=== PATIENT | female | born 1960 | race African-American/Black ===

== ENCOUNTER → 2016-09-28 | Outpatient (CLI) | payer OTHER ==
[~2016-09-28] MED LIST: ACET-1311 PO; ALBUAER2 INH; DPPI400 IM; GLC5 PO; METF-384 PO; TRAM-10 PO; VNTHFA/IN INH
[2016-09-28 09:35] LABS: BASO % 0.3 %; BASO ABS # 0.02 K/uL (0-0.2); COMPLETE YES; EOS % 2.7 %; HEMATOCRIT 37.3 % (37-47); IG% 0.3 %; LYMPH % 41.2 %; LYMPH ABS # 3.15 K/uL (1.2-3.4); MEAN CELL VOLUME 85.7 fL (80-100); MEAN CORPUSCULAR HEMOGLOBIN 28.5 pg (25-34); MEAN CORPUSCULAR HGB CONC 33.2 g/dl (32-36); MEAN PLATELET VOLUME 10.4 fL (7.4-10.4); MONO % 4.8 %; NEUT % 50.7 %; PLATELET COUNT 239 K/uL (130-400); RED BLOOD COUNT 4.35 M/uL (4.2-5.4); WHITE BLOOD COUNT 7.64 K/uL (4.8-10.8)
[2016-09-28 09:47] LABS: ALT/SGPT 17 U/L (12-78); BLOOD UREA NITROGEN 12 mg/dl (7-18); BUN/CREATININE RATIO 15.3 (10-20); CALCIUM 9.2 mg/dl (8.5-10.1); CARBON DIOXIDE 25 mmol/L (21-32); CHLORIDE 107 mmol/L (98-107); CHOLESTEROL 163 mg/dl (0-200); CREATININE 0.81 mg/dl (0.60-1.20); GLUCOSE 187 mg/dl (70-99); SODIUM 142 mmol/L (136-145); TRIGLYCERIDES 81 mg/dl (0-150); VERY LOW DENSITY LIPOPROT CALC 16 mg/dl
[2016-09-28 09:57] LABS: ALB/GLOB RATIO 0.8 (0.9-2); ALKALINE PHOSPHATASE 97 U/L (45-117); AST/SGOT 11 U/L (15-37); CHOLESTEROL/HDL RATIO 2.9; HDL CHOLESTEROL 57 mg/dl; LDL CHOLESTEROL CALCULATED 90 mg/dl
[2016-09-28 10:09] LABS: ESTIMATED AVERAGE GLUCOSE 203 mg/dl; HA1C FLAG Normal (Normal)
[2016-09-28 10:16] LABS: RATIO 40.8 mcg/mg (0-30.0)
== END | disposition home or self-care (01) ==
LOC: C.LAB 07:09
PROVIDERS: ATTEND Internal Medicine
DX: E11.49 Type 2 diabetes mellitus with other diabetic neurological complication (principal); Z86.79 Personal history of other diseases of the circulatory system

== ENCOUNTER → 2016-12-13 | Outpatient (CLI) | payer OTHER ==
[2016-12-13 10:11] LABS: RATIO 54.8 mcg/mg (0-30.0)
== END | disposition home or self-care (01) ==
LOC: C.LAB 07:25
PROVIDERS: ATTEND Nurse Practitioner Family
DX: E11.29 Type 2 diabetes mellitus with other diabetic kidney complication (principal)

== ENCOUNTER 2016-12-24 17:54 | Inpatient (IN) | payer OTHER ==
[~2016-12-24] VITALS: Ht 162.6 cm; Wt 75.0 kg
[~2016-12-24 17:54] MED LIST changes: -ACET-1311 PO; -METF-384 PO; -TRAM-10 PO; -VNTHFA/IN INH
[2016-12-24] MEDS ORDERED: SODIUM CHLORIDE 0.9% 1000ML 500 ML IV STA (18:54)
[2016-12-24] MEDS ORDERED: SODIUM CHLORIDE 0.9% 1000ML 1,000 ML IV STA (18:54)
[2016-12-24] MEDS ORDERED: KETOROLAC TROMETHAMINE 30 MG/ML VIAL IV STA (18:54)
[2016-12-24] MEDS ORDERED: PROMETHAZINE HCL INJ 25 MG/ML 1 ML VIAL IV STA (18:54)
[2016-12-24] MEDS ORDERED: PROMETHAZINE HCL INJ 12.5 MG in SODIUM CHLORIDE 0.9% 50ML 50 ML IV ONE (19:15)
[2016-12-24] MEDS ORDERED: VNTHFA/IN INH (19:19)
[2016-12-24] MEDS: FENTANYL CITRATE INJ 50 MCG/1 ML 2 ML VIAL IV PRN ×3 (19:20→21:24)
--- NOTE | 2016-12-24 19:20 | DIAGNOSTIC IMAGING REPORT ---
CHEST ONE VIEW PORTABLE CLINICAL HISTORY: Pain, radiating to the abdomen. COMPARISON STUDY: No previous studies for comparison. FINDINGS: The cardiac and mediastinal contours are normal. There is no evidence of focal pulmonary consolidation. There is no evidence of failure. No pleural effusions are visualized.[ There is no free intraperitoneal air. IMPRESSION: No active disease in the chest. Electronically signed by: Robert So M.D. 12/24/2016 7:19 PM Dictated Date/Time: 12/24/2016 7:19 PM
[2016-12-24 19:25] LABS: BASO % 0.1 %; BASO ABS # 0.01 K/uL (0-0.2); COMPLETE YES; EOS % 0.1 %; HEMATOCRIT 36.4 % (37-47); IG% 0.4 %; LYMPH % 5.2 %; LYMPH ABS # 0.86 K/uL (1.2-3.4); MEAN CELL VOLUME 82.7 fL (80-100); MEAN CORPUSCULAR HEMOGLOBIN 28.2 pg (25-34); MEAN CORPUSCULAR HGB CONC 34.1 g/dl (32-36); MEAN PLATELET VOLUME 10.3 fL (7.4-10.4); MONO % 3.2 %; PLATELET COUNT 192 K/uL (130-400); WHITE BLOOD COUNT 16.67 K/uL (4.8-10.8)
[2016-12-24] MEDS ORDERED: TRAM-10 PO (19:27)
--- NOTE | 2016-12-24 19:34 | EMERGENCY ROOM VISIT NOTE ---
History Report prepared by Yaneth: Melanie Meraz Under the Supervision of: Dr. Gulshan Melendez M.D. First contact with patient: 18:47 Chief Complaint: ABDOMINAL PAIN Stated Complaint: AB PAIN Nursing Triage Summary: Pt was brought in via ambulance BLS. Pts mother called 911 for severe abdominal pain. Pt has a history of colitis. Pt stated that at noon today she started to experience a lot of gas. Pt then stated that she started to have sharp, severe abdominal pain. Pt has nausea and has thrown up 3 times. Pt stated that nothing make the abdominal pain any better. Pt denies diarrhea or constipation History of Present Illness The patient is a 56 year old female who presents to the Emergency Room via EMS with complaints of worsening diffuse abdominal pain with onset several hours ago. She rates her pain as a 10/10. Today, the patient states that she started to have a great deal of gas after eating and that she then started to have sharp abdominal pain. The patient started to vomit this afternoon. Per patient, she has a history of colitis. Her last episode of abdominal pain due to colitis was in March 2016. She states that she has felt fine since then. For any colitis flare ups, the patient states that she takes Tramadol. The patient denies diarrhea, nausea, fever, coughing, a history of intestinal blockage. She has a history of cholecystomy. Source of History: patient Onset: several hours ago Position: abdomen Symptom Intensity: 10/10 Quality: other (abdominal pain) Timing: worsening Associated Symptoms: + vomiting, No cough, No diarrhea, No fevers, No nausea Review of Systems See HPI for pertinent positives & negatives. A total of 10 systems reviewed and were otherwise negative. Past Medical & Surgical Medical Problems: (1) abdominal pain, pancolitis (2) Asthma (3) Diabetes (4) Gallstones (5) Kidney stones Surgical Problems: (1) H/O tubal ligation (2) History of cholecystectomy Social History Problems: (1) Hepatitis C Family History Family History: diabetes Social History Smoking Status: Current Every Day Smoker Drug Use: none Marital Status: single Housing Status: lives with family Occupation Status: employed Current/Historical Medications Scheduled Glipizide (Glipizide), 5 MG PO BID Medroxyprogesterone Acetate (Depo-Provera), 1 DOSE IM Q 3 MONTHS Metformin Hcl (Glucophage), 1,000 MG PO BID Scheduled PRN Tramadol (Ultram), 50-100 MG PO Q8H PRN for Pain Allergies Coded Allergies: Ciprofloxacin (Verified Allergy, Mild, ITCHING, 04/30/16) Doxycycline (Verified Allergy, Unknown, ?, 04/30/16) Morphine (Verified Allergy, Unknown, HIVES, 04/30/16) Penicillins (Verified Allergy, Unknown, 04/30/16) Sulfa Antibiotics (Verified Allergy, Unknown, `, 04/30/16) Physical Exam Vital Signs Date Time Temp Pulse Resp B/P Pulse Ox O2 Delivery O2 Flow Rate FiO2 12/24/16 21:27 99 18 128/77 99 Room Air 12/24/16 20:32 99 Nasal Cannula 2.0 12/24/16 20:31 86 Room Air 12/24/16 20:30 98 18 172/107 92 Room Air 12/24/16 19:37 97 Nasal Cannula 2.0 12/24/16 19:36 80 Room Air 12/24/16 19:23 97 18 156/97 98 Room Air 12/24/16 18:05 36.8 94 20 182/79 97 Room Air Physical Exam GENERAL: Patient is in significant distress secondary to pain. HEENT: No acute trauma, normocephalic atraumatic, mucous membranes moist, no nasal congestion, no scleral icterus. NECK: No stridor, no adenopathy, no meningismus, trachea is midline. LUNGS: Clear to auscultation bilaterally, no wheeze, no rhonchi, breath sounds equal. HEART: Without murmurs gallops or rubs, regular rate and rhythm. ABDOMEN: Distended, tender on the right, no peritonitis, left abdomen is nontender, bowel sounds are positive, no obvious hernia. EXTREMITIES: No cyanosis or edema, full range of motion of all the joints without pain or difficulty, no signs for acute trauma. NEUROLOGIC: Oriented x 3, no acute motor or sensory deficits, no focal weakness. SKIN: No rash, no jaundice, no diaphoresis. Medical Decision & Procedures ER Provider Diagnostic Interpretation: X ray results and stated below per my interpretation and radiologist interpretation. Other radiology results and stated below per my review and radiologist interpretation: CHEST ONE VIEW PORTABLE CLINICAL HISTORY: Pain, radiating to the abdomen. COMPARISON STUDY: No previous studies for comparison. FINDINGS: The cardiac and mediastinal contours are normal. There is no evidence of focal pulmonary consolidation. There is no evidence of failure. No pleural effusions are visualized.[ There is no free intraperitoneal air. IMPRESSION: No active disease in the chest. Electronically signed by: Robert So M.D. 12/24/2016 7:19 PM Dictated Date/Time: 12/24/2016 7:[address] ABD/PELVIS IV CONTRAST ONLY CLINICAL HISTORY: Abdominal pain. Possible bowel obstruction. COMPARISON STUDY: 7916 TECHNIQUE: Following the IV administration of 115 mL of Optiray-320, CT scan of the abdomen and pelvis was performed from the lung bases to the proximal femurs. Images are reviewed in the axial, sagittal, and coronal planes. IV contrast was administered without complication. CT DOSE: 324.72 mGy.cm FINDINGS: Lower chest: There is mild bibasilar atelectatic change. There is a stable 6 mm perifissural left lower lobe pulmonary nodule. Liver: There is persistent intrahepatic biliary ductal dilatation. No space-occupying hepatic masses are visualized. Gallbladder: Surgically absent. Spleen: Normal in size and attenuation. Pancreas: Unremarkable. Adrenal glands: Unremarkable. Kidneys: There is symmetric renal cortical enhancement. The kidneys are normal in size without hydronephrosis. Bowel: There are no transition zones indicate bowel obstruction. There is no evidence of acute appendicitis. There is a stable calcified mesenteric nodule adjacent to the ileocecal valve measuring 13 mm. There is mild left colonic wall thickening versus nondistended colon Peritoneum: There is no intraperitoneal free air or abdominal ascites. There is a fat-containing periumbilical ventral hernia similar to the prior study. Vasculature: The abdominal aorta is normal in course and caliber. Adenopathy: None. Pelvic viscera: The bladder, and pelvic viscera are unremarkable. Skeletal structures: No destructive osseous lesions are seen. There is L5-S1 disc protrusion. IMPRESSION: 1. No evidence of bowel obstruction. No evidence of free air 2. Persistent intrahepatic biliary ductal dilatation. 3. Surgically absent gallbladder 4. Normal appendix 5. Stable nonspecific calcified mesenteric nodule near the level of the ileocecal valve 6. Mild colonic wall thickening versus nondistended colon Electronically signed by: Robert So M.D. 12/24/2016 8:36 PM Dictated Date/Time: 12/24/2016 8:28 PM Laboratory Results 12/24/16 19:10 Red Blood Count 4.40, Mean Corpuscular Volume 82.7, Mean Corpuscular Hemoglobin 28.2, Mean Corpuscular Hemoglobin Concent 34.1, Mean Platelet Volume 10.3, Neutrophils (%) (Auto) 91.0, Lymphocytes (%) (Auto) 5.2, Monocytes (%) (Auto) 3.2, Eosinophils (%) (Auto) 0.1, Basophils (%) (Auto) 0.1, Neutrophils # (Auto) 15.19, Lymphocytes # (Auto) 0.86, Monocytes # (Auto) 0.54, Eosinophils # (Auto) 0.01, Basophils # (Auto) 0.01 12/24/16 19:10 Test 12/24/16 19:10 12/24/16 20:33 White Blood Count 16.67 K/uL (4.8-10.8) Red Blood Count 4.40 M/uL (4.2-5.4) Hemoglobin 12.4 g/dL (12.0-16.0) Hematocrit 36.4 % (37-47) Mean Corpuscular Volume 82.7 fL (80-100) Mean Corpuscular Hemoglobin 28.2 pg (25-34) Mean Corpuscular Hemoglobin Concent 34.1 g/dl (32-36) Platelet Count 192 K/uL (130-400) Mean Platelet Volume 10.3 fL (7.4-10.4) Neutrophils (%) (Auto) 91.0 % Lymphocytes (%) (Auto) 5.2 % Monocytes (%) (Auto) 3.2 % Eosinophils (%) (Auto) 0.1 % Basophils (%) (Auto) 0.1 % Neutrophils # (Auto) 15.19 K/uL (1.4-6.5) Lymphocytes # (Auto) 0.86 K/uL (1.2-3.4) Monocytes # (Auto) 0.54 K/uL (0.11-0.59) Eosinophils # (Auto) 0.01 K/uL (0-0.5) Basophils # (Auto) 0.01 K/uL (0-0.2) RDW Standard Deviation 42.6 fL (36.4-46.3) RDW Coefficient of Variation 14.1 % (11.5-14.5) Immature Granulocyte % (Auto) 0.4 % Immature Granulocyte # (Auto) 0.06 K/uL (0.00-0.02) Anion Gap 9.0 mmol/L (3-11) Est Creatinine Clear Calc Drug Dose 64.3 ml/min Estimated GFR () 75.3 Estimated GFR (Non- 64.9 BUN/Creatinine Ratio 10.6 (10-20) Calcium Level 9.5 mg/dl (8.5-10.1) Total Bilirubin 2.3 mg/dl (0.2-1) Aspartate Amino Transf (AST/SGOT) 400 U/L (15-37) Alanine Aminotransferase (ALT/SGPT) 238 U/L (12-78) Alkaline Phosphatase 280 U/L (45-117) Total Protein 8.0 gm/dl (6.4-8.2) Albumin 3.6 gm/dl (3.4-5.0) Globulin 4.4 gm/dl (2.5-4.0) Albumin/Globulin Ratio 0.8 (0.9-2) Lipase 146 U/L (73-393) Chemistry Specimen Hemolysis Urine Color DK YELLOW Urine Appearance CLEAR (CLEAR) Urine pH 7.5 (4.5-7.5) Urine Specific [place] 1.015 (1.000-1.030) Urine Protein NEG (NEG) Urine Glucose (UA) 2+ (NEG) Urine Ketones 2+ (NEG) Urine Occult Blood NEG (NEG) Urine Nitrite NEG (NEG) Urine Bilirubin NEG (NEG) Urine Urobilinogen NEG (NEG) Urine Leukocyte Esterase NEG (NEG) Laboratory results reviewed by me. Medications Administered Medications (Trade) Dose Ordered Sig/Frank Route Start Time Stop Time Status Last Admin Dose Admin Sodium Chloride 500 ml @ 999 mls/hr Q31M STAT IV 12/24/16 18:54 12/24/16 19:24 DC 12/24/16 19:23 999 MLS/HR Sodium Chloride (Nss 1000ml) 1,000 ml @ 200 mls/hr Q5H STAT IV 12/24/16 18:54 12/24/16 23:53 DC 12/24/16 20:27 200 MLS/HR Ketorolac Tromethamine (Toradol Inj) 30 mg NOW STAT IV 12/24/16 18:54 12/24/16 18:58 DC 12/24/16 19:19 30 MG Fentanyl Citrate (Fentanyl Inj) 100 mcg Q15M PRN IV 12/24/16 19:00 12/25/16 00:42 DC 12/24/16 21:24 100 MCG ED Course 1849: The patient was evaluated in room C12. A complete history and physical exam was performed. 1853: Toradol 30 mg IV, Sodium Chloride 1000 ml @ 200 mls/hr IV, Sodium Chloride 500 ml @ 999 mls/hr IV 1899: Fentanyl Citrate 100 mcg IV 1914: Promethazine HCl 12.5 mg/ Sodium Chloride 50.5 ml @ 202 mls/ hr IV 2106: I reevaluated the patient; she is more comfortable. I discussed results and treatment plan with the patient. She verbalizes agreement and understanding. The patient will be evaluated for further management. 2114: I discussed the case with Dr. Kruger ([facility]) ; he will further evaluate the patient. Medical Decision The patient is a 56 year old female who presents to the ED with complaints of abdominal pain. Differential diagnoses considered include: bowel obstruction, bowel perforation, biliary colic, pancreatitis, diverticulitis, appendicitis, hernia, renal colic. There is a moderate leukocytosis which could be consistent with infection. No concerning anemia. No significant electrolyte abnormality or kidney failure. There was liver enzyme elevation consistent with a hepatitis. No pancreatitis. Urinalysis does not show infection. There was no hematuria. Chest x-ray showed no free air or pneumonia. Abdominal and pelvis CT did not show any bowel obstruction or acute surgical process. Biliary dilatation was noted. There was no free air. The patient received IV saline, IV Toradol, IV Phenergan and IV fentanyl. She does feel improved. The cause for her presentation is unclear, I am concerned about a biliary obstruction although given the liver enzyme findings and the leukocytosis. Her pain is in the right upper quadrant and the right side of the abdomen. The patient is in need of further care and workup, she is not stable for discharge home. I spoke with the patient and with case management. The on- call hospitalist was consulted. Consults Time Called: 2109 Consulting Physician: Dr. Kruger ([facility]) Returned Call: 2114 I discussed the case with Dr. Kruger ([facility]); he will further evaluate the patient. Impression Primary Impression: Right sided abdominal pain Additional Impressions: Vomiting Liver enzyme elevation Scribe Attestation The scribe's documentation has been prepared under my direction and personally reviewed by me in its entirety. I confirm that the note above accurately reflects all work, treatment, procedures, and medical decision making performed by me. Departure Information Dispostion Being Evaluated By Hospitalist Referrals Chon Paris M.D. (PCP) Patient Instructions [facility] Problem Qualifiers
[2016-12-24 19:51] LABS: ALB/GLOB RATIO 0.8 (0.9-2); BUN/CREATININE RATIO 10.6 (10-20); CALCIUM 9.5 mg/dl (8.5-10.1); CREATININE 0.98 mg/dl (0.60-1.20); POTASSIUM 3.6 mmol/L (3.5-5.1)
[2016-12-24] MEDS ORDERED: OPTIRAY 320 IV PRN (20:30)
--- NOTE | 2016-12-24 20:38 | DIAGNOSTIC IMAGING REPORT ---
CT ABD/PELVIS IV CONTRAST ONLY CLINICAL HISTORY: Abdominal pain. Possible bowel obstruction. COMPARISON STUDY: 7916 TECHNIQUE: Following the IV administration of 115 mL of Optiray-320, CT scan of the abdomen and pelvis was performed from the lung bases to the proximal femurs. Images are reviewed in the axial, sagittal, and coronal planes. IV contrast was administered without complication. CT DOSE: 324.72 mGy.cm FINDINGS: Lower chest: There is mild bibasilar atelectatic change. There is a stable 6 mm perifissural left lower lobe pulmonary nodule. Liver: There is persistent intrahepatic biliary ductal dilatation. No space-occupying hepatic masses are visualized. Gallbladder: Surgically absent. Spleen: Normal in size and attenuation. Pancreas: Unremarkable. Adrenal glands: Unremarkable. Kidneys: There is symmetric renal cortical enhancement. The kidneys are normal in size without hydronephrosis. Bowel: There are no transition zones indicate bowel obstruction. There is no evidence of acute appendicitis. There is a stable calcified mesenteric nodule adjacent to the ileocecal valve measuring 13 mm. There is mild left colonic wall thickening versus nondistended colon Peritoneum: There is no intraperitoneal free air or abdominal ascites. There is a fat-containing periumbilical ventral hernia similar to the prior study. Vasculature: The abdominal aorta is normal in course and caliber. Adenopathy: None. Pelvic viscera: The bladder, and pelvic viscera are unremarkable. Skeletal structures: No destructive osseous lesions are seen. There is L5-S1 disc protrusion. IMPRESSION: 1. No evidence of bowel obstruction. No evidence of free air 2. Persistent intrahepatic biliary ductal dilatation. 3. Surgically absent gallbladder 4. Normal appendix 5. Stable nonspecific calcified mesenteric nodule near the level of the ileocecal valve 6. Mild colonic wall thickening versus nondistended colon Electronically signed by: Robert So M.D. 12/24/2016 8:36 PM Dictated Date/Time: 12/24/2016 8:28 PM
[2016-12-24 21:00] LABS: URINE APPEARANCE CLEAR (CLEAR); URINE BILIRUBIN NEG (NEG); URINE COLOR DK YELLOW; URINE NITRITE NEG (NEG); URINE PH 7.5 (4.5-7.5); URINE SPECIFIC GRAVITY 1.015 (1.000-1.030); UROBILINOGEN NEG (NEG); ZZUR CULT IF INDIC CLEAN CATCH NO
[2016-12-24 21:15] LABS: MANUAL MICROSCOPIC REQUIRED? NO; REVIEW REQ? NO
[2016-12-24] MEDS ORDERED: HYDROmorphone INJ 0.5 MG/0.5 ML SYR IV PRN ×2 (21:45)
[2016-12-24] MEDS ORDERED: ONDANSETRON INJ 2 MG/ML 2 ML VIAL IV PRN (21:45)
[2016-12-24] MEDS ORDERED: GLUCOSE 40% GEL 15 GM TUBE PO PRN (21:45)
[2016-12-24] MEDS ORDERED: DEXTROSE 50% 50 ML SYR IV PRN (21:45)
[2016-12-24] MEDS ORDERED: DiphenhydrAMINE HCL 50 MG/ML VIAL IV PRN (21:45)
[2016-12-24] MEDS ORDERED: GLUCAGON FOR INJ 1 MG VIAL SQ PRN (21:45)
[2016-12-24] MEDS ORDERED: GLUCOSE 10 TABS/TUBE PO PRN (21:45)
[2016-12-24] MEDS ORDERED: KETOROLAC TROMETHAMINE 30 MG/ML VIAL IV PRN (21:45)
[2016-12-24 22:00] VITALS: BP 128/77; TEMP 36.8; O2SAT 99; Ht 162.6 cm; Wt 75.0 kg
[2016-12-24 22:23] LABS: BENZODIAZEPINE, URINE NEG (NEG); COCAINE,URINE NEG (NEG); PHENCYCLIDINE, URINE NEG (NEG)
[2016-12-24 22:54] VITALS: O2SAT 99
[2016-12-24] MEDS ORDERED: METF-384 PO (23:09)
--- NOTE | 2016-12-24 23:47 | History and Physical ---
History & Physical Date & Time of Service: Dec 24, 2016 at 23:47 Chief Complaint: Ab Pain Primary Care Physician: Chon Paris M.D. History of Present Illness Source: patient The patient is a 56-year-old female who presents to the emergency department via EMS with complaint of worsening generalized abdominal pain that began several hours prior to arrival. She reports that she developed a lot of gas after eating, then developed sharp abdominal pain, and then developed vomiting this afternoon. She does have a history of colitis with her last flare in March 2016. She's had no recent travel, no sick exposures. Past Medical/Surgical History Medical Problems: (1) Asthma Status: Chronic (2) Diabetes Status: Chronic (3) Gallstones Status: Chronic (4) Kidney stones Status: Chronic Surgical Problems: (1) H/O tubal ligation Status: Resolved (2) History of cholecystectomy Status: Resolved Social History Problems: (1) Hepatitis C Status: Chronic Family History Family History: diabetes Social History Smoking Status: Current Every Day Smoker Smokeless Tobacco Use: No Alcohol Use: none Drug Use: none Marital Status: single Housing status: lives with family Occupational Status: employed Immunizations History of Influenza Vaccine: No History of Tetanus Vaccine?: Yes History of Pneumococcal: No History of Hepatitis B Vaccine: Unknown Multi-Drug Resistant Organisms History of MDRO: No Allergies Coded Allergies: Ciprofloxacin (Verified Allergy, Mild, ITCHING, 04/30/16) Doxycycline (Verified Allergy, Unknown, ?, 04/30/16) Morphine (Verified Allergy, Unknown, HIVES, 04/30/16) Penicillins (Verified Allergy, Unknown, 04/30/16) Sulfa Antibiotics (Verified Allergy, Unknown, `, 04/30/16) Home Medications Scheduled Glipizide (Glipizide), 5 MG PO BID Medroxyprogesterone Acetate (Depo-Provera), 1 DOSE IM Q 3 MONTHS Metformin Hcl (Glucophage), 1,000 MG PO BID Scheduled PRN Tramadol (Ultram), 50-100 MG PO Q8H PRN for Pain Review of Systems The patient denies chest pain, palpitations, shortness of breath, cough, lower extremity swelling, vision change, hearing change, sore throat, fevers, chills, sweats, weight change, pelvic pain, blood in urine or stool, dysuria, urinary frequency or urgency, lightheadedness, dizziness, headache, memory loss, rash, abnormal bruising or bleeding, imbalance, focal or generalized weakness, numbness or tingling in arms or legs, arthralgias or myalgias, back or neck pain , night sweats, or allergy symptoms. The review of systems is otherwise negative other than for that already noted above, and at least 10 systems have been reviewed. Physical Exam Vital Signs Date Time Temp Pulse Resp B/P Pulse Ox O2 Delivery O2 Flow Rate FiO2 12/24/16 22:54 95 18 145/84 99 12/24/16 22:00 36.8 18 128/77 99 Room Air 12/24/16 21:27 99 18 128/77 99 Room Air 12/24/16 20:32 99 Nasal Cannula 2.0 12/24/16 20:31 86 Room Air 12/24/16 20:30 98 18 172/107 92 Room Air 12/24/16 19:37 97 Nasal Cannula 2.0 12/24/16 19:36 80 Room Air 12/24/16 19:23 97 18 156/97 98 Room Air 12/24/16 18:05 36.8 94 20 182/79 97 Room Air The patient is awake, well-developed and adequately nourished, alert and oriented 3, normocephalic and atraumatic, lying in bed and in no acute distress. HEENT--PERRL, EOMI, mucous membranes and oropharynx dry. Neck--supple, no JVD or bruits, thyroid normal, trachea midline, no adenopathy. Heart--normal S1 and S2, no extra beats, no murmurs, rubs or gallops. Lungs--clear bilaterally with good air movement, no respiratory distress, no accessory muscle use. Abdomen--normal bowel sounds and soft, vague generalized tenderness, nondistended, no hernias or masses, no organomegaly. Extremities--no cyanosis, clubbing or edema. There are good distal pulses b/l. Dermatologic--normal skin turgor, normal color, warm and dry, no abnormal lymph nodes, no rash. Neurologic--cranial nerves II through XII grossly intact, motor and sensory examination normal. Rheumatologic--normal range of motion, nontender, muscles and joints. Psychiatric--normal affect. Diagnostics Laboratory Results Results Past 24 Hours Test 12/24/16 19:10 12/24/16 20:33 12/24/16 21:40 12/24/16 22:32 Range/Units White Blood Count 16.67 4.8-10.8 K/uL Red Blood Count 4.40 4.2-5.4 M/uL Hemoglobin 12.4 12.0-16.0 g/dL Hematocrit 36.4 37-47 % Mean Corpuscular Volume 82.7 80-100 fL Mean Corpuscular Hemoglobin 28.2 25-34 pg Mean Corpuscular Hemoglobin Concent 34.1 32-36 g/dl Platelet Count 192 130-400 K/uL Mean Platelet Volume 10.3 7.4-10.4 fL Neutrophils (%) (Auto) 91.0 % Lymphocytes (%) (Auto) 5.2 % Monocytes (%) (Auto) 3.2 % Eosinophils (%) (Auto) 0.1 % Basophils (%) (Auto) 0.1 % Neutrophils # (Auto) 15.19 1.4-6.5 K/uL Lymphocytes # (Auto) 0.86 1.2-3.4 K/uL Monocytes # (Auto) 0.54 0.11-0.59 K/uL Eosinophils # (Auto) 0.01 0-0.5 K/uL Basophils # (Auto) 0.01 0-0.2 K/uL RDW Standard Deviation 42.6 36.4-46.3 fL RDW Coefficient of Variation 14.1 11.5-14.5 % Immature Granulocyte % (Auto) 0.4 % Immature Granulocyte # (Auto) 0.06 0.00-0.02 K/uL Sodium Level 140 136-145 mmol/L Potassium Level 3.6 3.5-5.1 mmol/L Chloride Level 104 98-107 mmol/L Carbon Dioxide Level 27 21-32 mmol/L Anion Gap 9.0 3-11 mmol/L Blood Urea Nitrogen 10 7-18 mg/dl Creatinine 0.98 0.60-1.20 mg/dl Est Creatinine Clear Calc Drug Dose 64.3 ml/min Estimated GFR () 75.3 Estimated GFR (Non- 64.9 BUN/Creatinine Ratio 10.6 10-20 Random Glucose 219 70-99 mg/dl Calcium Level 9.5 8.5-10.1 mg/dl Total Bilirubin 2.3 0.2-1 mg/dl Aspartate Amino Transf (AST/SGOT) 400 15-37 U/L Alanine Aminotransferase (ALT/SGPT) 238 12-78 U/L Alkaline Phosphatase 280 45-117 U/L Total Protein 8.0 6.4-8.2 gm/dl Albumin 3.6 3.4-5.0 gm/dl Globulin 4.4 2.5-4.0 gm/dl Albumin/Globulin Ratio 0.8 0.9-2 Lipase 146 73-393 U/L Chemistry Specimen Hemolysis Urine Color DK YELLOW Urine Appearance CLEAR CLEAR Urine pH 7.5 4.5-7.5 Urine Specific [place] 1.015 1.000-1.030 Urine Protein NEG NEG Urine Glucose (UA) 2+ NEG Urine Ketones 2+ NEG Urine Occult Blood NEG NEG Urine Nitrite NEG NEG Urine Bilirubin NEG NEG Urine Urobilinogen NEG NEG Urine Leukocyte Esterase NEG NEG Urine Opiates Screen NEG NEG Urine Methadone, Qualitative NEG NEG Urine Barbiturates NEG NEG Urine Phencyclidine (PCP) Level NEG NEG Ur Amphetamine/Methamphetamine NEG NEG MDMA (Ecstasy) Screen NEG NEG Urine Benzodiazepines Screen NEG NEG Urine Cocaine Metabolite NEG NEG Urine Marijuana (THC) NEG NEG Ethyl Alcohol mg/dL < 3.0 0-3 mg/dl Diagnostic Radiology Patient Name: SAVANNAH WRIGHT Unit Number: [id number] Dictated: 12/24/161918 Transcribed: 12/24/161918 ARG Printed Date/Time: [~ rep prt dt]/[~ rep prt tm] [~ rep ct labl] - [~ rep ct ivnm] [facility] Radiology Department [place] [id number] Dictated: 12/24/161918 Transcribed: 12/24/161918 ARG Printed Date/Time: [~ rep prt dt]/[~ rep prt tm] [~ rep ct labl] - [~ rep ct ivnm] CHEST ONE VIEW PORTABLE CLINICAL HISTORY: Pain, radiating to the abdomen. COMPARISON STUDY: No previous studies for comparison. FINDINGS: The cardiac and mediastinal contours are normal. There is no evidence of focal pulmonary consolidation. There is no evidence of failure. No pleural effusions are visualized.[ There is no free intraperitoneal air. IMPRESSION: No active disease in the chest. Electronically signed by: Robert So M.D. 12/24/2016 7:19 PM Dictated Date/Time: 12/24/2016 7:19 PM The status of this report is Signed. Draft = Not yet reviewed or approved by Radiologist. Signed = Reviewed and approved by Radiologist. <AttendingPhy></AttendingPhy> <FamilyPhy>Chon Paris M.D.</FamilyPhy> < PrimaryPhy>Chon Paris M.D.</PrimaryPhy> <UnitNumber>[id number]</UnitNumber > <VisitNumber>[id number]</VisitNumber> <PatientName>SAVANNAH WRIGHT</ PatientName> <DateOfBirth>1960</DateOfBirth> <Location>[facility]</Location> < ServiceDate>12/24/16</ServiceDate> <MNE>ESINDI</MNE> <OrderingPhy>Gulshan Melendez M.D.</OrderingPhy> <OrderingPhyMNE>f rep ord dr holland</OrderingPhyMNE> < DictatingPhyMNE>f rep dict dr holland</DictatingPhyMNE> <CCListMNE>f rep ct mne</ CCListMNE> <AdmittingPhyMNE>f pt admit dr holland</AdmittingPhyMNE> <AttendingPhyMNE >f pt attend dr holland</AttendingPhyMNE> <ConsultingPhyMNE>f pt consult dr holland</ConsultingPhyMNE> <FamilyPhyMNE>f pt fam dr holland</FamilyPhyMNE> <OtherPhyMNE>f pt other dr holland</OtherPhyMNE> < PrimaryPhyMNE>f pt prim care dr holland</PrimaryPhyMNE> <ReferringPhyMNE>f pt referring dr holland</ReferringPhyMNE> Patient Name: SAVANNAH WRIGHT Unit Number: [id number] Dictated: 12/24/162027 Transcribed: 12/24/162027 ARG Printed Date/Time: [~ rep prt dt]/[~ rep prt tm] [~ rep ct labl] - [~ rep ct ivnm] [facility] [place] [place] [address] Dictated: 12/24/162027 Transcribed: 12/24/162027 ARG Printed Date/Time: [~ rep prt dt]/[~ rep prt tm] [~ rep ct labl] - [~ rep ct ivnm] [~ rep ct add3]] CT ABD/PELVIS IV CONTRAST ONLY CLINICAL HISTORY: Abdominal pain. Possible bowel obstruction. COMPARISON STUDY: 7916 TECHNIQUE: Following the IV administration of 115 mL of Optiray-320, CT scan of the abdomen and pelvis was performed from the lung bases to the proximal femurs. Images are reviewed in the axial, sagittal, and coronal planes. IV contrast was administered without complication. CT DOSE: 324.72 mGy.cm FINDINGS: Lower chest: There is mild bibasilar atelectatic change. There is a stable 6 mm perifissural left lower lobe pulmonary nodule. Liver: There is persistent intrahepatic biliary ductal dilatation. No space-occupying hepatic masses are visualized. Gallbladder: Surgically absent. Spleen: Normal in size and attenuation. Pancreas: Unremarkable. Adrenal glands: Unremarkable. Kidneys: There is symmetric renal cortical enhancement. The kidneys are normal in size without hydronephrosis. Bowel: There are no transition zones indicate bowel obstruction. There is no evidence of acute appendicitis. There is a stable calcified mesenteric nodule adjacent to the ileocecal valve measuring 13 mm. There is mild left colonic wall thickening versus nondistended colon Peritoneum: There is no intraperitoneal free air or abdominal ascites. There is a fat-containing periumbilical ventral hernia similar to the prior study. Vasculature: The abdominal aorta is normal in course and caliber. Adenopathy: None. Pelvic viscera: The bladder, and pelvic viscera are unremarkable. Skeletal structures: No destructive osseous lesions are seen. There is L5-S1 disc protrusion. IMPRESSION: 1. No evidence of bowel obstruction. No evidence of free air 2. Persistent intrahepatic biliary ductal dilatation. 3. Surgically absent gallbladder 4. Normal appendix 5. Stable nonspecific calcified mesenteric nodule near the level of the ileocecal valve 6. Mild colonic wall thickening versus nondistended colon Electronically signed by: Robert So M.D. 12/24/2016 8:36 PM Dictated Date/Time: 12/24/2016 8:28 PM The status of this report is Signed. Draft = Not yet reviewed or approved by Radiologist. Signed = Reviewed and approved by Radiologist. <AttendingPhy></AttendingPhy> <FamilyPhy>Chon Paris M.D.</FamilyPhy> < PrimaryPhy>Chon Paris M.D.</PrimaryPhy> <UnitNumber>[id number]</UnitNumber > <VisitNumber>[id number]</VisitNumber> <PatientName>SAVANNAH WRIGHT</ PatientName> <DateOfBirth>1960</DateOfBirth> <Location>[facility]</Location> < ServiceDate>12/24/16</ServiceDate> <MNE>ESINDI</MNE> <OrderingPhy>Gulshan Melendez M.D.</OrderingPhy> <OrderingPhyMNE>f rep ord dr holland</OrderingPhyMNE> < DictatingPhyMNE>f rep dict dr holland</DictatingPhyMNE> <CCListMNE>f rep ct am[place]</ CCListMNE> <AdmittingPhyMNE>f pt admit dr holland</AdmittingPhyMNE> <AttendingPhyMNE >f pt attend dr holland</AttendingPhyMNE> <ConsultingPhyMNE>f pt consult dr hollnad</ConsultingPhyMNE> <FamilyPhyMNE>f pt fam dr holland</FamilyPhyMNE> <OtherPhyMNE>f pt other dr holland</OtherPhyMNE> < PrimaryPhyMNE>f pt prim care dr holland</PrimaryPhyMNE> <ReferringPhyMNE>f pt referring dr holland</ReferringPhyMNE> Impression Assessment and Plan Abnormal liver function tests/history of cholecystectomy/dilated common bowel duct--the patient will be admitted to medical floor and kept nothing by mouth. I went to order an MRCP however, she says she is too claustrophobic. We'll therefore consult gastroenterology see if they feel any ERCP. Placed on normal saline with potassium chloride 20 mEq at 100 ML's per hour. She is allergic to morphine, Cipro, penicillins and sulfas. She will be placed on Dilaudid 0.25- 0.5 mg IV every 2 hours when necessary, Zofran 4 mg IV every 6 hours when necessary, and tonics 40 mg IV daily, and ceftriaxone 1 g IV daily. Of note, the patient received 300 g of fentanyl IV while in the emergency department. Diabetes mellitus--hold glipizide 5 mg by mouth twice a day and metformin 1000 mg by mouth twice a day. Place on Accu-Cheks before meals and at bedtime with NovoLog coverage. Medroxyprogesterone acetate--cc IM dosing every 3 months. Level of Care Med/Surg Advanced Directives Existing Advance Directive: No Existing Living Will: No Existing Power of Insurance Office Manager: No Resuscitation Status FULL RESUSCITATION VTE Prophylaxis VTE Risk Assessment Done? Y/N: Yes Risk Level: Moderate Given or contraindicated: SCD's
[2016-12-25] VITALS: BP 137/82; PULSE 94; TEMP 37.3; O2SAT 98
[2016-12-25] MEDS ORDERED: NSS + 20MEQ KCL 1000ML 1,000 ML IV SCH (01:00)
[2016-12-25] MEDS ORDERED: NURSING VERBAL MED ORDER ONE (04:45)
[2016-12-25] MEDS ORDERED: INSULIN ASPART 100 UNITS/ML 3 ML PEN SC SCH ×2 (06:00→06:30)
[2016-12-25 07:33] LABS: BASO % 0.1 %; BASO ABS # 0.01 K/uL (0-0.2); COMPLETE YES; EOS % 0.1 %; HEMATOCRIT 30.7 % (37-47); IG% 0.2 %; LYMPH % 9.3 %; LYMPH ABS # 1.52 K/uL (1.2-3.4); MEAN CORPUSCULAR HGB CONC 34.5 g/dl (32-36); MEAN PLATELET VOLUME 8.8 fL (7.4-10.4); MONO % 3.8 %; NEUT % 86.5 %; PLATELET COUNT 158 K/uL (130-400); RED BLOOD COUNT 3.79 M/uL (4.2-5.4); WHITE BLOOD COUNT 16.41 K/uL (4.8-10.8)
[2016-12-25 07:43] LABS: INR 1.1 (0.9-1.1); PARTIAL THROMBOPLASTIN RATIO 0.9; PROTHROMBIN TIME (PATIENT) 11.7 SECONDS (9.0-12.0)
[2016-12-25 08:01] LABS: BUN/CREATININE RATIO 14.4 (10-20); CALCIUM 8.3 mg/dl (8.5-10.1); CREATININE 0.89 mg/dl (0.60-1.20); MAGNESIUM 1.9 mg/dl (1.8-2.4); POTASSIUM 3.8 mmol/L (3.5-5.1)
[2016-12-25] MEDS ORDERED: IMIPENEM/CILASTATIN IV 500 MG in DEXTROSE 5% 100ML 100 ML IV SCH (08:30)
[2016-12-25] MEDS ORDERED: IMIPENEM/CILASTATIN IV 400 MG in DEXTROSE 5% 100ML 100 ML IV SCH (09:00)
--- NOTE | 2016-12-25 09:39 | Hospitalist Progress Note ---
Hospitalist Progress Note Date of Service Dec 25, 2016. Subjective Pt evaluation today including: conversation w/ patient, physical exam, chart review Voiding: no voiding problems Respiratory: No cough, No dyspnea at rest, No dyspnea on exertion, No hemoptysis, No problem reported, No see HPI, No shortness of breath, No sputum, No wheezing Cardiovascular: No PND, No chest pain, No claudication, No edema, No orthopnea, No palpitations, No problem reported, No see HPI Abdomen: + pain (improved abd pain) Medications Medications (Trade) Dose Ordered Sig/Frank Route Start Time Stop Time Status Last Admin Dose Admin Sodium Chloride 500 ml @ 999 mls/hr Q31M STAT IV 12/24/16 18:54 12/24/16 19:24 DC 12/24/16 19:23 999 MLS/HR Sodium Chloride (Nss 1000ml) 1,000 ml @ 200 mls/hr Q5H STAT IV 12/24/16 18:54 12/24/16 23:53 DC 12/24/16 20:27 200 MLS/HR Ketorolac Tromethamine (Toradol Inj) 30 mg NOW STAT IV 12/24/16 18:54 12/24/16 18:58 DC 12/24/16 19:19 30 MG Fentanyl Citrate 100 mcg 100 mcg Q15M PRN IV 12/24/16 19:00 12/25/16 00:42 DC 12/24/16 21:24 100 MCG Potassium Chloride/Sodium Chloride (Nss + 20meq KCl 1000ml) 1,000 ml @ 100 mls/hr Q10H IV 12/25/16 01:00 01/24/17 00:59 12/25/16 01:28 100 MLS/HR Insulin Aspart (novoLOG ASPART) SLIDING SCALE If C... Q6 SC 12/25/16 06:00 01/24/17 05:59 12/25/16 05:51 4 UNITS Objective Vital Signs Date Time Temp Pulse Resp B/P Pulse Ox O2 Delivery O2 Flow Rate FiO2 12/25/16 08:33 Room Air 12/25/16 00:00 37.3 94 16 137/82 98 Room Air 12/25/16 00:00 Room Air 12/24/16 22:54 95 18 145/84 99 12/24/16 22:00 36.8 18 128/77 99 Room Air 12/24/16 21:27 99 18 128/77 99 Room Air 12/24/16 20:32 99 Nasal Cannula 2.0 12/24/16 20:31 86 Room Air 12/24/16 20:30 98 18 172/107 92 Room Air 12/24/16 19:37 97 Nasal Cannula 2.0 12/24/16 19:36 80 Room Air 12/24/16 19:23 97 18 156/97 98 Room Air 12/24/16 18:05 36.8 94 20 182/79 97 Room Air Physical Exam General Appearance: WD/WN, no apparent distress Eyes: normal inspection, PERRL, EOMI ENT: normal ENT inspection, hearing grossly normal, TMs normal Neck: supple, no adenopathy, thyroid normal, no JVD Respiratory/Chest: chest non-tender, lungs clear, normal breath sounds Cardiovascular: regular rate, rhythm, no edema, no gallop, no JVD Abdomen: normal bowel sounds, non tender, soft Extremities: normal range of motion Neurologic/Psychiatric: piano professor II-XII nml as tested, oriented x 3 Skin: normal color Lymphatic: no adenopathy Laboratory Results Last 24 Hours Test 12/24/16 19:10 12/24/16 20:33 12/24/16 21:40 12/24/16 22:32 White Blood Count 16.67 K/uL Red Blood Count 4.40 M/uL Hemoglobin 12.4 g/dL Hematocrit 36.4 % Mean Corpuscular Volume 82.7 fL Mean Corpuscular Hemoglobin 28.2 pg Mean Corpuscular Hemoglobin Concent 34.1 g/dl Platelet Count 192 K/uL Mean Platelet Volume 10.3 fL Neutrophils (%) (Auto) 91.0 % Lymphocytes (%) (Auto) 5.2 % Monocytes (%) (Auto) 3.2 % Eosinophils (%) (Auto) 0.1 % Basophils (%) (Auto) 0.1 % Neutrophils # (Auto) 15.19 K/uL Lymphocytes # (Auto) 0.86 K/uL Monocytes # (Auto) 0.54 K/uL Eosinophils # (Auto) 0.01 K/uL Basophils # (Auto) 0.01 K/uL RDW Standard Deviation 42.6 fL RDW Coefficient of Variation 14.1 % Immature Granulocyte % (Auto) 0.4 % Immature Granulocyte # (Auto) 0.06 K/uL Sodium Level 140 mmol/L Potassium Level 3.6 mmol/L Chloride Level 104 mmol/L Carbon Dioxide Level 27 mmol/L Anion Gap 9.0 mmol/L Blood Urea Nitrogen 10 mg/dl Creatinine 0.98 mg/dl Est Creatinine Clear Calc Drug Dose 64.3 ml/min Estimated GFR () 75.3 Estimated GFR (Non- 64.9 BUN/Creatinine Ratio 10.6 Random Glucose 219 mg/dl Calcium Level 9.5 mg/dl Total Bilirubin 2.3 mg/dl Aspartate Amino Transf (AST/SGOT) 400 U/L Alanine Aminotransferase (ALT/SGPT) 238 U/L Alkaline Phosphatase 280 U/L Total Protein 8.0 gm/dl Albumin 3.6 gm/dl Globulin 4.4 gm/dl Albumin/Globulin Ratio 0.8 Lipase 146 U/L Chemistry Specimen Hemolysis Urine Color DK YELLOW Urine Appearance CLEAR Urine pH 7.5 Urine Specific [place] 1.015 Urine Protein NEG Urine Glucose (UA) 2+ Urine Ketones 2+ Urine Occult Blood NEG Urine Nitrite NEG Urine Bilirubin NEG Urine Urobilinogen NEG Urine Leukocyte Esterase NEG Urine Opiates Screen NEG Urine Methadone, Qualitative NEG Urine Barbiturates NEG Urine Phencyclidine (PCP) Level NEG Ur Amphetamine/Methamphetamine NEG MDMA (Ecstasy) Screen NEG Urine Benzodiazepines Screen NEG Urine Cocaine Metabolite NEG Urine Marijuana (THC) NEG Ethyl Alcohol mg/dL < 3.0 mg/dl Test 12/25/16 05:47 12/25/16 07:25 Bedside Glucose 245 mg/dl White Blood Count 16.41 K/uL Red Blood Count 3.79 M/uL Hemoglobin 10.6 g/dL Hematocrit 30.7 % Mean Corpuscular Volume 81.0 fL Mean Corpuscular Hemoglobin 28.0 pg Mean Corpuscular Hemoglobin Concent 34.5 g/dl Platelet Count 158 K/uL Mean Platelet Volume 8.8 fL Neutrophils (%) (Auto) 86.5 % Lymphocytes (%) (Auto) 9.3 % Monocytes (%) (Auto) 3.8 % Eosinophils (%) (Auto) 0.1 % Basophils (%) (Auto) 0.1 % Neutrophils # (Auto) 14.22 K/uL Lymphocytes # (Auto) 1.52 K/uL Monocytes # (Auto) 0.62 K/uL Eosinophils # (Auto) 0.01 K/uL Basophils # (Auto) 0.01 K/uL RDW Standard Deviation 41.8 fL RDW Coefficient of Variation 14.0 % Immature Granulocyte % (Auto) 0.2 % Immature Granulocyte # (Auto) 0.03 K/uL Prothrombin Time 11.7 SECONDS Prothromb Time International Ratio 1.1 Activated Partial Thromboplast Time 24.3 SECONDS Partial Thromboplastin Ratio 0.9 Sodium Level 142 mmol/L Potassium Level 3.8 mmol/L Chloride Level 108 mmol/L Carbon Dioxide Level 26 mmol/L Anion Gap 8.0 mmol/L Blood Urea Nitrogen 13 mg/dl Creatinine 0.89 mg/dl Est Creatinine Clear Calc Drug Dose 70.9 ml/min Estimated GFR () 84.6 Estimated GFR (Non- 73.0 BUN/Creatinine Ratio 14.4 Random Glucose 141 mg/dl Calcium Level 8.3 mg/dl Magnesium Level 1.9 mg/dl Total Bilirubin 2.5 mg/dl Direct Bilirubin 1.8 mg/dl Aspartate Amino Transf (AST/SGOT) 230 U/L Alanine Aminotransferase (ALT/SGPT) 228 U/L Alkaline Phosphatase 249 U/L Total Protein 6.8 gm/dl Albumin 2.9 gm/dl Diagnostic Results [~ rep ct add3]] CT ABD/PELVIS IV CONTRAST ONLY CLINICAL HISTORY: Abdominal pain. Possible bowel obstruction. COMPARISON STUDY: 7916 TECHNIQUE: Following the IV administration of 115 mL of Optiray-320, CT scan of the abdomen and pelvis was performed from the lung bases to the proximal femurs. Images are reviewed in the axial, sagittal, and coronal planes. IV contrast was administered without complication. CT DOSE: 324.72 mGy.cm FINDINGS: Lower chest: There is mild bibasilar atelectatic change. There is a stable 6 mm perifissural left lower lobe pulmonary nodule. Liver: There is persistent intrahepatic biliary ductal dilatation. No space-occupying hepatic masses are visualized. Gallbladder: Surgically absent. Spleen: Normal in size and attenuation. Pancreas: Unremarkable. Adrenal glands: Unremarkable. Kidneys: There is symmetric renal cortical enhancement. The kidneys are normal in size without hydronephrosis. Bowel: There are no transition zones indicate bowel obstruction. There is no evidence of acute appendicitis. There is a stable calcified mesenteric nodule adjacent to the ileocecal valve measuring 13 mm. There is mild left colonic wall thickening versus nondistended colon Peritoneum: There is no intraperitoneal free air or abdominal ascites. There is a fat-containing periumbilical ventral hernia similar to the prior study. Vasculature: The abdominal aorta is normal in course and caliber. Adenopathy: None. Pelvic viscera: The bladder, and pelvic viscera are unremarkable. Skeletal structures: No destructive osseous lesions are seen. There is L5-S1 disc protrusion. IMPRESSION: 1. No evidence of bowel obstruction. No evidence of free air 2. Persistent intrahepatic biliary ductal dilatation. 3. Surgically absent gallbladder 4. Normal appendix 5. Stable nonspecific calcified mesenteric nodule near the level of the ileocecal valve 6. Mild colonic wall thickening versus nondistended colon Electronically signed by: Robert So M.D. 12/24/2016 8:36 PM Dictated Date/Time: 12/24/2016 8:28 PM Assessment and Plan Abnormal liver function tests/history of cholecystectomy/dilated common bowel duct--the patient will be admitted to medical floor and kept nothing by mouth. ERCP by GI Continue IV fluids, IV analgesics, On IV Ceftriaxone,. Diabetes mellitus--hold glipizide 5 mg by mouth twice a day and metformin 1000 mg by mouth twice a day. Place on Accu-Cheks before meals and at bedtime with NovoLog coverage. Medroxyprogesterone acetate--cc IM dosing every 3 months.
[2016-12-25] MEDS ORDERED: PANTOprazole INJ 40 MG in SYRINGE 0 ML IV SCH (11:00)
[2016-12-25] MEDS ORDERED: IMIPENEM/CILASTATIN CONSULT ACTIVE PRN (12:45)
--- NOTE | 2016-12-25 12:51 | GASTROINTESTINAL CONSULTATION ---
DATE OF CONSULTATION: 12/25/2016 DATE OF CONSULTATION: 12/25/2016. CHIEF COMPLAINT: Abdominal discomfort. HISTORY OF PRESENT ILLNESS: The patient is a 56-year-old -[place] female who presented to the Emergency Room yesterday evening for evaluation of right-sided abdominal discomfort. The patient began several hours after a meal. She notes having a lot of gas and bloating. She denies having fevers but notes having chills at home. She has had several episodes of this in the past and underwent an ERCP for similar symptoms in 2006. The patient has a history of cholecystectomy which was done she thinks 15-20 years ago. The patient denies having difficulty swallowing, pain with swallowing, nausea or vomiting presently. She does have a history of nonspecific colitis and is followed by Dr. Troy Mirza as an outpatient. PAST MEDICAL HISTORY: 1. Asthma. 2. Diabetes. 3. Kidney stones. PAST SURGICAL HISTORY: 1. Tubal ligation. 2. Cholecystectomy. FAMILY HISTORY: Diabetes. SOCIAL HISTORY: The patient is a smoker, one-half pack to 1 pack per day, alcohol nondrinker, lives with family, employed. ALLERGIES: CIPRO, DOXYCYCLINE, MORPHINE, PENICILLIN, SULFA. HOME MEDICATIONS: Glipizide, Depo-Provera, metformin 1000 twice daily and p.r.n. medication Ultram. REVIEW OF SYSTEMS: GENERAL: No fevers, no chills. CARDIAC: No chest pain, no palpitations. PULMONARY: Clear, no cough, no shortness of breath. ENDOCRINE: No polyuria, no polydipsia. DERMATOLOGY: No itching, no rashes. PSYCHIATRIC: No depression. No suicidal ideation. NEUROLOGIC: No rash, no headache. No double vision noted. MUSCULOSKELETAL: No new joint pains, no new muscle pains. PHYSICAL EXAMINATION: GENERAL: No obvious distress. VITAL SIGNS: Temperature 37.3, pulse 94, respiratory rate 16, blood pressure 137/82, oxygenation is 98%. EYES: Sclera mild icterus noted. HEAD, EYES, EARS, NOSE, AND THROAT: No JVD noted. LUNGS: Clear to auscultation. CARDIAC: Regular rate and rhythm. ABDOMEN: Right upper quadrant tender to palpation. EXTREMITIES: No edema noted. LABORATORY DATA: White blood cell count 16.7, hematocrit 36.4, platelet count 192. Chemistry -- sodium 142, potassium is 3.8, chloride is 108, BUN 13, creatinine 0.89, calcium is 8.3, total bilirubin 2.5, AST 230, ALT 228, alkaline phosphatase 249, albumin is 2.9. PT 11.7, INR 1.1. IMAGING STUDIES: CT dated 12/24/2016 dilated intrahepatic ducts noted by radiology, unable to determine if CBD was dilated or stones seen. IMPRESSION: A 56-year-old female with a past history of choledocholithiasis, presenting with abdominal pain and new elevation of her liver associated enzymes. The patient apparently has a history of hepatitis C, but I would wonder about underlying gallstones and perhaps cholangitis. This was discussed at great length with the patient today. She would prefer to undergo noninvasive evaluation at this time and does not want to undergo an MRI presently. We will plan to do a right upper quadrant ultrasound today with plan to proceed with ERCP if found to have new gallstones in the common bile duct. The patient should have blood cultures done today and be started empirically on antibiotics. RECOMMENDATIONS: 1. NPO. 2. Right upper quadrant ultrasound. 3. Begin empiric antibiotic coverage. 4. Please call with any questions or concerns. Thank you for this consultation. SIMRAN
--- NOTE | 2016-12-30 15:19 | Discharge Summary ---
Discharge Summary Date of Service Dec 30, 2016. Discharge Summary Admission Date: Dec 24, 2016 at 21:39 Discharge Date: Dec 25, 2016 Discharge Disposition: Home Principal Diagnosis: Abnormal LFTS Immunizations: Have You Had Influenza Vaccine: No History of Tetanus Vaccine?: Yes History of Pneumococcal: No History of Hepatitis B Vaccine: Unknown Procedures: CT ABD/PELVIS IV CONTRAST ONLY CLINICAL HISTORY: Abdominal pain. Possible bowel obstruction. COMPARISON STUDY: 7916 TECHNIQUE: Following the IV administration of 115 mL of Optiray-320, CT scan of the abdomen and pelvis was performed from the lung bases to the proximal femurs. Images are reviewed in the axial, sagittal, and coronal planes. IV contrast was administered without complication. CT DOSE: 324.72 mGy.cm FINDINGS: Lower chest: There is mild bibasilar atelectatic change. There is a stable 6 mm perifissural left lower lobe pulmonary nodule. Liver: There is persistent intrahepatic biliary ductal dilatation. No space-occupying hepatic masses are visualized. Gallbladder: Surgically absent. Spleen: Normal in size and attenuation. Pancreas: Unremarkable. Adrenal glands: Unremarkable. Kidneys: There is symmetric renal cortical enhancement. The kidneys are normal in size without hydronephrosis. Bowel: There are no transition zones indicate bowel obstruction. There is no evidence of acute appendicitis. There is a stable calcified mesenteric nodule adjacent to the ileocecal valve measuring 13 mm. There is mild left colonic wall thickening versus nondistended colon Peritoneum: There is no intraperitoneal free air or abdominal ascites. There is a fat-containing periumbilical ventral hernia similar to the prior study. Vasculature: The abdominal aorta is normal in course and caliber. Adenopathy: None. Pelvic viscera: The bladder, and pelvic viscera are unremarkable. Skeletal structures: No destructive osseous lesions are seen. There is L5-S1 disc protrusion. IMPRESSION: 1. No evidence of bowel obstruction. No evidence of free air 2. Persistent intrahepatic biliary ductal dilatation. 3. Surgically absent gallbladder 4. Normal appendix 5. Stable nonspecific calcified mesenteric nodule near the level of the ileocecal valve 6. Mild colonic wall thickening versus nondistended colon Electronically signed by: Robert So M.D. Consultations: GI Hospital Course (1) Ascending cholangitis (2) Hepatitis (3) Left against medical advice (4) Diabetes (5) Gallstones The patient is a 56-year-old female who presents to the emergency department via EMS with complaint of worsening generalized abdominal pain that began several hours prior to arrival. She reports that she developed a lot of gas after eating, then developed sharp abdominal pain, and then developed vomiting this afternoon. She does have a history of colitis with her last flare in March 2016. She's had no recent travel, no sick exposures. A/P: Abnormal liver function tests/history of cholecystectomy/dilated common bowel duct--the patient will be admitted to medical floor and kept nothing by mouth. I went to order an MRCP however, she says she is too claustrophobic. We'll therefore consult gastroenterology see if they feel any ERCP. Placed on normal saline with potassium chloride 20 mEq at 100 ML's per hour. She is allergic to morphine, Cipro, penicillins and sulfas. She will be placed on Dilaudid 0.25- 0.5 mg IV every 2 hours when necessary, Zofran 4 mg IV every 6 hours when necessary, and tonics 40 mg IV daily, and ceftriaxone 1 g IV daily. Of note, the patient received 300 g of fentanyl IV while in the emergency department. Pt was seen by GI and recommended US RUQ and ERCP. Pt left AMA. Diabetes mellitus--hold glipizide 5 mg by mouth twice a day and metformin 1000 mg by mouth twice a day. Place on Accu-Cheks before meals and at bedtime with NovoLog coverage. Medroxyprogesterone acetate--cc IM dosing every 3 months. Abnormal liver function tests/history of cholecystectomy/dilated common bowel duct--the patient will be admitted to medical floor and kept nothing by mouth. ERCP by GI Continue IV fluids, IV analgesics, On IV Ceftriaxone,. Diabetes mellitus--hold glipizide 5 mg by mouth twice a day and metformin 1000 mg by mouth twice a day. Place on Accu-Cheks before meals and at bedtime with NovoLog coverage. Medroxyprogesterone acetate--cc IM dosing every 3 months. Total Time Spent: Less than 30 minutes This includes examination of the patient, discharge planning, medication reconciliation, and communication with other providers. Discharge Instructions Please refer to the electronic Patient Visit Report (Discharge Instructions) for additional information.
--- NOTE | 2017-01-06 07:47 | EDITING REQUIRED CODING QUERY ---
CODING QUERY Dr. Sun, To promote full compliance with coding requirements relating to patient care, provider participation is requested in all cases of test fixture assembler uncertainty. Please assist us with the question(s) below: Coding Question(s): Progress note states Dilated Common Bowel Duct. CT scan states Persistent Intrahepatic Biliary Ductal Dilatation. Please clarify below: Physician's Response(s): Dilated intrahepatic ducts Thank you Juma Payton Principal Diagnosis: "_that condition established after study, to be chiefly responsible for occasioning the admission of the patient to the hospital for care." Co-Existing Principal Diagnosis: "_when two or more diagnoses equally meet the criteria for principal diagnosis as determined by the circumstances of admission, diagnostic work up, and/or therapy provided, and the Alphabetic Index, Tabular List, or another coding guideline does not provide sequencing direction, any one of the diagnoses may be sequenced first." "When the physician has documented what appears to be a current diagnosis in the body of the record, but has not included the diagnosis in the final diagnostic statement, the physician should be asked whether the diagnosis should be added." (Source [facility]oding [facility] 2 QTR90. p3-4)
[2017-03-03] MEDS ORDERED: ACET-1311 PO (12:34)
== END 2016-12-25 12:40 | disposition left against medical advice (07) | DRG 446 ==
LOC: ENRESERVDT → ENRESERVTM → EDBD 17:54 → C.EDC 17:55 → C.MS2W 21:39
PROVIDERS: ADMIT Hospitalist; ATTEND Hospitalist
DX: K83.8 Other specified diseases of biliary tract (principal); J45.909 Unspecified asthma, uncomplicated; R74.8 Abnormal levels of other serum enzymes; E11.9 Type 2 diabetes mellitus without complications; K52.9 Noninfective gastroenteritis and colitis, unspecified; B19.20 Unspecified viral hepatitis C without hepatic coma; F17.210 Nicotine dependence, cigarettes, uncomplicated; Z87.442 Personal history of urinary calculi; Z87.19 Personal history of other diseases of the digestive system; Z98.51 Tubal ligation status; Z90.49 Acquired absence of other specified parts of digestive tract; Z98.890 Other specified postprocedural states; Z83.3 Family history of diabetes mellitus; Z88.0 Allergy status to penicillin; Z88.2 Allergy status to sulfonamides; Z88.1 Allergy status to other antibiotic agents; Z88.6 Allergy status to analgesic agent; Z79.84 Long term (current) use of oral hypoglycemic drugs

== ENCOUNTER → 2017-01-08 | Outpatient (CLI) | payer OTHER ==
[~2017-01-08] MED LIST changes: +ACET-1311 PO; -ALBUAER2 INH; +METF-384 PO; +TRAM-10 PO
[2017-01-08 13:13] LABS: BLOOD UREA NITROGEN 15 mg/dl (7-18); BUN/CREATININE RATIO 14.7 (10-20); CARBON DIOXIDE 29 mmol/L (21-32); CHLORIDE 106 mmol/L (98-107); GLUCOSE 272 mg/dl (70-99); POTASSIUM 4.6 mmol/L (3.5-5.1); SODIUM 140 mmol/L (136-145)
[2017-01-08 13:27] LABS: ESTIMATED AVERAGE GLUCOSE 226 mg/dl; HA1C FLAG Normal (Normal)
== END ==
LOC: C.LABBC 10:24
PROVIDERS: ATTEND Internal Medicine
DX: R94.5 Abnormal results of liver function studies (principal)

== ENCOUNTER → 2017-01-19 | Outpatient (CLI) | payer OTHER ==
--- NOTE | 2017-01-19 07:53 | DIAGNOSTIC IMAGING REPORT ---
MRCP CLINICAL HISTORY: Dilated bile duct. Elevated LFTs. COMPARISON STUDY: CT scan dated 12/24/2016 FINDINGS: The gallbladder surgically absent. There is intrahepatic biliary ductal dilatation. The common bile duct is dilated measuring 9 mm. There is an abrupt transition in the caliber of the common bile duct. There is no pancreatic ductal dilatation. No filling defects are visualized. The findings suggest a distal common bile duct stricture of uncertain etiology. A conventional ERCP is recommended in follow-up. IMPRESSION: 1. Intra and extrahepatic biliary ductal dilatation. Abrupt transition in the caliber of the distal common bile duct. The findings suggest a distal common bile duct stricture of uncertain etiology. A conventional ERCP is recommended in follow-up Electronically signed by: Robert So M.D. 01/19/2017 7:51 AM Dictated Date/Time: 01/19/2017 7:47 AM
== END | disposition home or self-care (01) ==
LOC: C.MRI 06:27
PROVIDERS: ATTEND Internal Medicine
DX: K83.8 Other specified diseases of biliary tract (principal); R94.5 Abnormal results of liver function studies

== ENCOUNTER → 2017-03-14 | Outpatient (CLI) | payer OTHER | END | disposition home or self-care (01) | LOC: C.PAPS 13:29 | PROVIDERS: ATTEND Obstetrics & Gynecology | DX: D25.9 Leiomyoma of uterus, unspecified (principal) ==

== ENCOUNTER → 2017-03-14 | Outpatient (CLI) | payer OTHER ==
[~2017-03-14] MED LIST changes: +HydrALAZINE HCL 20 MG/ML VIAL ONE
[2017-03-14 14:19] LABS: BLOOD UREA NITROGEN 13 mg/dl (7-18); BUN/CREATININE RATIO 16.3 (10-20); CALCIUM 8.7 mg/dl (8.5-10.1); CARBON DIOXIDE 25 mmol/L (21-32); CHLORIDE 106 mmol/L (98-107); CREATININE 0.82 mg/dl (0.60-1.20); GLUCOSE 243 mg/dl (70-99); SODIUM 139 mmol/L (136-145)
== END ==
LOC: C.CPL 12:02
PROVIDERS: ATTEND Internal Medicine Gastroenterology
DX: Z01.818 Encounter for other preprocedural examination (principal)

== ENCOUNTER 2017-03-25 06:38 | Observation (INO) | payer OTHER ==
[2017-03-03 12:35] VITALS: BMI 25.0
[2017-03-03 12:50] VITALS: BMI 25.0
[~2017-03-25] VITALS: Ht 162.6 cm; Wt 68.8 kg
[2017-03-25] VITALS (8 sets, daily range): BP systolic 122–193; BP diastolic 59–96; PULSE 93–105; TEMP 36.4–37.3; O2SAT 95–100; Ht 162.6 cm; Wt 68.8 kg
[~2017-03-25 06:38] MED LIST changes: -HydrALAZINE HCL 20 MG/ML VIAL ONE
[2017-03-25] MEDS ORDERED: MIDAZOLAM HCL 1 MG/ML 2ML VIAL ONE (06:40)
[2017-03-25] MEDS ORDERED: SUCCINYLCHOLINE CHLORIDE 20 MG/ML 10 ML VIAL IV ONE (06:40)
[2017-03-25] MEDS ORDERED: DEXAMETHASONE SOD INJ 4 MG/ML VIAL ONE ×2 (06:40→06:45)
[2017-03-25] MEDS ORDERED: EpHEDrine SULFATE INJ 50 MG/ML AMP ONE (06:40)
[2017-03-25] MEDS ORDERED: PROPOFOL IV EMULSION 10 MG/ML 20 ML VIAL IV ONE (06:40)
[2017-03-25] MEDS ORDERED: PHENYLEPHRINE HCL INJ 10 MG/ML VIAL ONE (06:40)
[2017-03-25] MEDS ORDERED: ONDANSETRON INJ 2 MG/ML 2 ML VIAL ONE ×2 (06:40→10:14)
[2017-03-25] MEDS ORDERED: LIDOCAINE HCL 2% 2 ML VIAL (20MG/ML) ONE (06:40)
[2017-03-25] MEDS ORDERED: FENTANYL CITRATE INJ 50 MCG/1 ML 2 ML VIAL ONE ×2 (06:40→09:21)
[2017-03-25] MEDS ORDERED: GLYCOPYRROLATE INJ 0.2 MG/ML VIAL ONE (06:40)
[2017-03-25] MEDS ORDERED: ROCURONIUM BROMIDE 10 MG/ML 5 ML VIAL ONE (06:45)
[2017-03-25] MEDS: LACTATED RINGER'S 1000ML 1,000 ML IV SCH ×4 (07:00→19:52)
--- NOTE | 2017-03-25 08:10 | Endo History and Physical ---
History & Physical Date of Service: Mar 25, 2017. Chief Complaint: Abnormal MRCP, cholangitis Referring Physician: Dr. Paris History of Present Illness 56 yo female s/p cholecystectomy evaluated with ERCP in 2006 for dilated ducts without specific abnormality discovered. Hospitalized in 12/2016 with RUQ pain and elevated LFT's that resolved with treatment. Subsequent MRCP demonstrated dilated intra and extrahepatic ducts with abrupt cutoff. She is scheduled for ERCP Past Medical History Diabetes, Asthma Past Surgical History Hx Cardiac Surgery: No Hx Internal Defibrillator: No Hx Pacemaker: No Hx Abdominal Surgery: Yes (, D&C'S X 2, LAP CHOLECYSTECTOMY) Hx Post-Op Nausea and Vomiting: No Hx Cancer Surgery: No Hx Thoracic Surgery: No Hx Orthopedic: No Hx Urinary Tract Surgery: No Social History Smoking Status: Heavy Tobacco Smoker Hx Substance Use: No Hx Alcohol Use: No Allergies Coded Allergies: Sulfa Antibiotics (Verified Allergy, Severe, ITCHY, 03/25/17) Ciprofloxacin (Verified Allergy, Mild, ITCHING, 03/25/17) Doxycycline (Verified Allergy, Unknown, ?, 03/25/17) Morphine (Verified Allergy, Unknown, HIVES, 03/25/17) Penicillins (Verified Allergy, Unknown, ?, 03/25/17) Current Medications Reported Home Medications Medications Dose Route/Sig Max Daily Dose Days Date Category Tylenol (Acetaminophen) 325 Mg Tab 650 Mg PO DAILY PRN 03/03/17 Reported Ultram (Tramadol HCl) 50 Mg Tab 50-100 Mg PO Q8H PRN 12/24/16 Reported Glipizide 5 Mg Tab 5 Mg PO BID 04/03/16 Reported Glucophage (Metformin Hcl) 1,000 Mg Tab 1,000 Mg PO BID 09/18/14 Reported Depo-Provera (Medroxyprogesterone Acetate) 400 Mg/Ml Inj 1 Dose IM Q 3 MONTHS 01/23/14 Reported Vital Signs Weight (Kilograms): 68.18 Height (Feet): 5 Height (Inches): 4 Physical Exam General Appearance: WD/WN, no apparent distress Respiratory/Chest: Auscultation: breath sounds normal, no wheezing, no rales/crackles Cardiovascular: Heart Auscultation: RRR, no murmurs, no rubs, no gallops Abdomen: Inspection & Palpation: soft, non-distended, no tenderness, guarding & rebound Liver: no hepatomegaly Assessment and Plan ERCP today.
[2017-03-25] MEDS ORDERED: ATROPINE SULFATE 0.1 MG/ML 5ML SYR IV PRN (08:15)
[2017-03-25] MEDS ORDERED: EpHEDrine SULFATE INJ 50 MG/ML AMP IV PRN (08:15)
[2017-03-25] MEDS ORDERED: INDOMETHACIN 50 MG SUPP PR SCH (08:30)
[2017-03-25] MEDS ORDERED: ESMOLOL HCL 10 MG/ML 10 ML VIAL ONE (09:16)
--- NOTE | 2017-03-25 10:09 | DIAGNOSTIC IMAGING REPORT ---
ERCP BILIARY DUCTAL CLINICAL HISTORY: EXPLORE DUCTS IN OR COMPARISON STUDY: MRCP 01/19/2017. FLUOROSCOPY TIME: 3 minutes and 3 seconds. FINDINGS: 7 fluoroscopic spot images. The endoscope is seen at the second portion of the duodenum. The ampulla is cannulated. Contrast was injected into the common bile duct. There is intra and extra hepatic bile duct dilatation. A balloon sweep was performed. There appears to be a tight stenosis at the distal common bile duct. IMPRESSION: Fluoroscopy provided for ERCP. Confirmation of the distal common bile duct stenosis with intra and extrahepatic bile duct dilatation. Electronically signed by: Joey Betancourt M.D. 03/25/2017 10:07 AM Dictated Date/Time: 03/25/2017 10:06 AM
--- NOTE | 2017-03-25 10:20 | GI REPORT ---
Procedure Date: 03/25/2017 8:38 AM Procedure: ERCP Indications: Abnormal MRCP, Abnormal liver function test, Postop exam: Endoscopic sphincterotomy Medicines: General Anesthesia, Indomethicin 100 mg rectal Complications: No immediate complications. Estimated blood loss: None Estimated Blood Loss: Estimated blood loss: none. Procedure: Pre-Anesthesia Assessment: - Prior to the procedure, a History and Physical was performed, and patient medications, allergies and sensitivities were reviewed. The patient's tolerance of previous anesthesia was reviewed. - ASA Grade Assessment: III - A patient with severe systemic disease. After obtaining informed consent, the scope was passed under direct vision. Throughout the procedure, the patient's blood pressure, pulse, and oxygen saturations were monitored continuously. The scope was introduced through the mouth, and advanced to the duodenum and used for direct visualization of the bile duct and ventral pancreatic duct. The ERCP was accomplished without difficulty. The patient tolerated the procedure well. Findings: The esophagus was successfully intubated under direct vision without detailed examination of the pharynx, larynx, and associated structures, and upper GI tract. The upper GI tract was grossly normal. A biliary sphincterotomy had been performed. The sphincterotomy was difficult to locate and appeared stenosed or narrowed. The ventral pancreatic duct was deeply cannulated with the short-nosed traction sphincterotome. A small amount of contrast was injected. The entire opacified area was normal. A [employer] 0.035 inch guidewire was passed into the biliary tree through a [employer] Omni FS 35 sphincterotome. The sphincterotome was then passed over the guidewire and the bile duct was then deeply cannulated. Contrast was injected. The entire biliary tree was diffusely dilated proximal to the biliary pancreatic junction. No clear stricture was identified. The largest diameter was 11mm. A 6 mm biliary sphincterotomy was made with a monofilament traction (standard) sphincterotome using ERBE electrocautery. There was no post-sphincterotomy bleeding. Dilation of the sphinterotomy and distal common bile duct with an 8 mm balloon dilator was performed. The balloon was inflated for five minutes. Cells for cytology were obtained by brushing. To discover objects, the biliary tree was swept with an 11.5 mm balloon starting at the bifurcation. Nothing was found. The total fluoroscopy exposure time was 3 minutes. Impression: - Prior biliary endoscopic sphincterotomy appeared stenosed or narrowed. - The entire biliary tree was dilated, acquired. - A sphincterotomy was performed. - The sphincterotomy and distal common bile duct was successfully dilated to 8 mm. - The biliary tree was swept and nothing was found. - The ventral pancreatic duct appeared normal. Recommendation: - Observe patient in same day observation unit for observation. Chon Souza M.D. Chon Souza MD 03/25/2017 10:19:39 AM This report has been signed electronically. Note Initiated On: 03/25/2017 8:38 AM I attest to the content of the Intraoperative Record and orders documented therein, exceptions below
[2017-03-25] MEDS ORDERED: NURSING VERBAL MED ORDER ONE ×2 (10:45→11:15)
--- NOTE | 2017-03-25 11:03 | Anesthesiology Progress Note ---
Anesthesia Post Op Note Date & Time Mar 25, 2017 at 11:02 Vital Signs Pain Intensity: 0 Vital Signs Past 12 Hours Date Time Temp Pulse Resp B/P (MAP) Pulse Ox O2 Delivery O2 Flow Rate FiO2 03/25/17 10:45 36.4 97 18 168/95 100 Oxymask 3 03/25/17 10:35 93 18 170/96 100 Oxymask 5 03/25/17 10:25 93 18 166/97 100 Oxymask 10 03/25/17 10:15 95 16 162/97 100 Oxymask 10 03/25/17 10:07 36.3 100 12 140/97 100 Oxymask 10 Notes Mental Status: alert / awake / arousable, participated in evaluation Pt Amnestic to Procedure: Yes Nausea / Vomiting: adequately controlled Pain: adequately controlled Airway Patency, RR, SpO2: stable & adequate BP & HR: stable & adequate Hydration State: stable & adequate Anesthetic Complications: no major complications apparent
[2017-03-25] MEDS ORDERED: PROMETHAZINE HCL INJ 12.5 MG in SODIUM CHLORIDE 0.9% 50ML 50 ML IV ONE (11:30)
[2017-03-25] MEDS ORDERED: ACETAMINOPHEN 325 MG TAB PO PRN (11:45)
[2017-03-25] MEDS ORDERED: ONDANSETRON INJ 2 MG/ML 2 ML VIAL IV PRN ×2 (11:45→17:45)
[2017-03-25] MEDS ORDERED: PROCHLORPERAZINE MALEATE 5 MG TAB PO PRN ×2 (11:45→19:45)
[2017-03-25] MEDS ORDERED: PROMETHAZINE HCL INJ 25 MG in SODIUM CHLORIDE 0.9% 50ML 50 ML IV PRN ×2 (11:45→15:00)
[2017-03-25] MEDS ORDERED: TRAMADOL HCL 50 MG TAB PO PRN (11:45)
--- NOTE | 2017-03-25 11:52 | History and Physical ---
History & Physical Date & Time of Service: Mar 25, 2017 at 11:49 Chief Complaint: Hx Of Cholangitis, Abn Liver Enzymes, Abn Mri Of L Primary Care Physician: Chon Paris M.D. History of Present Illness Source: patient This is a 56 yo F with PMHx of diabetes mellitus type 2, chronic smoking abuse 1ppd, history of ascending cholangitis, hepatitis, gallstones, who underwent an elective ERCP with Dr. Malloy on 03/25/17 found to have stenosed CBD which was dilated. During the procedure IV contrast may have tracked up the pancreatic duct, therefore was asked for admission to monitor for post-ERCP pancreatitis. The patient was seen and examined in postop surgical unit, she seems to be slightly somnolent/sleepy from anesthesia. The patient just was administered an IV dose of Phenergan before I walked in. She notes that she is slightly nauseous and having some mild mid-abdominal pain and feels a little bloated. She is requesting to get up and urinate. Past Medical/Surgical History Medical Problems: (1) Asthma Status: Chronic (2) Diabetes Status: Chronic (3) Gallstones Status: Chronic (4) Kidney stones Status: Chronic Surgical Problems: (1) H/O tubal ligation Status: Resolved (2) History of cholecystectomy Status: Resolved Social History Problems: (1) Hepatitis C Status: Chronic Family History Family History: diabetes Social History Smoking Status: Current Every Day Smoker Smokeless Tobacco Use: No Drug Use: none Marital Status: single Housing status: lives with family Occupational Status: employed Immunizations History of Influenza Vaccine: No History of Tetanus Vaccine?: Yes History of Pneumococcal: No History of Hepatitis B Vaccine: Unknown Multi-Drug Resistant Organisms History of MDRO: No Allergies Coded Allergies: Sulfa Antibiotics (Verified Allergy, Severe, ITCHY, 03/25/17) Ciprofloxacin (Verified Allergy, Mild, ITCHING, 03/25/17) Doxycycline (Verified Allergy, Unknown, ?, 03/25/17) Morphine (Verified Allergy, Unknown, HIVES, 03/25/17) Penicillins (Verified Allergy, Unknown, ?, 03/25/17) Home Medications Scheduled Glipizide (Glipizide), 5 MG PO BID Medroxyprogesterone Acetate (Depo-Provera), 1 DOSE IM Q 3 MONTHS Metformin Hcl (Glucophage), 1,000 MG PO BID Scheduled PRN Acetaminophen (Tylenol), 650 MG PO DAILY PRN for Pain Tramadol (Ultram), 50-100 MG PO Q8H PRN for Pain Review of Systems Constitutional: No fever, sweats or chills Eyes: No diplopia, no worsening or blurred vision ENT: normal hearing, no trouble swallowing Respiratory: No cough, sputum, dyspnea at rest or on exertion Cardiovascular: No chest pain, tightness or palpitations Abdomen: + Mid abdominal pain, + nausea, no vomiting, diarrhea or constipation Musculoskeletal: No joint pain, calf pain, swelling Neurologic: No weakness, numbness/tingling, or balance problems Psychiatric: No anxiety or depression Skin: No rash or itch Physical Exam Vital Signs Date Time Temp Pulse Resp B/P (MAP) Pulse Ox O2 Delivery O2 Flow Rate FiO2 03/25/17 10:50 36.4 18 168/95 100 3 03/25/17 10:45 36.4 97 18 168/95 100 Oxymask 3 03/25/17 10:35 93 18 170/96 100 Oxymask 5 03/25/17 10:25 93 18 166/97 100 Oxymask 10 03/25/17 10:15 95 16 162/97 100 Oxymask 10 03/25/17 10:07 36.3 100 12 140/97 100 Oxymask 10 General: Difficult to awaken, somnolent, no apparent distress, -Swiss female Head: Normocephalic, atraumatic ENT: PERRL, EOMI, no pharyngeal exudate, mucous membranes moist Chest: Clear to auscultation, on room air, no adventitious breath sounds Cardiac: + Tachycardic, no murmur, no JVD, normal peripheral pulses, good capillary refill Abdominal: Hypoactive bowel sounds,+ distention, soft, tender to palpation in the epigastric region, no rebound, guarding or tenderness Extremities: Normal inspection, no peripheral edema or erythema, calfs nontender to palpation Psych: Normal mood and affect Neuro: oriented to self and place, appears somnolent, speech is slow but clear, no peripheral sensory deficits Diagnostics Laboratory Results Results Past 24 Hours Test 03/25/17 06:57 03/25/17 10:20 Range/Units Bedside Glucose 223 252 70-90 mg/dl Diagnostic Radiology ERCP 03/25/17 Impression: - Prior biliary endoscopic sphincterotomy appeared stenosed or narrowed. - The entire biliary tree was dilated, acquired. - A sphincterotomy was performed. - The sphincterotomy and distal common bile duct was successfully dilated to 8 mm. - The biliary tree was swept and nothing was found. - The ventral pancreatic duct appeared normal. Impression Assessment and Plan This is a 56 yo F with PMHx of diabetes mellitus type 2, chronic smoking abuse 1ppd, history of ascending cholangitis, hepatitis, gallstones, who underwent an elective ERCP with Dr. Malloy on 03/25/17 found to have stenosed CBD which was dilated. During the procedure IV contrast may have tracked up the pancreatic duct, therefore was asked for admission to monitor for post-ERCP pancreatitis. S/p ERCP with concern for post- ERCP pancreatitis - Admit the patient to [facility] for observation - Pain control with Phenergan 25 mg IV q4H prn, Tylenol 650 mg Q6H prnl, tramadol 50 mg Q4H prn, as the patient is allergic to morphine products. - Continue antiemetics with Zofran, Phenergan and Compazine prn - Trend lipase as well as LFTs with am labs DM type II - Hold glipizide 5 mg daily, and metformin 1000 mg BID - Insulin sliding scale with Accu-Cheks ACHS - Diabetic diet as she tolerates, would need to make her nothing by mouth if indeed she does develop pancreatitis Chronic tobacco use - Smokes 1 pack per day, will order a nicotine patch 21 g - Cessation will need to be provided by the team when the patient is more awake and oriented DVT prophylaxis: Teds, SCDs, ambulatory CODE STATUS: Full code Disposition: Patient from home, likely can discharge within 24 hours. PA Physician Supervision Note: I interviewed and examined the patient. Discussed with Jodi Nayak PAC and agree with findings and plan as documented in the note. Any exceptions or clarifications are listed here: None This patient is observed after endoscopy with sphincter dilatation by . The patient has significant nausea and abdominal pain post procedure, concern for contrast material into her pancreatic duct leading to pancreatitis is the reason for observation Patient has some hypertension post procedure improve the pain control Patient's markedly uncomfortable and requested a do not perform a physical exam upon her she just wants to rest Assessments 56-year-old female observed after procedure to follow for pancreatitis and provide symptom control of abdominal pain nausea. Duration Documented By: Agustin Laird Level of Care Med/Surg Resuscitation Status FULL RESUSCITATION VTE Prophylaxis VTE Risk Assessment Done? Y/N: Yes Risk Level: Very Low Given or contraindicated: T.E.D. Stockings, SCD's
[2017-03-25] MEDS ORDERED: IV FLUIDS COMPLETED PRN (12:15)
[2017-03-25] MEDS ORDERED: HydrALAZINE HCL 20 MG/ML VIAL IV. PRN (12:15)
[2017-03-25] MEDS ORDERED: GLUCOSE 40% GEL 15 GM TUBE PO PRN (12:15)
[2017-03-25] MEDS ORDERED: GLUCOSE 10 TABS/TUBE PO PRN (12:15)
[2017-03-25] MEDS ORDERED: METOPROLOL TARTRATE 1 MG/ML VIAL IV PRN (12:15)
[2017-03-25] MEDS ORDERED: DEXTROSE 50% 50 ML SYR IV PRN (12:15)
[2017-03-25] MEDS ORDERED: GLUCAGON FOR INJ 1 MG VIAL SQ PRN (12:15)
[2017-03-25] MEDS ORDERED: METOPROLOL TARTRATE 1 MG/ML VIAL IV SCH (13:00)
[2017-03-25] MEDS ORDERED: KETOROLAC TROMETHAMINE 30 MG/ML VIAL ONE (13:45)
[2017-03-25] MEDS ORDERED: KETOROLAC TROMETHAMINE 30 MG/ML VIAL IV PRN (13:45)
[2017-03-25] MEDS ORDERED: ONDANSETRON INJ 8 MG in DEXTROSE 5% 50ML 50 ML IV PRN (15:00)
--- NOTE | 2017-03-25 15:09 | Progress Note ---
Progress Note Date of Service Mar 25, 2017. Progress Note Admitted following ERCP w/ Dr. Souza for observation of abdominal pain - clinical concern for post-procedural pancreatitis. Lipase LR 200ml/hr Antiemetics PRN Analgesia PRN No NSAIDs Please call with any questions or concerns.
[2017-03-25] MEDS: NICOTINE 21 MG/24 HR TDSY TD SCH (15:31)
[2017-03-25] MEDS: HYDROmorphone INJ 0.5 MG/0.5 ML SYR IV PRN ×2 (15:32→18:49)
--- NOTE | 2017-03-25 15:38 | [facility] Operative Report ---
Operative Report Operative Date Mar 25, 2017. Pre-Operative Diagnosis Biliary obstruction Post-Operative Diagnosis Same as preoperative diagnosis Procedure(s) Performed Endoscopic retrograde cholangiopancreatogram with extension of papillotomy and dilation Surgeon [facility] Liaison Surgeon(s) None Estimated Blood Loss 0 Findings Stenotic prior sphincterotomy. This was extended and dilated to 8 mm. Bile duct was swept and no stones or sludge found. Fluids (cc crystalloids) See anesthesia note Specimens None Drains None Anesthesia General endotracheal Disposition Recovery Room / PACU Implants None Indications Transient RUQ pain and elevation of LFT (including bilirubin), MRCP with dilated ducts and abrupt cut off. Description of Procedure See Provation note I attest to the content of the Intraoperative Record and any orders documented therein. Any exceptions are noted below.
[2017-03-25] MEDS: INSULIN ASPART 100 UNITS/ML 3 ML PEN SC SCH ×2 (17:15→20:39)
[2017-03-25] MEDS ORDERED: MEPERIDINE HCL 50 MG/ML CARP IM PRN (22:00)
[2017-03-26] MEDS: LACTATED RINGER'S 1000ML 1,000 ML IV SCH ×3 (00:59→11:45)
[2017-03-26 04:26] VITALS: BP 128/70; PULSE 92; TEMP 37.7; O2SAT 98
[2017-03-26 05:46] LABS: BASO % 0.1 %; BASO ABS # 0.01 K/uL (0-0.2); COMPLETE YES; EOS % 0.2 %; HEMATOCRIT 29.6 % (37-47); IG% 0.2 %; LYMPH % 23.3 %; MEAN CELL VOLUME 82.2 fL (80-100); MEAN CORPUSCULAR HEMOGLOBIN 27.8 pg (25-34); MEAN CORPUSCULAR HGB CONC 33.8 g/dl (32-36); MEAN PLATELET VOLUME 9.7 fL (7.4-10.4); MONO % 6.7 %; NEUT % 69.5 %; PLATELET COUNT 196 K/uL (130-400); WHITE BLOOD COUNT 12.03 K/uL (4.8-10.8)
[2017-03-26 06:12] LABS: BUN/CREATININE RATIO 21.2 (10-20); CREATININE 0.71 mg/dl (0.60-1.20); POTASSIUM 3.4 mmol/L (3.5-5.1)
[2017-03-26 06:16] LABS: CALCIUM 8.7 mg/dl (8.5-10.1)
[2017-03-26 07:15] VITALS: BP 152/76; PULSE 100; TEMP 37.4; O2SAT 94
[2017-03-26] MEDS: INSULIN ASPART 100 UNITS/ML 3 ML PEN SC SCH ×2 (08:12→11:45)
[2017-03-26] MEDS: NICOTINE 21 MG/24 HR TDSY TD SCH (08:13)
[2017-03-26 11:29] VITALS: BP 123/68; PULSE 75; TEMP 37.4; O2SAT 100
[2017-03-26 13:13] LABS: ALKALINE PHOSPHATASE 84 U/L (45-117); ALT/SGPT 21 U/L (12-78); AST/SGOT 14 U/L (15-37)
--- NOTE | 2017-03-26 13:30 | Discharge Instructions ---
Discharge Instructions Date of Service Mar 26, 2017. Admission Reason for Admission: Hx Of Cholangitis, Abn Liver Enzymes, Abn Mri Of L Discharge Discharge Diagnosis / Problem: Abnormal LFT Discharge Goals Goal(s): Improve disease control Activity Recommendations Activity Limitations: resume your previous activity . Instructions / Follow-Up Instructions / Follow-Up With family physician in one week Current Hospital Diet Patient's current hospital diet: Diabetes Type 2 Diet Discharge Diet Recommended Diet: Regular Diet Procedures Procedures Performed: Endoscopic retrograde cholangiopancreatogram with extension of papillotomy and dilation Pending Studies Studies pending at discharge: no Laboratory Results Hemoglobin A1c Test 01/08/17 10:33 Range/Units Estimated Average Glucose 226 mg/dl Hemoglobin A1c 9.5 H 4.5-5.6 % Medical Emergencies . Who to Call and When: Medical Emergencies: If at any time you feel your situation is an emergency, please call 911 immediately. . Non-Emergent Contact Non-Emergency issues call your: Primary Care Provider . . "Provider Documentation" section prepared by Aimee Juarez. . VTE Core Measure Inpt VTE Proph given/why not?: Marisabel Esposito, SCD's
[2017-03-26 13:31] VITALS: BP 123/68; PULSE 75; TEMP 37.4; O2SAT 100
--- NOTE | 2017-03-26 13:45 | Discharge Summary ---
Discharge Summary Date of Service Mar 26, 2017. Discharge Summary Admission Date: Mar 25, 2017 at 12:20 Discharge Date: Mar 26, 2017 Discharge Disposition: Home Principal Diagnosis: Abnormal LFT, Hx of Cholangitis Immunizations: Have You Had Influenza Vaccine: No History of Tetanus Vaccine?: Yes History of Pneumococcal: No History of Hepatitis B Vaccine: Unknown Procedures: ERCP - Dr. Souza Medication Reconciliation Continued Medications: Acetaminophen (Tylenol) 325 Mg Tab 650 MG PO DAILY PRN for Pain, TAB Glipizide (Glipizide) 5 Mg Tab 5 MG PO BID, #60 Medroxyprogesterone Acetate (Depo-Provera) 400 Mg/Ml Inj 1 DOSE IM Q 3 MONTHS Metformin Hcl (Glucophage) 1,000 Mg Tab 1000 MG PO BID, TAB Tramadol (Ultram) 50 Mg Tab 50-100 MG PO Q8H PRN for Pain, TAB Discharge Exam no further abdominal pain Review of Systems: Constitutional: No fever Respiratory: No shortness of breath Cardiovascular: No chest pain Abdomen: No pain, No nausea, No vomiting Physical Exam: General Appearance: no apparent distress Respiratory/Chest: lungs clear, no respiratory distress Cardiovascular: regular rate, rhythm Abdomen / GI: normal bowel sounds, non tender, soft Neurologic/Psychiatric: alert, oriented x 3 Hospital Course 56 yo F with PMHx of diabetes mellitus type 2, chronic smoking abuse 1ppd, history of ascending cholangitis, hepatitis, gallstones, who underwent an elective ERCP with Dr. Malloy on 03/25/17 found to have stenosed CBD which was dilated. During the procedure IV contrast may have tracked up the pancreatic duct, therefore was asked for admission to monitor for post-ERCP pancreatitis. S/p ERCP with concern for post- ERCP pancreatitis - kept overnight. Lipase level came back normal x 2. - No abdominal pain. - Discharged home on home medication. Total Time Spent: Greater than 30 minutes (30) This includes examination of the patient, discharge planning, medication reconciliation, and communication with other providers. Discharge Instructions Please refer to the electronic Patient Visit Report (Discharge Instructions) for additional information. Additional Copies To Chon Paris M.D.
== END 2017-03-26 13:42 | disposition home or self-care (01) ==
LOC: C.ACU 06:38 → CANRESERV 12:19 → ENRESERV 12:19 → C.2T 12:20 → EDBEDREQTM 12:22 → EDBEDREQSVC 12:22 → ENRESERV 12:28
PROVIDERS: ADMIT Internal Medicine; ATTEND Internal Medicine Gastroenterology
DX: K83.1 Obstruction of bile duct (principal); E11.9 Type 2 diabetes mellitus without complications; B18.2 Chronic viral hepatitis C; J45.909 Unspecified asthma, uncomplicated; F17.210 Nicotine dependence, cigarettes, uncomplicated; Z79.84 Long term (current) use of oral hypoglycemic drugs; Z79.899 Other long term (current) drug therapy

== ENCOUNTER → 2017-07-09 | Outpatient (CLI) | payer OTHER ==
[2017-07-09 09:11] LABS: HEMATOCRIT 36.6 % (37-47); MEAN CORPUSCULAR HEMOGLOBIN 27.4 pg (25-34); MEAN CORPUSCULAR HGB CONC 33.1 g/dl (32-36); MEAN PLATELET VOLUME 9.3 fL (7.4-10.4); PLATELET COUNT 208 K/uL (130-400); RED BLOOD COUNT 4.41 M/uL (4.2-5.4); WHITE BLOOD COUNT 9.12 K/uL (4.8-10.8)
[2017-07-09 09:18] LABS: ESTIMATED AVERAGE GLUCOSE 280 mg/dl; HA1C FLAG Normal (Normal)
[2017-07-09 09:40] LABS: ALT/SGPT 13 U/L (12-78); BLOOD UREA NITROGEN 10 mg/dl (7-18); BUN/CREATININE RATIO 13.4 (10-20); CARBON DIOXIDE 27 mmol/L (21-32); CHLORIDE 106 mmol/L (98-107); CHOLESTEROL 149 mg/dl (0-200); CREATININE 0.77 mg/dl (0.60-1.20); GLUCOSE 316 mg/dl (70-99); POTASSIUM 4.1 mmol/L (3.5-5.1); SODIUM 138 mmol/L (136-145); TRIGLYCERIDES 66 mg/dl (0-150); VERY LOW DENSITY LIPOPROT CALC 13 mg/dl
[2017-07-09 09:43] LABS: ALB/GLOB RATIO 0.8 (0.9-2); AST/SGOT 8 U/L (15-37)
[2017-07-09 09:50] LABS: ALKALINE PHOSPHATASE 94 U/L (45-117); BETA-HYDROXYBUTYRATE 2.78 mg/dL (0.2-2.81); CHOLESTEROL/HDL RATIO 2.6; HDL CHOLESTEROL 57 mg/dl; LDL CHOLESTEROL CALCULATED 79 mg/dl
== END | disposition home or self-care (01) ==
LOC: C.LAB 08:22
PROVIDERS: ATTEND Internal Medicine
DX: E11.29 Type 2 diabetes mellitus with other diabetic kidney complication (principal); E11.65 Type 2 diabetes mellitus with hyperglycemia; R94.5 Abnormal results of liver function studies; K21.9 Gastro-esophageal reflux disease without esophagitis

== ENCOUNTER → 2017-11-28 | Outpatient (CLI) | payer OTHER ==
[2017-11-28 09:51] LABS: BLOOD UREA NITROGEN 13 mg/dl (7-18); CALCIUM 9.2 mg/dl (8.5-10.1); CARBON DIOXIDE 27 mmol/L (21-32); CREATININE 0.91 mg/dl (0.60-1.20); GLUCOSE 221 mg/dl (70-99); POTASSIUM 4.3 mmol/L (3.5-5.1); SODIUM 138 mmol/L (136-145)
[2017-11-28 09:54] LABS: HEMOGLOBIN A1C 10.1 % (4.5-5.6)
== END | disposition home or self-care (01) ==
LOC: C.LAB 07:37
PROVIDERS: ATTEND Nurse Practitioner Family
DX: E11.65 Type 2 diabetes mellitus with hyperglycemia (principal)

== ENCOUNTER 2019-11-26 08:20 | Inpatient (IN) ==
[2019-11-19 09:56] LABS: Albumin Level 3.5 gm/dl (3.4-5.0); BUN Creatinine Ratio 20.9 (10-20); Blood Urea Nitrogen 18 mg/dl (7-18); Calcium 9.6 mg/dl (8.5-10.1); Carbon Dioxide 30 mmol/L (21-32); Chloride 107 mmol/L (98-107); Est GFR (African American) 88.8; Est GFR (Non-African American) 76.6; Estimated Average Glucose 157 mg/dl; Glucose 160 mg/dl (70-99); Hemoglobin A1C 7.1 % (4.5-5.6); Potassium 4.1 mmol/L (3.5-5.1); Sodium 140 mmol/L (136-145)
[2019-11-19 09:59] LABS: Alanine Aminotransferase 15 U/L (12-78); Albumin Globulin Ratio 0.9 (0.9-2); Alkaline Phosphatase 66 U/L (45-117); Aspartate Aminotransferase 11 U/L (15-37); Bilirubin,Total 0.6 mg/dl (0.2-1); Globulin 3.7 gm/dl (2.5-4.0); Total Protein 7.2 gm/dl (6.4-8.2)
[2019-11-21 10:56] LABS: Basophils # (auto) 0.01 K/uL (0-0.2); Basophils % (auto) 0.1 %; Eosinophils # (auto) 0.27 K/uL (0-0.5); Hematocrit (blood only) 32.8 % (37-47); Hemoglobin 10.5 g/dL (12.0-16.0); Immature Granulocytes # (auto) 0.02 K/uL (0.00-0.02); Immature Granulocytes % (auto) 0.3 %; Lymphocytes # (auto) 1.61 K/uL (1.2-3.4); Lymphocytes % (auto) 23.7 %; Mean Corpuscular Hemoglobin 28.4 pg (25-34); Mean Corpuscular Volume 88.6 fL (80-100); Mean Platelet Volume 9.8 fL (7.4-10.4); Monocytes # (auto) 0.45 K/uL (0.11-0.59); Monocytes % (auto) 6.6 %; Neutrophils # (auto) 4.42 K/uL (1.4-6.5); Neutrophils % (auto) 65.3 %; Platelet Count 233 K/uL (130-400); RDW Coefficient of Variation 16.6 % (11.5-14.5); RDW Standard Deviation 54.2 fL (36.4-46.3); White Blood Count 6.78 K/uL (4.8-10.8)
--- NOTE | 2019-11-21 11:07 | Anesthesiology Consultation ---
Date of Service November 21, 2019 Assessment & Plan (1) Encounter for pre-operative examination: Chart Review Chart Review: Acceptable Risk for Surgery and Patient NOT seen in Pre Admission Testing Seen by heme/onc 10/12/19= seen for routine follow-up and continuation of chemo. Did have delays in chemo secondary to peripheral neuropathyno improvement with Neurontin. Genetic testing was pending to decide if bilateral mastectomy was needed. Currently surgical plan is for left mastectomy with SLNB of the left breast and possible axillary dissection. She will follow-up with radiology oncology for possible XRT postoperatively. It was decided to discontinue chemotherapy at heme/onc appt secondary to severity of peripheral neuropathy. Will follow-up again in November. History Surgery Operation Date: 11/26/19 10:10 Proposed Procedures p Left Breast Mastectomy with Left [place] Lumph Node Biopsy with Left Axillary Lymph Node Needle Localization, possible Left Axillary Dissection - Pritesh Culeln MD, FACS Height/Weight Height: 5 ft 4 in Weight: 63.503 kg Allergies Allergy/AdvReac Type Severity Reaction Status Date / Time Cipro Allergy Mild ITCHING Verified 03/25/17 06:51 ciprofloxacin Allergy Unknown ITCHING Verified 11/21/19 09:47 doxycycline Allergy Unknown Rash Verified 11/21/19 09:47 morphine Allergy Unknown PT NOT SURE Verified 11/21/19 09:47 Penicillins Allergy Unknown rash/itchin Verified 11/21/19 09:47 g Sulfa (Sulfonamide Allergy Unknown ITCHY Verified 11/21/19 09:47 Antibiotics) Medications Home Medications Medication Instructions Recorded Confirmed Last Taken acetaminophen [Tylenol] 500 - 650 mg PO UD PRN 07/11/18 11/21/19 Unknown metformin 1,000 mg PO BID 07/11/18 11/21/19 06/10/19 11:30 glipizide 5 mg tablet 5 mg PO BID 90 Days #180 tab 05/08/19 11/21/19 06/10/19 21:30 blood sugar diagnostic #10 ea 06/02/19 10/30/19 Unknown lancets 25 gauge #100 ea 06/02/19 10/30/19 Unknown ibuprofen 800 mg PO UD PRN 11/21/19 11/21/19 Unknown multivitamin 1 cap PO DAILY 11/21/19 11/21/19 Unknown Past Medical History Medical History (Updated 11/21/19 @ 11:35 by Keli Barksdale PA-C) Anemia HX OF Anxiety and depression Asthma Breast cancer LEFT (PLAN FOR CHEMO FIRST THEN SURGERY- DID HAVE FOUR WEEKS OF CHEMO- STOPPED EARLY DUE TO NEUROPATHY) Colitis Diabetes mellitus, type 2 Hepatitis C (Chronic) "IN REMISSION" TREATED MANY YEARS AGO High cholesterol HX OF Hypertension Port-A-Cath in place (06/11/19) RIGHT CHEST / Fluoroscopy during port placement. Dr. Cullen 06-11-19 Past Family History Family History Father Alcohol abuse Mother Arthritis Family/Other Diabetes Arthritis Pure hypercholesterolemia Rheumatic fever Syphilis Migraine aura, persistent Hypertension Thyroid disorder Daughter Migraine aura, persistent Hypertension Diabetes Son Hypertension Brother Epilepsy Denies family history of Ovarian cancer Prostate cancer Myocardial infarction Breast cancer Bleeding disorder Colorectal cancer Stroke Past Surgical History Surgical History (Updated 11/21/19 @ 11:36 by Keli Barksdale PA-C) H/O dilation and curettage H/O oral surgery H/O tubal ligation History of breast biopsy History of cholecystectomy History of colonoscopy History of ERCP History of esophagogastroduodenoscopy (EGD) History of gynecologic surgery surgical treatment for History of tonsillectomy and adenoidectomy Social History Smoking Status: Current every day smoker tobacco type: cigarettes Smoking cigarettes per day: .5PPD/ADVISED NPO BY NURSING Do You Dip or Chew Tobacco: No Hx Alcohol Use: No Hx Substance Use: Yes (30 YRS AGO, NONE CURRENT) substance use type: does not use Testing Laboratory Results 11/26/19 10:10 11/26/19 10:10 Hemoglobin A1c 7.1 % (4.5-5.6) H 11/19/19 10:10 11/19/19= WBC: 6.78 H/H: 10.5/32.8 (anemia chronic and stable) PLATELETS: 233 SODIUM: 140 POTASSIUM: 4.1 CHLORIDE: 107 CO2: 30 BUN: 18 CREATININE: 0.84 GLUCOSE: 160 AST= 11 ALT= 15 Alk Phos= 66 Electrocardiogram Date: 11/19/19 Findings: + NSR @ (96) and + no change from (July 11, 2018) Chest X-Ray Date: 06/11/19 1 view chest x-ray = appropriately positioned right subclavian Mediport. No pneumothorax. No focal opacity. No large effusion or pneumothorax. Atherosclerosis of the aortic arch.
[~2019-11-26 08:20] MED LIST changes: -ACET-1311 PO; +CLINDAMYCIN 900 MG / 50ML D5W IV SCH; -DPPI400 IM; -GLC5 PO; +LR 15ML/HR IV SCH; -METF-384 PO; -TRAM-10 PO
--- NOTE | 2019-11-26 10:16 | Nuclear Medicine Report ---
NM sentinel node inject only CLINICAL HISTORY: 59 years-old Female presenting with breast cancer, left breast. COMPARISON: None. PROCEDURE: Using standard aseptic technique, 5 intradermal injections of 0.498 mCi of Lymphoseek were administer ed in the left breast in the periareolar region. The patient tolerated the procedure well. There were no immediate complications. The patient was subsequently transported to the surgical suite. No imaging was obtained at the referr ing physician's request. IMPRESSION: Injection of 0.498 mCi of Lymphoseek in the left breast. ACT 112: Negative or not required by law. Electronically signed by: Shaun Bui M.D. 11/26/2019 10:14 AM
[2019-11-26] MEDS ORDERED: fentaNYL citrate 100 MCG/2 ML VIAL ONE ×2 (10:32)
[2019-11-26] MEDS ORDERED: MIDAZOLAM HCL 1 MG/ML 2ML VIAL ONE (10:32)
[2019-11-26] MEDS ORDERED: ePHEDrine sulfate 50 MG/ML AMP IV PRN (11:10)
[2019-11-26] MEDS ORDERED: ATROPINE SULFATE 0.1 MG/ML 10ML SYR IV PRN (11:10)
[2019-11-26] MEDS ORDERED: ONDANSETRON INJ 2 MG/ML 2 ML VIAL IV PRN ×2 (11:10→14:25)
--- NOTE | 2019-11-26 11:18 | History & Physical Report ---
Date of Service November 26, 2019 Assessment & Plan (1) Breast cancer: Patient is for needle localization left mastectomy and left sentinel lymph node biopsy with axillary dissection [facility] Observation History of Present Illness Primary Care Provider: Chon Paris MD Patient with left breast cancer and metastatic disease to the left axilla She is status post neoadjuvant chemotherapy She is now for left mastectomy with left axillary dissection Allergies Allergy/AdvReac Type Severity Reaction Status Date / Time Cipro Allergy Mild ITCHING Verified 03/25/17 06:51 ciprofloxacin Allergy Unknown ITCHING Verified 11/26/19 10:16 doxycycline Allergy Unknown Rash Verified 11/26/19 10:16 morphine Allergy Unknown PT NOT SURE Verified 11/26/19 10:16 Penicillins Allergy Unknown rash/itchin Verified 11/26/19 10:16 g Sulfa (Sulfonamide Allergy Unknown ITCHY Verified 11/26/19 10:16 Antibiotics) Home Medications Home Medications Medication Instructions Recorded Confirmed Type acetaminophen [Tylenol] 500 - 650 mg PO UD PRN 07/11/18 11/21/19 History metformin 1,000 mg PO BID 07/11/18 11/21/19 History glipizide 5 mg tablet 5 mg PO BID 90 Days #180 tab 05/08/19 11/21/19 Rx blood sugar diagnostic #10 ea 06/02/19 10/30/19 History lancets 25 gauge #100 ea 06/02/19 10/30/19 History ibuprofen 800 mg PO UD PRN 11/21/19 11/21/19 History multivitamin 1 cap PO DAILY 11/21/19 11/21/19 History Past Med/Surg History Family History Father Alcohol abuse Mother Arthritis Family/Other Diabetes Arthritis Pure hypercholesterolemia Rheumatic fever Syphilis Migraine aura, persistent Hypertension Thyroid disorder Daughter Migraine aura, persistent Hypertension Diabetes Son Hypertension Brother Epilepsy Denies family history of Ovarian cancer Prostate cancer Myocardial infarction Breast cancer Bleeding disorder Colorectal cancer Stroke Social History Preferred Language: [place]an Communication Ability: Effective Visual Impairment: No Limitations Hearing Ability: Normal 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 Beliefs That Will Affect Care: None marital status: Single Current Living Situation: Alone current occupational status: employed Other Information That Helps Us Care for You: No Feels Safe at Home: Yes Smoking Status: Current every day smoker Tobacco Type: cigarettes ; packs per day: 1 ; Cigarettes Per Day: .5PPD/ADVISED NPO BY NURSING ; Do You Dip or Chew Tobacco: No ; Second Hand Exposure: Yes ; Hx Alcohol Use: No Hx Substance Use: Yes (30 YRS AGO, NONE CURRENT) substance use type: does not use Childhood Exposure to Second-Hand Smoke: Yes Dental Care, Regularly: Yes Physical Activity Frequency: Does not Exercise Seatbelt Use: always Sunscreen Use: No Review of Systems All systems reviewed & are unremarkable except as noted in HPI & below Physical Exam Constitutional: well developed and well nourished; no acute distress Eyes: + anicteric sclerae Respiratory: normal respiratory effort; no respiratory distress Cardiovascular: Rate/Rhythm: regular rate Gastrointestinal (Abdomen): Percussion/Palpation: abdomen soft Musculoskeletal: Gait: normal gait Skin: no rashes, warm and dry Neurologic: awake Psychiatric: Orientation: alert Results & Data Vital Signs (Past 12 Hours) Vital Signs Temp Pulse Resp BP Pulse Ox 11/26/19 10:09 37.1 C 84 20 161/71 H 95
[2019-11-26] MEDS ORDERED: METHYLENE BLUE 0.5% 10 ML VIAL ONE (11:26)
[2019-11-26] MEDS ORDERED: BUPIVACAINE 0.5 % 5 MG/1 ML MPF 30ML VIAL ONE (11:26)
[2019-11-26] MEDS ORDERED: ACETAMINOPHEN 1000 MG/100 ML IV IV ONE (11:43)
[2019-11-26] MEDS ORDERED: HYDROmorphone INJ 2 MG/ML SYR/VIAL ONE (11:54)
[2019-11-26] MEDS ORDERED: DEXAMETHASONE SOD INJ 4 MG/ML VIAL ONE (12:19)
[2019-11-26] MEDS ORDERED: ONDANSETRON INJ 2 MG/ML 2 ML VIAL ONE (12:19)
[2019-11-26] MEDS ORDERED: PROPOFOL IV EMULSION 10 MG/ML 20 ML VIAL IV ONE (12:19)
[2019-11-26] MEDS ORDERED: LIDOCAINE HCL 2% 2 ML VIAL/AMP(20MG/ML) INFIL ONE (12:19)
[2019-11-26] MEDS ORDERED: ACETAMINOPHEN 1,000 MG/100 ML VIAL IV STA (13:24)
--- NOTE | 2019-11-26 13:24 | Post Operative Brief Note ---
PG Immediate Post Op with CF Date of Surgery November 26, 2019 Pre & Post Diagnosis Operation Date: 11/26/19 12:20 Pre-Op Diagnosis: left breast cancer Post-Op Diagnosis: left breast cancer I identified the patient and participated in the time-out.: Yes Procedure Operation Date: 11/26/19 12:20 Actual Procedures p Left Breast Mastectomy with Left Axillary Dissection - Pritesh Cullen MD, FACS Surgeon Pritesh Cullen MD, FACS Sample Sewer Ke Mcwilliams Estimated Blood Loss 20 Findings Consistent with Post-Op Diagnosis Specimens Specimen Description: Fresh: A. left axilliary lymph node B. left breast tissue, silk lateral/axillia Drains Otto-Crespo Drain (15F round x 2 left chest)
[2019-11-26] MEDS ORDERED: HYDROmorphone INJ 1 MG/ML SYRINGE IV PRN (13:33)
[2019-11-26] MEDS ORDERED: HYDROmorphone INJ 0.5 MG/0.5 ML SYR IV PRN (13:33)
[2019-11-26] MEDS: fentaNYL citrate 100 MCG/2 ML VIAL IV PRN ×2 (13:53→13:58)
--- NOTE | 2019-11-26 13:56 | Operative Report ---
DATE OF OPERATION: 11/26/2019 NAME OF OPERATION: Left mastectomy with left axillary dissection. PREOPERATIVE DIAGNOSIS: Left breast cancer with lymph node metastasis. STAFF SURGEON: Pritesh Cullen MD RHINOLOGIST: Juma Mcwilliams PA-C. ANESTHESIA: General. DESCRIPTION OF PROCEDURE: The patient was brought in the operating room and placed on the operating table in supine position. Her left chest and axilla were prepped and draped in usual fashion. She had 2 needles placed laterally in the left breast and axilla. Elliptical incision was made from the sternum to the axilla incorporating the needles incorporating also the nipple areolar complex. A superior and inferior chest wall flaps were constructed by dissecting the subcutaneous tissue away from the breast tissue down to the pectoralis major muscle and then dissecting the fascia away from the muscle with the breast. The axilla was also taken at the same time by performing left axillary dissection with lymphadenopathy, known from prior biopsy. We were able to identify the thoracodorsal complex as well as the left axillary vein and long thoracic nerve. Tissue was marked with a silk suture lateral/axilla and I also called the pathology lab to tell them that the axilla was with the breast tissue. At this point 2 drains were placed; #15 round CLAYTON secured using 3-0 nylon suture, 1 into the axilla, 1 into the chest wall wound. Site was irrigated. Subcutaneous tissue was reapproximated using 3-0 Vicryl suture, then the skin reapproximated using subcuticular 4-0 Monocryl with Steri-Strips. Dressing applied and patient transferred to recovery room in stable condition. My speech language pathologist assistant Jerome Mcwilliams helped with prepping, draping, excision of the breast tissue, excision of axillary tissue and closure of the wound. I attest to the content of the Intraoperative Record and any orders documented therein. Any exception s are noted below.
--- NOTE | 2019-11-26 14:05 | Anesthesiology Progress Note ---
Date of Service November 26, 2019 Anesthesia Post Procedure Vital Signs Vital Signs: Temp Pulse Pulse Resp BP Pulse Ox 11/26/19 13:55 96 H 14 152/80 H 100 11/26/19 13:45 98 H 14 147/78 H 100 11/26/19 13:37 97.7 F 100 H 12 140/81 100 11/26/19 10:09 98.8 F 84 20 161/71 H 95 Pain Intensity Chest: Pain Intensity: 5 Transfer of Care Handoff Completed per policy Notes Mental Status: alert / awake / arousable and participated in evaluation Patient Amnestic to Procedure: Yes Nausea / Vomiting: adequately controlled Pain: adequately controlled Airway Patency, RR, SpO2: stable & adequate BP & HR: stable & adequate Hydration State: stable & adequate Anesthetic Complications: no major complications apparent and Pt Satisfied with anesthetic care
[2019-11-26] MEDS ORDERED: HYDROCODONE/ACETAMOPHEN 5/325MG TAB PO PRN (14:25)
[2019-11-26] MEDS ORDERED: ACETAMINOPHEN 325 MG TAB PO PRN (14:25)
[2019-11-26] MEDS ORDERED: IBUPROFEN 600 MG TAB PO PRN (14:25)
[2019-11-26] MEDS ORDERED: SODIUM CHLORIDE 0.9% 1000ML 1,000 ML IV SCH (14:25)
[2019-11-26] MEDS ORDERED: PROMETHAZINE HCL 25 MG in SODIUM CHLORIDE 0.9% 50 ML IV PRN (14:25)
[2019-11-26] MEDS ORDERED: PROMETHAZINE HCL 12.5 MG in SODIUM CHLORIDE 0.9% 50 ML IV PRN (14:25)
[2019-11-26] MEDS ORDERED: GLUCOSE 10 TABS/TUBE PO PRN (16:13)
[2019-11-26] MEDS ORDERED: GLUCOSE 40% GEL 15 GM TUBE PO PRN (16:13)
[2019-11-26] MEDS ORDERED: CARBOHYDRATES FOR HYPOGLYCEMIA PO PRN (16:13)
[2019-11-26] MEDS ORDERED: ALBUT/IPRATROP 3MG/0.5MG NEB 3 ML VIAL NEB PRN (16:13)
[2019-11-26] MEDS ORDERED: DEXTROSE 50% 50 ML SYRINGE IV PRN (16:13)
[2019-11-26] MEDS ORDERED: GLUCAGON FOR INJ 1 MG VIAL SQ PRN (16:13)
--- NOTE | 2019-11-26 16:13 | Hospitalist Consultation ---
Date of Consultation November 26, 2019 Assessment & Plan (1) Breast cancer: S/p left mastectomy and sentinel node biopsy with Dr. Cullen on 11/25. Patient reports some mild surgical site pain. - Post-operative care per Dr. Cullen - Await pathology (2) Diabetes: A1c was 7.1% this month. - Hold oral meds in the setting of possibly low PO intake after surgery - Sliding scale insulin (3) Hypertension: Denies hx of such. BP is presently 140/80 after surgery. - Monitor BP (4) Asthma: Denies shortness of breath at this time. No wheezing on exam. - DuoNebs PRN (5) DVT prophylaxis: SCDs - Heparin per primary team given her post-op status History of Present Illness Attending Physician: Pritesh Cullen MD, [facility] History of Present Illness 59yo F w/ hx of DM who presents after left-sided mastectomy with Dr. Cullen on 11/25. Patient reports some left chest pain at the surgical site. Otherwise reports no fevers/chills, shortness of breath, abdominal pain, nausea, or vomiting. She reports that her blood sugars are usually 100-200 at home. They are in the lower range if she does not drink sodas, and they hit 200s if she does. Denies other health concerns. Allergies Allergy/AdvReac Type Severity Reaction Status Date / Time Cipro Allergy Mild ITCHING Verified 03/25/17 06:51 ciprofloxacin Allergy Unknown ITCHING Verified 11/26/19 10:16 doxycycline Allergy Unknown Rash Verified 11/26/19 10:16 morphine Allergy Unknown PT NOT SURE Verified 11/26/19 10:16 Penicillins Allergy Unknown rash/itchin Verified 11/26/19 10:16 g Sulfa (Sulfonamide Allergy Unknown ITCHY Verified 11/26/19 10:16 Antibiotics) Home Medications Home Medications Medication Instructions Recorded Confirmed Type acetaminophen [Tylenol] 500 - 650 mg PO UD PRN 07/11/18 11/21/19 History metformin 1,000 mg PO BID 07/11/18 11/21/19 History glipizide 5 mg tablet 5 mg PO BID 90 Days #180 tab 05/08/19 11/21/19 Rx blood sugar diagnostic #10 ea 06/02/19 10/30/19 History lancets 25 gauge #100 ea 06/02/19 10/30/19 History ibuprofen 800 mg PO UD PRN 11/21/19 11/21/19 History multivitamin 1 cap PO DAILY 11/21/19 11/21/19 History Patient History Medical History Anemia HX OF Anxiety and depression Asthma Breast cancer LEFT (PLAN FOR CHEMO FIRST THEN SURGERY- DID HAVE FOUR WEEKS OF CHEMO- STOPPED EARLY DUE TO NEUROPATHY) Colitis Diabetes mellitus, type 2 Hepatitis C (Chronic) "IN REMISSION" TREATED MANY YEARS AGO High cholesterol HX OF Hypertension Port-A-Cath in place (06/11/19) RIGHT CHEST / Fluoroscopy during port placement. Dr. Cullen 06-11-19 Surgical History H/O dilation and curettage H/O oral surgery H/O tubal ligation History of breast biopsy History of cholecystectomy History of colonoscopy History of ERCP History of esophagogastroduodenoscopy (EGD) History of gynecologic surgery surgical treatment for History of tonsillectomy and adenoidectomy Family History Father Alcohol abuse Mother Arthritis Family/Other Diabetes Arthritis Pure hypercholesterolemia Rheumatic fever Syphilis Migraine aura, persistent Hypertension Thyroid disorder Daughter Migraine aura, persistent Hypertension Diabetes Son Hypertension Brother Epilepsy Denies family history of Ovarian cancer Prostate cancer Myocardial infarction Breast cancer Bleeding disorder Colorectal cancer Stroke Social History Preferred Language: Mauritian Communication Ability: Effective Visual Impairment: No Limitations Hearing Ability: Normal Framing Consultant Required: No Beliefs That Will Affect Care: None marital status: Single Current Living Situation: Alone current occupational status: employed Other Information That Helps Us Care for You: No Feels Safe at Home: Yes Smoking Status: Current every day smoker Tobacco Type: cigarettes ; packs per day: 1 ; Cigarettes Per Day: .5PPD/ADVISED NPO BY NURSING ; Do You Dip or Chew Tobacco: No ; Second Hand Exposure: Yes ; Hx Alcohol Use: No Hx Substance Use: Yes (30 YRS AGO, NONE CURRENT) substance use type: does not use Childhood Exposure to Second-Hand Smoke: Yes Dental Care, Regularly: Yes Physical Activity Frequency: Does not Exercise Seatbelt Use: always Sunscreen Use: No Review of Systems Review of Systems: All systems reviewed & are unremarkable except as noted in HPI & below Physical Exam Constitutional: WD/WN, vitals as above + lethargic; no acute distress Eyes: EOM intact bilaterally; no conjunctival abnormality ENMT: external ear and nose normal, oropharynx normal Neck: trachea midline, no thyromegaly normal visual inspection Respiratory: normal respiratory effort, lungs clear to auscultation no respiratory distress Cardiovascular: RRR, no murmur, no edema Gastrointestinal (Abdomen): Inspection/Auscultation: abdomen normal to inspection; abdomen not distended Musculoskeletal: no cyanosis or clubbing, extremities motor strength 5/5 Skin: no rashes, warm and dry Neurologic: moves all extremities and awake Psychiatric: Orientation: alert, oriented to person and cooperative Results & Data ([facility]) Vital Signs (Past 12 Hours) Vital Signs Temp Pulse Pulse Pulse Resp BP Pulse Ox 11/26/19 15:37 36.4 C L 92 H 16 139/82 96 11/26/19 14:47 91 H 17 139/81 100 11/26/19 14:20 36.7 C 96 H 16 147/83 H 100 11/26/19 14:05 36.6 C 93 H 14 142/77 H 100 11/26/19 13:55 96 H 14 152/80 H 100 11/26/19 13:45 98 H 14 147/78 H 100 11/26/19 13:37 36.5 C 100 H 12 140/81 100 11/26/19 10:09 37.1 C 84 20 161/71 H 95 PG Care Time/CCT Total # of Minutes Spent Total Time Spent with Patient: Total time spent is greater than 50% in coordination of care (as documented) at patient's floor/unit and/or counseling patient: Coding Level of Care Code 47628 Inpt Consult Level 4 Diagnoses Breast cancer C50.919 Diabetes E11.9 Hypertension I10 Asthma J45.909 DVT prophylaxis Z29.9
[2019-11-26] MEDS: HYDROCODONE/ACETAMOPHEN 5/325MG TAB PO PRN ×2 (16:28→22:04)
[2019-11-26] MEDS: CEFAZOLIN 1000MG 1,000 MG/7.5 ML SYR IV SCH (16:29)
[2019-11-26] MEDS: INSULIN ASPART 100 UNITS/ML 3 ML PEN SC SCH ×2 (17:59→20:36)
[2019-11-27] MEDS: CEFAZOLIN 1000MG 1,000 MG/7.5 ML SYR IV SCH ×2 (00:24→07:56)
[2019-11-27] MEDS: HYDROCODONE/ACETAMOPHEN 5/325MG TAB PO PRN ×3 (01:43→20:22)
--- NOTE | 2019-11-27 06:32 | Surgery Progress Note ---
Date of Service November 27, 2019 Assessment & Plan (1) H/O mastectomy: awake, alert drains- serosang, expected no evidence of hematoma cont IV atbx, wound care probable d/c tomorrow 11/27 Results & Data Vital Signs (Past 12 Hours) Vital Signs Temp Pulse Pulse Resp BP Pulse Ox 11/27/19 03:59 36.9 C 75 16 125/73 98 11/26/19 23:05 36.6 C 77 16 150/72 H 98 11/26/19 20:41 89 163/77 H 97 11/26/19 19:21 80 171/85 H 100 11/26/19 18:55 36.3 C L 68 16 187/82 H 94 PG Care Time/CCT Total # of Minutes Spent Total Time Spent with Patient: Total time spent is greater than 50% in coordination of care (as documented) at patient's floor/unit and/or counseling patient: Coding Level of Care Code None Diagnoses H/O mastectomy Z90.10
[2019-11-27] MEDS: PATIENT'S HEIGHT AND/OR WEIGHT NEEDED SCH ×3 (06:52→08:52)
[2019-11-27] MEDS: HEPARIN 100 UNIT/ML 5ML FLUSH FLUSH PRN (07:57)
--- NOTE | 2019-11-27 08:01 | Anesthesiology Progress Note ---
Date of Service November 27, 2019 Anesthesia Post Procedure Vital Signs Vital Signs: Temp Pulse Pulse Pulse Resp BP Pulse Ox 11/27/19 07:25 36.8 C 78 16 127/69 96 11/27/19 03:59 36.9 C 75 16 125/73 98 11/26/19 23:05 36.6 C 77 16 150/72 H 98 11/26/19 20:41 89 163/77 H 97 11/26/19 19:21 80 171/85 H 100 11/26/19 18:55 36.3 C L 68 16 187/82 H 94 11/26/19 17:35 36.4 C L 77 16 169/82 H 97 11/26/19 16:35 36.3 C L 90 16 152/86 H 94 11/26/19 15:37 36.4 C L 92 H 16 139/82 96 11/26/19 14:47 91 H 17 139/81 100 11/26/19 14:20 36.7 C 96 H 16 147/83 H 100 11/26/19 14:05 36.6 C 93 H 14 142/77 H 100 11/26/19 13:55 96 H 14 152/80 H 100 11/26/19 13:45 98 H 14 147/78 H 100 11/26/19 13:37 36.5 C 100 H 12 140/81 100 11/26/19 10:09 37.1 C 84 20 161/71 H 95 Pain Intensity Chest: Pain Intensity: 7 Notes Mental Status: alert / awake / arousable and participated in evaluation Patient Amnestic to Procedure: Yes Nausea / Vomiting: adequately controlled Pain: adequately controlled Airway Patency, RR, SpO2: stable & adequate BP & HR: stable & adequate Hydration State: stable & adequate Anesthetic Complications: no major complications apparent and Pt Satisfied with anesthetic care
[2019-11-27] MEDS: INSULIN ASPART 100 UNITS/ML 3 ML PEN SC SCH ×4 (08:51→20:55)
[2019-11-27] MEDS: HEPARIN SOD 5,000 UNIT/0.5 ML VIAL SQ SCH ×2 (08:51→20:55)
--- NOTE | 2019-11-27 15:08 | Mammography Report ---
MULTIPLE NEEDLE LOCALIZATION LEFT BREAST: 11/26/2019 CLINICAL HISTORY: Biopsy-proven invasive ductal carcinoma in the 1:00 posterior left breast and metas tatic adenocarcinoma within a left axillary lymph node. Status post neoadjuvant chemotherapy. Patient presents for preoperative needle and wire localization x2. COMPARISON: Comparison is made to exams dated: 10/17/2019 ultrasound, 05/01/2019 breast MRI, 04/02/2019 u ltrasound biopsy, 04/02/2019 ultrasound biopsy, 04/02/2019 mammogram, and 01/14/2011 mammogram - [facility]. PATIENT CONSENT: The risks of the procedure were explained to the patient and informed consent was ob tained both verbally and in writing. Specific risks include: Bleeding, infection, puncture of adjace nt structure, nontarget localization, dizziness/lightheadedness, medication reaction. A timeout was performed and the left breast and axilla were agreed as the site for preoperative localization. PROCEDURE DESCRIPTION: The patient was placed in the right lateral decubitus position and left arm ex tended above her head. Targeted ultrasound was performed in the 1:00 left breast, 10 cm from the nip ple in the area of biopsy-proven carcinoma and also in the left axilla in the area of biopsy-proven l ymph node with metastatic adenocarcinoma. The biopsied mass with internal ribbon-shaped biopsy marke r is noted as is the abnormal lymph node. Both are the intended targets for preoperative localizatio n. The skin of the left upper outer quadrant and left axilla were cleansed with Betadine and sterile drapes were placed. First, localization was performed of the biopsy-proven carcinoma in the 1:00 axis, 10 cm from the nip ple. 1% buffered Lidocaine without epinephrine was administered as local anesthesia. A 5cm Mata I I needle and wire combination was inserted into the breast. Optimal positioning was confirmed and the wire was locked in place, leaving both the needle and wire within the breast, as per surgeon's prefe rence. Second, localization was performed of the biopsy-proven left axillary lymph node with metasta tic disease. Additional 1% buffered lidocaine without epinephrine was administered as local anesthes ia. A 5cm Mata II needle and wire combination was inserted into the breast. Optimal positioning wa s confirmed and the wire was locked in place, leaving both the needle and wire within the breast. Both procedures including approach and needle lengths were discussed with the operating surgeon prior to surgery. The patient tolerated the procedure well and there was no immediate complication. She was sent to the operating room in satisfactory condition. Specimen radiography was not performed given that the mastectomy and left axillary lymph node dissect ion were performed en mass. IMPRESSION: NEEDLE LOCALIZATION Status post preoperative needle and wire localization of biopsy-proven carcinoma in the 1:00 left eliezer ast and a left axillary lymph node, as above. Final surgical pathology is pending. Sera Whitfield M.D. ay/:11/26/2019 14:46:40 Manufacturing Engineer [employer]: RT Trinh(R)(M), [facility]
--- NOTE | 2019-11-27 16:08 | Hospitalist Progress Note ---
Date of Service November 27, 2019 Assessment & Plan (1) Breast cancer: S/p left mastectomy and sentinel node biopsy with Dr. Cullen on 11/25. Patient reports some mild surgical site pain. - Post-operative care per Dr. Cullen - Await pathology - Doing well today. Minimal pain. (2) Diabetes: A1c was 7.1% this month. - Hold oral meds in the setting of possibly low PO intake after surgery - Sliding scale insulin -> Sugars under control. We discussed lifestyle alterations to improve her blood sugars. (3) Hypertension: Denies hx of such. BP is presently 150/75. - Monitor BP (4) Asthma: Denies shortness of breath at this time. No wheezing on exam. - DuoNebs PRN (5) DVT prophylaxis: SCDs - Heparin per primary team given her post-op status Given medical stability, Hospital Medicine team will sign off. Please re-consult with any questions or concerns. Thank you for letting us assist in the care of this patient! Admission and Anticipated Discharge Date Admission Date: November 26, 2019 Subjective Doing much better today. Much improved pain today. Sugars are in good range. Reports no fevers/chills, chest pain, shortness of breath, abdominal pain, nausea, or vomiting. Physical Exam Constitutional: WD/WN, vitals as above no acute distress and not lethargic Eyes: EOM intact bilaterally; no conjunctival abnormality ENMT: external ear and nose normal, oropharynx normal Neck: trachea midline, no thyromegaly normal visual inspection Respiratory: normal respiratory effort, lungs clear to auscultation no respiratory distress Cardiovascular: RRR, no murmur, no edema Gastrointestinal (Abdomen): Inspection/Auscultation: abdomen normal to inspection; abdomen not distended Musculoskeletal: no cyanosis or clubbing, extremities motor strength 5/5 Skin: no rashes, warm and dry Neurologic: moves all extremities and awake Psychiatric: Orientation: alert, oriented to person and cooperative Results & Data ([facility]) Vital Signs (Past 12 Hours) Vital Signs Temp Pulse Pulse Resp BP Pulse Ox 11/27/19 15:07 36.8 C 84 16 148/74 H 99 11/27/19 11:01 37.1 C 82 16 132/79 99 11/27/19 07:25 36.8 C 78 16 127/69 96 PG Care Time/CCT Total # of Minutes Spent Total Time Spent with Patient: Total time spent is greater than 50% in coordination of care (as documented) at patient's floor/unit and/or counseling patient: Coding Level of Care Code 84745 Subseq Hosp Care Lvl 2 Diagnoses Breast cancer C50.919 Diabetes E11.9 Hypertension I10 Asthma J45.909 DVT prophylaxis Z29.9
[2019-11-27] MEDS: cephALEXin 500 MG CAP PO SCH ×2 (16:18→20:23)
[2019-11-28] MEDS: HEPARIN 100 UNIT/ML 5ML FLUSH FLUSH PRN (05:32)
[2019-11-28 06:16] LABS: Hemoglobin 9.1 g/dL (12.0-16.0); Mean Corpuscular Hemoglobin 28.3 pg (25-34); Mean Corpuscular Hgb Conc 32.5 g/dL (32-36); Mean Platelet Volume 9.7 fL (7.4-10.4); Platelet Count 203 K/uL (130-400); RDW Coefficient of Variation 16.1 % (11.5-14.5); RDW Standard Deviation 51.7 fL (36.4-46.3); Red Blood Count 3.22 M/uL (4.2-5.4); White Blood Count 6.17 K/uL (4.8-10.8)
[2019-11-28] MEDS: HEPARIN SOD 5,000 UNIT/0.5 ML VIAL SQ SCH (08:36)
[2019-11-28] MEDS: cephALEXin 500 MG CAP PO SCH (08:37)
[2019-11-28] MEDS: INSULIN ASPART 100 UNITS/ML 3 ML PEN SC SCH (08:37)
--- NOTE | 2019-11-28 10:05 | Discharge Summary ---
PRINCIPAL DIAGNOSIS: Left breast cancer. PROCEDURES: The patient underwent left breast mastectomy with left axillary dissection. HISTORY OF PRESENT ILLNESS: The patient is a 59-year-old female who underwent neoadjuvant chemotherapy for advanced left breast cancer. HOSPITAL COURSE: She was brought into the hospital on 11/26/2019 where she underwent left mastectomy with left axillary dissection. She had drains placed. She has done quite well over the past 2 nights and is felt stable for discharge home today to be followed in the surgical clinic within 1 week and she is to have a visiting nurse at home.
== END 2019-11-28 09:02 | disposition home health service (06) | DRG 582 ==
LOC: ASU 08:20 → 3W 13:24

== ENCOUNTER 2020-02-13 10:48 | Inpatient (IN) ==
[2020-02-13] MEDS ORDERED: SODIUM CHLORIDE 0.9% 1000ML 1,000 ML IV ONE (11:47)
[2020-02-13] MEDS ORDERED: ONDANSETRON INJ 2 MG/ML 2 ML VIAL IV STA (11:47)
--- NOTE | 2020-02-13 12:30 | Emergency Department Note ---
Impression & Plan Portal vein thrombosis, Abdominal pain, Liver mass ED Provider Note NAME: SAVANNAH WRIGHT AGE: 59 SEX: F : 1960 ARRIVES VIA: Walk-In INFORMANT: Patient, ED PROVIDER(S): Chon Vazquez DO CHIEF COMPLAINT: Abdominal pain HPI: The patient is a 59-year-old female who has a history of hepatitis as well as breast cancer who presented to the emergency department for an evaluation of abdominal pain. The patient has had ongoing abdominal pain for the last few weeks. She was seen by her primary care physician and had radiographic studies obtained. She had an ultrasound of the abdomen 1 week ago which did reveal a possible hepatic mass. A CT of the scan was recommended but she did not have this test ordered at this time. Patient called her primary care physician to schedule a follow-up appointment and to be seen. She also wanted to know the results of her radiographic studies. She was instead instructed to go to the emergency department. The patient states the pain waxes and wanes but is constant. She states the pain is moderate to severe and worsened with any ambulation or palpation over the abdomen. She denies having any diarrhea. She has had nausea and vomiting. She denies having any fevers or chills. She complains of weight loss. The patient denies any coughing or fever. She is had no recent traveling or exposure to COVID-19. ROS: See above HPI for pertinent positives & negatives. A total of 10 systems reviewed and were otherwise negative. PAST MEDICAL HISTORY: See Below PAST SURGICAL HISTORY: See Below FAMILY HISTORY: See Below SOCIAL HISTORY: See Below HOME MEDICATIONS: See Below ALLERGIES: See Below VITALS: See Below PHYSICAL EXAMINATION: GENERAL: Patient is awake alert in no acute distress patient is resting comfortably and showing no signs of anxiety EYES: The conjunctivae are clear. The pupils are round and reactive. EARS, NOSE, MOUTH AND THROAT: The nose is without any evidence of any deformity. Mucous membranes are moist. Tongue is midline. NECK: The neck is nontender and supple. RESPIRATORY: Normal respiratory effort is noted there is no evidence of wheezing rhonchi or rales CARDIOVASCULAR: Regular rate and rhythm noted there no murmurs rubs or gallops normal S1 normal S2. GASTROINTESTINAL: The abdomen is moderately distended and diffusely tender. There is right upper quadrant tenderness some guarding to palpation. MUSCULOSKELETAL/EXTREMITIES: There is no evidence of gross deformity full range of motion is noted in the hips and shoulders. SKIN: There is no obvious evidence of any rash. There are no petechiae, pallor or cyanosis noted. NEUROLOGIC: Patient is awake alert and oriented x3 strength is symmetric patellar reflexes are 2+ bilaterally MEDICAL DECISION MAKING: The patient is a 59-year-old female who presented to the emergency department for ongoing abdominal pain. The patient started having abdominal pain approximately 2 to 3 weeks ago. She was seen by her primary care physician and had an ultrasound which revealed a possible liver mass. The patient did not h ave a follow-up appointment or follow-up imaging after this ultrasound. She presents today with worsening pain. The patient does have a history of breast cancer but as far she knows she is not had any metastasis of this disease. The patient's laboratory and radiographic studies were discussed with her. She was found to have an elevated liver function studies as well as a portal vein thrombosis associated with the liver mass. The patient was treated with IV fluids and IV pain medication. She was also started on IV heparin. She was reevaluated multiple times. I discussed her case with the on-call [facility] hospitalist. They have agreed to evaluate the patient in the emergency depa rtment for further management disposition. Triage Nursing notes reviewed. Prior medical records reviewed Vital Signs: reviewed and remarkable for elevated blood pressure Differential diagnosis: Etiologies such as appendicitis, diverticulitis, obstruction, inflammatory bowel disease, renal colic, PUD, biliary pathology, pancreatitis, mesenteric ischemia, aortic pathology, infections, genitourinary, UTI, perforated viscus, as well as others were entertained. ER treatment provided: See below Diagnostics interpreted by me: ECG: none Cardiac Monitoring: An order was placed for continuous cardiac monitoring. The monitor shows a rate of 85 with sinus rhythm. Laboratory studies: As stated above and show below. Imaging studies: See below Consultation(s): [facility] management 1515: I discussed this case with Dr. Alex ED COURSE: Procedures: none PDMP:reviewed and no issues Critical Care: I have personally spent greater than 50 minutes of critical care time in the direct management of this patient. This includes bedside care, interpretation of diagnostic studies, and testing, discussion with consultants, patient, and family members, and other required patient management activities. This 50 minutes is in excess of all separately billable procedures. Past Med/Surg History Medical History Acute hepatitis Hepatitis C - In remission Anemia HX OF Anxiety and depression Ascending cholangitis Asthma Bacteremia Breast cancer LEFT (PLAN FOR CHEMO FIRST THEN SURGERY- DID HAVE FOUR WEEKS OF CHEMO- STOPPED EARLY DUE TO NEUROPATHY) Colitis Cystitis Dehydration Depression with anxiety Diabetes mellitus, type 2 Enteritis Gallstones Hepatitis C (Chronic) "IN REMISSION" TREATED MANY YEARS AGO High cholesterol HX OF History of chicken pox Hypertension Kidney stones Malignant neoplasm of upper-outer quadrant of left breast in female, 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 Dr. Cullen 06-11-19 Tubular adenoma Surgical History H/O dilation and curettage H/O oral surgery H/O tubal ligation History of breast biopsy History of cholecystectomy History of colonoscopy History of ERCP History of esophagogastroduodenoscopy (EGD) History of gynecologic surgery surgical treatment for History of tonsillectomy and adenoidectomy S/P ERCP Family History Father , does not know HX Alcohol abuse Mother Arthritis Family/Other Diabetes Arthritis Pure hypercholesterolemia Rheumatic fever Syphilis Migraine aura, persistent Hypertension Thyroid disorder Daughter Migraine aura, persistent Hypertension Diabetes Son Infected tooth Brother Epilepsy Denies family history of Ovarian cancer Prostate cancer Myocardial infarction Breast cancer Bleeding disorder Colorectal cancer Stroke Social History Preferred Language: Greek Communication Ability: Effective Visual Impairment: No Limitations Hearing Ability: Normal Play Therapist Required: No Beliefs That Will Affect Care: None marital status: Single Current Living Situation: Alone Current Living Situation Comment: lives with son now current occupational status: employed 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 Feels Safe at Home: Yes Smoking Status: Current every day smoker Tobacco Type: cigarettes ; Age Started Using Tobacco: 8 ; packs per day: 1 ; Cigarettes Per Day: .5PPD/ADVISED NPO BY NURSING ; Second Hand Exposure: Yes ; Hx Alcohol Use: No Hx Substance Use: Yes (30 YRS AGO, NONE CURRENT) substance use type: does not use Childhood Exposure to Second-Hand Smoke: Yes Dental Care, Regularly: Yes Physical Activity Frequency: Does not Exercise Seatbelt Use: always Sunscreen Use: No Allergies Allergies Allergy/AdvReac Type Severity Reaction Status Date / Time Cipro Allergy Mild ITCHING Verified 03/25/17 06:51 ciprofloxacin Allergy Unknown ITCHING Verified 02/13/20 11:43 doxycycline Allergy Unknown Rash Verified 02/13/20 11:43 morphine Allergy Unknown PT NOT SURE Verified 02/13/20 11:43 Penicillins Allergy Unknown rash/itchin Verified 02/13/20 11:43 g Sulfa (Sulfonamide Allergy Unknown ITCHY Verified 02/13/20 11:43 Antibiotics) Home Meds Home Medications Medication Instructions Recorded Confirmed metformin 1,000 mg PO BID 07/11/18 02/13/20 blood sugar diagnostic #10 ea 06/02/19 02/06/20 lancets 25 gauge #100 ea 06/02/19 02/06/20 multivitamin 1 cap PO DAILY 11/21/19 02/13/20 Previous Rx's Medication Instructions Recorded glipizide 5 mg tablet 5 mg PO BID 90 Days #180 tab 05/08/19 Results & Data (ED) Vital Signs Vital Signs - 24 hr 02/13/20 11:07 02/13/20 12:38 02/13/20 13:00 Temperature 36.6 C Temperature Source Oral Pulse Rate 112 H 86 84 Pulse Rate from SpO2 Sensor 87 85 Respiratory Rate 22 23 24 Respiratory Effort / Characteristics Non-Labored Spontaneous Respiratory Depth Normal Blood Pressure 111/73 127/66 144/73 H Blood Pressure Mean 85 92 93 Blood Pressure Position Sitting Pulse Oximetry 99 99 100 Oxygen Delivery Method Room Air Room Air Room Air Sepsis Recent Fever Within 48 Hours No Sepsis Action Taken by Nursing No Action Required 02/13/20 14:05 02/13/20 14:30 Temperature Temperature Source Pulse Rate 96 H 86 Pulse Rate from SpO2 Sensor 95 H 88 Respiratory Rate 23 25 H Respiratory Effort / Characteristics Respiratory Depth Blood Pressure 171/103 H 161/67 H Blood Pressure Mean 120 102 Blood Pressure Position Pulse Oximetry 98 98 Oxygen Delivery Method Room Air Room Air Sepsis Recent Fever Within 48 Hours Sepsis Action Taken by [facility] Medications Current Medication List: was personally reviewed by me Laboratory Data Attestation: I reviewed the patient's lab results. Result diagrams: 02/13/20 12:30 02/13/20 12:30 Lab Results 02/13/20 02/13/20 02/13/20 Range/Units 12:30 12:30 12:30 WBC 5.08 (4.8-10.8) K/uL RBC 4.12 L (4.2-5.4) M/uL Hgb 11.4 L (12.0-16.0) g/dL POC Hgb (12.0-16.0) g/dl Hct 33.7 L (37-47) % POC Hct (37-47) % MCV 81.8 (80-100) fL MCH 27.7 (25-34) pg MCHC 33.8 (32-36) g/dL RDW Std Deviation 43.5 (36.4-46.3) fL RDW Coeff of Noah 14.6 H (11.5-14.5) % Plt Count 121 L (130-400) K/uL MPV 10.4 (7.4-10.4) fL Immature Gran % (Auto) 0.2 % Neut % (Auto) 61.4 % Lymph % (Auto) 28.3 % Chilton % (Auto) 8.7 % Eos % (Auto) 1.0 % Baso % (Auto) 0.4 % Immature Gran # (Auto) 0.01 (0.00-0.02) K/uL Neut # (Auto) 3.12 (1.4-6.5) K/uL Lymph # (Auto) 1.44 (1.2-3.4) K/uL Chilton # (Auto) 0.44 (0.11-0.59) K/uL Eos # (Auto) 0.05 (0-0.5) K/uL Baso # (Auto) 0.02 (0-0.2) K/uL ESR 62 H (0-21) mm/hr POC Sodium (135-144) mmol/L Sodium 131 L (136-145) mmol/L POC Potassium (3.3-5.0) mmol/L Potassium 3.9 (3.5-5.1) mmol/L POC Chloride (101-112) mmol/L Chloride 96 L (98-107) mmol/L Carbon Dioxide 23 (21-32) mmol/L POC Total CO2 (24-31) mmol/L Anion Gap 12.0 H (3-11) POC Anion Gap (16-25) mmol/L POC BUN (7-18) mg/dl BUN 17 (7-18) mg/dl Creatinine 0.89 (0.6-1.2) mg/dl POC Creatinine (0.6-1.3) mg/dl Est Cr Clr Drug Dosing 52.0 ml/min Est GFR ( Amer) 82.8 Est GFR (Non-Af Amer) 71.4 BUN/Creatinine Ratio 18.5 (10-20) Glucose 142 H (70-99) mg/dl POC Glucose (other) (70-99) mg/dl Calcium 9.1 (8.5-10.1) mg/dl POC Ioniz Calcium Ju (1.12-1.32) mmol/l Total Bilirubin 0.6 (0.2-1) mg/dl AST 151 H (15-37) U/L ALT 99 H (12-78) U/L Alkaline Phosphatase 187 H (45-117) U/L C-Reactive Protein 5.84 H (0-0.29) mg/dl Total Protein 7.5 (6.4-8.2) gm/dl Albumin 3.2 L (3.4-5.0) gm/dl Globulin 4.3 H (2.5-4.0) gm/dl Albumin/Globulin Ratio 0.7 L (0.9-2) Lipase 130 (73-393) U/L Urine Color Urine Appearance (Clear) Urine pH (4.5-7.5) Ur Specific Napoleon (1.000-1.030) Urine Protein (Negative) Urine Glucose (UA) (Negative) Urine Ketones (Negative) Urine Blood (Negative) Urine Nitrite (Negative) Urine Bilirubin (Negative) Urine Urobilinogen (Negative) Ur Leukocyte Esterase (Negative) 02/13/20 02/13/20 Range/Units 12:46 14:00 WBC (4.8-10.8) K/uL RBC (4.2-5.4) M/uL Hgb (12.0-16.0) g/dL POC Hgb 12.6 (12.0-16.0) g/dl Hct (37-47) % POC Hct 37 (37-47) % MCV (80-100) fL MCH (25-34) pg MCHC (32-36) g/dL RDW Std Deviation (36.4-46.3) fL RDW Coeff of Noah (11.5-14.5) % Plt Count (130-400) K/uL MPV (7.4-10.4) fL Immature Gran % (Auto) % Neut % (Auto) % Lymph % (Auto) % Chilton % (Auto) % Eos % (Auto) % Baso % (Auto) % Immature Gran # (Auto) (0.00-0.02) K/uL Neut # (Auto) (1.4-6.5) K/uL Lymph # (Auto) (1.2-3.4) K/uL Chilton # (Auto) (0.11-0.59) K/uL Eos # (Auto) (0-0.5) K/uL Baso # (Auto) (0-0.2) K/uL ESR (0-21) mm/hr POC Sodium 130 L (135-144) mmol/L Sodium (136-145) mmol/L POC Potassium 4.0 (3.3-5.0) mmol/L Potassium (3.5-5.1) mmol/L POC Chloride 95 L (101-112) mmol/L Chloride (98-107) mmol/L Carbon Dioxide (21-32) mmol/L POC Total CO2 23 L (24-31) mmol/L Anion Gap (3-11) POC Anion Gap 18.0 (16-25) mmol/L POC BUN 16 (7-18) mg/dl BUN (7-18) mg/dl Creatinine (0.6-1.2) mg/dl POC Creatinine 0.9 (0.6-1.3) mg/dl Est Cr Clr Drug Dosing ml/min Est GFR ( Amer) Est GFR (Non-Af Amer) BUN/Creatinine Ratio (10-20) Glucose (70-99) mg/dl POC Glucose (other) 138 H (70-99) mg/dl Calcium (8.5-10.1) mg/dl POC Ioniz Calcium Ju 1.07 L (1.12-1.32) mmol/l Total Bilirubin (0.2-1) mg/dl AST (15-37) U/L ALT (12-78) U/L Alkaline Phosphatase (45-117) U/L C-Reactive Protein (0-0.29) mg/dl Total Protein (6.4-8.2) gm/dl Albumin (3.4-5.0) gm/dl Globulin (2.5-4.0) gm/dl Albumin/Globulin Ratio (0.9-2) Lipase (73-393) U/L Urine Color Yellow Urine Appearance Clear (Clear) Urine pH 5.5 (4.5-7.5) Ur Specific Napoleon 1.013 (1.000-1.030) Urine Protein Negative (Negative) Urine Glucose (UA) Negative (Negative) Urine Ketones Trace H (Negative) Urine Blood Negative (Negative) Urine Nitrite Negative (Negative) Urine Bilirubin Negative (Negative) Urine Urobilinogen Negative (Negative) Ur Leukocyte Esterase Negative (Negative) Administered Medications Fentanyl Citrate (Fentanyl Citrate) 50 mcg IV Q15M PRN PRN Reason: Pain Stop: 02/27/20 11:46 Last Admin: 02/13/20 14:15 Dose: 50 mcg Documented by: [id number] Admin: 02/13/20 12:35 Dose: 50 mcg Documented by: [id number] Ioversol (Optiray 320 100ml) 94 ml IV ONCE PRN PRN Reason: Interaction Checking Stop: 02/17/20 13:28 Last Admin: 02/13/20 13:30 Dose: 94 ml Documented by: [id number] Discontinued Medications Sodium Chloride (Nss 1000ml) 1,000 mls @ 999 mls/hr IV .Q1H1M ONE Stop: 02/13/20 12:47 Last Infusion: 02/13/20 14:30 Dose: 0 mls/hr Documented by: [id number] Admin: 02/13/20 12:34 Dose: 999 mls/hr Documented by: [id number] Ondansetron HCl (Zofran) 4 mg IV NOW STA Stop: 02/13/20 11:48 Last Admin: 02/13/20 12:35 Dose: Not Given Documented by: [id number] Imaging Data Radiologist's Impression: CT OF THE ABDOMEN AND PELVIS WITH CONTRAST CLINICAL HISTORY: Right upper quadrant abdominal pain. COMPARISON STUDY: PET/CT June 14, 2019. Abdominal ultrasound February 06, 2020. TECHNIQUE: Following IV administration of 94 mL of Optiray-320, axial images of the abdomen and pelvis were obtained from the lung bases to the proximal femurs. Images were reviewed in the axial, sagittal, and coronal planes. IV contrast was administered without complication. Automated exposure control was utilized for the study. A dose lowering technique was utilized adhering to the principles of ALARA. CT DOSE: 378.38 mGycm FINDINGS: Lung bases are unremarkable. No pneumatosis, free air or portal venous gas is present. Trace perihepatic ascites is noted. A small amount of ascites within the pelvis is also noted. Note is made of nearly occlusive thrombus within the left portal vein. There is extensive hypodensity within the lateral segment of the liver as well as portions of the medial segment of the right hepatic lobe. Note is made of a 2.1 cm hypodense mass within the medial segment of the liver on image 144 of 436. This likely corresponds to one of the masses shown on ultrasound February 06, 2020. The liver is cirrhotic appearing. The spleen, adrenal glands and kidneys are unremarkable. Pneumobilia is again noted. Mild biliary ductal dilatation is unchanged status post cholecystectomy. There is no hydronephrosis. Several mildly enlarged casi hepatis lymph nodes have increased in size, measuring up to 1.3 cm short axis diameter. There is no evidence for a bowel obstruction. A mildly enlarged aortocaval lymph node image 220 of 436 is noted. This measures 1.1 cm. Note is again made of a partially calcified mass ileocolic mass that measures 1.9 cm. There is prominent enhancement of an a djacent ileal loop. No suspicious osseous lesions are noted. IMPRESSION: 1. 2.1 cm medial segment hepatic mass suggestive of metastatic disease and metastatic breast cancer is favored. Although less likely, metastatic carcinoid is also within the differential given the partially calcified ileocolic mass. Primary liver malignancy such as hepatocellular carcinoma is also within the differential. An MRI of the liver may be of benefit in further evaluation. 2. Nearly occlusive thrombus within the left portal vein that could reflect bland thrombus or tumor thrombus and may account for extensive hypodensity within the left hepatic lobe and portions of the right hepatic lobe. This hypodensity is nonspecific and may reflect geographic fat, perfusion anomaly or less likely hepatic infarct. This likely obscures smaller hepatic metastases. Cirrhotic appearing liver. Trace ascites. 3. Multiple mildly enlarged upper abdominal lymph nodes. ACT 112: Negative or not required by law. Electronically signed by: Tomás Ruiz M.D. 02/13/2020 2:16 PM Dictated: 02/13/20 1341 Transcribed: 02/13/20 1341 Blood Pressure Blood Pressure Findings: Elevated blood pressure Blood Pressure Disposition: further management by hospitalist Discharge Plan Visit Data Chief Complaint: Abdominal Pain Stated Complaint: ABDOMINAL PAIN ED Provider: Chon Vazquez Discharge Problem: Portal vein thrombosis, Abdominal pain, Liver mass Patient Disposition: Being Evaluated by Hospitalist Condition: Good Forms Stand Alone Forms: My Gust Prescriptions Prescriptions: No Action glipizide 5 mg tablet 5 mg PO BID 90 Days Qty: 180 RF: 3 (DME) lancets 25 gauge misc See Dose Instructions .ROUTE .MEDSUPPLY Qty: 100 RF: 0 (DME) OneTouch Ultra Blue Test Strip strip See Dose Instructions .ROUTE .MEDSUPPLY Qty: 10 RF: 0 metformin 1,000 mg Tablet 1,000 mg PO BID RF: 0 multivitamin Capsule 1 cap PO DAILY RF: 0 Referrals Referrals: Chon Paris MD [Primary Care Provider] - Discharge Problem: Abdominal pain Qualifiers: Abdominal location: right upper quadrant Qualified Code(s): R10.11 - Right upper quadrant pain
[2020-02-13] MEDS: fentaNYL citrate 100 MCG/2 ML VIAL IV PRN ×2 (12:35→14:15)
[2020-02-13 12:54] LABS: Basophils # (auto) 0.02 K/uL (0-0.2); Basophils % (auto) 0.4 %; Eosinophils # (auto) 0.05 K/uL (0-0.5); Hematocrit (blood only) 33.7 % (37-47); Hemoglobin 11.4 g/dL (12.0-16.0); Immature Granulocytes # (auto) 0.01 K/uL (0.00-0.02); Immature Granulocytes % (auto) 0.2 %; Lymphocytes # (auto) 1.44 K/uL (1.2-3.4); Lymphocytes % (auto) 28.3 %; Mean Corpuscular Hemoglobin 27.7 pg (25-34); Mean Corpuscular Hgb Conc 33.8 g/dL (32-36); Mean Corpuscular Volume 81.8 fL (80-100); Mean Platelet Volume 10.4 fL (7.4-10.4); Monocytes # (auto) 0.44 K/uL (0.11-0.59); Monocytes % (auto) 8.7 %; Neutrophils # (auto) 3.12 K/uL (1.4-6.5); Neutrophils % (auto) 61.4 %; Platelet Count 121 K/uL (130-400); RDW Coefficient of Variation 14.6 % (11.5-14.5); RDW Standard Deviation 43.5 fL (36.4-46.3); Red Blood Count 4.12 M/uL (4.2-5.4); White Blood Count 5.08 K/uL (4.8-10.8)
[2020-02-13 13:02] LABS: iSTAT Creatinine 0.9 mg/dl (0.6-1.3); iSTAT Hemoglobin 12.6 g/dl (12.0-16.0); iSTAT Ionized Calcium 1.07 mmol/l (1.12-1.32)
[2020-02-13 13:19] LABS: Albumin Level 3.2 gm/dl (3.4-5.0); BUN Creatinine Ratio 18.5 (10-20); C Reactive Protein 5.84 mg/dl (0-0.29); Calcium 9.1 mg/dl (8.5-10.1); Est GFR (African American) 82.8; Est GFR (Non-African American) 71.4; Potassium 3.9 mmol/L (3.5-5.1)
[2020-02-13 13:22] LABS: Albumin Globulin Ratio 0.7 (0.9-2); Bilirubin,Total 0.6 mg/dl (0.2-1); Globulin 4.3 gm/dl (2.5-4.0); Total Protein 7.5 gm/dl (6.4-8.2)
[2020-02-13] MEDS ORDERED: OPTIRAY 320 100ml IV PRN (13:29)
--- NOTE | 2020-02-13 14:17 | CT Scan Report ---
CT OF THE ABDOMEN AND PELVIS WITH CONTRAST CLINICAL HISTORY: Right upper quadrant abdominal pain. COMPARISON STUDY: PET/CT June 14, 2019. Abdominal ultrasound February 06, 2020. TECHNIQUE: Following IV administration of 94 mL of Optiray-320, axial images of the abdomen and pelvi s were obtained from the lung bases to the proximal femurs. Images were reviewed in the axial, sagitt al, and coronal planes. IV contrast was administered without complication. Automated exposure contro l was utilized for the study. A dose lowering technique was utilized adhering to the principles of A SHANTELL. CT DOSE: 378.38 mGycm FINDINGS: Lung bases are unremarkable. No pneumatosis, free air or portal venous gas is present. Trac e perihepatic ascites is noted. A small amount of ascites within the pelvis is also noted. Note is ma de of nearly occlusive thrombus within the left portal vein. There is extensive hypodensity within th e lateral segment of the liver as well as portions of the medial segment of the right hepatic lobe. N ote is made of a 2.1 cm hypodense mass within the medial segment of the liver on image 144 of 436. Th is likely corresponds to one of the masses shown on ultrasound February 06, 2020. The liver is cirrhotic a ppearing. The spleen, adrenal glands and kidneys are unremarkable. Pneumobilia is again noted. Mild b iliary ductal dilatation is unchanged status post cholecystectomy. There is no hydronephrosis. Severa l mildly enlarged casi hepatis lymph nodes have increased in size, measuring up to 1.3 cm short axis diameter. There is no evidence for a bowel obstruction. A mildly enlarged aortocaval lymph node imag e 220 of 436 is noted. This measures 1.1 cm. Note is again made of a partially calcified mass ileocol ic mass that measures 1.9 cm. There is prominent enhancement of an adjacent ileal loop. No suspicious osseous lesions are noted. IMPRESSION: 1. 2.1 cm medial segment hepatic mass suggestive of metastatic disease and metastatic breast cancer i s favored. Although less likely, metastatic carcinoid is also within the differential given the parti ally calcified ileocolic mass. Primary liver malignancy such as hepatocellular carcinoma is also with in the differential. An MRI of the liver may be of benefit in further evaluation. 2. Nearly occlusive thrombus within the left portal vein that could reflect bland thrombus or tumor t hrombus and may account for extensive hypodensity within the left hepatic lobe and portions of the ri ght hepatic lobe. This hypodensity is nonspecific and may reflect geographic fat, perfusion anomaly o r less likely hepatic infarct. This likely obscures smaller hepatic metastases. Cirrhotic appearing l iver. Trace ascites. 3. Multiple mildly enlarged upper abdominal lymph nodes. ACT 112: Negative or not required by law. Electronically signed by: Tomás Ruiz M.D. 02/13/2020 2:16 PM
[2020-02-13 14:24] LABS: Appearance Urine Clear (Clear); Bilirubin Urine Negative (Negative); Blood Urine Negative (Negative); Color Urine Yellow; Glucose Urine UA Negative (Negative); Ketones Urine Trace (Negative); Leukocyte Esterase Urine Negative (Negative); Nitrite Urine Negative (Negative); Protein Urine Negative (Negative); Specific Gravity Urine 1.013 (1.000-1.030); Urobilinogen Urine Negative (Negative); pH Urine 5.5 (4.5-7.5)
[2020-02-13] MEDS ORDERED: Heparin IV Adult Wt-Based Standard WITH Bolus Protocol IV STA (14:37)
[2020-02-13] MEDS ORDERED: HEPARIN SODIUM/DEXTROSE 25,000 UNITS/500 ML BAG IV SCH (14:45)
[2020-02-13] MEDS ORDERED: HEPARIN SOD (PORCINE) 1000 UNIT/ML ONE (15:18)
[2020-02-13] MEDS: HYDROmorphone INJ 0.5 MG/0.5 ML SYR IV PRN ×2 (15:21→16:18)
[2020-02-13 15:47] LABS: INR 1.2 (0.9-1.1); Prothrombin Time 12.4 Seconds (9.0-12.0)
--- NOTE | 2020-02-13 16:54 | History & Physical Report ---
Date of Service February 13, 2020 Assessment & Plan (1) Abdominal pain: 59-year-old female was admitted on 13 Feb 2020 for abdominal pain over the past couple weeks. Abdominal pain, transaminitis, hepatic masses, portal vein thrombosis: Upper abdominal pain for two weeks now. Has notable history of left breast IDC (diagnosis March 2019) s/p neoadjuvant chemo (via Dr. Rdz), mastectomy (November 2019), and planned radiation therapy. - In ED, afebrile, mostly not tachycardic, is tachypneic, with normal room SpO2. WBC 5, ESR 62. Mildly elevated AST, ALT, and alk phos. Lipase normal. CT a/p suggestive of metastatic hepatic disease, nearly occlusive left portal vein thrombosis, and multiple enlarged lymph nodes (see full report). [A CXR back on was non-acute as well.] - In ED, was started on heparin. Given Dilaudid for pain control. - Will keep patient on heparin. Per Dr. Kessler's conversation with Dr. Rdz, will also start Coumadin. Formal oncology consult as well. Hyponatremia: Admit sodium 131. UA with trace ketones. Suspect mild hypovolemia due to decreased p.o. intake over past couple weeks. - Given 1 L normal saline bolus in ED. Keep on LR at 50 mL an hour for now. Will recheck in a.m. Hypertension: PMH same. On admit, as high as 180/103. Pain likely contributing. For now, control pain and monitor. Thrombocytopenia: Admit platelets 121. No overt evidence of acute bleeding. Recheck in a.m. Ongoing medical issues: - Hyperlipidemia: Patient is not on any medication for this. - Diabetes type 2: Previously poorly controlled. January 2020 HbA1c 7.8. --- Will hold home metformin and glipizide. Start on insulin sliding scale. - Anemia: Admit hemoglobin 11.4, around her baseline. - Asthma: Patient says last need for any inhalers was years ago. - Depression, anxiety: Patient says last related medications were years ago. Denies current concerns. Code status: Full code, though will discuss with her further later. Diet: DM2. DVT prophy: Heparin and Coumadin as above. PT/OT: Deferred. Disbo: Admit to med surg. Patient lives at home with 32 yo son. (2) Transaminitis: (3) Liver mass: (4) Portal vein thrombosis: (5) Breast cancer: (6) Hyponatremia: (7) Hypertension: (8) Thrombocytopenia: (9) Diabetes mellitus, type 2: (10) Anemia: History of Present Illness Primary Care Provider: Chon Paris MD 59-year-old female states that she has had upper abdominal pain for about two weeks now, worse with any palpation or movement, a little improved staying still. Notes that she was nauseous and had a single episode of emesis on the day her symptoms began. No emesis since. Says she is still hungry but really has not had the energy to make herself much food. Denies any diarrhea. Says has regular bowel movements. Says this pain feels different than when she had previous gallbladder issues years ago. She denies any other symptoms, though on review of systems she says she has occasional cough productive of mucus (no blood) that is different than her routine smoker's cough. Says rarely she feels short of breath during this 2 weeks. Denies any chest pain. - As background, patient was diagnosed with left breast invasive ductal carcinoma back in March 2019. She underwent neoadjuvant chemotherapy via Dr. Rdz of oncology. Underwent a mastectomy in November 2019. She says she was on track to begin radiation therapy but there have been some scheduling issues / reluctancy during the COVID pandemic. By her recollection, her last set of surveillance scans did not show any metastasis. - Past medical history includes breast cancer, hepatitis C in remission, anemia, anxiety depression, ascending cholangitis, asthma, colitis, cystitis, depression, anxiety, diabetes type 2, hyperlipidemia, hypertension, nephr olithiasis, tubular adenoma. - Surgical history includes D&C, tubal ligation, cholecystectomy, EGD and colonoscopy, ERCP, tonsillectomy and adenoidectomy, left mastectomy, shoulder surgery. - Social history includes current smoker since age 8. Denies alcohol use. Illicit drug use 30+ years ago. Lives at home with son. Allergies Allergy/AdvReac Type Severity Reaction Status Date / Time Cipro Allergy Mild ITCHING Verified 03/25/17 06:51 ciprofloxacin Allergy Unknown ITCHING Verified 02/13/20 11:43 doxycycline Allergy Unknown Rash Verified 02/13/20 11:43 morphine Allergy Unknown PT NOT SURE Verified 02/13/20 11:43 Penicillins Allergy Unknown rash/itchin Verified 02/13/20 11:43 g Sulfa (Sulfonamide Allergy Unknown ITCHY Verified 02/13/20 11:43 Antibiotics) Home Medications Home Medications Medication Instructions Recorded Confirmed Type metformin 1,000 mg PO BID 07/11/18 02/13/20 History glipizide 5 mg tablet 5 mg PO BID 90 Days #180 tab 05/08/19 02/13/20 Rx blood sugar diagnostic #10 ea 06/02/19 02/06/20 History lancets 25 gauge #100 ea 06/02/19 02/06/20 History multivitamin 1 cap PO DAILY 11/21/19 02/13/20 History Past Med/Surg History Medical History (Updated 02/13/20 @ 16:50 by Naresh Siddiqi MD) Acute hepatitis Hepatitis C - In remission Anemia HX OF Anxiety and depression Ascending cholangitis Asthma Bacteremia Breast cancer LEFT (PLAN FOR CHEMO FIRST THEN SURGERY- DID HAVE FOUR WEEKS OF CHEMO- STOPPED EARLY DUE TO NEUROPATHY) Colitis Cystitis Dehydration Depression with anxiety Diabetes Diabetes mellitus, type 2 Enteritis Gallstones Hepatitis C (Chronic) "IN REMISSION" TREATED MANY YEARS AGO High cholesterol HX OF History of chicken pox Hyperglycemia Hypertension Kidney stones Malignant neoplasm of upper-outer quadrant of left breast in female, 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 Dr. Cullen 06-11-19 Tubular adenoma Surgical History H/O dilation and curettage H/O oral surgery H/O tubal ligation History of breast biopsy History of cholecystectomy History of colonoscopy History of ERCP History of esophagogastroduodenoscopy (EGD) History of gynecologic surgery surgical treatment for History of tonsillectomy and adenoidectomy S/P ERCP Family History Father , does not know HX Alcohol abuse Mother Arthritis Family/Other Diabetes Arthritis Pure hypercholesterolemia Rheumatic fever Syphilis Migraine aura, persistent Hypertension Thyroid disorder Daughter Migraine aura, persistent Hypertension Diabetes Son Infected tooth Brother Epilepsy Denies family history of Ovarian cancer Prostate cancer Myocardial infarction Breast cancer Bleeding disorder Colorectal cancer Stroke Social History Preferred Language: Sami Communication Ability: Effective Visual Impairment: No Limitations Hearing Ability: Normal 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: 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 Beliefs That Will Affect Care: None marital status: Single Current Living Situation: Alone Current Living Situation Comment: lives with son now current occupational status: employed 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 Other Information That Helps Us Care for You: No Feels Safe at Home: Yes Safety Concerns: Feels Safe At This Time Smoking Status: Current every day smoker Tobacco Type: cigarettes ; Age Started Using Tobacco: 8 ; packs per day: 1 ; Cigarettes Per Day: 1 PPD ; Do You Dip or Chew Tobacco: No ; Second Hand Exposure: Yes ; Tobacco Cessation Education Requested by Patient: No Hx Alcohol Use: No Hx Substance Use: Yes (30yr ago) substance use type: does not use Childhood Exposure to Second-Hand Smoke: Yes Dental Care, Regularly: Yes Physical Activity Frequency: Does not Exercise Seatbelt Use: always Sunscreen Use: No Review of Systems Review of Systems: Constitutional: Denies fevers, chills. Positive generalized fatigue. Eyes: Denies any visual loss or diplopia ENT: Denies any ear/nose/throat pain or difficulty speaking or swallowing Respiratory: Positive new productive cough. Denies any dyspnea, hemoptysis Cardiovascular: Denies any chest pain or feeling of edema Gastrointestinal: Positive abdominal pain. Resolved emesis. No diarrhea. Musculoskeletal: Denies any acute extremity pains, myalgias, or focal weakness Skin: Denies any known acute rashes or lesions Neuro: Denies any headache, acute focal weakness or numbness, or difficulties with speech or swallow. Psych: Denies any recent depression or anxiety Physical Exam Physical Exam: GENERAL: Awake, alert, appears overall well but is in immediate pain with any movement, is appropriately tearful when discussing her current imaging, but is not in immediate distress. HENT: Normocephalic, atraumatic. EYES: Normal conjunctiva. Sclera non-icteric. NECK: Inspection normal. Supple and full ROM. No nuchal rigidity. CARDIAC: +S1S2 RRR, no murmurs. Right chest Port-A-Cath in place. RESPIRATORY: Clear to auscultation. No wheezes or rales. Normal respiratory effort. GI: +BS, soft, non-distended. Quite tender to palpation in the upper abdomen, most notably in the epigastric region. Minimally ttp in the lower quadrants. EXTREMITIES: No pedal edema or calf tenderness. Moving all extremities naturally and easily. NEURO: No gross neuro deficits. Results & Data Results & Data ([facility]) Vital Signs (Past 12 Hours) Vital Signs Temp Pulse Resp BP Pulse Ox 02/13/20 16:30 94 H 31 H 140/75 98 02/13/20 16:00 93 H 34 H 155/88 H 97 02/13/20 15:30 87 29 H 140/80 99 02/13/20 15:00 87 27 H 180/76 H 99 02/13/20 14:30 86 25 H 161/67 H 98 02/13/20 14:05 96 H 23 171/103 H 98 02/13/20 13:00 84 24 144/73 H 100 02/13/20 12:38 86 23 127/66 99 02/13/20 11:07 36.6 C 112 H 22 111/73 99 Laboratory Results 02/13/20 02/13/20 02/13/20 Range/Units 14:00 12:46 12:30 WBC (4.8-10.8) K/uL RBC (4.2-5.4) M/uL Hgb (12.0-16.0) g/dL POC Hgb 12.6 (12.0-16.0) g/dl Hct (37-47) % POC Hct 37 (37-47) % MCV (80-100) fL MCH (25-34) pg MCHC (32-36) g/dL RDW Std Deviation (36.4-46.3) fL RDW Coeff of Noah (11.5-14.5) % Plt Count (130-400) K/uL MPV (7.4-10.4) fL Immature Gran % (Auto) % Neut % (Auto) % Lymph % (Auto) % Caswell % (Auto) % Eos % (Auto) % Baso % (Auto) % Immature Gran # (Auto) (0.00-0.02) K/uL Neut # (Auto) (1.4-6.5) K/uL Lymph # (Auto) (1.2-3.4) K/uL Caswell # (Auto) (0.11-0.59) K/uL Eos # (Auto) (0-0.5) K/uL Baso # (Auto) (0-0.2) K/uL ESR (0-21) mm/hr PT 12.4 H (9.0-12.0) Seconds INR 1.2 H (0.9-1.1) POC Sodium 130 L (135-144) mmol/L Sodium (136-145) mmol/L POC Potassium 4.0 (3.3-5.0) mmol/L Potassium (3.5-5.1) mmol/L POC Chloride 95 L (101-112) mmol/L Chloride (98-107) mmol/L Carbon Dioxide (21-32) mmol/L POC Total CO2 23 L (24-31) mmol/L Anion Gap (3-11) POC Anion Gap 18.0 (16-25) mmol/L POC BUN 16 (7-18) mg/dl BUN (7-18) mg/dl Creatinine (0.6-1.2) mg/dl POC Creatinine 0.9 (0.6-1.3) mg/dl Est Cr Clr Drug Dosing ml/min Est GFR ( Amer) Est GFR (Non-Af Amer) BUN/Creatinine Ratio (10-20) Glucose (70-99) mg/dl POC Glucose (other) 138 H (70-99) mg/dl Calcium (8.5-10.1) mg/dl POC Ioniz Calcium Ju 1.07 L (1.12-1.32) mmol/l Total Bilirubin (0.2-1) mg/dl AST (15-37) U/L ALT (12-78) U/L Alkaline Phosphatase (45-117) U/L C-Reactive Protein (0-0.29) mg/dl Total Protein (6.4-8.2) gm/dl Albumin (3.4-5.0) gm/dl Globulin (2.5-4.0) gm/dl Albumin/Globulin Ratio (0.9-2) Lipase (73-393) U/L Urine Color Yellow Urine Appearance Clear (Clear) Urine pH 5.5 (4.5-7.5) Ur Specific Esmond 1.013 (1.000-1.030) Urine Protein Negative (Negative) Urine Glucose (UA) Negative (Negative) Urine Ketones Trace H (Negative) Urine Blood Negative (Negative) Urine Nitrite Negative (Negative) Urine Bilirubin Negative (Negative) Urine Urobilinogen Negative (Negative) Ur Leukocyte Esterase Negative (Negative) 02/13/20 02/13/20 02/13/20 Range/Units 12:30 12:30 12:30 WBC 5.08 (4.8-10.8) K/uL RBC 4.12 L (4.2-5.4) M/uL Hgb 11.4 L (12.0-16.0) g/dL POC Hgb (12.0-16.0) g/dl Hct 33.7 L (37-47) % POC Hct (37-47) % MCV 81.8 (80-100) fL MCH 27.7 (25-34) pg MCHC 33.8 (32-36) g/dL RDW Std Deviation 43.5 (36.4-46.3) fL RDW Coeff of Noah 14.6 H (11.5-14.5) % Plt Count 121 L (130-400) K/uL MPV 10.4 (7.4-10.4) fL Immature Gran % (Auto) 0.2 % Neut % (Auto) 61.4 % Lymph % (Auto) 28.3 % Caswell % (Auto) 8.7 % Eos % (Auto) 1.0 % Baso % (Auto) 0.4 % Immature Gran # (Auto) 0.01 (0.00-0.02) K/uL Neut # (Auto) 3.12 (1.4-6.5) K/uL Lymph # (Auto) 1.44 (1.2-3.4) K/uL Caswell # (Auto) 0.44 (0.11-0.59) K/uL Eos # (Auto) 0.05 (0-0.5) K/uL Baso # (Auto) 0.02 (0-0.2) K/uL ESR 62 H (0-21) mm/hr PT (9.0-12.0) Seconds INR (0.9-1.1) POC Sodium (135-144) mmol/L Sodium 131 L (136-145) mmol/L POC Potassium (3.3-5.0) mmol/L Potassium 3.9 (3.5-5.1) mmol/L POC Chloride (101-112) mmol/L Chloride 96 L (98-107) mmol/L Carbon Dioxide 23 (21-32) mmol/L POC Total CO2 (24-31) mmol/L Anion Gap 12.0 H (3-11) POC Anion Gap (16-25) mmol/L POC BUN (7-18) mg/dl BUN 17 (7-18) mg/dl Creatinine 0.89 (0.6-1.2) mg/dl POC Creatinine (0.6-1.3) mg/dl Est Cr Clr Drug Dosing 52.0 ml/min Est GFR ( Amer) 82.8 Est GFR (Non-Af Amer) 71.4 BUN/Creatinine Ratio 18.5 (10-20) Glucose 142 H (70-99) mg/dl POC Glucose (other) (70-99) mg/dl Calcium 9.1 (8.5-10.1) mg/dl POC Ioniz Calcium Ju (1.12-1.32) mmol/l Total Bilirubin 0.6 (0.2-1) mg/dl AST 151 H (15-37) U/L ALT 99 H (12-78) U/L Alkaline Phosphatase 187 H (45-117) U/L C-Reactive Protein 5.84 H (0-0.29) mg/dl Total Protein 7.5 (6.4-8.2) gm/dl Albumin 3.2 L (3.4-5.0) gm/dl Globulin 4.3 H (2.5-4.0) gm/dl Albumin/Globulin Ratio 0.7 L (0.9-2) Lipase 130 (73-393) U/L Urine Color Urine Appearance (Clear) Urine pH (4.5-7.5) Ur Specific Esmond (1.000-1.030) Urine Protein (Negative) Urine Glucose (UA) (Negative) Urine Ketones (Negative) Urine Blood (Negative) Urine Nitrite (Negative) Urine Bilirubin (Negative) Urine Urobilinogen (Negative) Ur Leukocyte Esterase (Negative) Medications Administered Fentanyl Citrate (Fentanyl Citrate) 50 mcg IV Q15M PRN PRN Reason: Pain Stop: 02/27/20 11:46 Last Admin: 02/13/20 14:15 Dose: 50 mcg Documented by: [id number] Admin: 02/13/20 12:35 Dose: 50 mcg Documented by: [id number] Hydromorphone HCl (Dilaudid) 0.5 mg IV Q15M PRN PRN Reason: Pain Stop: 02/27/20 15:11 Last Admin: 02/13/20 16:18 Dose: 0.5 mg Documented by: [id number] Admin: 02/13/20 15:21 Dose: 0.5 mg Documented by: [id number] Heparin Sodium/Dextrose (Heparin Sodium/Dextrose) 25,000 units in 500 mls @ 18 mls/hr IV .Q24H ARIELA; Protocol Stop: 03/14/20 14:44 Last Admin: 02/13/20 16:20 Dose: 900 units/hr, 18 mls/hr Documented by: [id number] Cosigned by: [id number] Ioversol (Optiray 320 100ml) 94 ml IV ONCE PRN PRN Reason: Interaction Checking Stop: 02/17/20 13:28 Last Admin: 02/13/20 13:30 Dose: 94 ml Documented by: [id number] Discontinued Medications Heparin Sodium (Porcine) (Heparin Iv Bolus) Confirm Administered Dose 10,000 units .ROUTE .STK-MED ONE Stop: 02/13/20 15:19 Last Admin: 02/13/20 16:20 Dose: 4,000 units Documented by: [id number] Cosigned by: [id number] Heparin Sodium/Dextrose () 1 ea IV NOW STA; Protocol Stop: 02/13/20 14:38 Last Admin: 02/13/20 16:21 Dose: Not Given Documented by: [id number] Sodium Chloride (Nss 1000ml) 1,000 mls @ 999 mls/hr IV .Q1H1M ONE Stop: 02/13/20 12:47 Last Infusion: 02/13/20 14:30 Dose: 0 mls/hr Documented by: [id number] Admin: 02/13/20 12:34 Dose: 999 mls/hr Documented by: [id number] Ondansetron HCl (Zofran) 4 mg IV NOW STA Stop: 02/13/20 11:48 Last Admin: 02/13/20 12:35 Dose: Not Given Documented by: [id number] Code Status & VTE Plan Code Status Full code VTE Prophylaxis Plan VTE Prophylaxis will be ordered: Yes Supervising Physician Co-Signing Physician Notes I personally examined the patient and verified all dubon points of history and exam, discussed case, and agree with decision making with Dr. Siddiqi with the following additions/exceptions: Pt p/w 2 weeks of upper abdominal pain and one episode of N/V. Was found on outpt Abd US to have liver masses and elevated LFTs. The pain worsened and she came to ER. CT abd/pel here unfortunately showed left portal vein thrombosis, liver mass and other hypodensities of liver, and an ileocolic calcified mass. She denies fevers/chills, chest pain ,SOB. History and ROS reviewed as above Vitals reviewed NAD, AAOx3, pleasant Anicteric sclerae RRR no mgr CTAB no wcr Abd +BS soft +TTP RUQ and Right periumbilical region without guarding or rebound, no hernia Ext no edema or calf tenderness Labs and Rads reviewed 59 yo female with metastatic Br CA, here with abdominal pain, portal vein thrombosis, liver mass(es). -admit for heparin gtt for PVT and start coumadin, follow coags -pain control -IVF hydration for hyponatremia -antiemetics-add on COmpazine as Zofran did not help Follow BMP, LFTs Anemia-check Fe studies as is microcytic Liver mass and other hypodensities--> could be mets from Breast CA, could be primary HCC given cirrhosis and h/o Hep C--> check AFP Resident Activity Tracking Resident Involvement: Resident Care Provided Care Provided: Adult Hospital Medicine (1) Abdominal pain Abdominal location: right upper quadrant Qualified Code(s): R10.11 - Right upper quadrant pain
[2020-02-13 18:11] LABS: Partial Thromboplastin Ratio 1.2; Partial Thromboplastin Time 34.1 Seconds (21.0-31.0)
[2020-02-13] MEDS ORDERED: PROCHLORPERAZINE 10 MG in SYRINGE 8 ML IV PRN (19:02)
[2020-02-13] MEDS ORDERED: GLUCOSE 40% GEL 15 GM TUBE PO PRN (19:04)
[2020-02-13] MEDS ORDERED: GLUCAGON FOR INJ 1 MG VIAL SQ PRN (19:04)
[2020-02-13] MEDS ORDERED: Heparin IV Adult Wt-Based Standard *NO* Bolus Protocol IV ONE (19:04)
[2020-02-13] MEDS ORDERED: DEXTROSE 50% 50 ML SYRINGE IV PRN (19:04)
[2020-02-13] MEDS ORDERED: CARBOHYDRATES FOR HYPOGLYCEMIA PO PRN (19:04)
[2020-02-13] MEDS ORDERED: GLUCOSE 10 TABS/TUBE PO PRN (19:04)
[2020-02-13] MEDS: LACTATED RINGER'S 1,000 ML IV SCH (19:54)
[2020-02-13] MEDS: HEPARIN SODIUM/DEXTROSE 25,000 UNITS/500 ML BAG IV SCH (19:55)
[2020-02-13] MEDS ORDERED: WARFARIN SOD 5 MG TAB PO ONE (20:00)
[2020-02-13] MEDS: INSULIN ASPART 100 UNITS/ML 3 ML PEN SC SCH (21:38)
[2020-02-13] MEDS: HYDROmorphone INJ 1 MG/ML SYRINGE IV PRN (21:43)
--- NOTE | 2020-02-13 22:38 | Billing Data ---
Date of Service February 13, 2020 Coding Level of Care Code 87848 Initial Inpt Care Lvl 3
[2020-02-13 22:58] LABS: Partial Thromboplastin Ratio > 5.0
[2020-02-13] MEDS ORDERED: HEPARIN 100 UNIT/ML 5ML FLUSH FLUSH PRN (23:10)
[2020-02-13 23:41] LABS: Partial Thromboplastin Time > 139.0 Seconds (21.0-31.0)
[2020-02-14 01:12] LABS: Partial Thromboplastin Ratio 3.6
[2020-02-14 01:17] LABS: Partial Thromboplastin Time 99.3 Seconds (21.0-31.0)
[2020-02-14] MEDS: HEPARIN SODIUM/DEXTROSE 25,000 UNITS/500 ML BAG IV SCH ×2 (01:30→19:55)
[2020-02-14] MEDS: ONDANSETRON INJ 2 MG/ML 2 ML VIAL IV PRN ×3 (07:26→23:42)
[2020-02-14] MEDS: HYDROmorphone INJ 1 MG/ML SYRINGE IV PRN ×3 (07:26→23:42)
[2020-02-14 07:41] LABS: Hematocrit (blood only) 31.9 % (37-47); Hemoglobin 10.5 g/dL (12.0-16.0); Mean Corpuscular Hgb Conc 32.9 g/dL (32-36); Mean Platelet Volume 9.2 fL (7.4-10.4); Platelet Count 102 K/uL (130-400); RDW Coefficient of Variation 14.8 % (11.5-14.5); RDW Standard Deviation 44.2 fL (36.4-46.3); Red Blood Count 3.89 M/uL (4.2-5.4); White Blood Count 4.74 K/uL (4.8-10.8)
[2020-02-14 07:54] LABS: INR 1.3 (0.9-1.1); Prothrombin Time 13.1 Seconds (9.0-12.0)
[2020-02-14 08:05] LABS: Partial Thromboplastin Ratio 3.4
[2020-02-14 08:16] LABS: Albumin Level 3.1 gm/dl (3.4-5.0); BUN Creatinine Ratio 16.7 (10-20); Calcium 9.1 mg/dl (8.5-10.1); Creatinine Clr Calc Pharmacy 55.1 ml/min; Est GFR (African American) 88.8; Est GFR (Non-African American) 76.6
[2020-02-14 08:19] LABS: Albumin Globulin Ratio 0.8 (0.9-2); Bilirubin,Total 0.5 mg/dl (0.2-1); Ferritin 1502.4 ng/ml (8-388); Globulin 3.8 gm/dl (2.5-4.0); Total Protein 6.9 gm/dl (6.4-8.2)
[2020-02-14] MEDS: INSULIN ASPART 100 UNITS/ML 3 ML PEN SC SCH ×4 (08:25→20:01)
[2020-02-14 08:47] LABS: Partial Thromboplastin Time 96.1 Seconds (21.0-31.0)
[2020-02-14] MEDS ORDERED: DOCUSATE SODIUM 100 MG CAP PO SCH (09:00)
--- NOTE | 2020-02-14 09:46 | Consultation Report ---
DATE OF CONSULTATION: 02/14/2020 REASON FOR CONSULTATION: A 59-year-old -[place] female with history of triple negative breast cancer with new liver lesion and portal vein thrombosis. HISTORY OF PRESENT ILLNESS: Christiana is a very pleasant post-menopausal 59-year-old -[place] female well known to [facility], currently under my care for triple negative breast cancer. Christiana was originally diagnosed in 03/2019, stage IIA (T1a, N1, MX). She received a modified Adriamycin, cyclophosphamide x4 cycles and I believe she only received 4 of 12 weekly paclitaxel, discontinued because of worsening peripheral neuropathy on 09/28/2019. After completing aborted adjuvant chemotherapy, she was sent to radiation where she had been evaluated to begin adjuvant XRT. She had not received any radiation therapy at the time of admission. Christiana over the past couple weeks has experienced progressive periumbilical pain which she describes as a dull ache with no alleviating or aggravating factors. The pain began to migrate towards the epigastrium. Thus, she sought medical care presenting to the Emergency Room yesterday. She also describes about 10 days ago having a single episode of nausea with emesis. She readily admits to being anorexic with some weight loss. CT scan of the abdomen and pelvis was performed on admission revealing a 2.1 cm medial segment hepatic mass and regional lymphadenopathy, particularly in the perihepatic regions. There was also a nearly obstructive thrombus within the left portal vein and the patient appropriately was started on anticoagulation. This morning, she is in good spirits. Pain is well controlled on opioid analgesia. Alpha fetoprotein and a breast tumor markers are pending. PAST MEDICAL HISTORY: Includes hepatitis C, triple negative breast cancer, anemia of chronic disease, anxiety/depression, ascending cholangitis, asthma, colitis, cystitis, type 2 diabetes mellitus, hyperlipidemia, hypertension, nephrolithiasis and tubular adenoma. PAST SURGICAL HISTORY: Includes D and C, tubal ligation, cholecystectomy, EGD and colonoscopy, ERCP, tonsillectomy and adenoidectomy, left mastectomy, shoulder surgery. MEDICATIONS: Prior to admission, metformin 1000 mg p.o. b.i.d., glipizide 5 mg p.o. b.i.d., multivitamin 1 p.o. daily. ALLERGIES: CIPROFLOXACIN, DOXYCYCLINE, MORPHINE, PENICILLINS AND SULFA DRUGS. FAMILY HISTORY: Father , does not know extensive history but suffered from alcohol abuse. Mother is alive, suffers from arthritis. Daughter suffers from migraine headaches, hypertension and diabetes. SOCIAL HISTORY: The patient currently lives independently, self employed. She continues to smoke cigarettes. Negative for alcohol. She has a remote history of substance abuse. REVIEW OF SYSTEMS: GENERAL: Negative for fevers, chills or sweats. Positive for anorexia and weight loss. SKIN: No rashes or lesions. No history of dermatoses. HEENT: Negative for headaches, lightheadedness or dizziness. No acute visual or hearing deficits. No sinus symptoms, sore throat or dysphagia. LYMPH: No history of lymphoproliferative disease. CARDIAC: No history of coronary artery disease, no angina or palpitations. PULMONARY: She denies shortness of breath, dyspnea or orthopnea. No cough or hemoptysis. GASTROINTESTINAL: Positive for periumbilical pain with a single episode of nausea and emesis. Denies hematochezia, melena or nick rectal bleeding at the present time. GENITOURINARY: No hematuria, dysuria, urinary incontinence. PSYCHIATRIC: Positive for history of depression/anxiety. ENDOCRINE: Positive for diabetes mellitus. MUSCULOSKELETAL: No focal muscle weakness. No arthralgias. NEUROLOGIC: Negative for seizure, stroke, or migraine headache. HEMATOLOGIC: Positive for normocytic normochromic anemia and mild thrombocytopenia. PHYSICAL EXAMINATION: GENERAL: A very pleasant 59-year-old -[place] female in no acute distress. SKIN: Warm, dry, noncyanotic. HEENT: Atraumatic, normocephalic. Eyes: PERRLA. Nares patent without rhinorrhea or discharge. Throat is clear. Tongue is midline. No buccal lesions or ulcerations. NECK: Supple without JVD or thyromegaly. LYMPHATICS: No cervical or supraclavicular palpable nodes. HEART: Regular rate and rhythm. No clicks, rubs, murmurs or gallops. LUNGS: Clear to auscultation bilaterally. ABDOMEN: Positive Rush sign. Tenderness in the right upper quadrant. Bowel sounds hypoactive. No rigidity or guarding otherwise. EXTREMITIES: Musculoskeletal strength and pulses are equal in all 4 extremities. No clubbing, cyanosis or edema. NEUROLOGICALLY: She is awake, alert and oriented x3. Cranial nerves are grossly intact. LABORATORY DATA: WBC count 4740, hemoglobin 10.5, platelet count 102,000. PT 13.1 seconds, INR 1.3. Sodium 130, potassium 4.0, chloride 95, carbon dioxide 23, creatinine 0.9. C-reactive protein 5.84. Urinalysis, trace ketones, otherwise unremarkable. RADIOGRAPHIC DATA: CT of the abdomen and pelvis summarized in the HPI. IMPRESSION: 1. Solitary hepatic mass. 2. Perihepital/portal lymphadenopathy. 3. Left portal vein thrombosis. 4. Abdominal pain. 5. Triple negative breast cancer. 6. History of hepatitis C. PLAN: It was my pleasure to visit with Christiana at bedside today. She is feeling much better since initial presentation. She has been battling with periumbilical and right upper quadrant abdominal pain for the past couple of weeks. CT scan of the abdomen and pelvis identified left portal vein and appropriately was started on heparin. Until workup is complete, I would hold off on Coumadin at the present time. I spoke to the resident at bedside this morning and asked him to hold Coumadin until further notice. May pursue a biopsy of the hepatic mass. Also ordered alpha fetoprotein and CA 27-29, and a CA 15-3. It will be very unusual for disease to emerge this close to completing modified adjuvant chemotherapy. The patient was in the midst of beginning adjuvant radiation. In light of her history of hepatitis C and cirrhotic appearance of the liver, it would not be surprising if this lesion confirmed to be a hepatocellular carcinoma. If hepatocellular carcinoma is confirmed, we will refer her to Dr. Sanchez, hepatic surgeon at the [facility] for further workup and management. Agree with medical management otherwise. We will continue to follow Christiana intermittently throughout her hospitalization. Thank you very much for allowing me to participate in her care. SIMRAN
[2020-02-14] MEDS: LACTATED RINGER'S 1,000 ML IV SCH (13:59)
[2020-02-14] MEDS ORDERED: WARFARIN SOD 5 MG TAB PO SCH (16:00)
--- NOTE | 2020-02-14 16:05 | Ultrasound Report ---
US FNA w/img 1st lesion CLINICAL HISTORY: 59 years-old Female presenting with liver mass - Dr. Bui requested. TECHNIQUE: Real-time grayscale and limited color Doppler ultrasound imaging of the liver was performe d for ultrasound-guided fine-needle aspiration. COMPARISON: CT from 02/13/2020 and ultrasound from 02/06/2020. PROCEDURE: The risks, benefits, and alternatives of the procedure were discussed with the patient. Written [facility] was obtained. A timeout was performed to confirm patient identity. The patient was placed supine in ultrasound, and the 2.4 x 1.8 x 1.8 cm lesion in the left lobe of th e liver was localized by ultrasound and selected for fine needle aspiration. Notably, the lesion was not well visualized. This was in part due to background heterogeneity of the liver as well as extensi ve left hepatic lobe hypoechogenicity. Difficult visualization resulted in moderately suboptimal targ eting ability. The right upper quadrant was prepped and draped in the usual aseptic fashion. The subcutaneous and de eper soft tissues were infiltrated with 1% lidocaine to the level of the liver capsule as a local ane sthetic. The lesion was aspirated under ultrasound guidance with 2 passes utilizing 22-gauge Smita needles. Specimens were reviewed by the pathologist at the time of biopsy. The pathologist could not confirm adequate tissue for diagnosis. As 2 passes had been under suboptima l visualization, no further biopsy was pursued. The patient tolerated the procedure well. IMPRESSION: Successful fine-needle aspiration of the 2.4 cm liver lesion as above. ACT 112: Negative or not required by law. Electronically signed by: Shaun Bui M.D. 02/14/2020 4:03 PM
--- NOTE | 2020-02-14 18:46 | Family Medicine Progress Note ---
Date of Service February 14, 2020 Assessment & Plan (1) Abdominal pain: 59-year-old female was admitted on 13 Feb 2020 for abdominal pain over the past couple weeks. Abdominal pain, transaminitis, hepatic masses, prior Hep C: Upper abdominal pain for two weeks prior to admit. 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 Rdz), mastectomy (November 2019), and planned radiation therapy. CT a/p suggestive of metastatic hepatic disease with multiple enlarged lymph nodes (see full report). 13May CXR non-acute. Elevated LFTs are stable. INR 1.3. - Consulted oncology (see note). Recommended holding Coumadin for now. Pending cancer markers. Recommend evaluation for hepatocellular carcinoma. If that is the case, may need transfer to [place]. - Underwent ultrasound-guided fine-needle aspiration of the liver. See full report. They noted aspiration of the lesion but reportedly the pathologist could not confirm adequate tissue for diagnosis. - Pain control with Dilaudid. Nausea controlled with Compazine and Zofran. Checking alpha-fetoprotein and other tumor markers. Portal vein thrombosis: Near-occlusive, as seen on CT a/p. Started on heparin (held briefly for procedure). Started on Coumadin. See oncology recommendations. - Will have to check on outpatient options with CM. Hyponatremia: Admit sodium 131, likely due to mild dehydration and low PO intake. Improved to 135. Monitoring. Hypertension: PMH same. Improved with pain control. Monitoring. Thrombocytopenia: Admit platelets 121, now down to 102. No overt evidence of acute bleeding. Monitoring, particularly after her liver FNA. Ongoing medical issues: - Hyperlipidemia: Patient is not on any medication for this. - Diabetes type 2: Previously poorly controlled. January 2020 HbA1c 7.8. --- Held home metformin and glipizide. On insulin sliding scale. - Anemia: Admit hemoglobin 11.4, around her baseline. Iron studies suggest iron deficiency. --- Will start on daily iron supplement. Fecal occult blood testing pending. - Asthma: Patient says last need for any inhalers was years ago. Denies current concerns. - Depression, anxiety: Patient says last related medications were years ago. Denies current concerns. Code status: Full code, though will discuss with her further later. Diet: DM2. LR at 50 ml/hr. DVT prophy: Heparin and Coumadin as above. PT/OT: Deferred. Disbo: Admit to med surg. Patient lives at home with 32 yo son. (2) Transaminitis: (3) Liver mass: (4) Portal vein thrombosis: (5) Breast cancer: (6) Hyponatremia: (7) Hypertension: (8) Thrombocytopenia: (9) Diabetes mellitus, type 2: (10) Anemia: Admission and Anticipated Discharge Date Admission Date: February 13, 2020 Supervising Physician Co-Signing Physician Notes I personally examined the patient and verified all dubon points of history and exam, discussed case, and agree with decision making with Dr. Siddiqi with the following additions/exceptions: Pt p/w 2 weeks of upper abdominal pain and one episode of N/V. Was found on outpt Abd US to have liver masses and elevated LFTs. The pain worsened and she came to ER. CT abd/pel here unfortunately showed left portal vein thrombosis, liver mass and other hypodensities of liver, and an ileocolic calcified mass. She denied fevers/chills, chest pain ,SOB. Today, feeling a little better, abd pain improved with pain meds but returns when pain wears off. Had liver bx today Vitals reviewed NAD, AAOx3, pleasant Anicteric sclerae RRR no mgr CTAB no wcr Abd +BS soft +TTP RUQ and Right periumbilical region without guarding or rebound, no hernia, +firm liver edge palpable Ext no edema or calf tenderness Labs and Rads reviewed 59 yo female with metastatic Br CA, here with abdominal pain, portal vein thrombosis, liver mass and hypodensities of liver -restart heparin gtt 4 hours after liver biopsy for PVT and continue coumadin as per Oncology recommendation-consider DOAC or Lovenox but will d/w Onco -follow coags -pain control -IVF hydration for hyponatremia which is improving -antiemetics-continue COmpazine Anemia- Fe def-starting FeSO4 tabs Liver mass and other hypodensities--> could be mets from Breast CA, could be primary HCC given cirrhosis and h/o Hep C--> check AFP, Br CA markers all pending If liver biopsy nondiagnostic but AFP elevated--> presume HCC Subjective Spoke with patient earlier this morning. She was in good spirits and said that her abdominal pain was much improved at present. She says at times it is completely resolved. Still feels a bit nauseous but says Compazine helps more than Zofran. Denies any vomiting. No new chest pain, difficulty breathing, or other acute concerns. Review of Systems Review of Systems: Per HPI as above. Physical Exam Physical Exam: GENERAL: Awake, alert, appears in far less pain than yesterday, and is not in immediate distress. CARDIAC: +S1S2 RRR, no murmurs. Right chest Port-A-Cath in place. RESPIRATORY: Clear to auscultation. No wheezes or rales. Normal respiratory effort. GI: +BS, soft, non-distended. 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 EXTREMITIES: No pedal edema or calf tenderness. Moving all extremities naturally and easily. NEURO: No gross neuro deficits. Results & Data ([facility]) Vital Signs (Past 12 Hours) Vital Signs Temp Pulse Resp BP Pulse Ox 02/14/20 15:29 37.1 C 80 20 143/85 H 98 02/14/20 07:04 36.7 C 82 16 122/74 99 Laboratory Results 02/14/20 02/14/20 02/14/20 Range/Units 16:55 11:35 07:43 WBC (4.8-10.8) K/uL RBC (4.2-5.4) M/uL Hgb (12.0-16.0) g/dL Hct (37-47) % MCV (80-100) fL MCH (25-34) pg MCHC (32-36) g/dL RDW Std Deviation (36.4-46.3) fL RDW Coeff of Noah (11.5-14.5) % Plt Count (130-400) K/uL MPV (7.4-10.4) fL PT (9.0-12.0) Seconds INR (0.9-1.1) APTT (21.0-31.0) Seconds PTT Ratio Sodium (136-145) mmol/L Potassium (3.5-5.1) mmol/L Chloride (98-107) mmol/L Carbon Dioxide (21-32) mmol/L Anion Gap (3-11) BUN (7-18) mg/dl Creatinine (0.6-1.2) mg/dl Est Cr Clr Drug Dosing ml/min Est GFR ( Amer) Est GFR (Non-Af Amer) BUN/Creatinine Ratio (10-20) Glucose (70-99) mg/dl POC Glucose 140 H 136 H 98 (70-99) mg/dl Calcium (8.5-10.1) mg/dl Iron (35-150) mcg/dl TIBC (250-450) mcg/dl Transferrin (200-360) mg/dl Transferrin % Sat (15-50) % Ferritin (8-388) ng/ml Total Bilirubin (0.2-1) mg/dl AST (15-37) U/L ALT (12-78) U/L Alkaline Phosphatase (45-117) U/L Total Protein (6.4-8.2) gm/dl Albumin (3.4-5.0) gm/dl Globulin (2.5-4.0) gm/dl Albumin/Globulin Ratio (0.9-2) Tumor Marker AFP CA 15-3 Antigen CA 27-29 02/14/20 02/14/20 02/14/20 Range/Units 07:15 07:15 07:15 WBC (4.8-10.8) K/uL RBC (4.2-5.4) M/uL Hgb (12.0-16.0) g/dL Hct (37-47) % MCV (80-100) fL MCH (25-34) pg MCHC (32-36) g/dL RDW Std Deviation (36.4-46.3) fL RDW Coeff of Noah (11.5-14.5) % Plt Count (130-400) K/uL MPV (7.4-10.4) fL PT 13.1 H (9.0-12.0) Seconds INR 1.3 H (0.9-1.1) APTT 96.1 H* (21.0-31.0) Seconds PTT Ratio 3.4 Sodium 135 L (136-145) mmol/L Potassium 4.0 (3.5-5.1) mmol/L Chloride 100 (98-107) mmol/L Carbon Dioxide 24 (21-32) mmol/L Anion Gap 11.0 (3-11) BUN 14 (7-18) mg/dl Creatinine 0.84 (0.6-1.2) mg/dl Est Cr Clr Drug Dosing 55.1 ml/min Est GFR ( Amer) 88.8 Est GFR (Non-Af Amer) 76.6 BUN/Creatinine Ratio 16.7 (10-20) Glucose 93 (70-99) mg/dl POC Glucose (70-99) mg/dl Calcium 9.1 (8.5-10.1) mg/dl Iron 24 L (35-150) mcg/dl TIBC 223 L (250-450) mcg/dl Transferrin 181 L (200-360) mg/dl Transferrin % Sat 9 L (15-50) % Ferritin 1502.4 H (8-388) ng/ml Total Bilirubin 0.5 (0.2-1) mg/dl AST 148 H (15-37) U/L ALT 94 H (12-78) U/L Alkaline Phosphatase 171 H (45-117) U/L Total Protein 6.9 (6.4-8.2) gm/dl Albumin 3.1 L (3.4-5.0) gm/dl Globulin 3.8 (2.5-4.0) gm/dl Albumin/Globulin Ratio 0.8 L (0.9-2) Tumor Marker AFP CA 15-3 Antigen CA 27-29 02/14/20 02/14/20 02/14/20 Range/Units 07:15 07:15 00:29 WBC 4.74 L (4.8-10.8) K/uL RBC 3.89 L (4.2-5.4) M/uL Hgb 10.5 L (12.0-16.0) g/dL Hct 31.9 L (37-47) % MCV 82.0 (80-100) fL MCH 27.0 (25-34) pg MCHC 32.9 (32-36) g/dL RDW Std Deviation 44.2 (36.4-46.3) fL RDW Coeff of Noah 14.8 H (11.5-14.5) % Plt Count 102 L (130-400) K/uL MPV 9.2 (7.4-10.4) fL PT (9.0-12.0) Seconds INR (0.9-1.1) APTT 99.3 H* (21.0-31.0) Seconds PTT Ratio 3.6 Sodium (136-145) mmol/L Potassium (3.5-5.1) mmol/L Chloride (98-107) mmol/L Carbon Dioxide (21-32) mmol/L Anion Gap (3-11) BUN (7-18) mg/dl Creatinine (0.6-1.2) mg/dl Est Cr Clr Drug Dosing ml/min Est GFR ( Amer) Est GFR (Non-Af Amer) BUN/Creatinine Ratio (10-20) Glucose (70-99) mg/dl POC Glucose (70-99) mg/dl Calcium (8.5-10.1) mg/dl Iron (35-150) mcg/dl TIBC (250-450) mcg/dl Transferrin (200-360) mg/dl Transferrin % Sat (15-50) % Ferritin (8-388) ng/ml Total Bilirubin (0.2-1) mg/dl AST (15-37) U/L ALT (12-78) U/L Alkaline Phosphatase (45-117) U/L Total Protein (6.4-8.2) gm/dl Albumin (3.4-5.0) gm/dl Globulin (2.5-4.0) gm/dl Albumin/Globulin Ratio (0.9-2) Tumor Marker AFP Pending CA 15-3 Antigen Pending CA 27-29 Pending 02/13/20 02/13/20 Range/Units 22:31 21:23 WBC (4.8-10.8) K/uL RBC (4.2-5.4) M/uL Hgb (12.0-16.0) g/dL Hct (37-47) % MCV (80-100) fL MCH (25-34) pg MCHC (32-36) g/dL RDW Std Deviation (36.4-46.3) fL RDW Coeff of Noah (11.5-14.5) % Plt Count (130-400) K/uL MPV (7.4-10.4) fL PT (9.0-12.0) Seconds INR (0.9-1.1) APTT > 139.0 H* (21.0-31.0) Seconds PTT Ratio > 5.0 Sodium (136-145) mmol/L Potassium (3.5-5.1) mmol/L Chloride (98-107) mmol/L Carbon Dioxide (21-32) mmol/L Anion Gap (3-11) BUN (7-18) mg/dl Creatinine (0.6-1.2) mg/dl Est Cr Clr Drug Dosing ml/min Est GFR ( Amer) Est GFR (Non-Af Amer) BUN/Creatinine Ratio (10-20) Glucose (70-99) mg/dl POC Glucose 137 H (70-99) mg/dl Calcium (8.5-10.1) mg/dl Iron (35-150) mcg/dl TIBC (250-450) mcg/dl Transferrin (200-360) mg/dl Transferrin % Sat (15-50) % Ferritin (8-388) ng/ml Total Bilirubin (0.2-1) mg/dl AST (15-37) U/L ALT (12-78) U/L Alkaline Phosphatase (45-117) U/L Total Protein (6.4-8.2) gm/dl Albumin (3.4-5.0) gm/dl Globulin (2.5-4.0) gm/dl Albumin/Globulin Ratio (0.9-2) Tumor Marker AFP CA 15-3 Antigen CA 27-29 Medications Administered Current Inpatient Medications Dextrose (Dextrose 50%) 25 - 50 ml IV UD PRN; Protocol PRN Reason: Hypoglycemia Protocol Stop: 03/14/20 19:03 Docusate Sodium (Colace) 100 mg PO DAILY ARIELA Stop: 03/15/20 08:59 Last Admin: 02/14/20 07:31 Dose: 100 mg Documented by: Ferrous Sulfate (Feosol) 325 mg PO QAM ARIELA Stop: 03/16/20 08:59 Glucagon (Glucagen) 1 mg SQ UD PRN; Protocol PRN Reason: Hypoglycemia Protocol Stop: 03/14/20 19:03 Glucose (Dex4 Glucose) 4 - 8 tabs PO UD PRN; Protocol PRN Reason: Hypoglycemia Protocol Stop: 03/14/20 19:03 Glucose (Glucose 40%) 15 - 30 gm PO UD PRN; Protocol PRN Reason: Hypoglycemia Protocol Stop: 03/14/20 19:03 Heparin Sodium (Porcine) (Heparin Sod 100 Unit/Ml Flush) 5 ml FLUSH PRN PRN PRN Reason: Flush Stop: 03/14/20 23:14 Heparin Sodium/Dextrose () 1 ea IV ONE ONE; Protocol Stop: 02/14/20 20:01 Hydromorphone HCl (Dilaudid) 1 mg IV Q2H PRN PRN Reason: Pain Stop: 02/27/20 19:03 Last Admin: 02/14/20 16:08 Dose: 1 mg Documented by: Prochlorperazine 10 mg/ (Syringe) 10 mls @ 5 mls/min IV Q8H PRN PRN Reason: Nausea And Vomiting Stop: 03/14/20 19:01 Last Admin: 02/13/20 22:14 Dose: 5 mls/min Documented by: Lactated Ringer's (Lr) 1,000 mls @ 50 mls/hr IV .Q20H ARIELA Stop: 03/14/20 19:03 Last Admin: 02/14/20 13:59 Dose: 50 mls/hr Documented by: Heparin Sodium/Dextrose (Heparin Sodium/Dextrose) 25,000 units in 500 mls @ 0.02 mls/hr IV .Q24H ARIELA; Protocol Stop: 03/15/20 18:44 Insulin Aspart (Novolog Flexpen) 0 units SC ACHS ARIELA Stop: 03/14/20 20:59 Last Admin: 02/14/20 17:17 Dose: 4 units Documented by: Ioversol (Optiray 320 100ml) 94 ml IV ONCE PRN PRN Reason: Interaction Checking Stop: 02/17/20 13:28 Last Admin: 02/13/20 13:30 Dose: 94 ml Documented by: Miscellaneous (Carbohydrates For Hypoglycemia) 15 - 30 gm PO UD PRN PRN Reason: Hypoglycemia Protocol Stop: 03/14/20 19:03 Ondansetron HCl (Zofran) 4 mg IV Q4H PRN PRN Reason: Nausea Stop: 03/14/20 19:03 Last Admin: 02/14/20 16:08 Dose: 4 mg Documented by: Warfarin Sodium (Coumadin) 5 mg PO DAILY@1600 ARIELA Stop: 03/16/20 15:59 Resident Activity Tracking Resident Involvement: Resident Care Provided Care Provided: Adult [facility] Medicine (1) Abdominal pain Abdominal location: right upper quadrant Qualified Code(s): R10.11 - Right upper quadrant pain
--- NOTE | 2020-02-14 18:58 | Billing Data ---
Date of Service February 14, 2020 Coding Level of Care Code 58780 Initial Inpt Care Lvl 3
[2020-02-14] MEDS: DOCUSATE SODIUM 100 MG CAP PO SCH (19:56)
[2020-02-14] MEDS ORDERED: Heparin IV Adult Wt-Based Standard *NO* Bolus Protocol IV SCH (20:00)
[2020-02-15 02:30] LABS: Partial Thromboplastin Ratio 3.9
[2020-02-15 02:39] LABS: Partial Thromboplastin Time 109.3 Seconds (21.0-31.0)
[2020-02-15 06:07] LABS: Hematocrit (blood only) 30.7 % (37-47); Hemoglobin 10.2 g/dL (12.0-16.0); Mean Corpuscular Hemoglobin 27.3 pg (25-34); Mean Corpuscular Hgb Conc 33.2 g/dL (32-36); Mean Corpuscular Volume 82.1 fL (80-100); Mean Platelet Volume 9.9 fL (7.4-10.4); Platelet Count 103 K/uL (130-400); RDW Coefficient of Variation 14.6 % (11.5-14.5); RDW Standard Deviation 43.8 fL (36.4-46.3); Red Blood Count 3.74 M/uL (4.2-5.4); White Blood Count 4.58 K/uL (4.8-10.8)
[2020-02-15 06:18] LABS: INR 1.4 (0.9-1.1); Prothrombin Time 14.9 Seconds (9.0-12.0)
[2020-02-15 06:46] LABS: BUN Creatinine Ratio 12.4 (10-20); Creatinine Clr Calc Pharmacy 60.1 ml/min; Est GFR (African American) 98.6; Est GFR (Non-African American) 85.1; Potassium 3.7 mmol/L (3.5-5.1)
--- NOTE | 2020-02-15 08:09 | Consultation ---
Date of Consultation February 15, 2020 History of Present Illness Attending Physician: Rose Marie Kessler MD Allergies Allergy/AdvReac Type Severity Reaction Status Date / Time Cipro Allergy Mild ITCHING Verified 03/25/17 06:51 ciprofloxacin Allergy Unknown ITCHING Verified 02/13/20 11:43 doxycycline Allergy Unknown Rash Verified 02/13/20 11:43 morphine Allergy Unknown PT NOT SURE Verified 02/13/20 11:43 Penicillins Allergy Unknown rash/itchin Verified 02/13/20 11:43 g Sulfa (Sulfonamide Allergy Unknown ITCHY Verified 02/13/20 11:43 Antibiotics) Home Medications Home Medications Medication Instructions Recorded Confirmed Type metformin 1,000 mg PO BID 07/11/18 02/13/20 History glipizide 5 mg tablet 5 mg PO BID 90 Days #180 tab 05/08/19 02/13/20 Rx blood sugar diagnostic #10 ea 06/02/19 02/06/20 History lancets 25 gauge #100 ea 06/02/19 02/06/20 History multivitamin 1 cap PO DAILY 11/21/19 02/13/20 History Patient History Medical History (Updated 02/13/20 @ 16:50 by Naresh Siddiqi MD) Acute hepatitis Hepatitis C - In remission Anemia HX OF Anxiety and depression Ascending cholangitis Asthma Bacteremia Breast cancer LEFT (PLAN FOR CHEMO FIRST THEN SURGERY- DID HAVE FOUR WEEKS OF CHEMO- STOPPED EARLY DUE TO NEUROPATHY) Colitis Cystitis Dehydration Depression with anxiety Diabetes Diabetes mellitus, type 2 Enteritis Gallstones Hepatitis C (Chronic) "IN REMISSION" TREATED MANY YEARS AGO High cholesterol HX OF History of chicken pox Hyperglycemia Hypertension Kidney stones Malignant neoplasm of upper-outer quadrant of left breast in female, 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 Dr. Cullen 06-11-19 Tubular adenoma Surgical History H/O dilation and curettage H/O oral surgery H/O tubal ligation History of breast biopsy History of cholecystectomy History of colonoscopy History of ERCP History of esophagogastroduodenoscopy (EGD) History of gynecologic surgery surgical treatment for History of tonsillectomy and adenoidectomy S/P ERCP Family History Father , does not know HX Alcohol abuse Mother Arthritis Family/Other Diabetes Arthritis Pure hypercholesterolemia Rheumatic fever Syphilis Migraine aura, persistent Hypertension Thyroid disorder Daughter Migraine aura, persistent Hypertension Diabetes Son Infected tooth Brother Epilepsy Denies family history of Ovarian cancer Prostate cancer Myocardial infarction Breast cancer Bleeding disorder Colorectal cancer Stroke Social History Preferred Language: Nigerien Communication Ability: Effective Visual Impairment: No Limitations Hearing Ability: Normal 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 Beliefs That Will Affect Care: None marital status: Single Current Living Situation: Alone Current Living Situation Comment: lives with son now current occupational status: employed 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 Other Information That Helps Us Care for You: No Feels Safe at Home: Yes Safety Concerns: Feels Safe At This Time Smoking Status: Current every day smoker Tobacco Type: cigarettes ; Age Started Using Tobacco: 8 ; packs per day: 1 ; Cigarettes Per Day: 1 PPD ; Do You Dip or Chew Tobacco: No ; Second Hand Exposure: Yes ; Tobacco Cessation Education Requested by Patient: No Hx Alcohol Use: No Hx Substance Use: Yes (30yr ago) substance use type: does not use Childhood Exposure to Second-Hand Smoke: Yes Dental Care, Regularly: Yes Physical Activity Frequency: Does not Exercise Seatbelt Use: always Sunscreen Use: No Physical Exam Physical Exam: GENERAL: Patient is [well] appearing and in [no acute] distress. EYES: No scleral icterus, unremarkable pupils. ENT: Mucous membranes moist, no nasal congestion. NECK: No masses appreciated, supple, trachea is midline. RESPIRATORY: No dyspnea. Clear to auscultation and equal bilaterally. No wheeze, no rhonchi. CARDIOVASCULAR: Regular rate and rhythm. No murmurs, rubs, gallops appreciated. GASTROINTESTINAL: Abdomen soft, non-tender, no peritonitis. Bowel sounds positive. No masses appreciated. BACK: No midline tenderness, no CVA tenderness EXTREMITIES: Normal motion all extremities, no cyanosis, no edema. NEUROLOGIC: Alert and oriented, no acute motor or sensory deficits, no focal weakness, cranial nerves grossly intact. SKIN: No rash, no jaundice, no diaphoresis. PSYCH: Oriented, not agitated Results & Data ([facility]) Vital Signs (Past 12 Hours) Vital Signs Temp Pulse Resp BP Pulse Ox 02/15/20 07:15 36.8 C 85 16 157/84 H 100 05/22/20 03:44 37.1 C 92 H 17 138/83 94 02/14/20 23:34 37.0 C 93 H 15 133/80 97
[2020-02-15] MEDS: INSULIN ASPART 100 UNITS/ML 3 ML PEN SC SCH ×4 (08:16→20:12)
[2020-02-15] MEDS: DOCUSATE SODIUM 100 MG CAP PO SCH ×2 (08:17→20:12)
[2020-02-15] MEDS: FERROUS SULFATE 325 MG TAB PO SCH (08:17)
--- NOTE | 2020-02-15 09:23 | Progress Notes ---
DATE: 02/15/2020 DIAGNOSES: 1. Solitary hepatic mass. 2. Perihepatic/portal lymphadenopathy. 3. Left portal vein thrombosis. 4. Triple negative breast cancer. 5. Abdominal pain. 6. History of hepatitis C. SUBJECTIVE: Christiana was seen and examined at bedside today. She definitely seems much more comfortable. Pain well controlled. Solitary liver lesion biopsy was attempted yesterday. We will check in with pathology to see if the specimen is adequate. Would continue to hold Coumadin until we are sure no further diagnostics are necessary. She is tolerating her diet currently, ambulating ad alin and moving her bowels regularly. Nursing reports no overnight difficulties otherwise. OBJECTIVE: GENERAL: A very pleasant 59-year-old -[place] female in no acute distress. VITAL SIGNS: Temperature 36.8, pulse 85, respiratory rate 16, blood pressure 157/84. SKIN: Without rash or lesion. HEENT: Oral mucosa without erythema or ulceration. HEART: Regular rate and rhythm. LUNGS: Clear to auscultation bilaterally. ABDOMEN: Less tender, soft. Bowel sounds hypoactive. EXTREMITIES: No clubbing, cyanosis or edema. NEUROLOGICAL: Grossly intact. LABORATORY DATA: WBC count 4580, hemoglobin 10.2, platelet count 103,000. PTT 109 seconds, currently on heparin. Sodium 135, potassium 3.7, chloride 99, carbon dioxide 26, creatinine 0.77, BUN 10. IMPRESSION: 1. Solitary hepatic mass. 2. Perihepatic lymphadenopathy. 3. Left portal vein thrombosis. 4. Abdominal pain. 5. Triple negative breast cancer. 6. History of hepatitis C. PLAN: Christiana seems to be doing much better today. We will await pathologic results of the attempted biopsy. Again, if hepatocellular carcinoma is confirmed, we will plan to expedite a visit with Dr. Sanchez at the [facility]. If metastatic breast cancer is confirmed, the patient will be seen expediently to consider a salvage therapy moving forward. Very pleased with her progress. Would consider sending her home on low dose opioids for pain relief. We will continue to follow periodically during her hospital stay. Await alpha fetoprotein, CA 27-29 and CA 15-3 tumor markers. Continue Heparin or convert to Lovenox 1 mg/kg if she wants to go home and can convert to coumadin as outpatient. Will need f/u next week. Path needs more staining for diagnosis. MTDD
[2020-02-15] MEDS: HYDROmorphone INJ 1 MG/ML SYRINGE IV PRN (09:26)
[2020-02-15] MEDS: ONDANSETRON INJ 2 MG/ML 2 ML VIAL IV PRN (09:27)
[2020-02-15] MEDS: LACTATED RINGER'S 1,000 ML IV SCH (09:28)
[2020-02-15 10:07] LABS: Partial Thromboplastin Ratio 3.4
[2020-02-15 10:09] LABS: Partial Thromboplastin Time 94.6 Seconds (21.0-31.0)
[2020-02-15] MEDS: HEPARIN SODIUM/DEXTROSE 25,000 UNITS/500 ML BAG IV SCH ×3 (11:14→18:32)
[2020-02-15] MEDS ORDERED: oxyCODONE HCL IR 5 MG TAB (IMMEDIATE RELEASE) PO PRN (11:37)
[2020-02-15] MEDS ORDERED: WARFARIN SOD 5 MG TAB PO SCH (16:00)
[2020-02-15 17:45] LABS: Partial Thromboplastin Ratio 3.1
--- NOTE | 2020-02-15 17:55 | Family Medicine Progress Note ---
Date of Service February 15, 2020 Assessment & Plan (1) Abdominal pain: 59-year-old female was admitted on 13 Feb 2020 for abdominal pain over the past couple weeks. Abdominal pain, transaminitis, hepatic masses, prior Hep C: Upper abdominal pain for two weeks prior to admit. 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 Rdz), mastectomy (November 2019), and planned radiation therapy. CT a/p suggestive of metastatic vs new primary hepatic cancer with multiple enlarged lymph nodes (see full report). 13May CXR non-acute. Elevated LFTs are stable. INR 1.4. - Consulted oncology (see note). 21May underwent ultrasound-guided FNA of the liver (see full report). They noted aspiration of the lesion but reportedly the pathologist could not confirm adequate tissue for diagnosis. - Nausea controlled with Compazine and Zofran. Switched pain control from dil audid to oxycodone prn. On Colace as well. Plan for discharge home on PO opiates and follow up with oncology next week. - Pending AFP, CA 15-3 antigen, and CA 27-29 tumor marker testing results. Pending liver path results. Portal vein thrombosis: Near-occlusive, as seen on CT a/p. On heparin and Coumadin. See oncology recommendations. - Patient prefers monitoring labs via the lab at [facility]. Gave paper Rx to for twice weekly draws with results to Dr. Rdz. - will stop heparin and convert to lovenox SQ for bridging in the AM if INR not therapeutic. - Per , insurance will cover generic enoxaparin. Plan to discharge on enoxaparin 60 mg SQ q12h x 5 days. Also Coumadin 5 mg daily until follow up with oncology. Hyponatremia: Admit sodium 131, likely due to mild dehydration and low PO intake. Now stable around 135. Monitoring. Hypertension: PMH same. Improved with pain control. Monitoring. Thrombocytopenia: Admit platelets 121, currently stable in low 100s. No overt evidence of acute bleeding. Monitoring, particularly after her liver FNA. Ongoing medical issues: - Hyperlipidemia: Patient is not on any medication for this. - Diabetes type 2: Previously poorly controlled. January 2020 HbA1c 7.8. --- Held home metformin and glipizide. On insulin sliding scale. - Anemia: Admit hemoglobin 11.4, around her baseline. Iron studies suggest iron deficiency. --- Started on a new daily iron supplement. Fecal occult blood testing pending (but no BM yet). - Asthma: Patient says last need for any inhalers was years ago. Denies current concerns. - Depression, anxiety: Patient says last related medications were years ago. Denies current concerns. Code status: Full code. Diet: DM2. LR at 50 ml/hr. DVT prophy: Heparin and Coumadin as above. PT/OT: Deferred. Disbo: Admit to med surg. Patient lives at home with 32 yo son. (2) Transaminitis: (3) Liver mass: (4) Portal vein thrombosis: (5) Breast cancer: (6) Hyponatremia: (7) Hypertension: (8) Thrombocytopenia: (9) Diabetes mellitus, type 2: (10) Anemia: Admission and Anticipated Discharge Date Admission Date: February 13, 2020 Supervising Physician Co-Signing Physician Notes I personally examined the patient and verified all dubon points of history and exam, discussed case, and agree with decision making with Dr. Siddiqi with the following additions/exceptions: Pt p/w 2 weeks of upper abdominal pain and one episode of N/V. Was found on outpt Abd US to have liver masses and elevated LFTs. The pain worsened and she came to ER. CT abd/pel here unfortunately showed left portal vein thrombosis, liver mass and other hypodensities of liver, and an ileocolic calcified mass. Today patient feeling even better than before, is still taking IV Dilaudid but is willing to switch over to p.o. oxycodone to see if this will help control her pain at home. She is willing to give her self bridging Lovenox at home until INR is therapeutic Vitals reviewed NAD, AAOx3, pleasant Anicteric sclerae RRR no mgr CTAB no wcr Abd +BS soft +TTP RUQ and Right periumbilical region without guarding or rebound, no hernia, +firm liver edge palpable Ext no edema or calf tenderness Labs reviewed 59 yo female with metastatic Br CA, here with abdominal pain, portal vein thrombosis, liver mass and hypodensities of liver -Continue heparin drip and convert to bridging Lovenox upon discharge until INR therapeutic with Coumadin -follow coags -pain control-convert to p.o. oxycodone DC IV Dilaudid -DC IV fluids Anemia- Fe def-started FeSO4 tabs Liver mass and other hypodensities--> could be met from Breast CA, could be primary HCC given cirrhosis and h/o Hep C--> check AFP, Br CA markers all pending If liver biopsy nondiagnostic but AFP elevated--> presume HCC Hopeful for discharge to home tomorrow if pain continues to be controlled on oral pain meds Subjective Met with patient earlier this morning. She continues to be in good spirits and denies any particular concerns. Says that her abdominal pain remains significantly improved compared to admission. Did have one single episode of emesis yesterday. No diarrhea. Has not had a bowel movement since her arrival. Does inquire about the results of her lab and biopsy test. Review of Systems Review of Systems: Per HPI as above. Physical Exam Physical Exam: GENERAL: Awake, alert, appears overall rather comfortable, and is not in immediate distress. CARDIAC: +S1S2 RRR, no murmurs. Right chest Port-A-Cath in place. RESPIRATORY: Clear to auscultation. No wheezes or rales. Normal respiratory effort. GI: +BS, soft, non-distended. Continued much improved tenderness to palpation, but lead mason tender in the epigastric region. EXTREMITIES: No pedal edema or calf tenderness. Moving all extremities naturally and easily. NEURO: No gross neuro deficits. Results & Data ([facility]) Vital Signs (Past 12 Hours) Vital Signs Temp Pulse Resp BP Pulse Ox 02/15/20 15:38 36.7 C 89 18 139/71 95 02/15/20 11:13 36.8 C 78 16 135/81 93 02/15/20 07:15 36.8 C 85 16 157/84 H 100 Laboratory Results 02/15/20 02/15/20 02/15/20 Range/Units 17:12 16:30 11:26 WBC (4.8-10.8) K/uL RBC (4.2-5.4) M/uL Hgb (12.0-16.0) g/dL Hct (37-47) % MCV (80-100) fL MCH (25-34) pg MCHC (32-36) g/dL RDW Std Deviation (36.4-46.3) fL RDW Coeff of Noah (11.5-14.5) % Plt Count (130-400) K/uL MPV (7.4-10.4) fL PT (9.0-12.0) Seconds INR (0.9-1.1) APTT Pending (21.0-31.0) Seconds PTT Ratio Pending Sodium (136-145) mmol/L Potassium (3.5-5.1) mmol/L Chloride (98-107) mmol/L Carbon Dioxide (21-32) mmol/L Anion Gap (3-11) BUN (7-18) mg/dl Creatinine (0.6-1.2) mg/dl Est Cr Clr Drug Dosing ml/min Est GFR ( Amer) Est GFR (Non-Af Amer) BUN/Creatinine Ratio (10-20) Glucose (70-99) mg/dl POC Glucose 220 H 130 H (70-99) mg/dl Calcium (8.5-10.1) mg/dl 02/15/20 02/15/20 02/15/20 Range/Units 09:31 07:33 05:53 WBC (4.8-10.8) K/uL RBC (4.2-5.4) M/uL Hgb (12.0-16.0) g/dL Hct (37-47) % MCV (80-100) fL MCH (25-34) pg MCHC (32-36) g/dL RDW Std Deviation (36.4-46.3) fL RDW Coeff of Noah (11.5-14.5) % Plt Count (130-400) K/uL MPV (7.4-10.4) fL PT (9.0-12.0) Seconds INR (0.9-1.1) APTT 94.6 H* (21.0-31.0) Seconds PTT Ratio 3.4 Sodium 135 L (136-145) mmol/L Potassium 3.7 (3.5-5.1) mmol/L Chloride 99 (98-107) mmol/L Carbon Dioxide 26 (21-32) mmol/L Anion Gap 9.0 (3-11) BUN 10 (7-18) mg/dl Creatinine 0.77 (0.6-1.2) mg/dl Est Cr Clr Drug Dosing 60.1 ml/min Est GFR ( Amer) 98.6 Est GFR (Non-Af Amer) 85.1 BUN/Creatinine Ratio 12.4 (10-20) Glucose 116 H (70-99) mg/dl POC Glucose 105 H (70-99) mg/dl Calcium 9.0 (8.5-10.1) mg/dl 02/15/20 02/15/20 02/15/20 Range/Units 05:53 05:53 01:51 WBC 4.58 L (4.8-10.8) K/uL RBC 3.74 L (4.2-5.4) M/uL Hgb 10.2 L (12.0-16.0) g/dL Hct 30.7 L (37-47) % MCV 82.1 (80-100) fL MCH 27.3 (25-34) pg MCHC 33.2 (32-36) g/dL RDW Std Deviation 43.8 (36.4-46.3) fL RDW Coeff of Noah 14.6 H (11.5-14.5) % Plt Count 103 L (130-400) K/uL MPV 9.9 (7.4-10.4) fL PT 14.9 H (9.0-12.0) Seconds INR 1.4 H (0.9-1.1) APTT 109.3 H* (21.0-31.0) Seconds PTT Ratio 3.9 Sodium (136-145) mmol/L Potassium (3.5-5.1) mmol/L Chloride (98-107) mmol/L Carbon Dioxide (21-32) mmol/L Anion Gap (3-11) BUN (7-18) mg/dl Creatinine (0.6-1.2) mg/dl Est Cr Clr Drug Dosing ml/min Est GFR ( Amer) Est GFR (Non-Af Amer) BUN/Creatinine Ratio (10-20) Glucose (70-99) mg/dl POC Glucose (70-99) mg/dl Calcium (8.5-10.1) mg/dl 02/14/20 Range/Units 19:59 WBC (4.8-10.8) K/uL RBC (4.2-5.4) M/uL Hgb (12.0-16.0) g/dL Hct (37-47) % MCV (80-100) fL MCH (25-34) pg MCHC (32-36) g/dL RDW Std Deviation (36.4-46.3) fL RDW Coeff of Noah (11.5-14.5) % Plt Count (130-400) K/uL MPV (7.4-10.4) fL PT (9.0-12.0) Seconds INR (0.9-1.1) APTT (21.0-31.0) Seconds PTT Ratio Sodium (136-145) mmol/L Potassium (3.5-5.1) mmol/L Chloride (98-107) mmol/L Carbon Dioxide (21-32) mmol/L Anion Gap (3-11) BUN (7-18) mg/dl Creatinine (0.6-1.2) mg/dl Est Cr Clr Drug Dosing ml/min Est GFR ( Amer) Est GFR (Non-Af Amer) BUN/Creatinine Ratio (10-20) Glucose (70-99) mg/dl POC Glucose 147 H (70-99) mg/dl Calcium (8.5-10.1) mg/dl Medications Administered Current Inpatient Medications Dextrose (Dextrose 50%) 25 - 50 ml IV UD PRN; Protocol PRN Reason: Hypoglycemia Protocol Stop: 03/14/20 19:03 Docusate Sodium (Colace) 100 mg PO BID ARIELA Stop: 03/15/20 20:59 Last Admin: 02/15/20 08:17 Dose: 100 mg Documented by: Ferrous Sulfate (Feosol) 325 mg PO QAM ARIELA Stop: 03/16/20 08:59 Last Admin: 02/15/20 08:17 Dose: 325 mg Documented by: Glucagon (Glucagen) 1 mg SQ UD PRN; Protocol PRN Reason: Hypoglycemia Protocol Stop: 03/14/20 19:03 Glucose (Dex4 Glucose) 4 - 8 tabs PO UD PRN; Protocol PRN Reason: Hypoglycemia Protocol Stop: 03/14/20 19:03 Glucose (Glucose 40%) 15 - 30 gm PO UD PRN; Protocol PRN Reason: Hypoglycemia Protocol Stop: 03/14/20 19:03 Heparin Sodium (Porcine) (Heparin Sod 100 Unit/Ml Flush) 5 ml FLUSH PRN PRN PRN Reason: Flush Stop: 03/14/20 23:14 Hydromorphone HCl (Dilaudid) 1 mg IV Q2H PRN PRN Reason: Pain Stop: 02/27/20 19:03 Last Admin: 02/15/20 09:26 Dose: 1 mg Documented by: Prochlorperazine 10 mg/ (Syringe) 10 mls @ 5 mls/min IV Q8H PRN PRN Reason: Nausea And Vomiting Stop: 03/14/20 19:01 Last Admin: 02/13/20 22:14 Dose: 5 mls/min Documented by: Lactated Ringer's (Lr) 1,000 mls @ 50 mls/hr IV .Q20H ARIELA Stop: 03/14/20 19:03 Last Admin: 02/15/20 09:28 Dose: 50 mls/hr Documented by: Heparin Sodium/Dextrose (Heparin Sodium/Dextrose) 25,000 units in 500 mls @ 14 mls/hr IV .Q24H ARIELA; Protocol Stop: 03/15/20 18:44 Last Admin: 02/15/20 17:32 Dose: 700 units/hr, 14 mls/hr Documented by: Insulin Aspart (Novolog Flexpen) 0 units SC ACHS ARIELA Stop: 03/14/20 20:59 Last Admin: 02/15/20 17:28 Dose: 5 units Documented by: Ioversol (Optiray 320 100ml) 94 ml IV ONCE PRN PRN Reason: Interaction Checking Stop: 02/17/20 13:28 Last Admin: 02/13/20 13:30 Dose: 94 ml Documented by: Miscellaneous (Carbohydrates For Hypoglycemia) 15 - 30 gm PO UD PRN PRN Reason: Hypoglycemia Protocol Stop: 03/14/20 19:03 Ondansetron HCl (Zofran) 4 mg IV Q4H PRN PRN Reason: Nausea Stop: 03/14/20 19:03 Last Admin: 02/15/20 09:27 Dose: 4 mg Documented by: Oxycodone HCl (Roxicodone Immediate Rel) 5 mg PO Q6H PRN PRN Reason: Pain Stop: 02/29/20 11:36 Last Admin: 02/15/20 17:32 Dose: 5 mg Documented by: Warfarin Sodium (Coumadin) 5 mg PO DAILY@1600 ARIELA Stop: 03/16/20 15:59 Last Admin: 02/15/20 15:56 Dose: 5 mg Documented by: Resident Activity Tracking Resident Involvement: Resident Care Provided Care Provided: Adult Hospital Medicine (1) Abdominal pain Abdominal location: right upper quadrant Qualified Code(s): R10.11 - Right upper quadrant pain
[2020-02-15 18:00] LABS: Partial Thromboplastin Time 87.8 Seconds (21.0-31.0)
[2020-02-15] MEDS ORDERED: oxyCODONE HCL IR 5 MG TAB (IMMEDIATE RELEASE) PO STA (19:33)
--- NOTE | 2020-02-15 21:33 | Billing Data ---
Date of Service February 15, 2020 Coding Level of Care Code 60541 Initial Inpt Care Lvl 3
[2020-02-16] MEDS ORDERED: oxyCODONE HCL IR 5 MG TAB (IMMEDIATE RELEASE) PO PRN (01:00)
[2020-02-16 01:06] LABS: Partial Thromboplastin Ratio 2.7
[2020-02-16 07:39] LABS: Mean Corpuscular Hgb Conc 33.5 g/dL (32-36)
[2020-02-16 07:47] LABS: INR 1.7 (0.9-1.1); Prothrombin Time 17.8 Seconds (9.0-12.0)
[2020-02-16 07:58] LABS: Hematocrit (blood only) 32.2 % (37-47); Hemoglobin 10.8 g/dL (12.0-16.0); Mean Corpuscular Hemoglobin 27.3 pg (25-34); Mean Corpuscular Volume 81.5 fL (80-100); Partial Thromboplastin Ratio 2.9; RDW Coefficient of Variation 14.7 % (11.5-14.5); RDW Standard Deviation 43.8 fL (36.4-46.3); Red Blood Count 3.95 M/uL (4.2-5.4); White Blood Count 4.18 K/uL (4.8-10.8)
[2020-02-16 08:03] LABS: Mean Platelet Volume 9.7 fL (7.4-10.4); Platelet Count 97 K/uL (130-400)
[2020-02-16 08:04] LABS: BUN Creatinine Ratio 7.8 (10-20); Calcium 9.1 mg/dl (8.5-10.1); Creatinine Clr Calc Pharmacy 60.2 ml/min; Est GFR (African American) 88.8; Est GFR (Non-African American) 76.6; Platelet Estimate Decreased (Normal); Potassium 3.7 mmol/L (3.5-5.1)
[2020-02-16 08:24] LABS: Partial Thromboplastin Time 81.7 Seconds (21.0-31.0)
[2020-02-16] MEDS ORDERED: ENOXAPARIN INJ 60 MG/0.6 ML SYR SQ SCH (09:00)
[2020-02-16] MEDS: DOCUSATE SODIUM 100 MG CAP PO SCH (09:06)
[2020-02-16] MEDS: FERROUS SULFATE 325 MG TAB PO SCH (09:06)
[2020-02-16] MEDS: INSULIN ASPART 100 UNITS/ML 3 ML PEN SC SCH (09:07)
--- NOTE | 2020-02-16 09:30 | Discharge Summary ---
Date of Service February 16, 2020 Admission HPI Per Admitting Provider 59-year-old female states that she has had upper abdominal pain for about two weeks now, worse with any palpation or movement, a little improved staying still. Notes that she was nauseous and had a single episode of emesis on the day her symptoms began. No emesis since. Says she is still hungry but really has not had the energy to make herself much food. Denies any diarrhea. Says has regular bowel movements. Says this pain feels different than when she had previous gallbladder issues years ago. She denies any other symptoms, though on review of systems she says she has occasional cough productive of mucus (no blood) that is different than her routine smoker's cough. Says rarely she feels short of breath during this 2 weeks. Denies any chest pain. - As background, patient was diagnosed with left breast invasive ductal carcinoma back in March 2019. She underwent neoadjuvant chemotherapy via Dr. Rdz of oncology. Underwent a mastectomy in November 2019. She says she was on track to begin radiation therapy but there have been some scheduling issues / reluctancy during the COVID pandemic. By her recollection, her last set of surveillance scans did not show any metastasis. - Past medical history includes breast cancer, hepatitis C in remission, anemia, anxiety depression, ascending cholangitis, asthma, colitis, cystitis, depression, anxiety, diabetes type 2, hyperlipidemia, hypertension, nephro lithiasis, tubular adenoma. - Surgical history includes D&C, tubal ligation, cholecystectomy, EGD and colonoscopy, ERCP, tonsillectomy and adenoidectomy, left mastectomy, shoulder surgery. - Social history includes current smoker since age 8. Denies alcohol use. Illicit drug use 30+ years ago. Lives at home with son. Admission Exam Per Admitting Provider GENERAL: Awake, alert, appears overall well but is in immediate pain with any movement, is appropriately tearful when discussing her current imaging, but is not in immediate distress. HENT: Normocephalic, atraumatic. EYES: Normal conjunctiva. Sclera non-icteric. NECK: Inspection normal. Supple and full ROM. No nuchal rigidity. CARDIAC: +S1S2 RRR, no murmurs. Right chest Port-A-Cath in place. RESPIRATORY: Clear to auscultation. No wheezes or rales. Normal respiratory effort. GI: +BS, soft, non-distended. Quite tender to palpation in the upper abdomen, most notably in the epigastric region. Minimally ttp in the lower quadrants. EXTREMITIES: No pedal edema or calf tenderness. Moving all extremities naturally and easily. NEURO: No gross neuro deficits. Principal Diagnosis Abdominal pain, transaminitis, hepatic mass, prior hepatitis C, portal vein thrombosis, breast cancer Discharge Exam GENERAL: Awake, alert, appears overall rather comfortable, and is not in immediate distress. CARDIAC: +S1S2 RRR, no murmurs. Right chest Port-A-Cath in place. RESPIRATORY: Clear to auscultation. No wheezes or rales. Normal respiratory effort. GI: +BS, soft, non-distended. Continued much improved tenderness to palpation, but pot tender in the epigastric region. EXTREMITIES: No pedal edema or calf tenderness. Moving all extremities naturally and easily. NEURO: No gross neuro deficits. Discharge Data Allergies Allergy/AdvReac Type Severity Reaction Status Date / Time Cipro Allergy Mild ITCHING Verified 03/25/17 06:51 ciprofloxacin Allergy Unknown ITCHING Verified 02/13/20 11:43 doxycycline Allergy Unknown Rash Verified 02/13/20 11:43 morphine Allergy Unknown PT NOT SURE Verified 02/13/20 11:43 Penicillins Allergy Unknown rash/itchin Verified 02/13/20 11:43 g Sulfa (Sulfonamide Allergy Unknown ITCHY Verified 02/13/20 11:43 Antibiotics) Consultations Oncology progress note assessment and plan on February 13, 2020 IMPRESSION: 1. Solitary hepatic mass. 2. Perihepatic lymphadenopathy. 3. Left portal vein thrombosis. 4. Abdominal pain. 5. Triple negative breast cancer. 6. History of hepatitis C. PLAN: Christiana seems to be doing much better today. We will await pathologic results of the attempted biopsy. Again, if hepatocellular carcinoma is confirmed, we will plan to expedite a visit with Dr. Sanchez at the [facility]. If metastatic breast cancer is confirmed, the patient will be seen expediently to consider a salvage therapy moving forward. Very pleased with her progress. Would consider sending her home on low dose opioids for pain relief. We will continue to follow periodically during her hospital stay. Await alpha fetoprotein, CA 27-29 and CA 15-3 tumor markers. Continue Heparin or convert to Lovenox 1 mg/kg if she wants to go home and can convert to coumadin as outpatient. Will need f/u next week. Path needs more staining for diagnosis Procedures Performed Ultrasound guided fine needle aspiration of the liver on February 14, 2020 (see full report this is a partial report) - The patient was placed supine in ultrasound, and the 2.4 x 1.8 x 1.8 cm lesion in the left lobe of the liver was localized by ultrasound and selected for fine needle aspiration. Notably, the lesion was not well visualized. This was in part due to background heterogeneity of the liver as well as extensive left hepatic lobe hypoechogenicity. Difficult visualization resulted in moderately suboptimal targeting ability. - The pathologist could not confirm adequate tissue for diagnosis. As 2 passes had been under suboptimal visualization, no further biopsy was pursued. - IMPRESSION: Successful fine-needle aspiration of the 2.4 cm liver lesion as above. Ordered Studies CT abdomen pelvis with IV contrast on February 13, 2020 IMPRESSION: 1. 2.1 cm medial segment hepatic mass suggestive of metastatic disease and metastatic breast cancer is favored. Although less likely, metastatic carcinoid is also within the differential given the partially calcified ileocolic mass. Primary liver malignancy such as hepatocellular carcinoma is also within the differential. An MRI of the liver may be of benefit in further evaluation. 2. Nearly occlusive thrombus within the left portal vein that could reflect bland thrombus or tumor thrombus and may account for extensive hypodensity within the left hepatic lobe and portions of the right hepatic lobe. This hypodensity is nonspecific and may reflect geographic fat, perfusion anomaly or less likely hepatic infarct. This likely obscures smaller hepatic metastases. Cirrhotic appearing liver. Trace ascites. 3. Multiple mildly enlarged upper abdominal lymph nodes. Hospital Course (1) Abdominal pain: 59-year-old female was admitted on 13 Feb 2020 for abdominal pain over the past couple weeks. Abdominal pain, transaminitis, hepatic masses, prior Hep C: Upper abdominal pain for two weeks prior to admit. 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 Rdz), mastectomy (November 2019), and planned radiation therapy. CT a/p suggestive of metastatic vs new primary hepatic cancer with multiple enlarged lymph nodes (see full report). 13May CXR non-acute. Elevated LFTs are stable. INR 1.4. - Consulted oncology (see note). 21May underwent ultrasound-guided FNA of the liver (see full report). They noted aspiration of the lesion but reportedly the pathologist could not confirm adequate tissue for diagnosis. - Nausea controlled with Compazine and Zofran. Switched pain control from dilaudid to oxycodone 10 mg prn. On Colace as well. Plan for discharge home on PO opiates and follow up with oncology next week. - Pending AFP, CA 15-3 antigen, CA 27-29 tumor marker testing results. Pending liver path results. Pending lupus anticoagulant test as well for persistently elevated PTT even prior to starting heparin gtt. Portal vein thrombosis: Near-occlusive, as seen on CT a/p. As inpatient, on heparin and Coumadin. See oncology recommendations. - Patient prefers monitoring labs via the lab at [facility]. Gave paper Rx to for twice weekly draws with results to Dr. Rdz. - Per , insurance will cover generic enoxaparin. Plan to discharge on enoxaparin 60 mg SQ q12h x 5 days. Also Coumadin 5 mg daily until follow up with oncology. Hyponatremia: Admit sodium 131, likely due to mild dehydration and low PO intake. Now stable around 135. Hypertension: PMH same. As high as 180/76. Improved with pain control. Thrombocytopenia: Admit platelets 121, currently stable around low 100s. No overt evidence of acute bleeding. Ongoing medical issues: - Hyperlipidemia: Patient is not on any medication for this. - Diabetes type 2: Previously poorly controlled. January 2020 HbA1c 7.8. --- Held home metformin and glipizide on admit, but restart on discharge. - Anemia: Admit hemoglobin 11.4, around her baseline. Iron studies suggest iron deficiency. --- Started on a new daily iron supplement. Fecal occult blood testing pending (but no BM yet). - Asthma: Patient says last need for any inhalers was years ago. Denies current concerns. - Depression, anxiety: Patient says last related medications were years ago. Denies current concerns. Code status: Full code. (2) Transaminitis: (3) Liver mass: (4) Portal vein thrombosis: (5) Breast cancer: (6) Hyponatremia: (7) Hypertension: (8) Thrombocytopenia: (9) Diabetes mellitus, type 2: (10) Anemia: Total Time Total Time Spent Total Time Spent (In Minutes): > 30 min Discharge Plan Discharge Items Patient Disposition: Home - Self-Care Reason For Visit: PORTAL VEIN THROMBOSIS Discharge Diagnosis: Abdominal pain, hepatic mass, transaminitis, portal vein thrombosis, breast cancer Condition on Discharge: Good Activity: Per Instructions section Non-emergency contact: Primary Care Provider and Oncologist Call non-emergency contact if: you have any medication questions Follow-up/Referrals: Chon Paris MD [Primary Care Provider] - Ramin Rdz DO [Physician] - 02/20/20 1:50 pm Diet: Carb Consistent or DM2 Addtl Attending Provider Instructions: You were admitted to the hospital on February 13, 2020. While in the hospital, we evaluated the following issues: Abdominal pain: As you know, we did a CT scan of your abdomen which showed a mass on your liver as well as some enlarged lymph nodes. You were seen by Dr. Rdz of oncology and he recommended that you get your liver biopsy. The results of the biopsy are still pending. He also ordered some cancer related blood work and the results of that are still pending. - Please continue to follow-up with Dr. Gentile, preferably next week, in his clinic for ongoing care. - We will send you home with a prescription for oxycodone. This is a narcotic pain medication which is quite strong. Please take as directed and keep out of the reach of anyone except yourself. We will also send you home on a medicine called Colace, a stool softener which helps when you are taking narcotics. Portal vein thrombosis: The CT scan of your abdomen also showed that you have a large blood clot in one of the veins related to your liver. To treat this, you were started on blood thinners. In the hospital you get a continuous blood thinner by your IV, but that is not something you can go home on. Therefore, initially you go home on two different blood thinners: - The first blood thinners called Lovenox. This is given by injections under the skin. You will give this to yourself twice a day for the next five (5) days. - The second blood thinners called Coumadin (warfarin). You take this by mouth once a day. This requires blood work to monitor how well it is working. Per your request, we sent a prescription to [facility]'s lab for you to get these blood draws twice a week for the first two weeks. The results will go to Dr. Rdz and he can help manage your blood thinner dosing going forward. Anemia: On routine labs, we noticed that your blood counts are a little bit low. We recommend you start on a daily iron supplement which will help rebuild some of your blood counts. Please discuss this with Dr. Gentile as well to see how long you should stay on this iron supplement. Overall, please continue to follow-up with Dr. Rdz (February 20, 2020 at 1:50 pm) and your primary care provider for ongoing management of these issues. Of course, please return to the nearest emergency department if you were to have any uncontrolled pain, vomiting, unable to eat or drink, or with any other emergent concerns. Pending Studies at Discharge: Yes Studies:: Cancer labs, liver pathology, lupus test. Stand-Alone Forms: [facility], Smoking Cessation Medications and DC Order Prescriptions: New oxycodone 5 mg Tablet 5 - 10 mg PO Q6H PRN (Reason: severe pain) Qty: 30 RF: 0 warfarin [Coumadin] 5 mg Tablet 5 mg PO DAILY Qty: 7 RF: 0 ferrous sulfate 325 mg (65 mg iron) Tablet,Delayed Release (Dr/Ec) 325 mg PO QAM 30 Days Qty: 30 RF: 0 docusate sodium 100 mg Capsule 100 mg PO BID 30 Days Qty: 60 RF: 0 enoxaparin 60 mg/0.6 mL Syringe 60 mg subcut Q12H 5 Days Qty: 6 RF: 0 Continued glipizide 5 mg tablet 5 mg PO BID 90 Days Qty: 180 RF: 3 metformin 1,000 mg Tablet 1,000 mg PO BID RF: 0 multivitamin Capsule 1 cap PO DAILY RF: 0 No Action (DME) lancets 25 gauge misc See Dose Instructions .ROUTE .MEDSUPPLY Qty: 100 RF: 0 (DME) OneTouch Ultra Blue Test Strip strip See Dose Instructions .ROUTE .MEDSUPPLY Qty: 10 RF: 0 Discharge Orders: Discharge Order (Routine); Ordered 02/16/20 Ordered By: Naresh Siddiqi Admission Data Admit Date/Time: 02/13/20 16:52 Attending Provider: Rose Marie Kessler Admit Provider: Naresh Siddiqi Primary Care Provider: Chon Paris Other Providers: Rose Marie Kessler ; Ramin Rdz V. Other Interventions: Discharge Summary Assessment (RN) Last Done: 02/16/20 07:31 Supervising Physician Co-Signing Physician Notes I personally examined the patient and verified all dubon points of history and exam, discussed case, and agree with decision making with Dr. Siddiqi with the following additions/exceptions: Pt p/w 2 weeks of upper abdominal pain and one episode of N/V. Was found on outpt Abd US to have liver masses and elevated LFTs. The pain worsened and she came to ER. CT abd/pel here unfortunately showed left portal vein thrombosis, liver mass and other hypodensities of liver, and an ileocolic calcified mass. Doing well, taking oxycodone only for pain and off IV dilaudid. Abd pain much improved, anxious for discharge. Feels comfortable giving self shots of Lovenox Vitals reviewed NAD, AAOx3, pleasant Anicteric sclerae Radial pulses regular and normal rate breathing unlabored Abd +BS soft , nontender, +firm liver edge palpable Ext no edema or calf tenderness Labs reviewed 59 yo female with metastatic Br CA, here with abdominal pain, portal vein thrombosis, liver mass and hypodensities of liver -received heparin drip and converted to bridging Lovenox upon discharge until INR therapeutic with Coumadin -follow coags on Tuesday -pain control-converted to p.o. oxycodone and tolerating Received IVFs for dehydration and hyponatremia with resolution of both Anemia- Fe def-started FeSO4 tabs Liver mass and other hypodensities--> could be met from Breast CA, could be primary HCC given cirrhosis and h/o Hep C--> check AFP, Br CA markers all pending at time of dc If liver biopsy nondiagnostic but AFP elevated--> presume HCC Stable for discharge to home today Resident Activity Tracking Resident Involvement: Resident Care Provided Care Provided: Adult Hospital Medicine
--- NOTE | 2020-02-16 10:08 | Billing Data ---
Date of Service February 16, 2020 Coding Level of Care Code D/C Day Management >30 mins
[2020-02-16 12:05] LABS: AFP Tumor Marker Serum 2.9 ng/mL
[2020-02-21 13:50] LABS: Lupus Hex Phase (Rflxdonotord) Weak Positive (Negative); Thrombin Time (reflex only) 29 sec (13-19)
--- NOTE | 2020-02-22 10:37 | Coding Query ---
PATHOLOGY To promote full compliance with coding requirements relating to patient care, physician participation is requested in all cases of refrigeration lead uncertainty. Please assist us with the question(s) below: Please review the Pathology report and please document any relevant diagnosis(es) below: Diagnosis(es): Metastatic breast cancer Thank you Sheron KHALIL
== END 2020-02-16 09:50 | disposition home or self-care (01) | DRG 435 ==
LOC: ED 10:48 → 2W 16:52

== ENCOUNTER 2020-02-20 15:02 | Inpatient (IN) ==
[2020-02-20] MEDS ORDERED: ONDANSETRON INJ 2 MG/ML 2 ML VIAL IV STA (16:01)
--- NOTE | 2020-02-20 16:14 | Emergency Department Note ---
Impression & Plan Acute upper gastrointestinal bleeding, Anemia, Portal vein thrombosis, Abdominal pain, Thrombocytopenia, Nausea & vomiting, Anticoagulated, Metabolic acidosis ED Provider Note NAME: SAVANNAH WRIGHT AGE: 59 SEX: F : 1960 ARRIVES VIA: Walk-In INFORMANT: Patient, ED PROVIDER(S): Chon Vazquez DO CHIEF COMPLAINT: Abdominal pain nausea vomiting and loose bowel movements HPI: The patient is a 59-year-old female who presented to the emergency department directly from her primary care physician's office at the request of h er oncologist for an evaluation of ongoing abdominal pain. The patient was recently diagnosed with a portal vein thrombosis as well as a liver mass. She has been having ongoing symptoms over the last few weeks and states that she has had ongoing nausea and vomiting ever since that time. She has no definite diagnosis of the liver mass as of yet but there was a biopsy done recently. She denies any recent falls. She denies having any severe headaches. She does state that she has dark emesis but she denies any hematemesis or black or bloody stools. The patient states that her abdomen is distended. She is not had any fevers or coughing. She denies having any swelling in her legs. ROS: See above HPI for pertinent positives & negatives. A total of 10 systems reviewed and were otherwise negative. PAST MEDICAL HISTORY: See Below PAST SURGICAL HISTORY: See Below FAMILY HISTORY: See Below SOCIAL HISTORY: See Below HOME MEDICATIONS: See Below ALLERGIES: See Below VITALS: See Below PHYSICAL EXAMINATION: GENERAL: Patient is awake alert in no acute distress patient is resting comfortably and showing no signs of anxiety EYES: The conjunctivae are pale. The pupils are round and reactive. EARS, NOSE, MOUTH AND THROAT: The nose is without any evidence of any deformity. Mucous membranes are moist. Tongue is midline. NECK: The neck is nontender and supple. RESPIRATORY: Normal respiratory effort is noted there is no evidence of wheezing rhonchi or rales CARDIOVASCULAR: Regular rate and rhythm noted there no murmurs rubs or gallops normal S1 normal S2. GASTROINTESTINAL: The abdomen is mildly distended and soft. There is significant right upper quadrant tenderness to palpation. There is definite hepatomegaly noted to palpation. The edge of the liver is well below the right costophrenic angle. MUSCULOSKELETAL/EXTREMITIES: There is no evidence of gross deformity full range of motion is noted in the hips and shoulders. SKIN: There is no obvious evidence of any rash. There are no petechiae, pallor or cyanosis noted. NEUROLOGIC: Patient is awake alert and oriented x3. MEDICAL DECISION MAKING: The patient is a 59-year-old female who has a recent diagnosis of a portal vein thrombosis as well as a large mass in her liver. She recently had this diagnosis made in the emergency department. She was started on oral anticoagulation as well as Lovenox. The patient continued to have worsening pain nausea and vomiting. She was sent to the emergency department because of coffee-ground emesis. Patient was treated with IV fluids as well as IV pain medication. She was also treated with blood transfusion. I consented the patient for blood and ordered blood in the emergency department. I discussed the patient's laboratory and radiographic studies with her. She appears to have significant anemia compared to baseline. She also is anticoagulated. She has a very abnormal appearance to her liver and continued thrombosis of her portal vein. I discussed her condition with the on-call [facility] hospitalist group. They have agreed to evaluate the patient in the emergency department for further management and disposition. The patient also received vitamin K as well as fresh frozen plasma were ordered from the emergency department. Triage Nursing notes reviewed. Prior medical records reviewed Vital Signs: reviewed and remarkable for hypotension Differential diagnosis: Etiologies such as appendicitis, diverticulitis, obstruction, inflammatory bowel disease, renal colic, PUD, biliary pathology, pancreatitis, mesenteric ischemia, aortic pathology, infections, genitourinary, UTI, perforated viscus, as well as others were entertained. ER treatment provided: See below Diagnostics interpreted by me: ECG: EKG was obtained in the emergency department. My interpretation is sinus tachycardia at 101 bpm. There is no ectopy. There were no acute ST segments noted. Peak T waves were noted throughout. This was compared to a tracing from November 19, 2019. No significant changes were noted. Cardiac Monitoring: An order was placed for continuous cardiac monitoring. The monitor shows a rate of 88 with sinus rhythm. Laboratory studies: As stated above and show below. Imaging studies: See below Consultation(s): 193: I discussed this case with Dr. Keita. He is agreed to evaluate the patient in the emergency department for further management and disposition Critical care time I have personally spent greater than 45 minutes of critical care time in the direct management of this patient. This includes bedside care, interpretation of diagnostic studies, and testing, discussion with consultants, patient, and family members, and other required patient management activities. This 45 minutes is in excess of all separately billable procedures. Past Med/Surg History Medical History Acute hepatitis Hepatitis C - In remission Anemia HX OF Anxiety and depression Ascending cholangitis Asthma Bacteremia Breast cancer LEFT (PLAN FOR CHEMO FIRST THEN SURGERY- DID HAVE FOUR WEEKS OF CHEMO- STOPPED EARLY DUE TO NEUROPATHY) Colitis Cystitis Dehydration Depression with anxiety Diabetes Diabetes mellitus, type 2 Enteritis Gallstones Hepatitis C (Chronic) "IN REMISSION" TREATED MANY YEARS AGO High cholesterol HX OF History of chicken pox Hyperglycemia Hypertension Kidney stones Malignant neoplasm of upper-outer quadrant of left breast in female, 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 Dr. Cullen 06-11-19 Tubular adenoma Surgical History H/O dilation and curettage H/O oral surgery H/O tubal ligation History of breast biopsy History of cholecystectomy History of colonoscopy History of ERCP History of esophagogastroduodenoscopy (EGD) History of gynecologic surgery surgical treatment for History of tonsillectomy and adenoidectomy S/P ERCP Family History Father , does not know HX Alcohol abuse Mother Arthritis Family/Other Diabetes Arthritis Pure hypercholesterolemia Rheumatic fever Syphilis Migraine aura, persistent Hypertension Thyroid disorder Daughter Migraine aura, persistent Hypertension Diabetes Son Infected tooth Brother Epilepsy Denies family history of Ovarian cancer Prostate cancer Myocardial infarction Breast cancer Bleeding disorder Colorectal cancer Stroke Social History Preferred Language: Grenadian Communication Ability: Effective Visual Impairment: No Limitations Hearing Ability: Normal 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: No Beliefs That Will Affect Care: None marital status: Single Current Living Situation: Family Current Living Situation Comment: lives with son now current occupational status: employed 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 Other Information That Helps Us Care for You: No Feels Safe at Home: Yes Safety Concerns: Feels Safe At This Time Smoking Status: Unknown if ever smoked Hx Alcohol Use: No Hx Substance Use: No Childhood Exposure to Second-Hand Smoke: Yes Dental Care, Regularly: Yes Physical Activity Frequency: Does not Exercise Seatbelt Use: always Sunscreen Use: No Allergies Allergies Allergy/AdvReac Type Severity Reaction Status Date / Time Cipro Allergy Mild ITCHING Verified 03/25/17 06:51 ciprofloxacin Allergy Unknown ITCHING Verified 02/20/20 13:04 doxycycline Allergy Unknown Rash Verified 02/20/20 13:04 Penicillins Allergy Unknown rash/itchin Verified 02/20/20 13:04 g Sulfa (Sulfonamide Allergy Unknown ITCHY Verified 02/20/20 13:04 Antibiotics) Home Meds Home Medications Medication Instructions Recorded Confirmed metformin 1,000 mg PO BID 07/11/18 02/20/20 multivitamin 1 cap PO DAILY 11/21/19 02/20/20 oxycodone 5 - 10 mg PO Q6H PRN 02/20/20 02/20/20 warfarin [Coumadin] 5 mg PO DAILY@1600 02/20/20 02/20/20 Previous Rx's Medication Instructions Recorded docusate sodium 100 mg PO BID 30 Days #60 cap 02/16/20 enoxaparin 60 mg SUBCUT Q12H 5 Days #6 ml 02/16/20 ferrous sulfate 325 mg PO QAM 30 Days #30 tab 02/16/20 polyethylene glycol 3350 17 17 gm PO DAILY #238 gm 02/20/20 gram/dose oral powder Results & Data (ED) Vital Signs Vital Signs - 24 hr 02/20/20 15:12 02/20/20 16:37 02/20/20 16:51 Temperature 36.5 C Temperature Source Oral Pulse Rate 107 H Pulse Rate [Right Finger] 142 H 160 H Pulse Rhythm [Right Finger] Respiratory Rate 18 22 34 H Respiratory Effort / Characteristics Respiratory Depth Blood Pressure 86/61 L Blood Pressure [Left Arm] 82/49 L 105/90 Blood Pressure Mean 69 Blood Pressure Mean [Left Arm] 60 95 Pulse Oximetry 100 Oxygen Delivery Method Room Air Room Air Sepsis Recent Fever Within 48 Hours No Sepsis New/Unexplained Change in Mental Status No Sepsis Action Taken by Nursing No Action Required 02/20/20 17:13 02/20/20 17:42 02/20/20 18:27 Temperature Temperature Source Pulse Rate Pulse Rate [Right Finger] 82 110 H 128 H Pulse Rhythm [Right Finger] Respiratory Rate 20 30 H 32 H Respiratory Effort / Characteristics Non-Labored Non-Labored Respiratory Depth Normal Normal Blood Pressure Blood Pressure [Left Arm] 137/62 149/98 H 85/67 L Blood Pressure Mean Blood Pressure Mean [Left Arm] 87 115 73 Pulse Oximetry 96 100 Oxygen Delivery Method Room Air Room Air Room Air Sepsis Recent Fever Within 48 Hours Sepsis New/Unexplained Change in Mental Status Sepsis Action Taken by Nursing 02/20/20 18:42 02/20/20 19:21 02/20/20 20:41 Temperature Temperature Source Pulse Rate Pulse Rate [Right Finger] 92 H 126 H 104 H Pulse Rhythm [Right Finger] Regular Respiratory Rate 22 28 H 12 Respiratory Effort / Characteristics Non-Labored Spontaneous Respiratory Depth Normal Blood Pressure Blood Pressure [Left Arm] 120/62 149/66 H 141/75 H Blood Pressure Mean Blood Pressure Mean [Left Arm] 81 93 97 Pulse Oximetry 100 100 98 Oxygen Delivery Method Room Air Room Air Sepsis Recent Fever Within 48 Hours Sepsis New/Unexplained Change in Mental Status Sepsis Action Taken by Senior Living Medications Current Medication List: was personally reviewed by me Laboratory Data Attestation: I reviewed the patient's lab results. Result diagrams: 02/20/20 22:29 02/20/20 17:11 Lab Results 02/20/20 02/20/20 02/20/20 Range/Units 17:11 17:11 17:11 WBC 5.83 (4.8-10.8) K/uL RBC 2.96 L (4.2-5.4) M/uL Hgb 8.1 L (12.0-16.0) g/dL POC Hgb (12.0-16.0) g/dl Hct 24.1 L (37-47) % POC Hct (37-47) % MCV 81.4 (80-100) fL MCH 27.4 (25-34) pg MCHC 33.6 (32-36) g/dL RDW Std Deviation 45.1 (36.4-46.3) fL RDW Coeff of Noah 15.7 H (11.5-14.5) % Plt Count 83 L (130-400) K/uL Immature Gran % (Auto) 0.3 % Neut % (Auto) 72.7 % Lymph % (Auto) 19.9 % [place] % (Auto) 6.9 % Eos % (Auto) 0.2 % Baso % (Auto) 0.0 % Immature Gran # (Auto) 0.02 (0.00-0.02) K/uL Neut # (Auto) 4.24 (1.4-6.5) K/uL Lymph # (Auto) 1.16 L (1.2-3.4) K/uL [place] # (Auto) 0.40 (0.11-0.59) K/uL Eos # (Auto) 0.01 (0-0.5) K/uL Baso # (Auto) 0.00 (0-0.2) K/uL Absolute Nucleated RBC 0.04 H (0-0) K/uL Nucleated RBC % (auto) 0.7 % Platelet Estimate Decreased L (Normal) Giant Platelets 1+ Echinocytes 1+ Schistocytes 1+ PT Cancelled INR Cancelled APTT Cancelled PTT Ratio Cancelled ABG pH (7.35-7.45) ABG pCO2 (35-46) mmHg ABG pO2 (80-95) mmHg ABG HCO3 (19-24) mmol/L ABG O2 Saturation (90-95) % ABG Base Excess (-9-1.8) mEq/L Hadley Test (Pos) Barometric Pressure mm/Hg Oxygen Given POC Sodium (135-144) mmol/L Sodium 135 L (136-145) mmol/L POC Potassium (3.3-5.0) mmol/L Potassium 4.2 (3.5-5.1) mmol/L POC Chloride (101-112) mmol/L Chloride 98 (98-107) mmol/L Carbon Dioxide 17 L (21-32) mmol/L POC Total CO2 (24-31) mmol/L Anion Gap 19.0 H (3-11) POC Anion Gap (16-25) mmol/L POC BUN (7-18) mg/dl BUN 24 H (7-18) mg/dl Creatinine 1.13 (0.6-1.2) mg/dl POC Creatinine (0.6-1.3) mg/dl Est Cr Clr Drug Dosing Not Reportable Est GFR ( Amer) 62.0 Est GFR (Non-Af Amer) 53.5 BUN/Creatinine Ratio 21.2 H (10-20) Glucose 120 H (70-99) mg/dl POC Glucose (other) (70-99) mg/dl Lactate (0.4-2.0) mmol/L Calcium 8.8 (8.5-10.1) mg/dl POC Ioniz Calcium Ju (1.12-1.32) mmol/l Total Bilirubin 0.8 (0.2-1) mg/dl AST 270 H (15-37) U/L ALT 116 H (12-78) U/L Alkaline Phosphatase 279 H (45-117) U/L Troponin I < 0.015 (0-0.045) ng/ml Total Protein 6.6 (6.4-8.2) gm/dl Albumin 2.8 L (3.4-5.0) gm/dl Globulin 3.8 (2.5-4.0) gm/dl Albumin/Globulin Ratio 0.7 L (0.9-2) Lipase 45 L (73-393) U/L Procalcitonin (0-0.5) ng/ml Blood Type Blood Type Recheck Antibody Screen Crossmatch 02/20/20 02/20/20 02/20/20 Range/Units 17:11 17:16 18:37 WBC (4.8-10.8) K/uL RBC (4.2-5.4) M/uL Hgb (12.0-16.0) g/dL POC Hgb 8.2 L (12.0-16.0) g/dl Hct (37-47) % POC Hct 24 L (37-47) % MCV (80-100) fL MCH (25-34) pg MCHC (32-36) g/dL RDW Std Deviation (36.4-46.3) fL RDW Coeff of Noah (11.5-14.5) % Plt Count (130-400) K/uL Immature Gran % (Auto) % Neut % (Auto) % Lymph % (Auto) % [place] % (Auto) % Eos % (Auto) % Baso % (Auto) % Immature Gran # (Auto) (0.00-0.02) K/uL Neut # (Auto) (1.4-6.5) K/uL Lymph # (Auto) (1.2-3.4) K/uL [place] # (Auto) (0.11-0.59) K/uL Eos # (Auto) (0-0.5) K/uL Baso # (Auto) (0-0.2) K/uL Absolute Nucleated RBC (0-0) K/uL Nucleated RBC % (auto) % Platelet Estimate (Normal) Giant Platelets Echinocytes Schistocytes PT INR APTT PTT Ratio ABG pH (7.35-7.45) ABG pCO2 (35-46) mmHg ABG pO2 (80-95) mmHg ABG HCO3 (19-24) mmol/L ABG O2 Saturation (90-95) % ABG Base Excess (-9-1.8) mEq/L Hadley Test (Pos) Barometric Pressure mm/Hg Oxygen Given POC Sodium 133 L (135-144) mmol/L Sodium (136-145) mmol/L POC Potassium 4.2 (3.3-5.0) mmol/L Potassium (3.5-5.1) mmol/L POC Chloride 97 L (101-112) mmol/L Chloride (98-107) mmol/L Carbon Dioxide (21-32) mmol/L POC Total CO2 18 L (24-31) mmol/L Anion Gap (3-11) POC Anion Gap 23.0 (16-25) mmol/L POC BUN 21 H (7-18) mg/dl BUN (7-18) mg/dl Creatinine (0.6-1.2) mg/dl POC Creatinine 1.0 (0.6-1.3) mg/dl Est Cr Clr Drug Dosing Est GFR ( Amer) Est GFR (Non-Af Amer) BUN/Creatinine Ratio (10-20) Glucose (70-99) mg/dl POC Glucose (other) 116 H (70-99) mg/dl Lactate (0.4-2.0) mmol/L Calcium (8.5-10.1) mg/dl POC Ioniz Calcium Ju 1.08 L (1.12-1.32) mmol/l Total Bilirubin (0.2-1) mg/dl AST (15-37) U/L ALT (12-78) U/L Alkaline Phosphatase (45-117) U/L Troponin I (0-0.045) ng/ml Total Protein (6.4-8.2) gm/dl Albumin (3.4-5.0) gm/dl Globulin (2.5-4.0) gm/dl Albumin/Globulin Ratio (0.9-2) Lipase (73-393) U/L Procalcitonin 3.00 H (0-0.5) ng/ml Blood Type A Positive Blood Type Recheck Antibody Screen NEGATIVE Crossmatch See Detail 02/20/20 02/20/20 02/20/20 Range/Units 18:55 19:43 20:29 WBC (4.8-10.8) K/uL RBC (4.2-5.4) M/uL Hgb (12.0-16.0) g/dL POC Hgb (12.0-16.0) g/dl Hct (37-47) % POC Hct (37-47) % MCV (80-100) fL MCH (25-34) pg MCHC (32-36) g/dL RDW Std Deviation (36.4-46.3) fL RDW Coeff of Noah (11.5-14.5) % Plt Count (130-400) K/uL Immature Gran % (Auto) % Neut % (Auto) % Lymph % (Auto) % [place] % (Auto) % Eos % (Auto) % Baso % (Auto) % Immature Gran # (Auto) (0.00-0.02) K/uL Neut # (Auto) (1.4-6.5) K/uL Lymph # (Auto) (1.2-3.4) K/uL [place] # (Auto) (0.11-0.59) K/uL Eos # (Auto) (0-0.5) K/uL Baso # (Auto) (0-0.2) K/uL Absolute Nucleated RBC (0-0) K/uL Nucleated RBC % (auto) % Platelet Estimate (Normal) Giant Platelets Echinocytes Schistocytes PT TNP INR TNP APTT 114.7 H* PTT Ratio 4.1 ABG pH (7.35-7.45) ABG pCO2 (35-46) mmHg ABG pO2 (80-95) mmHg ABG HCO3 (19-24) mmol/L ABG O2 Saturation (90-95) % ABG Base Excess (-9-1.8) mEq/L Hadley Test (Pos) Barometric Pressure mm/Hg Oxygen Given POC Sodium (135-144) mmol/L Sodium (136-145) mmol/L POC Potassium (3.3-5.0) mmol/L Potassium (3.5-5.1) mmol/L POC Chloride (101-112) mmol/L Chloride (98-107) mmol/L Carbon Dioxide (21-32) mmol/L POC Total CO2 (24-31) mmol/L Anion Gap (3-11) POC Anion Gap (16-25) mmol/L POC BUN (7-18) mg/dl BUN (7-18) mg/dl Creatinine (0.6-1.2) mg/dl POC Creatinine (0.6-1.3) mg/dl Est Cr Clr Drug Dosing Est GFR ( Amer) Est GFR (Non-Af Amer) BUN/Creatinine Ratio (10-20) Glucose (70-99) mg/dl POC Glucose (other) (70-99) mg/dl Lactate 4.5 H* (0.4-2.0) mmol/L Calcium (8.5-10.1) mg/dl POC Ioniz Calcium Ju (1.12-1.32) mmol/l Total Bilirubin (0.2-1) mg/dl AST (15-37) U/L ALT (12-78) U/L Alkaline Phosphatase (45-117) U/L Troponin I (0-0.045) ng/ml Total Protein (6.4-8.2) gm/dl Albumin (3.4-5.0) gm/dl Globulin (2.5-4.0) gm/dl Albumin/Globulin Ratio (0.9-2) Lipase (73-393) U/L Procalcitonin (0-0.5) ng/ml Blood Type Blood Type Recheck A Positive Antibody Screen Crossmatch 02/20/20 Range/Units 20:29 WBC (4.8-10.8) K/uL RBC (4.2-5.4) M/uL Hgb (12.0-16.0) g/dL POC Hgb (12.0-16.0) g/dl Hct (37-47) % POC Hct (37-47) % MCV (80-100) fL MCH (25-34) pg MCHC (32-36) g/dL RDW Std Deviation (36.4-46.3) fL RDW Coeff of Noah (11.5-14.5) % Plt Count (130-400) K/uL Immature Gran % (Auto) % Neut % (Auto) % Lymph % (Auto) % [place] % (Auto) % Eos % (Auto) % Baso % (Auto) % Immature Gran # (Auto) (0.00-0.02) K/uL Neut # (Auto) (1.4-6.5) K/uL Lymph # (Auto) (1.2-3.4) K/uL [place] # (Auto) (0.11-0.59) K/uL Eos # (Auto) (0-0.5) K/uL Baso # (Auto) (0-0.2) K/uL Absolute Nucleated RBC (0-0) K/uL Nucleated RBC % (auto) % Platelet Estimate (Normal) Giant Platelets Echinocytes Schistocytes PT INR APTT PTT Ratio ABG pH 7.39 (7.35-7.45) ABG pCO2 27 L (35-46) mmHg ABG pO2 107 H (80-95) mmHg ABG HCO3 16 L (19-24) mmol/L ABG O2 Saturation 97.8 H (90-95) % ABG Base Excess -8.1 (-9-1.8) mEq/L Hadley Test Pos (Pos) Barometric Pressure 735.2 mm/Hg Oxygen Given ROOM AIR POC Sodium (135-144) mmol/L Sodium (136-145) mmol/L POC Potassium (3.3-5.0) mmol/L Potassium (3.5-5.1) mmol/L POC Chloride (101-112) mmol/L Chloride (98-107) mmol/L Carbon Dioxide (21-32) mmol/L POC Total CO2 (24-31) mmol/L Anion Gap (3-11) POC Anion Gap (16-25) mmol/L POC BUN (7-18) mg/dl BUN (7-18) mg/dl Creatinine (0.6-1.2) mg/dl POC Creatinine (0.6-1.3) mg/dl Est Cr Clr Drug Dosing Est GFR ( Amer) Est GFR (Non-Af Amer) BUN/Creatinine Ratio (10-20) Glucose (70-99) mg/dl POC Glucose (other) (70-99) mg/dl Lactate (0.4-2.0) mmol/L Calcium (8.5-10.1) mg/dl POC Ioniz Calcium Ju (1.12-1.32) mmol/l Total Bilirubin (0.2-1) mg/dl AST (15-37) U/L ALT (12-78) U/L Alkaline Phosphatase (45-117) U/L Troponin I (0-0.045) ng/ml Total Protein (6.4-8.2) gm/dl Albumin (3.4-5.0) gm/dl Globulin (2.5-4.0) gm/dl Albumin/Globulin Ratio (0.9-2) Lipase (73-393) U/L Procalcitonin (0-0.5) ng/ml Blood Type Blood Type Recheck Antibody Screen Crossmatch Administered Medications Diphenhydramine HCl (Benadryl) 25 mg IV Q4 PRN PRN Reason: Pain Stop: 03/21/20 23:19 Last Admin: 02/21/20 00:19 Dose: 25 mg Documented by: [id number] Ioversol (Optiray 320 100ml) 93 ml IV ONCE PRN PRN Reason: Interaction Checking Stop: 02/24/20 19:05 Last Admin: 02/20/20 19:06 Dose: 93 ml Documented by: [id number] Ondansetron HCl (Zofran) 4 mg IV Q6H PRN PRN Reason: Nausea Stop: 03/21/20 21:54 Last Admin: 02/20/20 23:34 Dose: 4 mg Documented by: [id number] Discontinued Medications Fentanyl Citrate (Fentanyl Citrate) 50 mcg IV Q15M PRN PRN Reason: Pain Stop: 03/05/20 19:47 Last Admin: 02/20/20 20:39 Dose: 50 mcg Documented by: [id number] Admin: 02/20/20 20:06 Dose: 50 mcg Documented by: [id number] Sodium Chloride (Nss 1000ml) 1,000 mls @ 999 mls/hr IV .Q1H1M ARIELA Stop: 02/20/20 17:15 Last Infusion: 02/20/20 18:28 Dose: 0 mls/hr Documented by: [id number] Admin: 02/20/20 17:12 Dose: 999 mls/hr Documented by: [id number] Promethazine HCl (Phenergan) 12.5 mg in 50.5 mls @ 202 mls/hr IV NOW STA Stop: 02/20/20 18:35 Last Infusion: 02/20/20 19:12 Dose: 0 mls/hr Documented by: [id number] Admin: 02/20/20 18:25 Dose: 202 mls/hr Documented by: [id number] Pantoprazole Sodium 40 mg/ (Syringe) 10 mls @ 5 mls/min IV NOW ONE Stop: 02/20/20 18:23 Last Admin: 02/20/20 20:39 Dose: 5 mls/min Documented by: [id number] Phytonadione 10 mg/ Sodium (Chloride) 51 mls @ 102 mls/hr IV ONE ONE Stop: 02/20/20 20:09 Last Infusion: 02/20/20 20:38 Dose: 0 mls/hr Documented by: [id number] Admin: 02/20/20 20:06 Dose: 102 mls/hr Documented by: [id number] Morphine Sulfate (Morphine Sulfate) 4 mg IV NOW STA Stop: 02/20/20 23:21 Last Admin: 02/21/20 00:19 Dose: 4 mg Documented by: [id number] Ondansetron HCl (Zofran) 4 mg IV NOW STA Stop: 02/20/20 16:02 Last Admin: 02/20/20 17:12 Dose: 4 mg Documented by: [id number] Imaging Data Radiologist's Impression: ABDOMEN AND PELVIS CT WITH IV CONTRAST CT DOSE: 257.29 mGy.cm HISTORY: Acute generalized abdominal pain. History of prior hepatic biopsy abd pain, hx of liver bx TECHNIQUE: Multiaxial CT images of the abdomen and pelvis were performed following the IV administration of 93 cc of Optiray 320, A dose lowering cecilia hnique was utilized adhering to the principles of ALARA. COMPARISON STUDY: Ultrasound guided FNA 02/14/2020, CT abdomen and pelvis 02/13/2020 FINDINGS: 4 mm fissural nodule of the left lung base is unchanged and likely benign. 3 mm solid nodule of the lateral basal segment right lower lobe is also stable. Calcified granuloma of the basal left lower lobe. No pneumatosis or pneumoperitoneum. Imaged inferior cardiac chambers are unremarkable. Unremarkable spleen. Cholecystectomy. Mild to moderate generalized pancreatic atrophy. Unremarkable adrenal glands. Nearly occlusive thrombus of the left p ortal vein is unchanged. Patency of the hepatic veins, splenic and superior mesenteric vein. Extensive patchy hypodensity throughout the liver is redemonstrated and is most pronounced in the left hepatic lobe. This has progressively worsened from comparison, notably with progressive areas of involvement throughout the right hepatic lobe. No post biopsy hepatic laceration is identified. The previously questioned mass of the medial segment left hepatic lobe measuring 2.1 cm is redemonstrated and difficult to differentiate from the surrounding hepatic hypodensities. Small volume of abdominal pelvic ascites has slightly progressed from comparison. Unremarkable kidneys, urinary bladder and uterus. Extensive mixed plaque the abdominal aorta without aneurysm. There is a pathologically enlarged 1.4 x 1.1 cm precaval lymph node on image 214 series 3. Mild generalized mesenteric and body wall edema. No bowel obstruction. Decompressed loops of large bowel are noted with wall thickening. 2.0 cm partially calcified mass of the right ileocolic mesentery redemonstrated. Prominent enhancement of the adjacent ileal loop. Small periumbilical abdominal wall hernia. No suspicious osseous lesions. IMPRESSION: 1. Nearly occlusive thrombus of the left portal vein appears unchanged. There is progressively worsened diffuse patchy hypodensities throughout the liver, predominantly involving the left hepatic lobe with new areas of involvement throughout the right hepatic lobe. These findings are suggestive of perfusion anomaly/possible pulmonary infarct (s). The previously questioned 2.1 cm mass of the medial left hepatic lobe is again visualized and difficult to differentiate from the surrounding hepatic hypodensities. Underlying hepatic metastatic disease would again be impossible to exclude. 2. Small volume of abdominopelvic ascites, slightly progressed from comparison. 3. Partially calcified mass of the right lower quadrant mesentery with enlarged precaval lymph node redemonstrated. 4. Additional findings as above. ACT 112: Negative or not required by law. The above report was generated using voice recognition software. It may contain grammatical, syntax or spelling errors. Electronically signed by: Naresh Powell M.D. 02/20/2020 7:24 PM Dictated: 02/20/201914 Transcribed: 02/20/201914 CT head/brain wo con CLINICAL HISTORY: 59 years-old Female with sent by oncology for imaging. Acute vomiting with oncologic workup TECHNIQUE: Multiple axial CT images of the head were obtained without contrast. A dose lowering technique was utilized adhering to the principles of ALARA. CT DOSE: 537.48 mGy.cm COMPARISON: Head CT 07/11/2018 FINDINGS: No acute intracranial hemorrhage, midline shift, intracranial mass, hydrocephalus, territorial ischemia or abnormal extra-axial collection. Minimal ill-defined white matter hypodensities may reflect a degree of underlying chronic microvascular ischemic disease. There is a subcentimeter calcification redemonstrated involving the petty on image 6 series 2. Cerebral vascular calcifications. The calvarium is intact. Trace mastoid effusions. Paranasal sinuses are generally clear. Hypoplastic frontal sinuses. Soft tissues and orbits are unremarkable. IMPRESSION: No acute intracranial abnormality. ACT 112: Negative or not required by law. The above report was generated using voice recognition software. It may contain grammatical, syntax or spelling errors. Electronically signed by: Naresh Powell M.D. 02/20/2020 7:14 PM Dictated: 02/20/201911 Transcribed: 02/20/201911 Blood Pressure Blood Pressure Findings: Low blood pressure Discharge Plan Visit Data *Final* Discharge Date/Time: 02/20/20 21:40 Chief Complaint: Illness Stated Complaint: ILLNESS, SENT BY [facility] ED Provider: Chon Vazquez Discharge Problem: Acute upper gastrointestinal bleeding, Anemia, Portal vein thrombosis, Abdominal pain, Thrombocytopenia, Nausea & vomiting, Anticoagulated, Metabolic acidosis Patient Disposition: Admitted As Inpatient Condition: Fair Discharge Instructions Interventions: ED Discharge Assessment Last Done: 02/20/20 21:40 Discharge Problem: Anemia Qualifiers: Anemia type: unspecified type Qualified Code(s): D64.9 - Anemia, unspecified Abdominal pain Qualifiers: Abdominal location: right upper quadrant Qualified Code(s): R10.11 - Right upper quadrant pain Nausea & vomiting Qualifiers: Vomiting type: unspecified Vomiting Intractability: non-intractable Qualified Code(s): R11.2 - Nausea with vomiting, unspecified
[2020-02-20] MEDS ORDERED: SODIUM CHLORIDE 0.9% 1000ML 1,000 ML IV SCH ×2 (16:15→21:55)
--- NOTE | 2020-02-20 16:52 | Electrocardiogram Report ---
Test Reason : Blood Pressure : / mmHG Vent. Rate : 101 BPM Atrial Rate : 101 BPM P-R Int : 112 ms QRS Dur : 068 ms QT Int : 336 ms P-R-T Axes : 071 006 059 degrees QTc Int : 435 ms Sinus tachycardia Otherwise normal ECG When compared with ECG of 19-NOV-2019 08:11, No significant change was found Confirmed by Chon Jason ([id number]) on 02/20/2020 4:51:39 PM Referred By: Ramin Rdz Confirmed By:Chon Jason
[2020-02-20 17:19] LABS: Mean Corpuscular Hgb Conc 33.6 g/dL (32-36); Nucleated RBC # (auto) 0.04 K/uL (0-0); Nucleated RBC % (auto) 0.7 %
[2020-02-20 17:23] LABS: Hematocrit (blood only) 24.1 % (37-47); Hemoglobin 8.1 g/dL (12.0-16.0); Mean Corpuscular Hemoglobin 27.4 pg (25-34); Mean Corpuscular Volume 81.4 fL (80-100); RDW Coefficient of Variation 15.7 % (11.5-14.5); RDW Standard Deviation 45.1 fL (36.4-46.3); Red Blood Count 2.96 M/uL (4.2-5.4); White Blood Count 5.83 K/uL (4.8-10.8)
[2020-02-20 17:36] LABS: Alanine Aminotransferase 116 U/L (12-78); Albumin Level 2.8 gm/dl (3.4-5.0); Aspartate Aminotransferase 270 U/L (15-37); BUN Creatinine Ratio 21.2 (10-20); Blood Urea Nitrogen 24 mg/dl (7-18); Calcium 8.8 mg/dl (8.5-10.1); Carbon Dioxide 17 mmol/L (21-32); Chloride 98 mmol/L (98-107); Est GFR (Non-African American) 53.5; Glucose 120 mg/dl (70-99); Lipase 45 U/L (73-393); Potassium 4.2 mmol/L (3.5-5.1); Sodium 135 mmol/L (136-145)
[2020-02-20 17:38] LABS: iSTAT Hemoglobin 8.2 g/dl (12.0-16.0); iSTAT Ionized Calcium 1.08 mmol/l (1.12-1.32); iSTAT Potassium 4.2 mmol/L (3.3-5.0)
[2020-02-20 17:41] LABS: Albumin Globulin Ratio 0.7 (0.9-2); Alkaline Phosphatase 279 U/L (45-117); Bilirubin,Total 0.8 mg/dl (0.2-1); Globulin 3.8 gm/dl (2.5-4.0); Total Protein 6.6 gm/dl (6.4-8.2); Troponin I < 0.015 ng/ml (0-0.045)
[2020-02-20 17:42] LABS: Platelet Count 83 K/uL (130-400)
[2020-02-20 17:45] LABS: Echinocytes 1+; Eosinophils # (auto) 0.01 K/uL (0-0.5); Eosinophils % (auto) 0.2 %; Giant Platelets 1+; Immature Granulocytes # (auto) 0.02 K/uL (0.00-0.02); Immature Granulocytes % (auto) 0.3 %; Lymphocytes # (auto) 1.16 K/uL (1.2-3.4); Lymphocytes % (auto) 19.9 %; Monocytes % (auto) 6.9 %; Neutrophils # (auto) 4.24 K/uL (1.4-6.5); Neutrophils % (auto) 72.7 %; Platelet Estimate Decreased (Normal); Schistocytes 1+
[2020-02-20] MEDS ORDERED: PROMETHAZINE 12.5 MG/50.5 ML BAG IV STA (18:21)
[2020-02-20] MEDS ORDERED: PANTOprazole 40 MG in SYRINGE 0 ML IV ONE (18:22)
[2020-02-20] MEDS ORDERED: SODIUM CHLORIDE 0.9% 250 ML IV PRN ×2 (18:39→19:39)
[2020-02-20] MEDS ORDERED: IOVERSOL 100ml IV PRN (19:06)
--- NOTE | 2020-02-20 19:16 | CT Scan Report ---
CT head/brain wo con CLINICAL HISTORY: 59 years-old Female with sent by oncology for imaging. Acute vomiting with oncolog ic workup TECHNIQUE: Multiple axial CT images of the head were obtained without contrast. A dose lowering tech nique was utilized adhering to the principles of ALARA. CT DOSE: 537.48 mGy.cm COMPARISON: Head CT 07/11/2018 FINDINGS: No acute intracranial hemorrhage, midline shift, intracranial mass, hydrocephalus, territorial ischem ia or abnormal extra-axial collection. Minimal ill-defined white matter hypodensities may reflect a d egree of underlying chronic microvascular ischemic disease. There is a subcentimeter calcification re demonstrated involving the petty on image 6 series 2. Cerebral vascular calcifications. The calvarium is intact. Trace mastoid effusions. Paranasal sinuses are generally clear. Hypoplastic frontal sinuses. Soft tissues and orbits are unremarkable. IMPRESSION: No acute intracranial abnormality. ACT 112: Negative or not required by law. The above report was generated using voice recognition software. It may contain grammatical, syntax o r spelling errors. Electronically signed by: Naresh Powell M.D. 02/20/2020 7:14 PM
--- NOTE | 2020-02-20 19:26 | CT Scan Report ---
ABDOMEN AND PELVIS CT WITH IV CONTRAST CT DOSE: 257.29 mGy.cm HISTORY: Acute generalized abdominal pain. History of prior hepatic biopsy abd pain, hx of liver bx TECHNIQUE: Multiaxial CT images of the abdomen and pelvis were performed following the IV administrat ion of 93 cc of Optiray 320, A dose lowering technique was utilized adhering to the principles of [place]. COMPARISON STUDY: Ultrasound guided FNA 02/14/2020, CT abdomen and pelvis 02/13/2020 FINDINGS: 4 mm fissural nodule of the left lung base is unchanged and likely benign. 3 mm solid nodule of the l ateral basal segment right lower lobe is also stable. Calcified granuloma of the basal left lower lob e. No pneumatosis or pneumoperitoneum. Imaged inferior cardiac chambers are unremarkable. Unremarkable spleen. Cholecystectomy. Mild to moderate generalized pancreatic atrophy. Unremarkable a drenal glands. Nearly occlusive thrombus of the left portal vein is unchanged. Patency of the hepatic veins, splenic and superior mesenteric vein. Extensive patchy hypodensity throughout the liver is re demonstrated and is most pronounced in the left hepatic lobe. This has progressively worsened from co mparison, notably with progressive areas of involvement throughout the right hepatic lobe. No post bi opsy hepatic laceration is identified. The previously questioned mass of the medial segment left hepa tic lobe measuring 2.1 cm is redemonstrated and difficult to differentiate from the surrounding hepat ic hypodensities. Small volume of abdominal pelvic ascites has slightly progressed from comparison. Unremarkable kidneys, urinary bladder and uterus. Extensive mixed plaque the abdominal aorta without aneurysm. There is a pathologically enlarged 1.4 x 1.1 cm precaval lymph node on image 214 series 3. Mild generalized mesenteric and body wall edema. No bowel obstruction. Decompressed loops of large trinh wel are noted with wall thickening. 2.0 cm partially calcified mass of the right ileocolic mesentery redemonstrated. Prominent enhancement of the adjacent ileal loop. Small periumbilical abdominal wall hernia. No suspicious osseous lesions. IMPRESSION: 1. Nearly occlusive thrombus of the left portal vein appears unchanged. There is progressively worsen ed diffuse patchy hypodensities throughout the liver, predominantly involving the left hepatic lobe w ith new areas of involvement throughout the right hepatic lobe. These findings are suggestive of perf usion anomaly/possible pulmonary infarct (s). The previously questioned 2.1 cm mass of the medial lef t hepatic lobe is again visualized and difficult to differentiate from the surrounding hepatic hypode nsities. Underlying hepatic metastatic disease would again be impossible to exclude. 2. Small volume of abdominopelvic ascites, slightly progressed from comparison. 3. Partially calcified mass of the right lower quadrant mesentery with enlarged precaval lymph node r edemonstrated. 4. Additional findings as above. ACT 112: Negative or not required by law. The above report was generated using voice recognition software. It may contain grammatical, syntax o r spelling errors. Electronically signed by: Naresh Powell M.D. 02/20/2020 7:24 PM
[2020-02-20] MEDS ORDERED: PHYTONADIONE 10 MG in SODIUM CHLORIDE 0.9% 50 ML IV ONE (19:40)
[2020-02-20] MEDS: fentaNYL citrate 100 MCG/2 ML VIAL IV PRN ×2 (20:06→20:39)
[2020-02-20 20:11] LABS: Partial Thromboplastin Ratio 4.1
[2020-02-20 20:24] LABS: Partial Thromboplastin Time 114.7 Seconds (21.0-31.0)
[2020-02-20 20:41] LABS: Base Excess ABG -8.1 mEq/L (-9-1.8); HCO3 ABG 16 mmol/L (19-24); Oxygen Saturation ABG 97.8 % (90-95); PCO2 ABG 27 mmHg (35-46); PO2 ABG 107 mmHg (80-95); pH ABG 7.39 (7.35-7.45)
[2020-02-20 20:42] LABS: Allen Test Pos (Pos)
--- NOTE | 2020-02-20 21:47 | History & Physical Report ---
Date of Service February 20, 2020 Assessment & Plan (1) Acute upper gastrointestinal bleeding: Patient is a 59 year old female with PMHx undefined liver mass, portal vein thrombosis, breast cancer, hepatitis c in remission, anemia, DM2, hyperlipidemia, hypertension who presents with upper abdominal pain and under the recommendation of her oncologist. ED Course: Zofran 4mg, Vitamin K, 2 unit FFP, 1L NSS, 2 unit PRBC (not given until floor), Fentanyl 50mcg, Upper GI Bleed -Coffee ground emesis FOBT heme + -Patient on anticoagulation was transitioning from Lovenox to Warfarin -Hgb 8.1 -PTT was 114 on admission, INR of 2.6 -Given 2 unit FFP and Vitamin K for reversal -2 unit PRBC given on floor, Hgb improved to 10.4 -Protonix IV prophylaxis -Ceftriaxone 2g IM as patient has poor access and line was being used for PRBC -Gastroenterology consulted for am -NPO Abdominal Pain -Morphine 4mg q4h PRN -Benadryl 25mg q4h PRN Portal Vein Thrombosis -Unchanged per Abd/Pelv CT -Due to concern for active bleed anticoagulation reversed Liver Mass -Awaiting biopsy results Lactic Acidosis -Lactate 4.5 on admission, rising to 5.3 on repeat -?SBP, gave 2g IM ceftriaxone -NSS 100ml/hr Dispo: Telemetry FEN: NPO, NSS 100ml/hr DVT: SCD's Code: DNR/DNI (2) Anemia: (3) Portal vein thrombosis: (4) Abdominal pain: (5) Thrombocytopenia: (6) Nausea & vomiting: (7) Metabolic acidosis: (8) Diabetes mellitus, type 2: (9) Hypertension: (10) Liver mass: History of Present Illness Chief Complaint: Abdominal Pain Primary Care Provider: Chon Paris MD Patient is a 59 year old female with PMHx undefined liver mass, portal vein thrombosis, breast cancer, hepatitis c in remission, anemia, DM2, hyperlipidemia , hypertension who presents with upper abdominal pain and under the recommendation of her oncologist. Patient is fairly reserved during the interview and answers questions minimally. Much of the history was gathered through speaking with the ED provider and the patients son. Patient as recently discharged from the hospital for a similar pain and was found to have a liver mass (awaiting biopsy results) and portal vein thrombosis. She notes that since discharge, she has not had significant improvement in her pain. Her son notes that the patient has not been eating or drinking well, and that she has also been nauseous and vomiting since discharge. Today after a visit at the PCP's office, patient was at her Oncology appointment with her son when the patient had coffee ground emesis. Per the son, the patient was advised at that point in time to go directly to the ED. Currently, patient notes that she is still having significant abdominal pain and nausea. She notes over all that she does not feel well, but is fairly reserved throughout the interview. She denies any SOB, chest pain, headache, fever, chills. Allergies Allergy/AdvReac Type Severity Reaction Status Date / Time Cipro Allergy Mild ITCHING Verified 03/25/17 06:51 ciprofloxacin Allergy Unknown ITCHING Verified 02/20/20 13:04 doxycycline Allergy Unknown Rash Verified 02/20/20 13:04 Penicillins Allergy Unknown rash/itchin Verified 02/20/20 13:04 g Sulfa (Sulfonamide Allergy Unknown ITCHY Verified 02/20/20 13:04 Antibiotics) Home Medications Home Medications Medication Instructions Recorded Confirmed Type metformin 1,000 mg PO BID 07/11/18 02/20/20 History multivitamin 1 cap PO DAILY 11/21/19 02/20/20 History docusate sodium 100 mg PO BID 30 Days #60 cap 02/16/20 02/20/20 Rx enoxaparin 60 mg SUBCUT Q12H 5 Days #6 ml 02/16/20 02/20/20 Rx ferrous sulfate 325 mg PO QAM 30 Days #30 tab 02/16/20 02/20/20 Rx oxycodone 5 - 10 mg PO Q6H PRN 02/20/20 02/20/20 History polyethylene glycol 3350 17 17 gm PO DAILY #238 gm 02/20/20 02/20/20 Rx gram/dose oral powder warfarin [Coumadin] 5 mg PO DAILY@1600 02/20/20 02/20/20 History Past Med/Surg History Medical History Acute hepatitis Hepatitis C - In remission Anemia HX OF Anxiety and depression Ascending cholangitis Asthma Bacteremia Breast cancer LEFT (PLAN FOR CHEMO FIRST THEN SURGERY- DID HAVE FOUR WEEKS OF CHEMO- STOPPED EARLY DUE TO NEUROPATHY) Colitis Cystitis Dehydration Depression with anxiety Diabetes Diabetes mellitus, type 2 Enteritis Gallstones Hepatitis C (Chronic) "IN REMISSION" TREATED MANY YEARS AGO High cholesterol HX OF History of chicken pox Hyperglycemia Hypertension Kidney stones Malignant neoplasm of upper-outer quadrant of left breast in female, 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 Dr. Cullen 06-11-19 Tubular adenoma Surgical History H/O dilation and curettage H/O oral surgery H/O tubal ligation History of breast biopsy History of cholecystectomy History of colonoscopy History of ERCP History of esophagogastroduodenoscopy (EGD) History of gynecologic surgery surgical treatment for History of tonsillectomy and adenoidectomy S/P ERCP Family History Father , does not know HX Alcohol abuse Mother Arthritis Family/Other Diabetes Arthritis Pure hypercholesterolemia Rheumatic fever Syphilis Migraine aura, persistent Hypertension Thyroid disorder Daughter Migraine aura, persistent Hypertension Diabetes Son Infected tooth Brother Epilepsy Denies family history of Ovarian cancer Prostate cancer Myocardial infarction Breast cancer Bleeding disorder Colorectal cancer Stroke Social History Preferred Language: Spanish Communication Ability: Effective Visual Impairment: No Limitations Hearing Ability: Normal Veterinary Parasitologist Required: No Beliefs That Will Affect Care: None marital status: Single Current Living Situation: Family Current Living Situation Comment: lives with son now current occupational status: employed 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 Other Information That Helps Us Care for You: No Feels Safe at Home: Yes Safety Concerns: Feels Safe At This Time Smoking Status: Unknown if ever smoked Hx Alcohol Use: No Hx Substance Use: No Childhood Exposure to Second-Hand Smoke: Yes Dental Care, Regularly: Yes Physical Activity Frequency: Does not Exercise Seatbelt Use: always Sunscreen Use: No Review of Systems Constitutional: + fatigue; no fever, no chills and no increased appetite Eyes: no worsening vision Ear, Nose, Mouth, Throat: no epistaxis Respiratory: no cough Cardiovascular: no chest pain, no palpitations and no edema Gastrointestinal: + abdominal pain, + nausea, + vomiting and + coffee ground emesis Genitourinary: no dysuria Musculoskeletal: + muscle weakness Neurologic: no falls Physical Exam Constitutional: + ill appearing and + frail appearing; no acute distress Eyes: PERRL, conjunctivae normal, anicteric sclerae PERRL ENMT: external ear and nose normal, oropharynx normal Neck: trachea midline, no thyromegaly Respiratory: normal respiratory effort, lungs clear to auscultation Cardiovascular: RRR, no murmur, no edema Gastrointestinal (Abdomen): Inspection/Auscultation: + abdomen distended and normal bowel sounds; caput medusae absent Percussion/Palpation: + abdomen tender (upper quadrants) and + hepatomegaly; no guarding Musculoskeletal: Head/Neck/Chest: normocephalic and head atraumatic Skin: no rashes, warm and dry Psychiatric: Orientation: alert and + guarded Eye Contact: + poor eye contact Affect: + flat affect Results & Data Results & Data ([facility]) Vital Signs (Past 12 Hours) Vital Signs Temp Pulse Pulse Resp BP BP Pulse Ox 02/20/20 21:39 36.6 C 104 H 20 161/87 H 100 02/20/20 21:21 36.8 C 103 H 21 130/68 100 02/20/20 20:41 104 H 12 141/75 H 98 02/20/20 19:21 126 H 28 H 149/66 H 100 02/20/20 18:42 92 H 22 120/62 100 02/20/20 18:27 128 H 32 H 85/67 L 100 02/20/20 17:42 110 H 30 H 149/98 H 96 02/20/20 17:13 82 20 137/62 02/20/20 16:51 160 H 34 H 105/90 02/20/20 16:37 142 H 22 82/49 L 02/20/20 15:12 36.5 C 107 H 18 86/61 L 100 Code Status & VTE Plan VTE Prophylaxis Plan VTE Prophylaxis will be ordered: No Supervising Physician Co-Signing Physician Notes Attending addendum: I have physically seen this patient, have supervised the medical residents activities, and agree with the H&P unless as otherwise noted. Assessment and Plan: Upper GI bleeding/coffee-ground emesis/pharmacologically hypercoagulable on Lovenox and warfarin- Admit to telemetry unit. Give vitamin K 10 mg IV x1, and 2 units FFP. Pantoprazole infusion. Ceftriaxone 2 g IM due to poor access NPO Consult gastroenterology Portal vein thrombosis/liver mass- We will need to hold anticoagulation and reverse as noted above. Follow clinical examination closely. Follow-up liver biopsy. Lactic acidosis- Concern for developing sepsis IV fluids, NSS@100 mils per hour. Ceftriaxone IM, to be converted to IV when better IV access. Remaining orders and notations as noted. PG Care Time/CCT Total # of Minutes Spent Total Time Spent with Patient: Total time spent is greater than 50% in coordination of care (as documented) at patient's floor/unit and/or counseling patient: Coding Level of Care Code 88176 Initial Inpt Care Lvl 3 Diagnoses Acute upper gastrointestinal bleeding K92.2 Anemia D64.9 Anemia type: unspecified type Portal vein thrombosis I81 Abdominal pain R10.11 Abdominal location: right upper quadrant Thrombocytopenia D69.6 Nausea & vomiting R11.2 Vomiting Intractability: non-intractable Vomiting type: unspecified Metabolic acidosis E87.2 Diabetes mellitus, type 2 E11.9 Hypertension I10 Liver mass R16.0 Resident Activity Tracking Resident Involvement: Resident Care Provided Care Provided: Adult Hospital Medicine (1) Anemia Anemia type: unspecified type Qualified Code(s): D64.9 - Anemia, unspecified (2) Nausea & vomiting Vomiting Intractability: non-intractable Vomiting type: unspecified Qualified Code(s): R11.2 - Nausea with vomiting, unspecified (3) Abdominal pain Abdominal location: right upper quadrant Qualified Code(s): R10.11 - Right upper quadrant pain
[2020-02-20] MEDS ORDERED: ONDANSETRON INJ 2 MG/ML 2 ML VIAL IV PRN (21:55)
[2020-02-20] MEDS ORDERED: MoRPHine SULFATE 2 MG/ML CARP IV PRN (21:55)
[2020-02-20 22:41] LABS: Hematocrit (blood only) 22.6 % (37-47); Hemoglobin 7.4 g/dL (12.0-16.0)
[2020-02-20 22:47] LABS: Appearance Urine Clear (Clear); Bacteria Urine Automated Negative (Negative); Bilirubin Urine Negative (Negative); Blood Urine 3+ (Negative); Color Urine Yellow; Epithelial Cell Urine Auto >30 /lpf (0-5); Glucose Urine UA Negative (Negative); Ketones Urine 3+ (Negative); Leukocyte Esterase Urine Negative (Negative); Nitrite Urine Negative (Negative); Protein Urine Negative (Negative); Specific Gravity Urine 1.031 (1.000-1.030); Urobilinogen Urine Negative (Negative); pH Urine 5.5 (4.5-7.5)
[2020-02-20 22:48] LABS: INR 2.6 (0.9-1.1); Prothrombin Time 25.6 Seconds (9.0-12.0)
[2020-02-20] MEDS ORDERED: MoRPHine SULFATE 4 MG/ML 1 ML CARP\\VIAL IV STA (23:20)
[2020-02-21] MEDS: DiphenhydrAMINE HCL 50 MG/ML VIAL IV PRN ×4 (00:19→19:51)
[2020-02-21] MEDS ORDERED: cefTRIAXone SODIUM 350 MG/ML IM IM ONE (01:02)
[2020-02-21 01:44] LABS: INR 1.8 (0.9-1.1); Partial Thromboplastin Ratio 1.8; Prothrombin Time 18.2 Seconds (9.0-12.0)
[2020-02-21] MEDS: cefTRIAXone SODIUM 1,000 MG in SYRINGE 0 ML IM SCH (01:45)
[2020-02-21 01:47] LABS: Partial Thromboplastin Time 49.9 Seconds (21.0-31.0)
[2020-02-21] MEDS: SODIUM CHLORIDE 0.9% 1000ML 1,000 ML IV SCH ×2 (03:12→13:39)
[2020-02-21] MEDS: PANTOprazole 40 MG in DEXTROSE 5% 100 ML IV SCH ×2 (03:13→07:58)
[2020-02-21 04:16] LABS: INR 1.6 (0.9-1.1); Prothrombin Time 16.1 Seconds (9.0-12.0)
[2020-02-21 04:21] LABS: Albumin Level 3.1 gm/dl (3.4-5.0); BUN Creatinine Ratio 19.9 (10-20); Calcium 8.4 mg/dl (8.5-10.1); Creatinine Clr Calc Pharmacy 60.3 ml/min; Est GFR (African American) 69.4; Est GFR (Non-African American) 59.9; Potassium 4.2 mmol/L (3.5-5.1)
[2020-02-21 04:24] LABS: Albumin Globulin Ratio 0.8 (0.9-2); Bilirubin,Total 0.7 mg/dl (0.2-1); Total Protein 7.1 gm/dl (6.4-8.2)
[2020-02-21 04:41] LABS: Hematocrit (blood only) 31.3 % (37-47); Hemoglobin 10.4 g/dL (12.0-16.0); Mean Corpuscular Hemoglobin 28.2 pg (25-34); Mean Corpuscular Hgb Conc 33.2 g/dL (32-36); Mean Corpuscular Volume 84.8 fL (80-100); Platelet Count 75 K/uL (130-400); RDW Coefficient of Variation 15.9 % (11.5-14.5); RDW Standard Deviation 48.7 fL (36.4-46.3); Red Blood Count 3.69 M/uL (4.2-5.4); White Blood Count 8.09 K/uL (4.8-10.8)
[2020-02-21 04:45] LABS: Basophils # (auto) 0.01 K/uL (0-0.2); Basophils % (auto) 0.1 %; Eosinophils # (auto) 0.01 K/uL (0-0.5); Eosinophils % (auto) 0.1 %; Giant Platelets 1+; Immature Granulocytes # (auto) 0.05 K/uL (0.00-0.02); Immature Granulocytes % (auto) 0.6 %; Lymphocytes # (auto) 1.03 K/uL (1.2-3.4); Lymphocytes % (auto) 12.7 %; Monocytes # (auto) 0.82 K/uL (0.11-0.59); Monocytes % (auto) 10.1 %; Neutrophils # (auto) 6.17 K/uL (1.4-6.5); Neutrophils % (auto) 76.4 %; Platelet Estimate Decreased (Normal); Polychromasia 1+
[2020-02-21] MEDS: MoRPHine SULFATE 4 MG/ML 1 ML CARP\\VIAL IV PRN ×3 (06:30→19:52)
--- NOTE | 2020-02-21 10:06 | Anesthesiology Consultation ---
Date of Service February 21, 2020 History Height/Weight Height: 5 ft 5 in Weight: 56.5 kg Allergies Allergy/AdvReac Type Severity Reaction Status Date / Time Cipro Allergy Mild ITCHING Verified 03/25/17 06:51 ciprofloxacin Allergy Unknown ITCHING Verified 02/20/20 13:04 doxycycline Allergy Unknown Rash Verified 02/20/20 13:04 Penicillins Allergy Unknown rash/itchin Verified 02/20/20 13:04 g Sulfa (Sulfonamide Allergy Unknown ITCHY Verified 02/20/20 13:04 Antibiotics) Medications Home Medications Medication Instructions Recorded Confirmed Last Taken metformin 1,000 mg PO BID 07/11/18 02/20/20 06/10/19 11:30 multivitamin 1 cap PO DAILY 11/21/19 02/20/20 Unknown docusate sodium 100 mg PO BID 30 Days #60 cap 02/16/20 02/20/20 Unknown enoxaparin 60 mg SUBCUT Q12H 5 Days #6 ml 02/16/20 02/20/20 Unknown ferrous sulfate 325 mg PO QAM 30 Days #30 tab 02/16/20 02/20/20 Unknown oxycodone 5 - 10 mg PO Q6H PRN 02/20/20 02/20/20 Unknown polyethylene glycol 3350 17 17 gm PO DAILY #238 gm 02/20/20 02/20/20 Unknown gram/dose oral powder warfarin [Coumadin] 5 mg PO DAILY@1600 02/20/20 02/20/20 Unknown Active Medications Generic Name Dose Route Start Last Admin Trade Name Freq PRN Reason Stop Dose Admin Diphenhydramine HCl 25 mg 02/20/20 23:20 02/21/20 06:31 Benadryl IV 03/21/20 23:19 25 mg Q4 PRN Administration Pain Pantoprazole Sodium 40 mg/ 100 mls @ 20 mls/hr 02/20/20 22:15 02/21/20 07:58 Dextrose IV 03/21/20 22:14 8 mg/hr Q5H ARIELA 20 mls/hr Administration 8 MG/HR Sodium Chloride 1,000 mls @ 100 mls/hr 02/21/20 03:15 02/21/20 03:12 Nss 1000ml IV 02/21/20 23:14 100 mls/hr .Q10H ARIELA Administration Ioversol 93 ml 02/20/20 19:06 02/20/20 19:06 Optiray 320 100ml IV 02/24/20 19:05 93 ml ONCE PRN Administration Interaction Checking Morphine Sulfate 4 mg 02/20/20 23:20 02/21/20 06:30 Morphine Sulfate IV 03/05/20 23:19 4 mg Q4H PRN Administration Pain Ondansetron HCl 4 mg 02/20/20 21:55 02/20/20 23:34 Zofran IV 03/21/20 21:54 4 mg Q6H PRN Administration Nausea Past Medical History Medical History Acute hepatitis Hepatitis C - In remission Anemia HX OF Anxiety and depression Ascending cholangitis Asthma Bacteremia Breast cancer LEFT (PLAN FOR CHEMO FIRST THEN SURGERY- DID HAVE FOUR WEEKS OF CHEMO- STOP PED EARLY DUE TO NEUROPATHY) Colitis Cystitis Dehydration Depression with anxiety Diabetes Diabetes mellitus, type 2 Enteritis Gallstones Hepatitis C (Chronic) "IN REMISSION" TREATED MANY YEARS AGO High cholesterol HX OF History of chicken pox Hyperglycemia Hypertension Kidney stones Malignant neoplasm of upper-outer quadrant of left breast in female, 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 Dr. Cullen 06-11-19 Tubular adenoma Past Family History Family History Father , does not know HX Alcohol abuse Mother Arthritis Family/Other Diabetes Arthritis Pure hypercholesterolemia Rheumatic fever Syphilis Migraine aura, persistent Hypertension Thyroid disorder Daughter Migraine aura, persistent Hypertension Diabetes Son Infected tooth Brother Epilepsy Denies family history of Ovarian cancer Prostate cancer Myocardial infarction Breast cancer Bleeding disorder Colorectal cancer Stroke Past Surgical History Surgical History H/O dilation and curettage H/O oral surgery H/O tubal ligation History of breast biopsy History of cholecystectomy History of colonoscopy History of ERCP History of esophagogastroduodenoscopy (EGD) History of gynecologic surgery surgical treatment for History of tonsillectomy and adenoidectomy S/P ERCP Social History Smoking Status: Unknown if ever smoked tobacco type: cigarettes Smoking cigarettes per day: 1 PPD Hx Alcohol Use: No Hx Substance Use: No substance use type: does not use Physical Exam Vital Signs Last Vital Signs Temp 36.6 C 02/21/20 08:07 Pulse 103 H 02/21/20 08:07 Resp 18 02/21/20 08:07 BP 134/73 02/21/20 08:07 Pulse Ox 100 02/21/20 08:07 Testing Laboratory Results 02/21/20 03:46 02/21/20 03:46 PT 16.1 Seconds (9.0-12.0) H 02/21/20 03:46 INR 1.6 (0.9-1.1) H 02/21/20 03:46 APTT 49.9 Seconds (21.0-31.0) H* 02/21/20 01:13 Urine Color Yellow 02/20/20 22:30 Urine Appearance Clear (Clear) 02/20/20 22:30 Urine pH 5.5 (4.5-7.5) 02/20/20 22:30 Ur Specific [place] 1.031 (1.000-1.030) H 02/20/20 22:30 Urine Protein Negative (Negative) 02/20/20 22:30 Urine Glucose (UA) Negative (Negative) 02/20/20 22:30 Urine Ketones 3+ (Negative) H 02/20/20 22:30 Urine Nitrite Negative (Negative) 02/20/20 22:30 Ur Leukocyte Esterase Negative (Negative) 02/20/20 22:30 Urine WBC (Auto) 1-5 /hpf (0-5) 02/20/20 22:30 Urine RBC (Auto) 10-30 /hpf (0-4) H 02/20/20 22:30 U Hyaline Cast (Auto) 1-5 /lpf (0-5) 02/20/20 22:30 U Epithel Cells (Auto) >30 /lpf (0-5) H 02/20/20 22:30 Urine Bacteria (Auto) Negative (Negative) 02/20/20 22:30 Blood Type A Positive 02/20/20 18:37 Antibody Screen NEGATIVE 02/20/20 18:37 Electrocardiogram Date: 02/20/20 Sinus tachycardia Otherwise normal ECG When compared with ECG of 19-NOV-2019 08:11, No significant change was found Confirmed by Chon Jason ([id number]) on 02/20/2020 4:51:39 PM Echocardiogram Date: 02/02/20 LV Function: normal grade 1 DD
--- NOTE | 2020-02-21 10:06 | Gastrointestinal Consultation ---
Date of Consultation February 21, 2020 Assessment & Plan (1) Coffee ground emesis: (2) Melena: Pt is a 59 y/o female w sig medical hx of HCV in remission, breast ca s/p chemo anticipating XRT, L liver mass (bx result pending), L PVT on Coumadin who presented last night w coffee ground emesis, melena, anemia. Received 2U PRBC transfusion w improvement of H/H. She is on Coumadin, using NSAIDs prn abd pain, no ASA. INR 2.6 -> 1.6 - Keep PPI gtt and IVF support - NPO for EGD eval by Dr. Cervantes today - Monitor H/H and transfuse prn - GI will give further recs after EGD completed. Supervising Physician Co-Signing Physician Notes I have seen and examined the patient with FLAKITO Santoro whose note reflects our findings and plan. Symptoms of UGI bleed in the setting of NSAIDs and coumadin. Anemia. Transfused overnight. INR reversed. EGD today to r/o PUD, etc. No vomiting since admission. Melena noted. History of Present Illness Reason for Consultation: UGI bleed Requesting Physician: Dr. Paddy Barnhart Attending Physician: Dr. Melanie Cervantes History of Present Illness Pt is a 59 y/o female w PMHx including HCV (treated in remission), breast ca (last chemo 10/2019), liver mass bx results pending, L PVT on Coumadin who presented yesterday w N/V, coffee ground emesis. She also had witnessed dark, bloody stools overnight by RN. She has chronic R sided abd pain, sometimes can be sharp in nature. Denies fever, chills, CP, SOB. Admission labs showed Hgb of 7.4 (baseline 10). She received 2U PRBC transfusion last night, Hgb improved to 10. BUN 21, INR 2.6, Coumadin held and Vit K given. INR this AM 1.6. She does take Motrin and Tylenol on PRN basis. Denies ASA or steroids. Tramadol prn abd pain. She quit smoking recently, no ETOH/marijuana products. Allergies Allergy/AdvReac Type Severity Reaction Status Date / Time Cipro Allergy Mild ITCHING Verified 03/25/17 06:51 ciprofloxacin Allergy Unknown ITCHING Verified 02/20/20 13:04 doxycycline Allergy Unknown Rash Verified 02/20/20 13:04 Penicillins Allergy Unknown rash/itchin Verified 02/20/20 13:04 g Sulfa (Sulfonamide Allergy Unknown ITCHY Verified 02/20/20 13:04 Antibiotics) Home Medications Home Medications Medication Instructions Recorded Confirmed Type metformin 1,000 mg PO BID 07/11/18 02/20/20 History multivitamin 1 cap PO DAILY 11/21/19 02/20/20 History docusate sodium 100 mg PO BID 30 Days #60 cap 02/16/20 02/20/20 Rx enoxaparin 60 mg SUBCUT Q12H 5 Days #6 ml 02/16/20 02/20/20 Rx ferrous sulfate 325 mg PO QAM 30 Days #30 tab 02/16/20 02/20/20 Rx oxycodone 5 - 10 mg PO Q6H PRN 02/20/20 02/20/20 History polyethylene glycol 3350 17 17 gm PO DAILY #238 gm 02/20/20 02/20/20 Rx gram/dose oral powder warfarin [Coumadin] 5 mg PO DAILY@1600 02/20/20 02/20/20 History Patient History Medical History Acute hepatitis Hepatitis C - In remission Anemia HX OF Anxiety and depression Ascending cholangitis Asthma Bacteremia Breast cancer LEFT (PLAN FOR CHEMO FIRST THEN SURGERY- DID HAVE FOUR WEEKS OF CHEMO- STOPPED EARLY DUE TO NEUROPATHY) Colitis Cystitis Dehydration Depression with anxiety Diabetes Diabetes mellitus, type 2 Enteritis Gallstones Hepatitis C (Chronic) "IN REMISSION" TREATED MANY YEARS AGO High cholesterol HX OF History of chicken pox Hyperglycemia Hypertension Kidney stones Malignant neoplasm of upper-outer quadrant of left breast in female, 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 Dr. Cullen 06-11-19 Tubular adenoma Surgical History H/O dilation and curettage H/O oral surgery H/O tubal ligation History of breast biopsy History of cholecystectomy History of colonoscopy History of ERCP History of esophagogastroduodenoscopy (EGD) History of gynecologic surgery surgical treatment for History of tonsillectomy and adenoidectomy S/P ERCP Family History Father , does not know HX Alcohol abuse Mother Arthritis Family/Other Diabetes Arthritis Pure hypercholesterolemia Rheumatic fever Syphilis Migraine aura, persistent Hypertension Thyroid disorder Daughter Migraine aura, persistent Hypertension Diabetes Son Infected tooth Brother Epilepsy Denies family history of Ovarian cancer Prostate cancer Myocardial infarction Breast cancer Bleeding disorder Colorectal cancer Stroke Social History Preferred Language: Turkmen Communication Ability: Effective Visual Impairment: No Limitations Hearing Ability: Normal [place] Required: No Beliefs That Will Affect Care: None marital status: Single Current Living Situation: Family Current Living Situation Comment: lives with son now current occupational status: employed 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 Other Information That Helps Us Care for You: No Feels Safe at Home: Yes Safety Concerns: Feels Safe At This Time Smoking Status: Unknown if ever smoked Hx Alcohol Use: No Hx Substance Use: No Childhood Exposure to Second-Hand Smoke: Yes Dental Care, Regularly: Yes Physical Activity Frequency: Does not Exercise Seatbelt Use: always Sunscreen Use: No Review of Systems 2 Review of Systems: All systems reviewed & are unremarkable except as noted in HPI & below Physical Exam Constitutional: WD/WN, vitals as above well groomed, cooperative and comfortable Eyes: PERRL, conjunctivae normal, anicteric sclerae ENMT: external ear and nose normal, oropharynx normal Respiratory: normal respiratory effort, lungs clear to auscultation Cardiovascular: RRR, no murmur, no edema Gastrointestinal (Abdomen): Inspection/Auscultation: normal bowel sounds Percussion/Palpation: + abdomen tender (RUQ) and abdomen soft Skin: no rashes, warm and dry no jaundice Psychiatric: A+Ox3, euthymic affect Lymphatic: no lymphedema Results & Data ([facility]) Vital Signs (Past 12 Hours) Vital Signs Temp Pulse Pulse Resp BP BP BP 02/21/20 08:07 36.6 C 103 H 18 134/73 02/21/20 03:10 36.9 C 104 H 22 172/79 H 02/21/20 02:30 97 H 178/84 H 02/21/20 02:00 92 H 172/84 H 02/21/20 01:45 96 H 173/81 H 02/21/20 01:29 36.6 C 105 H 22 171/82 H 02/21/20 01:26 36.6 C 105 H 22 171/82 H 02/21/20 01:06 101 H 170/77 H 02/21/20 00:06 97 H 22 175/83 H 02/20/20 23:36 102 H 168/77 H 02/20/20 23:21 36.6 C 114 H 170/88 H 02/20/20 23:04 36.6 C 110 H 20 161/69 H 02/20/20 23:03 36.6 C 110 H 161/69 H 02/20/20 22:52 36.6 C 100 H 20 153/86 H 02/20/20 22:01 36.7 C 114 H 20 165/74 H Pulse Ox 02/21/20 08:07 100 02/21/20 03:10 02/21/20 02:30 02/21/20 02:00 02/21/20 01:45 02/21/20 01:29 100 02/21/20 01:26 02/21/20 01:06 02/21/20 00:06 02/20/20 23:36 100 02/20/20 23:21 02/20/20 23:04 100 02/20/20 23:03 100 02/20/20 22:52 02/20/20 22:01 94
--- NOTE | 2020-02-21 10:10 | Consultation Report ---
DATE OF CONSULTATION: 02/21/2020 MEDICAL ONCOLOGY CONSULTATION REASON FOR CONSULTATION: Acute upper gastrointestinal bleeding in a 59-year-old -Israeli female with a recent diagnosis of metastatic breast cancer. HISTORY OF PRESENT ILLNESS: Christiana is a very pleasant post-menopausal 59-year-old -Israeli female well known to [facility], currently under my care for triple negative breast cancer. She was originally diagnosed in 03/2019 as stage IIA. Received modified Adriamycin, cyclophosphamide x4 cycles and received approximately 4 of prescribed 12 weekly cycles of paclitaxel, discontinued because of worsening peripheral neuropathy on 09/28/2019. After completing aborted adjuvant chemotherapy, she was referred to radiation and just about ready to begin when she was admitted to [facility] on 02/13 with worsening abdominal pain. During that admission, she underwent a CT scan of the abdomen and pelvis, which revealed a solitary hepatic mass as well as left portal vein thrombosis. She was appropriately anticoagulated and the mass was biopsied. Alpha-fetoprotein measured 2.8. CA 27-29 measured 41 on 02/13. CA 15-[address]-guided biopsy was carried out and the preliminary diagnosis is consistent with her original triple negative breast cancer. Awaiting confirmation of ER/NJ and HER-2/rosaura status. Christiana was subsequently discharged recently and unfortunately continued to decompensate at home. She had presented to my office yesterday for a post-hospitalization followup and was experiencing significant nausea with emesis containing coffee grounds. She clearly has not been eating much and overall in general clinical decline, necessitating admission to the hospital. On admission, her hemoglobin was 7.4, hematocrit 22.6. She has been transfused 2 units of packed RBCs with improvement to 10.4 this morning. AST, ALT and alkaline phosphatase all risen precipitously from her previous admission. Advised both Christiana and her son with the preliminary results of biopsy. We now need to investigate probable upper gastrointestinal bleeding during this admission and plan for future therapeutic options including the possibility of palliation. PAST MEDICAL HISTORY: Again, significant for triple negative metastatic breast cancer, hepatitis C, anemia of chronic disease, anxiety/depression, ascending cholangitis, asthma, cystitis, type 2 diabetes mellitus, hyperlipidemia, hypertension, nephrolithiasis, and tubular adenoma. PAST SURGICAL HISTORY: Includes D and C, tubal ligation, cholecystectomy, EGD and colonoscopy, ERCP, tonsillectomy, adenoidectomy, left mastectomy and shoulder surgery. MEDICATIONS: Prior to admission include Coumadin 5 mg p.o. daily, MiraLax 17 grams p.o. daily, oxycodone 5-10 mg p.o. q.6 hours p.r.n. for pain, ferrous sulfate 325 mg p.o. q.a.m., docusate sodium 100 mg p.o. b.i.d., multivitamin 1 capsule p.o. daily, metformin 1000 mg p.o. b.i.d. ALLERGIES: CIPROFLOXACIN, DOXYCYCLINE, PENICILLINS AND SULFA DRUGS. FAMILY HISTORY: Father , does not know extensive history but suffered from alcohol abuse. Mother is alive, suffers from arthritis. She has a daughter, suffers from migraine headaches, hypertension, and diabetes mellitus. SOCIAL HISTORY: The patient lives independently, self-employed. She continues to smoke cigarettes. Negative for alcohol. She has a remote history of substance abuse. REVIEW OF SYSTEMS: GENERAL: General clinical decline, anorexia, weight loss, generalized weakness, asthenia, etc. No fevers, chills or sweats presently. SKIN: No rashes or lesions. No history of dermatoses. HEENT: Positive for mild bifrontal headaches, some lightheadedness. No dizziness. She denies any hearing deficits, but actually reports seeing black spots in her visual garcia. No sinus symptoms, sore throat or dysphagia. LYMPHATICS: No history of lymphoproliferative disease. CARDIAC: No history of coronary artery disease and negative for angina or palpitations. PULMONARY: She denies overt shortness of breath, dyspnea or orthopnea. No cough or hemoptysis. GASTROINTESTINAL: Again, positive for coffee-ground emesis. GENITOURINARY: No hematuria, dysuria, or urinary incontinence. PSYCHIATRIC: Positive history of depression/anxiety. ENDOCRINE: Positive history for diabetes mellitus. MUSCULOSKELETAL: No focal muscle weakness. No arthralgias. NEUROLOGIC: Negative for seizure, stroke, or migraine headaches. HEMATOLOGIC: Positive for severe anemia attributable to ongoing blood loss. PHYSICAL EXAMINATION: GENERAL: A very pleasant 59-year-old -Israeli female in no acute distress. VITAL SIGNS: Temperature 36.6, pulse 103, respiratory rate 18, blood pressure 134/73. SKIN: Warm, dry, noncyanotic without petechia, rash or ecchymosis. HEENT: Head is atraumatic, normocephalic. Eyes: PERRLA, EOMI. Sclerae nonicteric. No conjunctival injection. Nares patent without rhinorrhea or discharge. Throat is clear. Tongue midline. Mucous membranes are moist. NECK: Supple without JVD or thyromegaly. LYMPHATICS: No cervical or supraclavicular palpable nodes. HEART: Regular rate and rhythm. No clicks, rubs, murmurs or gallops. LUNGS: Clear to auscultation bilaterally. ABDOMEN: Soft, nontender, nondistended, without palpable hepatosplenomegaly. EXTREMITIES: Musculoskeletal strength and pulses are equal in all 4 quadrants. No clubbing, cyanosis or edema otherwise. NEUROLOGICAL: She is awake, alert and oriented x3. Cranial nerves are grossly intact. LABORATORY DATA: WBC count 8090, hemoglobin 10.4, platelet count 75,000. PT 16.1 seconds, PTT 49.9 seconds. Sodium 138, potassium 4.2, chloride 101, anion gap 18, BUN 21, creatinine 1.03. IMPRESSION: 1. Active upper gastrointestinal bleeding. 2. Portal vein thrombosis. 3. Metastatic triple negative breast cancer. 4. Metabolic acidosis attributable to lactic acidosis. PLAN: Christiana is a very pleasant but unfortunate 59-year-old -Israeli female, now on her second admission in the last couple of weeks because of general clinical decline attributable to progressing metastatic breast cancer. She presented to the office yesterday with coffee-ground emesis. Obviously has an active bleed. Her hemoglobin dropped about 3 grams since her discharge a week ago. Agree with a GI consultation. I would also like to obtain MRI of the brain as uncontrasted CT scan of the head can miss emerging intracerebral metastatic disease. Very concerned with the patient's anion gap metabolic acidosis attributable to lactic acid buildup. Metabolic acidosis is very common in patients with heavy hepatic disease burden. Informed Christiana and her son of the diagnosis and prognosis. I do not anticipate a dramatic improvement anytime soon. I agreed to reconvene with her once she's medically stable. However, with the rate of decline, I see her survival measured in days to maybe a week or two. Agree with current medical management. I will continue to follow her periodically during his hospital stay. Thank you again for assisting me in the care of this very pleasant but complex patient. SIMRAN
[2020-02-21] MEDS ORDERED: LIDOCAINE HCL 2% 2 ML VIAL/AMP(20MG/ML) INFIL ONE (10:55)
[2020-02-21] MEDS ORDERED: PROPOFOL IV EMULSION 10 MG/ML 20 ML VIAL IV ONE (10:55)
--- NOTE | 2020-02-21 11:17 | GI REPORT ---
Patient Name: Christiana Hutchinson Procedure Date: 02/21/2020 10:55 AM Date of : 1960 Admit Type: Inpatient Age: 59 Gender: Female Attending MD: Melanie Cervantes DO Procedure: Upper GI endoscopy Providers: Melanie Cervantes DO Referring MD: Ramin Rdz Do Indications: Epigastric abdominal pain, ?Coffee-ground emesis Medicines: Propofol per Anesthesia Complications: No immediate complications. Estimated blood loss: None. Estimated Blood Loss: Estimated blood loss: none. Procedure: Pre-Anesthesia Assessment: - Prior to the procedure, a History and Physical was performed, and patient medications, allergies and sensitivities were reviewed. The patient's tolerance of previous anesthesia was reviewed. - The risks and benefits of the procedure and the sedation options and risks were discussed with the patient. All questions were answered and informed consent was obtained. - Patient identification and proposed procedure were verified prior to the procedure by the physician and the nurse. The procedure was verified in the pre-procedure area in the procedure room. - Mental Status Examination: alert and oriented. Airway Examination: normal oropharyngeal airway and neck mobility. Respiratory Examination: clear to auscultation. CV Examination: normal. Abdominal Examination: bowel sounds present, abdomen soft and non-tender, no masses or organomegaly noted. - ASA Grade Assessment: III - A patient with severe systemic disease. After obtaining informed consent, the endoscope was passed under direct vision. Throughout the procedure, the patient's blood pressure, pulse, and oxygen saturations were monitored continuously. The Endoscope was introduced through the mouth, and advanced to the third part of duodenum. The upper GI endoscopy was accomplished without difficulty. The patient tolerated the procedure well. Findings: Non-severe esophagitis with no bleeding was found at the gastroesophageal junction. Bilious fluid was found in the entire examined stomach. The examined duodenum was normal. Impression: - Non-severe esophagitis. - Bilious gastric fluid. No fresh or altered blood. - Normal examined duodenum. - No specimens collected. Recommendation: - Stop PPI gtt. - Oral PPI daily. - Return patient to hospital garcia for ongoing care. Dionicio Rodriguez DO 02/21/2020 11:16:57 AM This report has been signed electronically. Note Initiated On: 02/21/2020 10:55 AM Number of Addenda: 0 I attest to the content of the Intraoperative Record and orders documented therein, exceptions below {[id number]}
--- NOTE | 2020-02-21 13:00 | Anesthesiology Progress Note ---
Date of Service February 21, 2020 Anesthesia Post Procedure Vital Signs Vital Signs: Temp Pulse Pulse Resp BP BP BP 02/21/20 12:00 36.6 C 87 20 133/77 02/21/20 11:47 90 18 132/77 02/21/20 11:32 96 H 18 140/68 02/21/20 11:18 88 18 122/70 02/21/20 10:48 36.7 C 88 18 119/64 02/21/20 08:07 36.6 C 103 H 18 134/73 02/21/20 03:10 36.9 C 104 H 22 172/79 H 02/21/20 02:30 97 H 178/84 H 02/21/20 02:00 92 H 172/84 H 02/21/20 01:45 96 H 173/81 H 02/21/20 01:29 36.6 C 105 H 22 171/82 H 02/21/20 01:26 36.6 C 105 H 22 171/82 H 02/21/20 01:06 101 H 170/77 H 02/21/20 00:06 97 H 22 175/83 H 02/20/20 23:36 102 H 168/77 H 02/20/20 23:21 36.6 C 114 H 170/88 H 02/20/20 23:04 36.6 C 110 H 20 161/69 H 02/20/20 23:03 36.6 C 110 H 161/69 H 02/20/20 22:52 36.6 C 100 H 20 153/86 H 02/20/20 22:01 36.7 C 114 H 20 165/74 H 02/20/20 21:53 37.1 C 114 H 21 157/88 H 02/20/20 21:39 36.6 C 104 H 20 161/87 H 02/20/20 21:21 36.8 C 103 H 21 130/68 02/20/20 20:41 104 H 12 141/75 H 02/20/20 19:21 126 H 28 H 149/66 H 02/20/20 18:42 92 H 22 120/62 02/20/20 18:27 128 H 32 H 85/67 L 02/20/20 17:42 110 H 30 H 149/98 H 02/20/20 17:13 82 20 137/62 02/20/20 16:51 160 H 34 H 105/90 02/20/20 16:37 142 H 22 82/49 L 02/20/20 15:12 36.5 C 107 H 18 86/61 L Pulse Ox 02/21/20 12:00 99 02/21/20 11:47 100 02/21/20 11:32 98 02/21/20 11:18 100 02/21/20 10:48 97 02/21/20 08:07 100 02/21/20 03:10 100 02/21/20 02:30 02/21/20 02:00 100 02/21/20 01:45 100 02/21/20 01:29 100 02/21/20 01:26 100 02/21/20 01:06 100 02/21/20 00:06 100 02/20/20 23:36 100 02/20/20 23:21 02/20/20 23:04 100 02/20/20 23:03 100 02/20/20 22:52 100 02/20/20 22:01 94 02/20/20 21:53 100 02/20/20 21:39 100 02/20/20 21:21 100 02/20/20 20:41 98 02/20/20 19:21 100 02/20/20 18:42 100 02/20/20 18:27 100 02/20/20 17:42 96 02/20/20 17:13 02/20/20 16:51 02/20/20 16:37 02/20/20 15:12 100 Pain Intensity Generalized: Pain Intensity: 4 Transfer of Care Handoff Completed per policy Notes Mental Status: alert / awake / arousable and participated in evaluation Patient Amnestic to Procedure: Yes Nausea / Vomiting: adequately controlled Pain: adequately controlled Airway Patency, RR, SpO2: stable & adequate BP & HR: stable & adequate Hydration State: stable & adequate Anesthetic Complications: no major complications apparent and Pt Satisfied with anesthetic care
--- NOTE | 2020-02-21 13:37 | Palliative Care Consultation ---
Date of Consultation February 21, 2020 Assessment & Plan (1) Goals of care, counseling/discussion: -59 year old female patient with PMH triple negative metastatic breast cancer now with liver mets, hepatitis C, anemia of chronic disease, anxiety/depression, ascending cholangitis, asthma, cystitis, type 2 diabetes mellitus, hyperlipidemia, hypertension, nephrolithiasis, and tubular adenoma, presented to the ED yesterday from heme/onc's office with coffee-ground emesis. Hgb 7.4 on admission, and was 10.8 just four days prior. Patient underwent EGD today which showed non-severe, non-bleeding esophagitis and a stomach full of bilious fluid. Patient was previously admitted to [facility] on 02/[address] scan at that time showed the liver mass. Patient was anticoagulated, biopsy was taken and she was discharged home without any services. Preliminary report consistent with patient's triple negative breast cancer. Dr. Rdz saw patient today and did advise patient and her son of the report, and also states that with patient's rapid decline, her life could be limited to days to weeks. He recommends obtaining MRI of the brain, and he plans to reconvene with patient when she is more medically stable. Palliative care is consulted to discuss goals of care. -Patient to be seen by palliative MD this afternoon. -Case management note reviewed. Patient lives at home with her son, Carlos. She is normally independent, but has been having more difficulty recently. Given her poor prognosis, she will certainly need increased support in the home. (2) Coffee ground emesis: (3) Acute upper gastrointestinal bleeding: (4) Liver mass: History of Present Illness Attending Physician: Paddy Barnhart DO History of Present Illness This 59 year old female patient with PMH triple negative metastatic breast cancer now with liver mets, hepatitis C, anemia of chronic disease, anxiety/depression, ascending cholangitis, asthma, cystitis, type 2 diabetes mellitus, hyperlipidemia, hypertension, nephrolithiasis, and tubular adenoma, presented to the ED yesterday from heme/onc's office with coffee-ground emesis. Hgb 7.4 on admission, and was 10.8 just four days prior. Patient underwent EGD today which showed non-severe, non-bleeding esophagitis and a stomach full of bilious fluid. Patient was previously admitted to [facility] on 02/[address] scan at that time showed the liver mass. Patient was anticoagulated, biopsy was taken and she was discharged home without any services. Preliminary report consistent with patient's triple negative breast cancer. Dr. Rdz saw patient today and did advise patient and her son of the report, and also states that with patient's rapid decline, her life could be limited to days to weeks. He recommends obtaining MRI of the brain, and he plans to reconvene with patient when she is more medically stable. Palliative care is consulted to discuss goals of care. Thank you kindly for this consult. Palliative care team will follow as needed. Allergies Allergy/AdvReac Type Severity Reaction Status Date / Time Cipro Allergy Mild ITCHING Verified 03/25/17 06:51 ciprofloxacin Allergy Unknown ITCHING Verified 02/20/20 13:04 doxycycline Allergy Unknown Rash Verified 02/20/20 13:04 Penicillins Allergy Unknown rash/itchin Verified 02/20/20 13:04 g Sulfa (Sulfonamide Allergy Unknown ITCHY Verified 02/20/20 13:04 Antibiotics) Home Medications Home Medications Medication Instructions Recorded Confirmed Type metformin 1,000 mg PO BID 07/11/18 02/20/20 History multivitamin 1 cap PO DAILY 11/21/19 02/20/20 History docusate sodium 100 mg PO BID 30 Days #60 cap 02/16/20 02/20/20 Rx enoxaparin 60 mg SUBCUT Q12H 5 Days #6 ml 02/16/20 02/20/20 Rx ferrous sulfate 325 mg PO QAM 30 Days #30 tab 02/16/20 02/20/20 Rx oxycodone 5 - 10 mg PO Q6H PRN 02/20/20 02/20/20 History polyethylene glycol 3350 17 17 gm PO DAILY #238 gm 02/20/20 02/20/20 Rx gram/dose oral powder warfarin [Coumadin] 5 mg PO DAILY@1600 02/20/20 02/20/20 History Patient History Medical History Acute hepatitis Hepatitis C - In remission Anemia HX OF Anxiety and depression Ascending cholangitis Asthma Bacteremia Breast cancer LEFT (PLAN FOR CHEMO FIRST THEN SURGERY- DID HAVE FOUR WEEKS OF CHEMO- STOPPED EARLY DUE TO NEUROPATHY) Colitis Cystitis Dehydration Depression with anxiety Diabetes Diabetes mellitus, type 2 Enteritis Gallstones Hepatitis C (Chronic) "IN REMISSION" TREATED MANY YEARS AGO High cholesterol HX OF History of chicken pox Hyperglycemia Hypertension Kidney stones Malignant neoplasm of upper-outer quadrant of left breast in female, 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 Dr. Cullen 06-11-19 Tubular adenoma Surgical History H/O dilation and curettage H/O oral surgery H/O tubal ligation History of breast biopsy History of cholecystectomy History of colonoscopy History of ERCP History of esophagogastroduodenoscopy (EGD) History of gynecologic surgery surgical treatment for History of tonsillectomy and adenoidectomy S/P ERCP Family History Father , does not know HX Alcohol abuse Mother Arthritis Family/Other Diabetes Arthritis Pure hypercholesterolemia Rheumatic fever Syphilis Migraine aura, persistent Hypertension Thyroid disorder Daughter Migraine aura, persistent Hypertension Diabetes Son Infected tooth Brother Epilepsy Denies family history of Ovarian cancer Prostate cancer Myocardial infarction Breast cancer Bleeding disorder Colorectal cancer Stroke Social History Preferred Language: Luxembourgish Communication Ability: Effective Visual Impairment: No Limitations Hearing Ability: Normal Photograph Finisher Required: No Beliefs That Will Affect Care: None marital status: Single Current Living Situation: Family Current Living Situation Comment: lives with son now current occupational status: employed 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 Other Information That Helps Us Care for You: No Feels Safe at Home: Yes Safety Concerns: Feels Safe At This Time Smoking Status: Unknown if ever smoked Hx Alcohol Use: No Hx Substance Use: No Childhood Exposure to Second-Hand Smoke: Yes Dental Care, Regularly: Yes Physical Activity Frequency: Does not Exercise Seatbelt Use: always Sunscreen Use: No Results & Data Vital Signs (Past 12 Hours) Vital Signs Temp Pulse Pulse Resp BP BP Pulse Ox 02/21/20 12:00 36.6 C 87 20 133/77 99 02/21/20 11:47 90 18 132/77 100 02/21/20 11:32 96 H 18 140/68 98 02/21/20 11:18 88 18 122/70 100 02/21/20 10:48 36.7 C 88 18 119/64 97 02/21/20 08:07 36.6 C 103 H 18 134/73 100 02/21/20 03:10 36.9 C 104 H 22 172/79 H 100 02/21/20 02:30 97 H 178/84 H 02/21/20 02:00 92 H 172/84 H 100 02/21/20 01:45 96 H 173/81 H 100 Coding Diagnoses Goals of care, counseling/discussion Z71.89 Coffee ground emesis K92.0 Acute upper gastrointestinal bleeding K92.2 Liver mass R16.0 Time Spent Midlevel A total of minutes spent by this CHEF ASSISTANT in reviewing chart, speaking with physi cians and IDT regarding patient condition, goals, and plan of care.
--- NOTE | 2020-02-21 16:04 | Hospitalist Progress Note ---
Date of Service February 21, 2020 Assessment & Plan (1) Acute upper gastrointestinal bleeding: Patient is a 59 year old female with PMHx undefined liver mass, portal vein thrombosis, breast cancer, hepatitis c in remission, anemia, DM2, hyperlipidemia with an UGI bleed. Upper GI Bleed -Coffee ground emesis FOBT heme + -Patient on anticoagulation was transitioning from Lovenox to Warfarin -Received 2FFP units and Vit K for reversal of bleeding -continue Protonix PO -Ceftriaxone 2g IM given for concern for bleeding esophageal varices given portal hypertension -Gastroenterology consulted-EGD unremarkable except for some esophagitis -continue NPO status Abdominal Pain -continue Morphine 4mg q4h PRN Portal Vein Thrombosis -Unchanged per Abd/Pelv CT -Hold anticoagulation given bleeding Liver Mass -Awaiting biopsy results Lactic Acidosis -Lactate 4.5 on admission, rising to 5.3 on repeat -Likely secondary to acute blood loss and poor perfusion -will continue to monitor -procal in AM if still elevated. Dispo: Telemetry FEN: NPO, NSS 100ml/hr DVT: SCD's Code: DNR/DNI (2) Anemia: (3) Portal vein thrombosis: (4) Abdominal pain: (5) Thrombocytopenia: (6) Nausea & vomiting: (7) Metabolic acidosis: (8) Diabetes mellitus, type 2: (9) Hypertension: (10) Liver mass: Admission and Anticipated Discharge Date Admission Date: February 20, 2020 Supervising Physician Co-Signing Physician Notes I personally examined the patient and verified all dubon points of history and exam, discussed case, and agree with decision making with Dr Watkisn. feeling better overall. discussed current dxs and plans. no new complaints. had diarrhea - thinks it was brown, and had lots of vomiting - no blood she saw but was told that it looked like blood - prior to admission. has brown speckled tinged mucous today - notes this happens a lot. vitals noted nad heent nc at mmm no visible mouth or nose bleeding but visuali zation limited. breathing unlabored no accessory muscles good effort skin no rashes no pallor or icterus anemia - severe - required 2 units transfusion. no "smoking gun" evident on scope. ?posterior nosebleed. ?other anemia and heme (+) stools just incidental finding due to being on blood thinners portal vein thrombosis - off anticoagulation for now. fortunately asymptomatic. metastatic breast CA - concerning overall situation guarded prognosis DVT proph - high risk but pharmacologic contraindicated due to anemia and heme- positive stools otherwise as above Subjective Pt seen this AM. Denies dizziness, SOB, chest pain, vomitting, diarrhea or constipation. Review of Systems Review of Systems: All systems reviewed & are unremarkable except as noted in Subjective Physical Exam Physical Exam: General: Alert, oriented. No acute distress, thin woman laying in bed Skin: No noted rashes or bruises, dark nails Psych: Appropriate mood and affect Neuro: No gross deficits HEENT: NC/AT, PERRLA, EOMI, oropharynx moist. Chest: Nontender to palpation. CV: RRR, Normal s1, s2. No murmurs appreciated Resp: Breath sounds clear bilaterally, no increased effort of breathing. Abdomen: Soft, nontender, nondistended. No guarding. No organomegaly appreciated. Extremities: No edema in lower extremities bilaterally. Results & Data Results & Data ([facility]) Vital Signs (Past 12 Hours) Vital Signs Temp Pulse Resp BP Pulse Ox 02/21/20 15:50 36.5 C 90 16 133/75 98 02/21/20 12:00 36.6 C 87 20 133/77 99 02/21/20 11:47 90 18 132/77 100 02/21/20 11:32 96 H 18 140/68 98 02/21/20 11:18 88 18 122/70 100 02/21/20 10:48 36.7 C 88 18 119/64 97 02/21/20 08:07 36.6 C 103 H 18 134/73 100 Resident Activity Tracking Resident Involvement: Resident Care Provided Care Provided: Adult Hospital Medicine (1) Anemia Anemia type: unspecified type Qualified Code(s): D64.9 - Anemia, unspecified (2) Nausea & vomiting Vomiting Intractability: non-intractable Vomiting type: unspecified Qualified Code(s): R11.2 - Nausea with vomiting, unspecified (3) Abdominal pain Abdominal location: right upper quadrant Qualified Code(s): R10.11 - Right upper quadrant pain
--- NOTE | 2020-02-21 19:26 | Billing Data ---
Date of Service February 21, 2020 Coding Level of Care Code 45170 Subseq Hosp Care Lvl 3
--- NOTE | 2020-02-21 20:04 | Billing Data ---
Date of Service February 21, 2020 Coding Level of Care Code 56016 Initial Inpt Care Lvl 3
--- NOTE | 2020-02-21 22:04 | Electrocardiogram Report ---
Test Reason : Blood Pressure : / mmHG Vent. Rate : 084 BPM Atrial Rate : 084 BPM P-R Int : 118 ms QRS Dur : 080 ms QT Int : 396 ms P-R-T Axes : 080 014 070 degrees QTc Int : 469 ms Sinus rhythm with marked sinus arrhythmia Prolonged QT When compared with ECG of 20-FEB-2020 15:28, QT has lengthened Confirmed by Joseph Gomez ([id number]) on 02/21/2020 10:04:24 PM Referred By: Ramin Rdz Confirmed By:Joseph Gomez
[2020-02-22] MEDS: MoRPHine SULFATE 4 MG/ML 1 ML CARP\\VIAL IV PRN ×2 (07:15→20:16)
[2020-02-22] MEDS: DiphenhydrAMINE HCL 50 MG/ML VIAL IV PRN ×2 (07:16→20:16)
[2020-02-22] MEDS: PANTOprazole 40 MG TAB PO SCH (07:24)
[2020-02-22 07:51] LABS: Mean Corpuscular Hgb Conc 33.9 g/dL (32-36)
[2020-02-22 07:59] LABS: Hematocrit (blood only) 29.2 % (37-47); Hemoglobin 9.9 g/dL (12.0-16.0); Mean Corpuscular Hemoglobin 28.4 pg (25-34); Mean Corpuscular Volume 83.9 fL (80-100); RDW Standard Deviation 47.5 fL (36.4-46.3); Red Blood Count 3.48 M/uL (4.2-5.4); White Blood Count 6.79 K/uL (4.8-10.8)
[2020-02-22 08:21] LABS: Basophils # (auto) 0.01 K/uL (0-0.2); Basophils % (auto) 0.1 %; Eosinophils # (auto) 0.04 K/uL (0-0.5); Eosinophils % (auto) 0.6 %; Immature Granulocytes # (auto) 0.03 K/uL (0.00-0.02); Immature Granulocytes % (auto) 0.4 %; Lymphocytes # (auto) 1.29 K/uL (1.2-3.4); Monocytes # (auto) 0.74 K/uL (0.11-0.59); Monocytes % (auto) 10.9 %; Neutrophils # (auto) 4.68 K/uL (1.4-6.5); Platelet Count 62 K/uL (130-400); Platelet Estimate Decreased (Normal); Target Cells 1+
[2020-02-22 08:38] LABS: Albumin Globulin Ratio 0.8 (0.9-2); Albumin Level 2.9 gm/dl (3.4-5.0); BUN Creatinine Ratio 16.7 (10-20); Bilirubin,Total 1.1 mg/dl (0.2-1); Calcium 8.4 mg/dl (8.5-10.1); Creatinine Clr Calc Pharmacy 68.1 ml/min; Est GFR (African American) 92.8; Est GFR (Non-African American) 80.1; Globulin 3.6 gm/dl (2.5-4.0); Potassium 3.1 mmol/L (3.5-5.1); Total Protein 6.5 gm/dl (6.4-8.2)
--- NOTE | 2020-02-22 09:13 | Progress Notes ---
DATE: 02/22/2020 ONCOLOGY PROGRESS NOTE DIAGNOSES: 1. Metastatic triple negative breast cancer (hepatic metastasis). 2. Active upper gastrointestinal bleeding. 3. Portal vein thrombosis. 4. Metabolic acidosis attributable to lactic acidosis. SUBJECTIVE: Christiana was seen and examined at bedside. She feels a little bit better today. She underwent an EGD yesterday, which revealed esophagitis, but no obvious ulcers or active bleeding. Her anticoagulation was reversed with FFP and vitamin K. We will have to initiate Lovenox and slowly transition her to Coumadin at some point. It would appear palliative consult was ordered and then subsequently canceled. I have spoken with Christiana regarding her prognosis, and appropriately, she is now on no code status. If she becomes medically stable, I would entertain giving her a salvage chemotherapy; however, metabolic acidosis, needs to be stabilized. Nursing reports no overnight difficulties otherwise. OBJECTIVE: GENERAL: A very pleasant 59-year-old -[place] female in no acute distress. VITAL SIGNS: Temperature 36.8, pulse 84, respiratory rate 20, blood pressure 115/62. SKIN: Without rash or lesion. HEENT: Oral mucosa without erythema or ulceration. HEART: Regular rate and rhythm. LUNGS: Clear to auscultation bilaterally. ABDOMEN: Soft, nontender, nondistended. EXTREMITIES: No clubbing, cyanosis or edema. NEUROLOGIC: She is grossly intact. IMPRESSION: 1. Active upper gastrointestinal bleeding, status post EGD (esophagitis). 2. Portal vein thrombosis. 3. Metastatic triple negative breast cancer (liver biopsy confirmed). 4. Metabolic acidosis attributable to lactic acidosis. PLAN: Christiana is a very pleasant but unfortunate 59-year-old -[place] female, now on her second admission because of general clinical decline and active gastrointestinal bleeding. EGD yesterday revealed esophagitis, but no obvious source of hemorrhage. Appropriately, she was placed on proton pump inhibition. Liver biopsy has now confirmed metastatic triple negative breast cancer. Her prognosis is quite poor and if lactic acidosis progresses, her survival is measured in days, weeks to maybe a month. There are salvage regimens that could be offered if Christiana decides to proceed. It is not clear if she is mentally ready to enter the palliative phase. I would be more than happy to engage with Christiana and her family as necessary. We will continue to follow her periodically throughout the hospitalization. [facility]
--- NOTE | 2020-02-22 10:47 | Palliative Care Consultation ---
Date of Consultation February 22, 2020 Assessment & Plan (1) Goals of care, counseling/discussion: -59 year old female patient with PMH triple negative metastatic breast cancer now with liver mets, hepatitis C, anemia of chronic disease, anxiety/depression, ascending cholangitis, asthma, cystitis, type 2 diabetes mellitus, hyperlipidemia, hypertension, nephrolithiasis, and tubular adenoma, presented to the ED two days ago from heme/onc's office with coffee-ground emesis. Hgb 7.4 on admission, and was 10.8 just four days prior. Patient underwent EGD yesterday 02/20 which showed non-severe, non-bleeding esophagitis and a stomach full of bilious fluid. Patient was previously admitted to [facility] on 02/[address] scan at that time showed the liver mass. Patient was anticoagulated, biopsy was taken and she was discharged home without any services. Preliminary report consistent with patient's triple negative breast cancer. Dr. Rdz saw patient yesterday and today-- he did advise patient and her son of the preliminary path report yesterday. He also notes that with patient's rapid decline, her life could be limited to days to weeks if her lactic acidosis does not improve. He recommends obtaining MRI of the brain, and he plans to reconvene with patient when she is more medically stable to discuss possibility of salvage chemotherapy. Palliative care is consulted to discuss goals of care. -Patient to be seen by palliative MD this afternoon. -Patient's prognosis seems to be quite poor at this point. As Dr. Rdz stated, if lactic acidosis does not improve, her life could be measured in days. If she does improve, could possibly be considered for salvage chemotherapy. However, this of course will depend on what the patient's goals are. We will engage in this conversation with her. -Lactic acid was 4.7 then 5.3 on day of admission, has not been repeated. Hgb 9.9 today (10.4 yesterday after transfusion), potassium 3.1. VS appear stable. -Case management note reviewed. Patient lives at home with her son, Carlos. She is normally independent, but has been having more difficulty recently. Given her poor prognosis, she will certainly need increased support in the home. -Patient is receiving IV morphine intermittently for abdominal pain. Once this acute phase settles, will consider transitioning to something oral of course. -We will continue to follow along during hospitalization and continue to engage with Christiana and family if she wishes, to discuss condition and goals of care. Will depend on her clinical course during her stay. (2) Coffee ground emesis: (3) Acute upper gastrointestinal bleeding: (4) Liver mass: Supervising Physician Co-Signing Physician Notes Chart reviewed, patient seen and examined. Collaborated with FLAKITO Chow as well as attending physician. Patient just returned from MRI of the brain. Patient is alert and oriented, ambulating without difficulty in her room. Patient voices understanding that anticoagulation for her portal vein thrombosis may be limited to her recent GI bleeding. Patient states she has a son whom she lives with, and a daughter in [place]. Patient states she does have advanced directives and named both her children as POA's. She also has 5 grandchildren and 1 great grandchild. PE: Awake alert and oriented, no acute distress HEENT: EOMI, hearing within normal limits Respiratory: Lungs clear CV: Regular rate, no edema Abdomen: Soft, nontender Extremities normal strength, full range of motion Neuro: Alert and oriented x4, normal gait Agree with above note, assessment and plan as per FLAKITO Chow. Spoke with patient at length regarding outpatient palliative care clinic, patient's current CODE STATUS is DNR. History of Present Illness Attending Physician: Paddy Barnhart DO History of Present Illness This 59 year old female patient with PMH triple negative metastatic breast cancer now with liver mets, hepatitis C, anemia of chronic disease, anxiety/depression, ascending cholangitis, asthma, cystitis, type 2 diabetes mellitus, hyperlipidemia, hypertension, nephrolithiasis, and tubular adenoma, presented to the ED two days ago from heme/onc's office with coffee-ground emesis. Hgb 7.4 on admission, and was 10.8 just four days prior. Patient underwent EGD yesterday 02/20 which showed non-severe, non-bleeding esophagitis and a stomach full of bilious fluid. Patient was previously admitted to [facility] on 02/[address] scan at that time showed the liver mass. Patient was anticoagulated, biopsy was taken and she was discharged home without any services. Preliminary report consistent with patient's triple negative breast cancer. Dr. Rdz saw patient yesterday and today-- he did advise patient and her son of the preliminary path report yesterday. He also notes that with patient's rapid decline, her life could be limited to days to weeks if her lactic acidosis does not improve. He recommends obtaining MRI of the brain, and he plans to reconvene with patient when she is more medically stable to discuss possibility of salvage chemotherapy. Palliative care is consulted to discuss goals of care. Thank you kindly for this consult. Palliative care team will follow as needed. Allergies Allergy/AdvReac Type Severity Reaction Status Date / Time Cipro Allergy Mild ITCHING Verified 03/25/17 06:51 ciprofloxacin Allergy Unknown ITCHING Verified 02/20/20 13:04 doxycycline Allergy Unknown Rash Verified 02/20/20 13:04 Penicillins Allergy Unknown rash/itchin Verified 02/20/20 13:04 g Sulfa (Sulfonamide Allergy Unknown ITCHY Verified 02/20/20 13:04 Antibiotics) Home Medications Home Medications Medication Instructions Recorded Confirmed Type metformin 1,000 mg PO BID 07/11/18 02/20/20 History multivitamin 1 cap PO DAILY 11/21/19 02/20/20 History docusate sodium 100 mg PO BID 30 Days #60 cap 02/16/20 02/20/20 Rx enoxaparin 60 mg SUBCUT Q12H 5 Days #6 ml 02/16/20 02/20/20 Rx ferrous sulfate 325 mg PO QAM 30 Days #30 tab 02/16/20 02/20/20 Rx oxycodone 5 - 10 mg PO Q6H PRN 02/20/20 02/20/20 History polyethylene glycol 3350 17 17 gm PO DAILY #238 gm 02/20/20 02/20/20 Rx gram/dose oral powder warfarin [Coumadin] 5 mg PO DAILY@1600 02/20/20 02/20/20 History Patient History Medical History Acute hepatitis Hepatitis C - In remission Anemia HX OF Anxiety and depression Ascending cholangitis Asthma Bacteremia Breast cancer LEFT (PLAN FOR CHEMO FIRST THEN SURGERY- DID HAVE FOUR WEEKS OF CHEMO- STOPPED EARLY DUE TO NEUROPATHY) Colitis Cystitis Dehydration Depression with anxiety Diabetes Diabetes mellitus, type 2 Enteritis Gallstones Hepatitis C (Chronic) "IN REMISSION" TREATED MANY YEARS AGO High cholesterol HX OF History of chicken pox Hyperglycemia Hypertension Kidney stones Malignant neoplasm of upper-outer quadrant of left breast in female, 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 Dr. Cullen 06-11-19 Tubular adenoma Surgical History H/O dilation and curettage H/O oral surgery H/O tubal ligation History of breast biopsy History of cholecystectomy History of colonoscopy History of ERCP History of esophagogastroduodenoscopy (EGD) History of gynecologic surgery surgical treatment for History of tonsillectomy and adenoidectomy S/P ERCP Family History Father , does not know HX Alcohol abuse Mother Arthritis Family/Other Diabetes Arthritis Pure hypercholesterolemia Rheumatic fever Syphilis Migraine aura, persistent Hypertension Thyroid disorder Daughter Migraine aura, persistent Hypertension Diabetes Son Infected tooth Brother Epilepsy Denies family history of Ovarian cancer Prostate cancer Myocardial infarction Breast cancer Bleeding disorder Colorectal cancer Stroke Social History Preferred Language: French Communication Ability: Effective Visual Impairment: No Limitations Hearing Ability: Normal Tooth Grinder Required: No Beliefs That Will Affect Care: None marital status: Single Current Living Situation: Family Current Living Situation Comment: lives with son now current occupational status: employed 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 Feels Safe at Home: Yes Smoking Status: Unknown if ever smoked Hx Alcohol Use: No Hx Substance Use: No Childhood Exposure to Second-Hand Smoke: Yes Dental Care, Regularly: Yes Physical Activity Frequency: Does not Exercise Seatbelt Use: always Sunscreen Use: No Results & Data Vital Signs (Past 12 Hours) Vital Signs Temp Pulse Pulse Resp BP Pulse Ox 02/22/20 08:00 89 02/22/20 07:49 36.9 C 92 H 16 146/78 H 97 02/22/20 04:48 84 02/22/20 04:20 36.8 C 84 20 115/62 98 02/21/20 23:27 36.6 C 93 H 17 124/68 98 Coding Level of Care Code 01442 Inpt Consult Level 3 Diagnoses Goals of care, counseling/discussion Z71.89 Coffee ground emesis K92.0 Acute upper gastrointestinal bleeding K92.2 Liver mass R16.0 Time Spent (min) 80 Time Spent Midlevel A total of 50 minutes spent by this CONTAINER PACKER OPERATOR in reviewing chart, speaking with physic ians and IDT regarding patient's condition, goals and plan of care. Attending Spent 30 minutes with greater than 50% of the time spent at bedside assessing patient's current status, discussing goals of care, discussed ways patient can speak to her children regarding advanced directives, educated regarding outpatient palliative clinic.
[2020-02-22] MEDS ORDERED: POTASSIUM CHLORIDE 20 MEQ TABCR PO STA (11:04)
[2020-02-22] MEDS ORDERED: GADOBUTROL 30ML VIAL IV PRN (13:45)
--- NOTE | 2020-02-22 14:01 | Magnetic Resonance Report ---
MRI OF THE BRAIN WITHOUT AND WITH IV CONTRAST CLINICAL HISTORY: metastatic breast CA eval for mets per oncology COMPARISON STUDY: Noncontrast head CT dated 02/20/2020 TECHNIQUE: MRI of the brain was performed from the vertex to the skull base utilizing various T1 and T2 weighted sequences. Following the IV administration of 6 mL of Gadavist contrast, additional enhan yaneth images were obtained. FINDINGS: Sagittal T1, axial diffusion, proton density and T2 weighted axial, coronal FLAIR, and pre and post a xial T1-weighted images were acquired. These were supplemented with post gadolinium coronal T1 weight ed images. No intra or extra-axial mass lesions are visualized. Axial diffusion-weighted images reveal no evidence of acute or subacute infarction. There is no evidence of ventricular dilatation. Proton density T2-weighted and FLAIR images reveal scattered foci of increased T2 signal within the w luis alberto matter, likely on a small vessel basis. There are mild foci of increased T2 signal within the mastoid likely inflammatory There are no abnormal flow voids. There is no evidence of pathologic enhancement. IMPRESSION: 1. No acute intracranial findings 2. No evidence of acute or subacute infarction 3. No evidence of intracranial metastatic disease 4. Scattered nonspecific foci of increased T2 signal within the white matter, statistically on a smal l vessel basis ACT 112: Negative or not required by law. Electronically signed by: Robert So M.D. 02/22/2020 1:59 PM
--- NOTE | 2020-02-22 15:03 | Hospitalist Progress Note ---
Date of Service February 22, 2020 Assessment & Plan (1) Acute upper gastrointestinal bleeding: Patient is a 59 year old female with PMHx undefined liver mass, portal vein thrombosis, breast cancer, hepatitis c in remission, anemia, DM2, hyperlipidemia with an GI bleed. GI Bleed -Coffee ground emesis FOBT heme + -Patient on anticoagulation was transitioning from Lovenox to Warfarin -Received 2FFP units and Vit K for reversal of bleeding -continue Protonix PO -Ceftriaxone 2g IM given for concern for bleeding esophageal varices given portal hypertension -Gastroenterology consulted-EGD unremarkable except for some esophagitis. Source of bleed uncertain, however pt seemingly stabilized. -diet advanced to regular diet today Abdominal Pain -continue Morphine 4mg q4h PRN -consider switching to PO for discharge Portal Vein Thrombosis -Unchanged per Abd/Pelv CT -Hold anticoagulation given bleeding Liver Mass/Metastatic Breast Cancer -Biopsy results show metastatic breast cancer to the liver, weakly ER+ -currently follows with Dr. Rdz, would like a second opinion -extensive discussion about goals of care, would like a palliative approach -might need home health services, currently declines meals on wheels Lactic Acidosis -Lactate 4.5 on admission, rising to 5.3 on repeat -Likely secondary to acute blood loss and poor perfusion Dispo: Telemetry FEN: regular diet DVT: SCD's Code: DNR/DNI (2) Anemia: (3) Portal vein thrombosis: (4) Abdominal pain: (5) Thrombocytopenia: (6) Nausea & vomiting: (7) Metabolic acidosis: (8) Diabetes mellitus, type 2: (9) Hypertension: (10) Liver mass: Admission and Anticipated Discharge Date Admission Date: February 20, 2020 Supervising Physician Co-Signing Physician Notes I personally examined the patient and verified all dubon points of history and exam, discussed case, and agree with decision making with Dr Watkins. feeling ok. overall accepting of dx and poor prognosis. would appreciate second opinion for closure, but is thinking towards helping her children through her end-of-life more than anything. wants to go home as long as she is stable. vitals noted nad heent nc at mmm no visible mouth or nose bleeding but visualization limited. breathing unlabored no accessory muscles good effort skin no rashes no pallor or icterus anemia - severe - required 2 units transfusion. EGD without clear cause, but with overall desire for palliative approach, does not appear that putting her through colon and small bowel workup would be to her benefit. portal vein thrombosis - off anticoagulation for now. fortunately asymptomatic. metastatic breast CA - concerning overall situation poor prognosis DVT proph - high risk but pharmacologic contraindicated due to anemia and heme- positive stools dispo - if Hgb stable, hopefully home tomorrow otherwise as above Subjective Pt seen this AM. No acute events overnight. Extensive discussion about her wishes and desire to not pursue aggressive treatment. Daughter was present today at bedside, questions answered. Denies dizziness, SOB, chest pain, vomitting, diarrhea or constipation. Review of Systems Review of Systems: All systems reviewed & are unremarkable except as noted in Subjective Physical Exam Physical Exam: General: Alert, oriented. No acute distress, thin woman laying in bed Skin: dark nails on hands and feet Psych: Appropriate mood and affect Neuro: No gross deficits HEENT: NC/AT Chest: Nontender to palpation. CV: RRR, Normal s1, s2. No murmurs appreciated Resp: Breath sounds clear bilaterally, no increased effort of breathing. Abdomen: Soft except for left side, mildly tender. No guarding. Extremities: No edema in lower extremities bilaterally. Results & Data Results & Data ([facility]) Vital Signs (Past 12 Hours) Vital Signs Temp Pulse Pulse Resp BP Pulse Ox 02/22/20 11:54 37.3 C 95 H 16 150/90 H 100 02/22/20 08:00 89 02/22/20 07:49 36.9 C 92 H 16 146/78 H 97 02/22/20 04:48 84 02/22/20 04:20 36.8 C 84 20 115/62 98 Resident Activity Tracking Resident Involvement: Resident Care Provided Care Provided: Adult Hospital Medicine (1) Anemia Anemia type: unspecified type Qualified Code(s): D64.9 - Anemia, unspecified (2) Nausea & vomiting Vomiting Intractability: non-intractable Vomiting type: unspecified Qualified Code(s): R11.2 - Nausea with vomiting, unspecified (3) Abdominal pain Abdominal location: right upper quadrant Qualified Code(s): R10.11 - Right upper quadrant pain
--- NOTE | 2020-02-22 16:00 | Billing Data ---
Date of Service February 22, 2020 Coding Level of Care Code 92264 Subseq Hosp Care Lvl 3
[2020-02-23] MEDS: DiphenhydrAMINE HCL 50 MG/ML VIAL IV PRN (03:30)
[2020-02-23] MEDS: MoRPHine SULFATE 4 MG/ML 1 ML CARP\\VIAL IV PRN (03:30)
[2020-02-23] MEDS: PANTOprazole 40 MG TAB PO SCH (08:12)
[2020-02-23 08:16] LABS: Mean Corpuscular Hgb Conc 33.4 g/dL (32-36); Nucleated RBC # (auto) 0.06 K/uL (0-0); Nucleated RBC % (auto) 0.9 %
[2020-02-23 08:29] LABS: Hematocrit (blood only) 30.8 % (37-47); Hemoglobin 10.3 g/dL (12.0-16.0); Mean Corpuscular Hemoglobin 28.2 pg (25-34); Mean Corpuscular Volume 84.4 fL (80-100); RDW Coefficient of Variation 16.5 % (11.5-14.5); RDW Standard Deviation 49.3 fL (36.4-46.3); Red Blood Count 3.65 M/uL (4.2-5.4); White Blood Count 6.15 K/uL (4.8-10.8)
[2020-02-23 08:39] LABS: Albumin Globulin Ratio 0.7 (0.9-2); Albumin Level 2.8 gm/dl (3.4-5.0); BUN Creatinine Ratio 9.4 (10-20); Bilirubin,Total 1.4 mg/dl (0.2-1); Calcium 8.5 mg/dl (8.5-10.1); Creatinine Clr Calc Pharmacy 68.1 ml/min; Est GFR (African American) 92.8; Est GFR (Non-African American) 80.1; Globulin 3.7 gm/dl (2.5-4.0); Potassium 3.6 mmol/L (3.5-5.1); Total Protein 6.5 gm/dl (6.4-8.2)
[2020-02-23 09:04] LABS: Basophils # (auto) 0.01 K/uL (0-0.2); Basophils % (auto) 0.2 %; Eosinophils # (auto) 0.07 K/uL (0-0.5); Eosinophils % (auto) 1.1 %; Immature Granulocytes # (auto) 0.01 K/uL (0.00-0.02); Immature Granulocytes % (auto) 0.2 %; Lymphocytes % (auto) 27.6 %; Monocytes # (auto) 0.75 K/uL (0.11-0.59); Monocytes % (auto) 12.2 %; Neutrophils # (auto) 3.61 K/uL (1.4-6.5); Neutrophils % (auto) 58.7 %; Platelet Count 61 K/uL (130-400); Platelet Estimate Decreased (Normal); Schistocytes 1+
--- NOTE | 2020-02-23 09:28 | Discharge Summary ---
Date of Service February 23, 2020 Admission HPI Per Admitting Provider Patient is a 59 year old female with PMHx undefined liver mass, portal vein thrombosis, breast cancer, hepatitis c in remission, anemia, DM2, hyperlipidemia, hypertension who presents with upper abdominal pain and under t he recommendation of her oncologist. Patient is fairly reserved during the interview and answers questions minimally. Much of the history was gathered through speaking with the ED provider and the patients son. Patient as recently discharged from the hospital for a similar pain and was found to have a liver mass (awaiting biopsy results) and portal vein thrombosis. She notes that since discharge, she has not had significant improvement in her pain. Her son notes that the patient has not been eating or drinking well, and that she has also been nauseous and vomiting since discharge. Today after a visit at the PCP's office, patient was at her Oncology appointment with her son when the patient had coffee ground emesis. Per the son, the patient was advised at that point in time to go directly to the ED. Currently, patient notes that she is still having significant abdominal pain and nausea. She notes over all that she does not feel well, but is fairly reserved throughout the interview. She denies any SOB, chest pain, headache, fever, chills. Admission Exam Per Admitting Provider Constitutional: + ill appearing and + frail appearing; no acute distress Eyes: PERRL, conjunctivae normal, anicteric sclerae PERRL ENMT: external ear and nose normal, oropharynx normal Neck: trachea midline, no thyromegaly Respiratory: normal respiratory effort, lungs clear to auscultation Cardiovascular: RRR, no murmur, no edema Gastrointestinal (Abdomen): Inspection/Auscultation: + abdomen distended and normal bowel sounds; caput medusae absent Percussion/Palpation: + abdomen tender (upper quadrants) and + hepatomegaly; no guarding Musculoskeletal: Head/Neck/Chest: normocephalic and head atraumatic Skin: no rashes, warm and dry Psychiatric: Orientation: alert and + guarded Eye Contact: + poor eye contact Affect: + flat affect Principal Diagnosis Acute Blood loss Anemia Discharge Exam General: Alert, oriented. No acute distress, thin woman laying in bed Skin: dark nails on hands and feet Psych: Appropriate mood and affect Neuro: No gross deficits HEENT: NC/AT Chest: Nontender to palpation. CV: RRR, Normal s1, s2. No murmurs appreciated Resp: Breath sounds clear bilaterally, no increased effort of breathing. Abdomen: Soft except for left side, mildly tender. No guarding. Extremities: No edema in lower extremities bilaterally. Discharge Data Allergies Allergy/AdvReac Type Severity Reaction Status Date / Time Cipro Allergy Mild ITCHING Verified 03/25/17 06:51 ciprofloxacin Allergy Unknown ITCHING Verified 02/20/20 13:04 doxycycline Allergy Unknown Rash Verified 02/20/20 13:04 Penicillins Allergy Unknown rash/itchin Verified 02/20/20 13:04 g Sulfa (Sulfonamide Allergy Unknown ITCHY Verified 02/20/20 13:04 Antibiotics) Consultations 02/20/20 19:32 ED Decision to Admit Stat 02/20/20 21:55 Consult Palliative Care Routine 02/20/20 22:13 Consult Gastroenterology Routine Procedures Performed Operation Date: 02/21/20 16:30 Actual Procedures p Esophagogastroduodenoscopy - Melanie Cervantes Ordered Studies 02/20/20 16:01 CT abd pelvis IV con only Stat 02/20/20 16:07 CT head/brain wo con Stat 02/22/20 08:52 MR brain wo/w con Routine Hospital Course (1) Acute upper gastrointestinal bleeding: Patient is a 59 year old female with PMHx of breast cancer, portal vein thrombosis, hepatitis c in remission, anemia, DM2, hyperlipidemia with acute blood loss anemia requiring transfusion. Admitted on February 19 and discharged on February 23, 2020. GI Bleed -Coffee ground emesis FOBT heme + -Patient on anticoagulation was transitioning from Lovenox to Warfarin -Received 2FFP units and Vit K for reversal of bleeding, Hgb 10 on discharge -continue Protonix PO, discharged with such -Ceftriaxone 2g IM given for concern for bleeding esophageal varices given portal hypertension -Gastroenterology consulted-EGD unremarkable except for some esophagitis. Source of bleed uncertain, however pt seemingly stabilized. Abdominal Pain -treated with Morphine 4mg q4h PRN with benadryl for noted previous allergy. -discharged with oxycodone for pain. Portal Vein Thrombosis -Unchanged per Abd/Pelv CT -Held anticoagulation on discharge given bleeding Liver Mass/Metastatic Breast Cancer -Biopsy results of liver sample shows metastatic breast cancer to the liver, weakly ER+ -currently follows with Dr. Rdz, would like a second opinion. -extensive discussion about goals of care, would like a palliative approach but would also like to extend time to be with family -would also like to follow as outpatient with [facility] resident -might need home health services, currently declines meals on wheels Lactic Acidosis -Lactate 4.5 on admission, downtrended -Likely secondary to acute blood loss and poor perfusion (2) Anemia: (3) Portal vein thrombosis: (4) Abdominal pain: (5) Thrombocytopenia: (6) Nausea & vomiting: (7) Metabolic acidosis: (8) Diabetes mellitus, type 2: (9) Hypertension: (10) Liver mass: Total Time Total Time Spent Total Time Spent (In Minutes): <30 Discharge Plan Discharge Items Patient Disposition: Home - Self-Care Reason For Visit: ABDOMINAL PAIN Discharge Diagnosis: Gastrointestinal Bleed Condition on Discharge: Fair Activity: Per Instructions section Non-emergency contact: Primary Care Provider and Oncologist Call non-emergency contact if: your symptoms worsen Follow-up/Referrals: ProChon MD [Primary Care Provider] - Diet: Regular Addtl Attending Provider Instructions: Ms. Hutchinson you were admitted because you were bleeding from the inside (your gastrointestinal tract). You have stopped bleeding and are being discharged. Continue taking the home pantoprazole 40mg once a day Continue taking the oxycodone medication as needed for pain at home STOP taking your home enoxaparin and warfarin. Please follow up with your physical therapy as you planned. Please call the number [phone] on Tuesday to set up a follow- up appointment with myself Dr. Denise Watkins. Please come back to the emergency room if you develop your same symptoms again (vomiting brown liquid, pooping blood or coughing up blood) or suddenly develop chest pain, trouble breathing or pain, swelling or redness on your legs. It was a pleasure taking care of you during your stay here! Pending Studies at Discharge: No Stand-Alone Forms: My [employer], Smoking Cessation Medications and DC Order Prescriptions: New pantoprazole 40 mg Tablet,Delayed Release (Dr/Ec) 40 mg PO QAM 30 Days Qty: 30 RF: 0 diphenhydramine HCl [Benadryl] 25 mg capsule 25 mg PO QID PRN (Reason: excessive salivation) Qty: 30 RF: 0 Continued polyethylene glycol 3350 [Miralax] 17 gram/dose powder 17 gm PO DAILY Qty: 238 RF: 0 metformin 1,000 mg Tablet 1,000 mg PO BID RF: 0 multivitamin Capsule 1 cap PO DAILY RF: 0 ferrous sulfate 325 mg (65 mg iron) Tablet,Delayed Release (Dr/Ec) 325 mg PO QAM 30 Days Qty: 30 RF: 0 docusate sodium 100 mg Capsule 100 mg PO BID 30 Days Qty: 60 RF: 0 oxycodone 5 mg tablet 5 mg PO Q6H PRN (Reason: Severe Pain (Scale Score 7-10)) Qty: 20 RF: 0 Discontinued enoxaparin 60 mg/0.6 mL Syringe 60 mg subcut Q12H 5 Days Qty: 6 RF: 0 warfarin [Coumadin] 5 mg tablet 5 mg PO DAILY@1600 RF: 0 oxycodone 5 mg tablet 5 - 10 mg PO Q6H PRN (Reason: Severe Pain (Scale Score 7-10)) RF: 0 Discharge Orders: Discharge Order (Routine); Ordered 02/23/20 Ordered By: Denise Watkins Admission Data Admit Date/Time: 02/20/20 21:17 Attending Provider: Paddy Barnhart Admit Provider: Aroldo Kruger Primary Care Provider: Chon Paris Other Providers: Aroldo Kruger ; Soraya Monroe ; Troy Mirza. Other Interventions: Discharge Summary Assessment (RN) Last Done: 02/23/20 10:02 DC Date/Time DO NOT enter until pt leaves facility: 02/23/20 10:39 Supervising Physician Co-Signing Physician Notes I personally examined the patient and verified all dubon points of history and exam, discussed case, and agree with decision making with Dr Watkins. feeling ok, would like to go home. no new complaints. vitals noted nad heent nc at mmm no visible mouth or nose bleeding but visualization limited. breathing unlabored no accessory muscles good effort skin no rashes no pallor or icterus anemia - severe - required 2 units transfusion. EGD without clear cause, but with overall desire for palliative approach, does not appear that putting her through colon and small bowel workup would be to her benefit. portal vein thrombosis - off anticoagulation for now. fortunately asymptomatic. risk/benefit of resuming anticoagulation somewhat nebulous given poor prognosis, significant bleed without (as of now) clearly reversible source. follow closely / f/u PCP for ongoing considerations of risk/benefit of resuming anticoagulation vs continuing to hold metastatic breast CA - concerning overall situation poor prognosis - for second opinions on treatment options in very near future DVT proph - high risk but pharmacologic contraindicated due to anemia and heme- positive stools dispo - home, close f/u otherwise as above Resident Activity Tracking Resident Involvement: Resident Care Provided Care Provided: Adult Hospital Medicine
--- NOTE | 2020-02-23 14:46 | Billing Data ---
Date of Service February 23, 2020 Coding Level of Care Code D/C Day Management <30 mins
== END 2020-02-23 10:39 | disposition home or self-care (01) | DRG 377 ==
LOC: ED 15:02 → SUATTDRO 21:17 → 2S 21:17
DX: Z66 Do not resuscitate; E11.9 Type 2 diabetes mellitus without complications; I10 Essential (primary) hypertension; Z88.0 Allergy status to penicillin; Z80.3 Family history of malignant neoplasm of breast; Z80.41 Family history of malignant neoplasm of ovary; Z79.01 Long term (current) use of anticoagulants; R19.7 Diarrhea, unspecified; D69.6 Thrombocytopenia, unspecified; Z79.899 Other long term (current) drug therapy; D62 Acute posthemorrhagic anemia; C50.919 Malignant neoplasm of unspecified site of unspecified female breast; J45.909 Unspecified asthma, uncomplicated; E87.2 Acidosis; K20.9 Esophagitis, unspecified; Z80.0 Family history of malignant neoplasm of digestive organs; I81 Portal vein thrombosis; Z88.2 Allergy status to sulfonamides; K92.2 Gastrointestinal hemorrhage, unspecified; C78.7 Secondary malignant neoplasm of liver and intrahepatic bile duct; Z80.42 Family history of malignant neoplasm of prostate; Z83.3 Family history of diabetes mellitus; Z79.84 Long term (current) use of oral hypoglycemic drugs; D63.1 Anemia in chronic kidney disease; Z82.49 Family history of ischemic heart disease and other diseases of the circulatory system; R11.2 Nausea with vomiting, unspecified; K76.6 Portal hypertension; Z86.19 Personal history of other infectious and parasitic diseases; Z88.1 Allergy status to other antibiotic agents

== ENCOUNTER 2020-02-24 13:46 | Observation (INO) ==
[2020-02-24] MEDS ORDERED: MoRPHine SULFATE 10 MG/ML CARP/VIAL IV STA (13:54)
[2020-02-24] MEDS ORDERED: PROCHLORPERAZINE 2 ML IV ONE (13:54)
[2020-02-24] MEDS ORDERED: SODIUM CHLORIDE 0.9% 500 ML IV ONE (13:54)
[2020-02-24] MEDS ORDERED: FAMOTIDINE 20MG/5ML IV PUSH IV STA (14:18)
--- NOTE | 2020-02-24 15:02 | XRay Report ---
XR chest 1V portable CLINICAL HISTORY: abd pain pain COMPARISON STUDY: No previous studies for comparison. FINDINGS: The bones soft tissues and hemidiaphragms are normal. The cardiomediastinal silhouette is n ormal. The lungs are clear. The pulmonary vasculature is normal. IMPRESSION: Negative chest. ACT 112: Negative or not required by law. The above report was generated using voice recognition software. It may contain grammatical, syntax or spelling errors. Electronically signed by: Lino Gordillo M.D. 02/24/2020 3:00 PM
[2020-02-24 16:21] LABS: Nucleated RBC # (auto) 0.02 K/uL (0-0); Nucleated RBC % (auto) 0.3 %
[2020-02-24 16:27] LABS: iSTAT Creatinine 0.5 mg/dl (0.6-1.3); iSTAT Hemoglobin 10.9 g/dl (12.0-16.0); iSTAT Ionized Calcium 1.11 mmol/l (1.12-1.32)
[2020-02-24 16:30] LABS: Hematocrit (blood only) 32.1 % (37-47); Hemoglobin 10.6 g/dL (12.0-16.0); Mean Corpuscular Volume 84.7 fL (80-100); RDW Coefficient of Variation 17.2 % (11.5-14.5); RDW Standard Deviation 51.5 fL (36.4-46.3); Red Blood Count 3.79 M/uL (4.2-5.4); White Blood Count 4.71 K/uL (4.8-10.8)
[2020-02-24] MEDS ORDERED: IOVERSOL 100ml IV PRN (16:32)
[2020-02-24 16:38] LABS: Alanine Aminotransferase 147 U/L (12-78); Albumin Level 2.7 gm/dl (3.4-5.0); Aspartate Aminotransferase 324 U/L (15-37); BUN Creatinine Ratio 14.7 (10-20); Blood Urea Nitrogen 9 mg/dl (7-18); Calcium 8.2 mg/dl (8.5-10.1); Carbon Dioxide 19 mmol/L (21-32); Chloride 103 mmol/L (98-107); Creatinine Clr Calc Pharmacy 87.6 ml/min; Est GFR (African American) 114.6; Est GFR (Non-African American) 98.9; Glucose 113 mg/dl (70-99); Lipase 54 U/L (73-393); Sodium 138 mmol/L (136-145)
[2020-02-24 16:45] LABS: Platelet Count 66 K/uL (130-400)
[2020-02-24 16:46] LABS: Immature Granulocytes # (auto) 0.01 K/uL (0.00-0.02); Immature Granulocytes % (auto) 0.2 %; Lymphocytes # (auto) 0.48 K/uL (1.2-3.4); Lymphocytes % (auto) 10.2 %; Monocytes # (auto) 0.34 K/uL (0.11-0.59); Monocytes % (auto) 7.2 %; Neutrophils # (auto) 3.88 K/uL (1.4-6.5); Neutrophils % (auto) 82.4 %; Platelet Estimate Decreased (Normal); Polychromasia 1+; Schistocytes 1+
--- NOTE | 2020-02-24 16:46 | CT Scan Report ---
CT abd pelvis IV con only CT DOSE: 266.36 mGy.cm HISTORY: Pain abd pain, n/v TECHNIQUE: Multiaxial CT images of the abdomen and pelvis were performed following the use of intrave nous contrast. A dose lowering technique was utilized adhering to the principles of ALARA. COMPARISON STUDY: 02/20/2020 FINDINGS: Slight increase in volume of abdominal and pelvic ascites. The findings of diffuse heteroge neity of the liver are unchanged. Kidneys negative for hydronephrosis. The bowel pattern overall is c onsidered nonobstructive. Uterus is anteflexed. Bladder is midline. All findings previously described are unchanged. IMPRESSION: 1. Small to mild amount of abdominal and pelvic ascites mildly progressive from the prior exam. 2. All additional findings previously described the study of 02/20/2020 are unchanged. 3. Bowel pattern remains nonobstructive. ACT 112: Negative or not required by law. The above report was generated using voice recognition software. It may contain grammatical, syntax or spelling errors. Electronically signed by: Lino Gordillo M.D. 02/24/2020 4:44 PM
[2020-02-24 16:52] LABS: Albumin Globulin Ratio 0.8 (0.9-2); Alkaline Phosphatase 305 U/L (45-117); Bilirubin,Total 2.2 mg/dl (0.2-1); Globulin 3.5 gm/dl (2.5-4.0); Total Protein 6.2 gm/dl (6.4-8.2); Troponin I < 0.015 ng/ml (0-0.045)
[2020-02-24 17:42] LABS: Bilirubin Direct 1.5 mg/dl (0-0.2)
--- NOTE | 2020-02-24 19:16 | History & Physical Report ---
Date of Service February 24, 2020 Assessment & Plan (1) Nausea & vomiting: ddx fairly broad given her cancer and liver mets - but most likely is nausea from pills on an empty stomach, possibly nauseating effects from pain, and rather significant psychosocial stressors (EGD a few days ago showed esophagitis - but this was more nausea than pain; portal vein thrombosis potentially could be culprit but does not appear to have progressed (see below otherwise); no diarrhea or other findings to suggest infectious enteritis) ---->supportive care, rest, rehydrate. ---->nausea control (zofran, phenergan prn --> if i recall correctly i believe she noted last admission zofran did not always work well for her - but she couldn't remember this time if that was the case -- hence both - and also educated on literature suggesting smelling an alcohol swab can transiently relieve nausea - did so with pt and it did help a bit - gave her a stack of swabs as well) ----> regular diet (discussed i don't expect her to be eating chicken and broccoli - but more so that she can have crackers and andriy bina) ----> pain control (IV morphine for now; given that the PO pain meds upset her stomach, may need to transition to liquid morphine and/or fentanyl patch to try to avoid this becoming a recurring problem for her) (2) Metabolic acidosis: from poor intake and nausea/vomiting anticipate resolution w fluids f/u BMP in AM (3) Abdominal pain: almost certainly relates to cancer -- pain on exam mostly epigastric (would expect RUQ) but there is a rubbery firmness c/w metastatic malignancy where she is tender. she related her belly pain being lower - not reproducible there on exam, nothing on CT that would corroborate - suspect what she was feeling was more than likely referred from epigastric region and liver. -see above - morphine prn for now. (4) Portal vein thrombosis: was on anticoagulation prior to most recent admission - for anemia w heme positive stools. Hgb dropped and transfusion was required, anticoagulation had to be stopped. with this bleed, and with pancytopenia (especially worsening thrombocytopenia) it appears quite unsafe to resume anticoagulation at this time. fortunately has not progressed on CT. did consider this as ddx for worsening nausea/epigastric pain but with no progression on CT and other probable causes - this appears less likely (and unfortunately likely cannot be safely managed at this time regardless) (5) Malignant neoplasm of upper-outer quadrant of left breast in female, estrogen receptor negative: poor prognosis Dr Watkins had extensive discussions with her last admission - and essentially pt is moving towards a palliative mindset, but for closure had wanted to see breast oncology (dr watkins was arranging) for a second opinion, although she overall understood and was surprisingly accepting of her prognosis - just wanted the closure first. Dr Rdz notes triple negative, she does have extensive liver metastases. (6) Anemia: stable from last admission - did just earlier this week have acute blood loss anemia due to GI bleeding requiring transfusion (7) Thrombocytopenia: probably related to progressive liver disease. separate from her recent bleed, this too makes anticoagulation for portal vein quite worrisome, and therefore held still (8) DVT prophylaxis: can't safely anticoagulate due to above; SCDs (9) Discharge planning issues: observation medical, [facility] hospitalists/[employer] family med residency DNR/DNI hopefully home once able to eat and drink reliably again (and situation at home more calm - she noted she would just tell her daughter to stay at a hotel, i offered to back this up medically by reiterating to dtr that pt does need peace/rest - pt declined needing this assistance for now) History of Present Illness Chief Complaint: nausea, vomiting Primary Care Provider: Chon Paris MD very pleasant 59yo female just discharged by us yesterday. went home feeling reasonably OK. got some food to take home - picked at it some but doesn't sound like she took in much. drank water some. was time for medications - took them - this upset her stomach and also seems to have caused some pain - which led to her taking her pain medication - which unfortunately caused even more nausea and she started vomiting - mostly just liquid but fairly nonstop. some abdominal pain as well - points to lower abdomen diffusely. no diarrhea. had a fairly normal BM yesterday. no f/c/s. did feel short of breath when EMS was called and coming - but after being on O2 for a short time the shortness of breath went away and now her breathing is good again - this is no longer an issue. after discussing all of the above, she then separately notes that stress might also be a significant factor in her nausea - her daughter who came up from [place] has 4 kids - and her 5yr old autistic son was very loud and rambunctious - causing inability for pt to rest once she got home - further he ran out of the house and pt ended up having to britta him to keep him from running away - causing physical exertion & emotional stress. additionally, once the children were tucked in, pt's dtr left for a while to visit some friends - which caused pt further stress. Allergies Allergy/AdvReac Type Severity Reaction Status Date / Time Cipro Allergy Mild ITCHING Verified 03/25/17 06:51 ciprofloxacin Allergy Unknown ITCHING Verified 02/24/20 14:30 doxycycline Allergy Unknown Rash Verified 02/24/20 14:30 Penicillins Allergy Unknown rash/itchin Verified 02/24/20 14:30 g Sulfa (Sulfonamide Allergy Unknown ITCHY Verified 02/24/20 14:30 Antibiotics) Home Medications Home Medications Medication Instructions Recorded Confirmed Type metformin [Glucophage] 1,000 mg PO BID 07/11/18 02/24/20 History multivitamin 1 cap PO QAM 11/21/19 02/24/20 History ferrous sulfate 325 mg PO QAM 30 Days #30 tab 02/16/20 02/24/20 Rx diphenhydramine HCl [Benadryl] 25 mg PO QID PRN #30 cap 02/23/20 02/24/20 Rx docusate sodium [Colace] 100 mg PO BID 02/24/20 02/24/20 History glipizide [Glucotrol] 5 mg PO BID 02/24/20 02/24/20 History oxycodone [Roxicodone] 5 mg PO Q6H PRN 02/24/20 02/24/20 History pantoprazole [Protonix] 40 mg PO QAM 02/24/20 02/24/20 History polyethylene glycol 3350 [Miralax] 17 gm PO DAILY 02/24/20 02/24/20 History Past Med/Surg History Medical History Acute hepatitis Hepatitis C - In remission Anemia HX OF Anxiety and depression Ascending cholangitis Asthma Bacteremia Breast cancer LEFT (PLAN FOR CHEMO FIRST THEN SURGERY- DID HAVE FOUR WEEKS OF CHEMO- STOPPED EARLY DUE TO NEUROPATHY) Colitis Cystitis Dehydration Depression with anxiety Diabetes Diabetes mellitus, type 2 Enteritis Gallstones Hepatitis C (Chronic) "IN REMISSION" TREATED MANY YEARS AGO High cholesterol HX OF History of chicken pox Hyperglycemia Hypertension Kidney stones Malignant neoplasm of upper-outer quadrant of left breast in female, 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 Dr. Cullen 06-11-19 Tubular adenoma Surgical History H/O dilation and curettage H/O oral surgery H/O tubal ligation History of breast biopsy History of cholecystectomy History of colonoscopy History of ERCP History of esophagogastroduodenoscopy (EGD) History of gynecologic surgery surgical treatment for History of tonsillectomy and adenoidectomy S/P ERCP Family History Father , does not know HX Alcohol abuse Mother Arthritis Family/Other Diabetes Arthritis Pure hypercholesterolemia Rheumatic fever Syphilis Migraine aura, persistent Hypertension Thyroid disorder Daughter Migraine aura, persistent Hypertension Diabetes Son Infected tooth Brother Epilepsy Denies family history of Ovarian cancer Prostate cancer Myocardial infarction Breast cancer Bleeding disorder Colorectal cancer Stroke Social History Preferred Language: Pashto Communication Ability: Effective Visual Impairment: No Limitations Hearing Ability: Normal Patient Service Technician Pst Required: No Beliefs That Will Affect Care: None marital status: Single Current Living Situation: Family Current Living Situation Comment: lives with son now current occupational status: employed 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 Feels Safe at Home: Yes Smoking Status: Former smoker Tobacco Type: cigarettes ; Age Started Using Tobacco: 8 ; packs per day: 1 ; Cigarettes Per Day: 1 PPD ; Second Hand Exposure: Yes ; Hx Alcohol Use: No Hx Substance Use: No Childhood Exposure to Second-Hand Smoke: Yes Dental Care, Regularly: Yes Physical Activity Frequency: Does not Exercise Seatbelt Use: always Sunscreen Use: No Review of Systems Review of Systems: All systems reviewed & are unremarkable except as noted in HPI & below Physical Exam Physical Exam: gen aaox3 fatigued but very pleasant heent nc at mm moderatley dry neck full ROM cardio reg no r/m/g lungs cta b/l no r/r/w good effort no accessory muscle use no respiratory distress, no conversational dyspnea abd soft, mild distention. epigastric firmness and tenderness (feels like tissue firmness NOT guarding/rigidity) no other tenderness, BS maybe sl hypoactive ext no c/c/e no calf tenderness skin - no rashes no pallor or icterus neuro cn 2-12 grossly intact, gross motor/sensory intact without obvious focal deficits mental - fatigued, but good recent and remote recall normal mood and affect good judgement and insight Results & Data Results & Data ([facility]) Vital Signs (Past 12 Hours) Vital Signs Temp Pulse Resp BP Pulse Ox 02/24/20 18:00 104 H 29 H 110/74 99 02/24/20 17:17 108 H 29 H 126/82 98 02/24/20 16:00 95 H 39 H 112/67 99 02/24/20 15:15 100 H 34 H 145/104 H 100 02/24/20 14:00 97 H 27 H 100 02/24/20 13:48 96 H 34 H 153/109 H 100 02/24/20 13:46 97.7 F 97 H 27 H 153/109 H 100 PG Care Time/CCT Total # of Minutes Spent Total Time Spent with Patient: Total time spent is greater than 50% in coordination of care (as documented) at patient's floor/unit and/or counseling patient: Coding Level of Care Code 67583 OBS Care - Level 3 Diagnoses Nausea & vomiting R11.2 Vomiting Intractability: non-intractable Vomiting type: unspecified Metabolic acidosis E87.2 Abdominal pain R10.11 Abdominal location: right upper quadrant Portal vein thrombosis I81 Malignant neoplasm of upper-outer quadrant of left breast in female, estrogen receptor negative C50.412; Z17.1 Anemia D64.9 Anemia type: unspecified type Thrombocytopenia D69.6 DVT prophylaxis Z29.9 Discharge planning issues Z02.9 (1) Nausea & vomiting Vomiting Intractability: non-intractable Vomiting type: unspecified Qualified Code(s): R11.2 - Nausea with vomiting, unspecified (2) Abdominal pain Abdominal location: right upper quadrant Qualified Code(s): R10.11 - Right upper quadrant pain (3) Anemia Anemia type: unspecified type Qualified Code(s): D64.9 - Anemia, unspecified
--- NOTE | 2020-02-24 19:47 | Emergency Department Note ---
Impression & Plan Acute generalized abdominal pain, Metabolic acidosis, Intractable vomiting, Metastatic disease, Elevated lactic acid level ED Provider Note NAME: SAVANNAH WRIGHT AGE: 59 SEX: F ARRIVES VIA: Ambulance INFORMANT: Patient, ED PROVIDER(S): Km Seo MD CHIEF COMPLAINT: Abdominal pain, nausea and vomiting. PLAN: Disposition: Admit MEDICAL DECISION MAKING: The patient is a pleasant 59-year-old woman with a past medical history of undefined liver mass, portal vein thrombosis, breast cancer, hep C in remission, anemia, type 2 diabetes, hypertension, hyperlipidemia with recent admission from 02/19-02/22, discharged yesterday after being admitted for upper abdominal pain and upper GI bleeding with abdominal pain and nausea and vomiting that began late last night/early this morning and is been persistent. During her admission patient had anemia that required transfusion. Patient's upper GI bleeding occurred in the setting of being on anticoagulation transitioning from Lovenox to warfarin, she received 2 units of FFP and vitamin K for reversal and her hemoglobin was 10 on discharge. She was on Protonix. She was treated for GI bleeding with ceftriaxone empirically. She did have an EGD performed by GI which was unremarkable and demonstrated some esophagitis. Patient's biopsy results of her liver sample did show likely metastatic breast cancer to the liver. She was evaluated by palliative care and would likely prefer this diego landon however she also felt as though she would wish to extend time to be with family. Patient denies any fevers, cough, congestion, urinary symptoms. On arrival the patient is uncomfortable, but no acute distress, afebrile with stable vital signs. She has generalized abdominal tenderness increased in the upper quadrants without guarding or rebound. She appears clinically dry. EKG without overt acute ischemia. Chest x-ray negative for acute process. WBC 4.7, H/H 10.6/32.1, platelets 66K stable and similar to discharge values. Chemistry demonstrates mild anion gap metabolic acidosis with bicarb of 19 and anion gap of 16. Lactate 3.2. Total bilirubin slightly elevated from discharge at 2.2 with direct bilirubin of 1.5. Otherwise AST, ALT and alk phos are elevated at 324, 147, 305, respectively and similar to recent range of values. Troponin negative/undetectable. CT the abdomen pelvis was performed and demonstrated possible slightly increased ascites from prior and otherwise stable findings related to the patient's metastatic disease. The patient's intractable nausea and vomiting that is been ongoing since last night in the setting of her metabolic acidosis and metastatic disease reasonable to admit the patient for further management. Given no report of fevers will defer empiric antibiotics at this time as the patient's symptoms could be explained by dehydration and her vomiting. Case was discussed with Dr. Santiago and Dr. Barnhart, [facility] hospitalists, who will evaluate the patient for admission. Triage Nursing notes reviewed and agree them. Prior medical records reviewed Vital Signs: reviewed and remarkable for no significant abnormalities Differential diagnosis: Appendicitis, ovarian cyst, ovarian torsion, ectopic , TOA, PID, infections, diverticulitis, UTI, obstruction, mesenteric ischemia, aortic pathology, inflammatory bowel disease, renal colic, PUD, pancreatitis, biliary pathology, hernia, volvulus, constipation, as well as other pathologies. ER treatment provided: See below. Diagnostics interpreted by me: ECG: Sinus rhythm with sinus arrhythmia, 90 bpm, no ectopy, no overt ST elev ation or depression, QTC 440, QRS 72. Cardiac Monitoring: An order for continuous cardiac monitoring was placed and demonstrated normal sinus rhythm, 90 bpm, no ectopy. Laboratory studies: See below Imaging studies: XR chest 1V portable CLINICAL HISTORY: abd pain pain COMPARISON STUDY: No previous studies for comparison. FINDINGS: The bones soft tissues and hemidiaphragms are normal. The cardiomediastinal silhouette is normal. The lungs are clear. The pulmonary vasculature is normal. IMPRESSION: Negative chest. -- CT abd pelvis IV con only CT DOSE: 266.36 mGy.cm HISTORY: Pain abd pain, n/v TECHNIQUE: Multiaxial CT images of the abdomen and pelvis were performed following the use of intravenous contrast. A dose lowering technique was utilized adhering to the principles of ALARA. COMPARISON STUDY: 02/20/2020 FINDINGS: Slight increase in volume of abdominal and pelvic ascites. The findings of diffuse heterogeneity of the liver are unchanged. Kidneys negative for hydronephrosis. The bowel pattern overall is considered nonobstructive. Uterus is anteflexed. Bladder is midline. All findings previously described are unchanged. IMPRESSION: 1. Small to mild amount of abdominal and pelvic ascites mildly progressive from the prior exam. 2. All additional findings previously described the study of 02/20/2020 are unchanged. 3. Bowel pattern remains nonobstructive. Consultation(s): Dr. Santiago and Dr. Barnhart, [facility] hospitalists, who will evaluate the patient for admission. HPI: The patient is a pleasant 59-year-old woman with a past medical history of undefined liver mass, portal vein thrombosis, breast cancer, hep C in remission, anemia, type 2 diabetes, hypertension, hyperlipidemia with recent admission from 02/19-02/22, discharged yesterday after being admitted for upper abdominal pain and upper GI bleeding with abdominal pain and nausea and vomiting that began late last night/early this morning and is been persistent. During her admission patient had anemia that required transfusion. Patient's upper GI bleeding occurred in the setting of being on anticoagulation transitioning from Lovenox to warfarin, she received 2 units of FFP and vitamin K for reversal and her hemoglobin was 10 on discharge. She was on Protonix. She was treated for GI bleeding with ceftriaxone empirically. She did have an EGD performed by GI which was unremarkable and demonstrated some esophagitis. Patient's biopsy results of her liver sample did show likely metastatic breast cancer to the liver. She was evaluated by palliative care and would likely prefer this approach however she also felt as though she would wish to extend time to be with family. Patient denies any fevers, cough, congestion, urinary symptoms. ROS: See above HPI for pertinent positives & negatives. A total of 10 systems reviewed and were otherwise negative. PAST MEDICAL HISTORY:See Below PAST SURGICAL HISTORY:See Below FAMILY HISTORY:See Below SOCIAL HISTORY:See Below HOME MEDICATIONS:See Below ALLERGIES:See Below VITALS:See Below PHYSICAL EXAMINATION: GENERAL: Awake, alert, uncomfortable, acute on chronically ill-appearing, in no distress HENT: Normocephalic, atraumatic. Oropharynx with dry mucous membranes and otherwise unremarkable. EYES: Normal conjunctiva. Sclera non-icteric. NECK: Supple. No nuchal rigidity. FROM. No JVD. RESPIRATORY: Clear to auscultation. CARDIAC: Regular rate, normal rhythm. Extremities warm and well perfused. Pulses equal. ABDOMEN: Mild distention but soft. Generalized abdominal tenderness that is increased in the upper quadrants. No rebound or guarding. + Hepatomegaly. RECTAL: Deferred. MUSCULOSKELETAL: Chest examination reveals no tenderness. The back is symmetrical on inspection without obvious abnormality. There is no CVA tenderness to palpation. No joint edema. LOWER EXTREMITIES: Calves are equal size bilaterally and non-tender. No edema. No discoloration. NEURO: Normal sensorium. No sensory or motor deficits noted. SKIN: No rash or jaundice noted. Km Seo MD Past Med/Surg History Medical History Acute hepatitis Hepatitis C - In remission Anemia HX OF Anxiety and depression Ascending cholangitis Asthma Bacteremia Breast cancer LEFT (PLAN FOR CHEMO FIRST THEN SURGERY- DID HAVE FOUR WEEKS OF CHEMO- STOPPED EARLY DUE TO NEUROPATHY) Colitis Cystitis Dehydration Depression with anxiety Diabetes Diabetes mellitus, type 2 Enteritis Gallstones Hepatitis C (Chronic) "IN REMISSION" TREATED MANY YEARS AGO High cholesterol HX OF History of chicken pox Hyperglycemia Hypertension Kidney stones Malignant neoplasm of upper-outer quadrant of left breast in female, 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 Dr. Cullen 06-11-19 Tubular adenoma Surgical History H/O dilation and curettage H/O oral surgery H/O tubal ligation History of breast biopsy History of cholecystectomy History of colonoscopy History of ERCP History of esophagogastroduodenoscopy (EGD) History of gynecologic surgery surgical treatment for History of tonsillectomy and adenoidectomy S/P ERCP Family History Father , does not know HX Alcohol abuse Mother Arthritis Family/Other Diabetes Arthritis Pure hypercholesterolemia Rheumatic fever Syphilis Migraine aura, persistent Hypertension Thyroid disorder Daughter Migraine aura, persistent Hypertension Diabetes Son Infected tooth Brother Epilepsy Denies family history of Ovarian cancer Prostate cancer Myocardial infarction Breast cancer Bleeding disorder Colorectal cancer Stroke Social History Preferred Language: Luxembourger Communication Ability: Effective Visual Impairment: No Limitations Hearing Ability: Normal Track Template Maker Required: No Beliefs That Will Affect Care: None marital status: Single Current Living Situation: Family Current Living Situation Comment: lives with son now current occupational status: employed 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 Other Information That Helps Us Care for You: No Feels Safe at Home: Yes Safety Concerns: Feels Safe At This Time Smoking Status: Former smoker Tobacco Type: cigarettes ; Age Started Using Tobacco: 8 ; packs per day: 1 ; Cigarettes Per Day: 1 PPD ; Second Hand Exp osure: Yes ; Hx Alcohol Use: No Hx Substance Use: No Childhood Exposure to Second-Hand Smoke: Yes Dental Care, Regularly: Yes Physical Activity Frequency: Does not Exercise Seatbelt Use: always Sunscreen Use: No Allergies Allergies Allergy/AdvReac Type Severity Reaction Status Date / Time Cipro Allergy Mild ITCHING Verified 03/25/17 06:51 ciprofloxacin Allergy Unknown ITCHING Verified 02/24/20 14:30 doxycycline Allergy Unknown Rash Verified 02/24/20 14:30 Penicillins Allergy Unknown rash/itchin Verified 02/24/20 14:30 g Sulfa (Sulfonamide Allergy Unknown ITCHY Verified 02/24/20 14:30 Antibiotics) Home Meds Home Medications Medication Instructions Recorded Confirmed metformin [Glucophage] 1,000 mg PO BID 07/11/18 02/24/20 multivitamin 1 cap PO QAM 11/21/19 02/24/20 docusate sodium [Colace] 100 mg PO BID 02/24/20 02/24/20 glipizide [Glucotrol] 5 mg PO BID 02/24/20 02/24/20 oxycodone [Roxicodone] 5 mg PO Q6H PRN 02/24/20 02/24/20 pantoprazole [Protonix] 40 mg PO QAM 02/24/20 02/24/20 polyethylene glycol 3350 [Miralax] 17 gm PO DAILY 02/24/20 02/24/20 Previous Rx's Medication Instructions Recorded ferrous sulfate 325 mg PO QAM 30 Days #30 tab 02/16/20 diphenhydramine HCl [Benadryl] 25 mg PO QID PRN #30 cap 02/23/20 Results & Data (ED) Vital Signs Vital Signs - 24 hr 02/24/20 13:46 02/24/20 13:48 02/24/20 14:00 Temperature 36.5 C Temperature Source Oral Pulse Rate 97 H 96 H 97 H Pulse Rate from SpO2 Sensor 102 H Pulse Rhythm Regular Regular Respiratory Rate 27 H 34 H 27 H Respiratory Effort / Characteristics Non-Labored Spontaneous Respiratory Depth Normal Respiratory Pattern Regular Blood Pressure 153/109 H 153/109 H Blood Pressure Mean 123 129 Pulse Oximetry 100 100 100 Oxygen Delivery Method Room Air Room Air Room Air Sepsis Recent Fever Within 48 Hours No Sepsis New/Unexplained Change in Mental Status No Sepsis Action Taken by Nursing No Action Required 02/24/20 15:15 02/24/20 16:00 02/24/20 17:17 Temperature Temperature Source Pulse Rate 100 H 95 H 108 H Pulse Rate from SpO2 Sensor 100 H 95 H 100 H Pulse Rhythm Respiratory Rate 34 H 39 H 29 H Respiratory Effort / Characteristics Respiratory Depth Respiratory Pattern Blood Pressure 145/104 H 112/67 126/82 Blood Pressure Mean 117 70 89 Pulse Oximetry 100 99 98 Oxygen Delivery Method Room Air Room Air Room Air Sepsis Recent Fever Within 48 Hours Sepsis New/Unexplained Change in Mental Status Sepsis Action Taken by Nursing 02/24/20 18:00 02/24/20 19:00 02/24/20 20:08 Temperature Temperature Source Pulse Rate 104 H 94 H 94 H Pulse Rate from SpO2 Sensor 104 H 93 H Pulse Rhythm Respiratory Rate 29 H 14 14 Respiratory Effort / Characteristics Respiratory Depth Respiratory Pattern Blood Pressure 110/74 140/87 132/80 Blood Pressure Mean 84 104 Pulse Oximetry 99 99 99 Oxygen Delivery Method Room Air Room Air Room Air Sepsis Recent Fever Within 48 Hours Sepsis New/Unexplained Change in Mental Status Sepsis Action Taken by Nursing Laboratory Data Attestation: I reviewed the patient's lab results. Result diagrams: 02/24/20 16:06 02/24/20 16:06 Lab Results 02/24/20 02/24/20 02/24/20 Range/Units 16:06 16:06 16:06 WBC 4.71 L (4.8-10.8) K/uL RBC 3.79 L (4.2-5.4) M/uL Hgb 10.6 L (12.0-16.0) g/dL POC Hgb (12.0-16.0) g/dl Hct 32.1 L (37-47) % POC Hct (37-47) % MCV 84.7 (80-100) fL MCH 28.0 (25-34) pg MCHC 33.0 (32-36) g/dL RDW Std Deviation 51.5 H (36.4-46.3) fL RDW Coeff of Noah 17.2 H (11.5-14.5) % Plt Count 66 L (130-400) K/uL Immature Gran % (Auto) 0.2 % Neut % (Auto) 82.4 % Lymph % (Auto) 10.2 % Loving % (Auto) 7.2 % Eos % (Auto) 0.0 % Baso % (Auto) 0.0 % Immature Gran # (Auto) 0.01 (0.00-0.02) K/uL Neut # (Auto) 3.88 (1.4-6.5) K/uL Lymph # (Auto) 0.48 L (1.2-3.4) K/uL Loving # (Auto) 0.34 (0.11-0.59) K/uL Eos # (Auto) 0.00 (0-0.5) K/uL Baso # (Auto) 0.00 (0-0.2) K/uL Absolute Nucleated RBC 0.02 H (0-0) K/uL Nucleated RBC % (auto) 0.3 % Platelet Estimate Decreased L (Normal) Polychromasia 1+ Schistocytes 1+ POC Sodium (135-144) mmol/L Sodium 138 (136-145) mmol/L POC Potassium (3.3-5.0) mmol/L Potassium 4.0 (3.5-5.1) mmol/L POC Chloride (101-112) mmol/L Chloride 103 (98-107) mmol/L Carbon Dioxide 19 L (21-32) mmol/L POC Total CO2 (24-31) mmol/L Anion Gap 16.0 H (3-11) POC Anion Gap (16-25) mmol/L POC BUN (7-18) mg/dl BUN 9 (7-18) mg/dl Creatinine 0.63 (0.6-1.2) mg/dl POC Creatinine (0.6-1.3) mg/dl Est Cr Clr Drug Dosing 87.6 ml/min Est GFR ( Amer) 114.6 Est GFR (Non-Af Amer) 98.9 BUN/Creatinine Ratio 14.7 (10-20) Glucose 113 H (70-99) mg/dl POC Glucose (other) (70-99) mg/dl Lactate 3.2 H* (0.4-2.0) mmol/L Calcium 8.2 L (8.5-10.1) mg/dl POC Ioniz Calcium Ju (1.12-1.32) mmol/l Total Bilirubin 2.2 H D (0.2-1) mg/dl Direct Bilirubin 1.5 H (0-0.2) mg/dl AST 324 H (15-37) U/L ALT 147 H (12-78) U/L Alkaline Phosphatase 305 H (45-117) U/L Troponin I < 0.015 (0-0.045) ng/ml Total Protein 6.2 L (6.4-8.2) gm/dl Albumin 2.7 L (3.4-5.0) gm/dl Globulin 3.5 (2.5-4.0) gm/dl Albumin/Globulin Ratio 0.8 L (0.9-2) Lipase 54 L (73-393) U/L Blood Type Antibody Screen 02/24/20 02/24/20 02/24/20 Range/Units 16:13 16:19 18:31 WBC (4.8-10.8) K/uL RBC (4.2-5.4) M/uL Hgb (12.0-16.0) g/dL POC Hgb 10.9 L (12.0-16.0) g/dl Hct (37-47) % POC Hct 32 L (37-47) % MCV (80-100) fL MCH (25-34) pg MCHC (32-36) g/dL RDW Std Deviation (36.4-46.3) fL RDW Coeff of Noah (11.5-14.5) % Plt Count (130-400) K/uL Immature Gran % (Auto) % Neut % (Auto) % Lymph % (Auto) % Loving % (Auto) % Eos % (Auto) % Baso % (Auto) % Immature Gran # (Auto) (0.00-0.02) K/uL Neut # (Auto) (1.4-6.5) K/uL Lymph # (Auto) (1.2-3.4) K/uL Loving # (Auto) (0.11-0.59) K/uL Eos # (Auto) (0-0.5) K/uL Baso # (Auto) (0-0.2) K/uL Absolute Nucleated RBC (0-0) K/uL Nucleated RBC % (auto) % Platelet Estimate (Normal) Polychromasia Schistocytes POC Sodium 135 (135-144) mmol/L Sodium (136-145) mmol/L POC Potassium 4.0 (3.3-5.0) mmol/L Potassium (3.5-5.1) mmol/L POC Chloride 101 (101-112) mmol/L Chloride (98-107) mmol/L Carbon Dioxide (21-32) mmol/L POC Total CO2 17 L (24-31) mmol/L Anion Gap (3-11) POC Anion Gap 22.0 (16-25) mmol/L POC BUN 7 (7-18) mg/dl BUN (7-18) mg/dl Creatinine (0.6-1.2) mg/dl POC Creatinine 0.5 L (0.6-1.3) mg/dl Est Cr Clr Drug Dosing ml/min Est GFR ( Amer) Est GFR (Non-Af Amer) BUN/Creatinine Ratio (10-20) Glucose (70-99) mg/dl POC Glucose (other) 112 H (70-99) mg/dl Lactate 3.1 H* (0.4-2.0) mmol/L Calcium (8.5-10.1) mg/dl POC Ioniz Calcium Ju 1.11 L (1.12-1.32) mmol/l Total Bilirubin (0.2-1) mg/dl Direct Bilirubin (0-0.2) mg/dl AST (15-37) U/L ALT (12-78) U/L Alkaline Phosphatase (45-117) U/L Troponin I (0-0.045) ng/ml Total Protein (6.4-8.2) gm/dl Albumin (3.4-5.0) gm/dl Globulin (2.5-4.0) gm/dl Albumin/Globulin Ratio (0.9-2) Lipase (73-393) U/L Blood Type A Positive Antibody Screen NEGATIVE Administered Medications Ioversol (Optiray 320 100ml) 94 ml IV ONCE PRN PRN Reason: Interaction Checking Stop: 02/28/20 16:31 Last Admin: 02/24/20 16:32 Dose: 94 ml Documented by: [id number] Discontinued Medications Famotidine (Pepcid 20mg Iv Push) 20 mg IV ONE STA Stop: 02/24/20 14:19 Last Admin: 02/24/20 15:03 Dose: 20 mg Documented by: [id number] Sodium Chloride (Nss) 500 mls @ 999 mls/hr IV .Q31M ONE Stop: 02/24/20 14:24 Last Infusion: 02/24/20 15:58 Dose: 0 mls/hr Documented by: [id number] Admin: 02/24/20 15:02 Dose: 999 mls/hr Documented by: [id number] Prochlorperazine (Compazine) 2 mls @ 1 mls/min IV ONE ONE Stop: 02/24/20 13:55 Last Admin: 02/24/20 15:02 Dose: 1 mls/min Documented by: [id number] Morphine Sulfate (Morphine Sulfate) 6 mg IV NOW STA Stop: 02/24/20 13:55 Last Admin: 02/24/20 15:02 Dose: 6 mg Documented by: [id number] Blood Pressure Blood Pressure Findings: Elevated blood pressure Blood Pressure Disposition: further management by hospitalist Discharge Plan Visit Data Chief Complaint: Abdominal Pain ED Provider: Km Seo Discharge Problem: Acute generalized abdominal pain, Metabolic acidosis, Intractable vomiting, Metastatic disease, Elevated lactic acid level Discharge Instructions Interventions: ED Discharge Assessment Last Done: 02/24/20 20:08 Forms Stand Alone Forms: [facility] Prescriptions Prescriptions: No Action metformin [Glucophage] 1,000 mg Tablet 1,000 mg PO BID RF: 0 multivitamin Capsule 1 cap PO QAM RF: 0 ferrous sulfate 325 mg (65 mg iron) Tablet,Delayed Release (Dr/Ec) 325 mg PO QAM 30 Days Qty: 30 RF: 0 diphenhydramine HCl [Benadryl] 25 mg capsule 25 mg PO QID PRN (Reason: excessive salivation) Qty: 30 RF: 0 docusate sodium [Colace] 100 mg capsule 100 mg PO BID RF: 0 polyethylene glycol 3350 [Miralax] 17 gram/dose powder 17 gm PO DAILY RF: 0 oxycodone [Roxicodone] 5 mg tablet 5 mg PO Q6H PRN (Reason: Severe Pain (Scale Score 7-10)) RF: 0 pantoprazole [Protonix] 40 mg tablet,delayed release (DR/EC) 40 mg PO QAM RF: 0 glipizide [Glucotrol] 5 mg tablet 5 mg PO BID RF: 0 Referrals Referrals: Chon Paris MD [Primary Care Provider] - Discharge Problem: Intractable vomiting Qualifiers: Vomiting type: unspecified Nausea presence: with nausea Qualified Code(s): R11.2 - Nausea with vomiting, unspecified
[2020-02-24] MEDS ORDERED: ALUMINUM/MAGNESIUM SUSP 30 ML UDC PO PRN (21:15)
[2020-02-24] MEDS ORDERED: ACETAMINOPHEN 325 MG TAB PO PRN (21:15)
[2020-02-24] MEDS ORDERED: MAGNESIUM HYDROXIDE SUSP 30 ML UDC PO PRN (21:15)
[2020-02-24] MEDS ORDERED: PROMETHAZINE HCL 12.5 MG in SODIUM CHLORIDE 0.9% 50 ML IV PRN (21:15)
[2020-02-24] MEDS ORDERED: ONDANSETRON INJ 2 MG/ML 2 ML VIAL IV PRN (21:15)
[2020-02-24] MEDS ORDERED: OXYCODONE HCL IR 5 MG TAB (IMMEDIATE RELEASE) PO PRN (21:24)
[2020-02-24] MEDS: LACTATED RINGER'S 1,000 ML IV SCH (21:30)
[2020-02-24] MEDS: MoRPHine SULFATE 4 MG/ML 1 ML CARP\\VIAL IV PRN (21:31)
[2020-02-24] MEDS: FAMOTIDINE 20 MG in SYRINGE 3 ML IV SCH (21:36)
[2020-02-24] MEDS: DOCUSATE SODIUM 100 MG CAP PO SCH (22:59)
[2020-02-25] MEDS: LACTATED RINGER'S 1,000 ML IV SCH ×3 (05:19→20:17)
[2020-02-25 06:12] LABS: Mean Corpuscular Hgb Conc 33.4 g/dL (32-36); Nucleated RBC # (auto) 0.04 K/uL (0-0); Nucleated RBC % (auto) 0.6 %
[2020-02-25 06:15] LABS: Hematocrit (blood only) 29.9 % (37-47); Mean Corpuscular Volume 83.8 fL (80-100); RDW Coefficient of Variation 17.8 % (11.5-14.5); RDW Standard Deviation 52.7 fL (36.4-46.3); Red Blood Count 3.57 M/uL (4.2-5.4); White Blood Count 6.97 K/uL (4.8-10.8)
[2020-02-25 06:32] LABS: Platelet Count 78 K/uL (130-400)
[2020-02-25 06:48] LABS: BUN Creatinine Ratio 14.8 (10-20); Calcium 8.4 mg/dl (8.5-10.1); Creatinine Clr Calc Pharmacy 55.7 ml/min; Est GFR (African American) 72.8; Est GFR (Non-African American) 62.8; Potassium 4.2 mmol/L (3.5-5.1)
[2020-02-25 07:02] LABS: Basophils # (auto) 0.01 K/uL (0-0.2); Basophils % (auto) 0.1 %; Immature Granulocytes # (auto) 0.02 K/uL (0.00-0.02); Immature Granulocytes % (auto) 0.3 %; Lymphocytes % (auto) 15.8 %; Monocytes % (auto) 11.5 %; Neutrophils # (auto) 5.04 K/uL (1.4-6.5); Neutrophils % (auto) 72.3 %; Platelet Estimate Decreased (Normal); Polychromasia 1+; Schistocytes 1+; Target Cells 1+
[2020-02-25] MEDS: MoRPHine SULFATE 4 MG/ML 1 ML CARP\\VIAL IV PRN ×3 (08:51→20:17)
[2020-02-25] MEDS: DOCUSATE SODIUM 100 MG CAP PO SCH ×3 (08:51→20:15)
[2020-02-25] MEDS: PANTOprazole 40 MG TAB PO SCH ×2 (08:52→12:15)
[2020-02-25] MEDS: FAMOTIDINE 20 MG in SYRINGE 3 ML IV SCH ×2 (08:52→20:16)
[2020-02-25] MEDS: POLYETHYLENE (MIRALAX) 17 GM PACK PO SCH ×2 (08:52→12:15)
[2020-02-25] MEDS: FERROUS SULFATE 325 MG TAB PO SCH ×2 (08:52→12:15)
[2020-02-25] MEDS: MULTIVITAMIN TAB PO SCH ×2 (08:52→12:15)
--- NOTE | 2020-02-25 09:17 | Hospitalist Progress Note ---
Date of Service February 25, 2020 Assessment & Plan (1) Nausea & vomiting: Patient has some persistent postprandial nausea and vomiting. We discussed pain control which may have been impacting her nausea will institute some transdermal fentanyl for pain control at this point time. Will be sure she has some pre-meal antiemetic therapy And follow with her clinical response (2) Metabolic acidosis: from poor intake and nausea/vomiting, All of resolved (3) Abdominal pain: almost certainly relates to cancer --The patient persists with a firmness c/w metastatic malignancy where she is tender. This patient likely has stretching of the capsule of her liver and she is palpable hepatomegalyWill attempt better pain control with fentanyl augmented by oxycodone (4) Portal vein thrombosis: was on anticoagulation prior to most recent admission - for anemia w heme positive stools. Hgb dropped and transfusion was required, anticoagulation had to be stopped. with this bleed, and with pancytopenia (especially worsening thrombocytopenia) I agree with previous physician that it is too risky to re-institute anticoagulation for portal vein thrombosis given the above listed issues (5) Malignant neoplasm of upper-outer quadrant of left breast in female, estrogen receptor negative: poor prognosis Has previously seen Dr Rdz who notes her cancer to be triple negative, she does have extensive liver metastases. She did voice some interest in a second opinion, I will discuss with Dr Rdz prior to initiating a formal consult (6) Anemia: remains stable (7) Thrombocytopenia: probably related to progressive liver disease. separate from her recent bleed, this too makes anticoagulation for portal vein quite worrisome, and therefore held still (8) DVT prophylaxis: can't safely anticoagulate due to above; SCDs (9) Discharge planning issues: observation medical, [facility] hospitalists/[employer] family med residency DNR/DNI hopefully home once able to eat and drink reliably again (and situation at home more calm - she noted she would just tell her daughter to stay at a hotel, i offered to back this up medically by reiterating to dtr that pt does need peace /rest - pt declined needing this assistance for now) Admission and Anticipated Discharge Date Admission Date: February 24, 2020 Subjective this pt is still with RUQ abdominal pain and post prandial nausea. She did have a small amount of emesis or water. She complains of constant pain, usually helped by oxycodone, we discussed if her nausea was from pain itself. She agrees to try a transdermal fentanyl patch for the time being to try to get better control of her pain Review of Systems Review of Systems: Moderate distress and fatigue no headache, blurry or double vision no speech or swallowing issues no chest pain, pressure or palpitations no shortness of breath, cough or wheezes RUQ abdominal pain, firmness and distension, mild nausea & vomiting no dysuria, hematuria or frequency no focal joint pain or swelling b/l back pain, but no radicular pain no bruising, bleeding or rashes no focal signs of weakness or numbness or altered sensation no complaints or anxiety or depression Physical Exam Physical Exam: The patient Appeared Chronically ill with reasonable pain control Vital signs as documented. Head exam is normocephalic atraumatic no scleral icterus Neck is without JVD, thyromegaly, or carotid bruits. Lungs are clear to auscultation, no focal loss of breath sounds Cardiac exam, Rhythm is regular.. No murmurs, rubs or gallops. Abdominal exam reveals Right upper quadrant tenderness firmness and fullness Extremities are With mild edema in both pedal pulses are normal. Neurologic exam is alert and oriented, no focal loss of strength or sensation Skin is without bruises or rashes Psychologically is without concerns for anxiety or depression Results & Data Results & Data ([facility]) Vital Signs (Past 12 Hours) Vital Signs Temp Pulse Resp BP Pulse Ox 02/25/20 08:10 98.2 F 97 H 16 121/74 98 PG Care Time/CCT Total # of Minutes Spent Total Time Spent with Patient: Total time spent is greater than 50% in coordination of care (as documented) at patient's floor/unit and/or counseling patient: Coding Level of Care Code 85535 Subseq Hosp Care Lvl 3 Diagnoses Nausea & vomiting R11.2 Vomiting Intractability: non-intractable Vomiting type: unspecified Metabolic acidosis E87.2 Abdominal pain R10.11 Abdominal location: right upper quadrant Portal vein thrombosis I81 Malignant neoplasm of upper-outer quadrant of left breast in female, estrogen receptor negative C50.412; Z17.1 Anemia D64.9 Anemia type: unspecified type Thrombocytopenia D69.6 DVT prophylaxis Z29.9 Discharge planning issues Z02.9 (1) Anemia Anemia type: unspecified type Qualified Code(s): D64.9 - Anemia, unspecified (2) Nausea & vomiting Vomiting Intractability: non-intractable Vomiting type: unspecified Qualified Code(s): R11.2 - Nausea with vomiting, unspecified (3) Abdominal pain Abdominal location: right upper quadrant Qualified Code(s): R10.11 - Right upper quadrant pain
[2020-02-25] MEDS ORDERED: DEXTROSE 50% 50 ML SYRINGE IV PRN (11:40)
[2020-02-25] MEDS ORDERED: GLUCOSE 10 TABS/TUBE PO PRN (11:40)
[2020-02-25] MEDS ORDERED: GLUCOSE 40% GEL 15 GM TUBE PO PRN (11:40)
[2020-02-25] MEDS ORDERED: GLUCAGON FOR INJ 1 MG VIAL SQ PRN (11:40)
[2020-02-25] MEDS ORDERED: CARBOHYDRATES FOR HYPOGLYCEMIA PO PRN (11:40)
[2020-02-25] MEDS ORDERED: fentaNYL 25 MCG/HR TDSY TD SCH (14:00)
[2020-02-25] MEDS: CHECK FENTANYL PATCH PLACEMENT SCH ×2 (16:02→23:20)
--- NOTE | 2020-02-25 16:12 | Electrocardiogram Report ---
Test Reason : Blood Pressure : / mmHG Vent. Rate : 090 BPM Atrial Rate : 090 BPM P-R Int : 118 ms QRS Dur : 072 ms QT Int : 360 ms P-R-T Axes : 074 -03 055 degrees QTc Int : 440 ms Sinus rhythm with marked sinus arrhythmia Cannot rule out Anterior infarct , age undetermined vs lead placement Abnormal ECG When compared with ECG of 20-FEB-2020 16:58, QT has shortened Confirmed by Abundio Kelsey ([id number]) on 02/25/2020 4:12:27 PM Referred By: REFERRED SELF Confirmed By:Abundio Kelsey
[2020-02-25] MEDS: INSULIN ASPART 100 UNITS/ML 3 ML PEN SC SCH ×2 (17:20→20:15)
[2020-02-26] MEDS: MoRPHine SULFATE 4 MG/ML 1 ML CARP\\VIAL IV PRN ×4 (03:06→20:56)
[2020-02-26] MEDS: LACTATED RINGER'S 1,000 ML IV SCH ×2 (04:20→12:29)
[2020-02-26 07:29] LABS: Albumin Level 2.7 gm/dl (3.4-5.0); Bilirubin Direct 2.6 mg/dl (0-0.2); Bilirubin,Total 3.6 mg/dl (0.2-1); Calcium 8.6 mg/dl (8.5-10.1); Creatinine Clr Calc Pharmacy 68.1 ml/min; Est GFR (African American) 92.8; Est GFR (Non-African American) 80.1; Potassium 3.9 mmol/L (3.5-5.1); Total Protein 6.1 gm/dl (6.4-8.2)
--- NOTE | 2020-02-26 08:40 | Hospitalist Progress Note ---
Date of Service February 26, 2020 Assessment & Plan (1) Nausea & vomiting: Patient has improved but persistent postprandial nausea and vomiting. Seems to have better pain control which may have been impacting her nausea in a positive way Has been tolerant of transdermal fentanyl for pain control continue with pre- meal antiemetic therapy And augment with PRN parenteral opiates (2) Metabolic acidosis: from poor intake and nausea/vomiting, All of resolved will stop IV fluids and see if her acidemia returns (3) Abdominal pain: almost certainly relates to cancer --The patient persists with a firmness c/w metastatic malignancy where she is tender. This patient likely has stretching of the capsule of her liver and she is palpable hepatomegalyWill attempt better pain control with fentanyl augmented by oxycodone (4) Portal vein thrombosis: was on anticoagulation prior to most recent admission - for anemia w heme positive stools. Hgb dropped and transfusion was required, anticoagulation had to be stopped. with this bleed, and with pancytopenia (especially worsening thrombocytopenia) likely also at play with her increasing lower extremity edema especially with her recent hydration upon presentation I agree with previous physician that it is too risky to re-institute anticoagulation for portal vein thrombosis given the above listed issues (5) Malignant neoplasm of upper-outer quadrant of left breast in female, estrogen receptor negative: poor prognosis Has previously seen Dr Rdz who notes her cancer to be triple negative, she does have extensive liver metastases. She did voice some interest in a second opinion, I will discuss with Dr Rdz prior to initiating a formal consult (6) Anemia: remains stable (7) Thrombocytopenia: probably related to progressive liver disease. separate from her recent bleed, this too makes anticoagulation for portal vein quite worrisome, and therefore held still (8) DVT prophylaxis: can't safely anticoagulate due to above; SCDs (9) Discharge planning issues: observation medical, [facility] hospitalists/[facility] DNR/DNI hopefully home once able to eat and drink reliably again patient now admits that her daughter visiting is creating increased social stressors at home which exacerbate her pain-like symptoms Admission and Anticipated Discharge Date Admission Date: February 24, 2020 Subjective this pt feels somewhat improved with less pain, but she still has some nausea and dry heaves after eating. she has some leg swelling Review of Systems Review of Systems: Mild distress and fatigue no headache, blurry or double vision no speech or swallowing issues no chest pain, pressure or palpitations no shortness of breath, cough or wheezes Generalized abdominal pain, mild nausea with vomiting, no dysuria, hematuria or frequency no focal joint pain but does have lower extremity swelling bilaterally no back pain, CVA tenderness or radicular pain no bruising, bleeding or rashes no focal signs of weakness or numbness or altered sensation no complaints or anxiety or depression Physical Exam Physical Exam: The patient appeared to be in less pain Vital signs as documented. Lungs are clear to auscultation and appear unlabored Cardiac exam, Rhythm is regular.. No murmurs, rubs or gallops. Abdominal exam reveals normal bowel sounds, soft distended and dullness consistent with fluid wave hepatomegaly noted Extremities are moderately edematous bilaterally Neurologic exam is alert and oriented, no focal loss of strength or sensation Skin is without bruises or rashes Psychologically is without concerns for anxiety or depression Results & Data Results & Data ([facility]) Vital Signs (Past 12 Hours) Vital Signs Temp Pulse Resp BP Pulse Ox 02/26/20 07:44 98.4 F 106 H 18 120/67 96 02/26/20 03:12 98.8 F 109 H 19 134/78 94 02/25/20 23:39 98.4 F 109 H 18 129/60 96 PG Care Time/CCT Total # of Minutes Spent Total Time Spent with Patient: Total time spent is greater than 50% in coordination of care (as documented) at patient's floor/unit and/or counseling patient: Coding Level of Care Code 34297 Subseq Hosp Care Lvl 2 Diagnoses Nausea & vomiting R11.2 Vomiting Intractability: non-intractable Vomiting type: unspecified Metabolic acidosis E87.2 Abdominal pain R10.11 Abdominal location: right upper quadrant Portal vein thrombosis I81 Malignant neoplasm of upper-outer quadrant of left breast in female, estrogen receptor negative C50.412; Z17.1 Anemia D64.9 Anemia type: unspecified type Thrombocytopenia D69.6 DVT prophylaxis Z29.9 Discharge planning issues Z02.9 (1) Anemia Anemia type: unspecified type Qualified Code(s): D64.9 - Anemia, unspecified (2) Nausea & vomiting Vomiting Intractability: non-intractable Vomiting type: unspecified Qualified Code(s): R11.2 - Nausea with vomiting, unspecified (3) Abdominal pain Abdominal location: right upper quadrant Qualified Code(s): R10.11 - Right upper quadrant pain
[2020-02-26] MEDS: FAMOTIDINE 20 MG in SYRINGE 3 ML IV SCH ×2 (08:52→20:53)
[2020-02-26] MEDS: CHECK FENTANYL PATCH PLACEMENT SCH ×2 (08:56→16:34)
[2020-02-26] MEDS: INSULIN ASPART 100 UNITS/ML 3 ML PEN SC SCH ×4 (09:03→21:01)
[2020-02-26] MEDS: FERROUS SULFATE 325 MG TAB PO SCH (12:28)
[2020-02-26] MEDS: DOCUSATE SODIUM 100 MG CAP PO SCH ×2 (12:28→20:51)
[2020-02-26] MEDS: POLYETHYLENE (MIRALAX) 17 GM PACK PO SCH (12:29)
[2020-02-26] MEDS: PANTOprazole 40 MG TAB PO SCH (12:29)
[2020-02-26] MEDS: MULTIVITAMIN TAB PO SCH (12:29)
[2020-02-26] MEDS: HEPARIN 100 UNIT/ML 5ML FLUSH FLUSH PRN (17:54)
[2020-02-26] MEDS ORDERED: FUROSEMIDE 20 MG in SYRINGE 0 ML IV ONE (18:00)
[2020-02-27] MEDS: CHECK FENTANYL PATCH PLACEMENT SCH ×2 (00:02→09:46)
[2020-02-27 05:54] LABS: Mean Corpuscular Hgb Conc 34.5 g/dL (32-36); Nucleated RBC # (auto) 0.12 K/uL (0-0)
[2020-02-27 06:20] LABS: Hematocrit (blood only) 26.4 % (37-47); Hemoglobin 9.1 g/dL (12.0-16.0); Mean Corpuscular Volume 84.1 fL (80-100); RDW Coefficient of Variation 19.2 % (11.5-14.5); RDW Standard Deviation 57.8 fL (36.4-46.3); Red Blood Count 3.14 M/uL (4.2-5.4); White Blood Count 11.87 K/uL (4.8-10.8)
[2020-02-27 06:25] LABS: Platelet Count 57 K/uL (130-400)
[2020-02-27 06:26] LABS: Platelet Estimate Decreased (Normal)
[2020-02-27 06:28] LABS: Albumin Level 2.5 gm/dl (3.4-5.0); BUN Creatinine Ratio 9.7 (10-20); Bilirubin,Total 5.4 mg/dl (0.2-1); Calcium 8.5 mg/dl (8.5-10.1); Creatinine Clr Calc Pharmacy 64.9 ml/min; Est GFR (African American) 87.5; Est GFR (Non-African American) 75.5; Total Protein 5.8 gm/dl (6.4-8.2)
[2020-02-27] MEDS: HEPARIN 100 UNIT/ML 5ML FLUSH FLUSH PRN ×2 (08:05→08:57)
[2020-02-27] MEDS: INSULIN ASPART 100 UNITS/ML 3 ML PEN SC SCH (08:47)
[2020-02-27 08:54] LABS: Potassium 3.7 mmol/L (3.5-5.1)
[2020-02-27] MEDS: PANTOprazole 40 MG TAB PO SCH (08:56)
[2020-02-27] MEDS: FAMOTIDINE 20 MG in SYRINGE 3 ML IV SCH (08:56)
[2020-02-27] MEDS: MoRPHine SULFATE 4 MG/ML 1 ML CARP\\VIAL IV PRN (08:56)
[2020-02-27] MEDS: FERROUS SULFATE 325 MG TAB PO SCH (08:56)
[2020-02-27] MEDS: MULTIVITAMIN TAB PO SCH (08:56)
[2020-02-27 09:10] LABS: Bilirubin Direct 4.5 mg/dl (0-0.2)
[2020-02-27] MEDS: DOCUSATE SODIUM 100 MG CAP PO SCH (09:46)
[2020-02-27] MEDS: POLYETHYLENE (MIRALAX) 17 GM PACK PO SCH (09:46)
--- NOTE | 2020-02-27 18:29 | Discharge Summary ---
Date of Service February 27, 2020 Admission HPI Per Admitting Provider very pleasant 59yo female just discharged by us yesterday. went home feeling reasonably OK. got some food to take home - picked at it some but doesn't sound like she took in much. drank water some. was time for medications - took them - this upset her stomach and also seems to have caused some pain - which led to her taking her pain medication - which unfortunately caused even more nausea and she started vomiting - mostly just liquid but fairly nonstop. some abdominal pain as well - points to lower abdomen diffusely. no diarrhea. had a fairly normal BM yesterday. no f/c/s. did feel short of breath when EMS was called and coming - but after being on O2 for a short time the shortness of breath went away and now her breathing is good again - this is no longer an issue. after discussing all of the above, she then separately notes that stress might also be a significant factor in her nausea - her daughter who came up from [place] has 4 kids - and her 5yr old autistic son was very loud and rambunctious - causing inability for pt to rest once she got home - further he ran out of the house and pt ended up having to britta him to keep him from running away - causing physical exertion & emotional stress. additionally, once the children were tucked in, pt's dtr left for a while to visit some friends - which caused pt further stress. Principal Diagnosis Intractable nausea and vomiting Oncologic related pain with poor control Discharge Exam The patient appeared well Vital signs as documented. Lungs are clear to auscultation and appear unlabored however she has dullness at the bases consistent with pleural effusion Cardiac exam, Rhythm is regular.. No murmurs, rubs or gallops. Abdominal exam reveals normal bowel sounds, soft fluid wave consistent with ascites organomegaly consistent with hepatic metastasis Extremities are bilateral lower extremity edema is present Neurologic exam is alert and oriented, no focal loss of strength or sensation Skin is with bilateral venous stasis changes to her feet Discharge Data Allergies Allergy/AdvReac Type Severity Reaction Status Date / Time Cipro Allergy Mild ITCHING Verified 03/25/17 06:51 ciprofloxacin Allergy Unknown ITCHING Verified 02/26/20 14:12 doxycycline Allergy Unknown Rash Verified 02/26/20 14:12 Penicillins Allergy Unknown rash/itchin Verified 02/26/20 14:12 g Sulfa (Sulfonamide Allergy Unknown ITCHY Verified 02/26/20 14:12 Antibiotics) Consultations 02/24/20 17:17 ED Decision to Admit Stat Ordered Studies 02/24/20 14:18 CT abd pelvis IV con only Stat Hospital Course (1) Nausea & vomiting: Patient has improved. Seems to have better pain control which may have been impacting her nausea in a positive way Has been tolerant of transdermal fentanyl for pain control continue with pre- meal antiemetic therapy patient desires to go home is tolerating her meals well and will be discharged to care of her family she is instructed to eat frequent small meals (2) Metabolic acidosis: from poor intake and nausea/vomiting, All of resolved (3) Abdominal pain: almost certainly relates to cancer --The patient persists with a firmness c/w metastatic malignancy where she is tender. This patient likely has stretching of the capsule of her liver and she is palpable hepatomegal We have achieved better pain control with fentanyl augmented by oxycodone, she is given a prescription for fentanyl 25 (4) Portal vein thrombosis: was on anticoagulation prior to most recent admission - for anemia w heme positive stools. Hgb dropped and transfusion was required, anticoagulation had to be stopped. with this bleed, and with pancytopenia (especially worsening thrombocytopenia) likely also at play with her increasing lower extremity edema especially with her recent hydration upon presentation I agree with previous physician that it is too risky to re-institute anticoagulation for portal vein thrombosis given the above listed issues (5) Malignant neoplasm of upper-outer quadrant of left breast in female, estrogen receptor negative: poor prognosis Has previously seen Dr Rdz who notes her cancer to be triple negative, she does have extensive liver metastases. Patient requests second opinion wishes to see Prabhu in the [facility] for second opinion regarding her metastatic breast cancer (6) Anemia: remains stable (7) Thrombocytopenia: probably related to progressive liver disease. separate from her recent bleed, this too makes anticoagulation for portal vein quite worrisome, and therefore held still Total Time Total Time Spent Total Time Spent (In Minutes): It required greater than 30 minutes to prepare this patient for discharge Discharge Plan Discharge Items Patient Disposition: Home - Self-Care Reason For Visit: INTRACTABLE NAUSEA/VOMITING Discharge Diagnosis: intractable nausea cancer related pain Activity: Resume your previous activity Non-emergency contact: Primary Care Provider Call non-emergency contact if: you have any medication questions and your pain is not controlled Follow-up/Referrals: Bret Chavez MD [Surgeon] - Denise Watkins MD [Primary Care Provider] - 03/04/20 7:50 am (Please, follow up at [facility] with Dr. Watkins on TuesdayMarch 04 at 7:50 am. *The office is located in [address] of [facility], next to this hospital. If you need to cancel this visit or change it to a "virtual telehealth visit," call the office at [phone].) Diet: Regular Addtl Attending Provider Instructions: please eat frequent small meals consider seeing [facility] for a second opinion Pending Studies at Discharge: No Stand-Alone Forms: My [facility] [employer], Smoking Cessation Medications and DC Order Prescriptions: New fentanyl 25 mcg/hr Patch 72 Hour 25 mcg transdermal Q3D Qty: 10 RF: 0 Continued ferrous sulfate 325 mg (65 mg iron) Tablet,Delayed Release (Dr/Ec) 325 mg PO QAM 30 Days Qty: 30 RF: 0 diphenhydramine HCl [Benadryl] 25 mg capsule 25 mg PO QID PRN (Reason: excessive salivation) Qty: 30 RF: 0 docusate sodium [Colace] 100 mg capsule 100 mg PO BID RF: 0 oxycodone [Roxicodone] 5 mg tablet 5 mg PO Q6H PRN (Reason: Severe Pain (Scale Score 7-10)) RF: 0 pantoprazole [Protonix] 40 mg tablet,delayed release (DR/EC) 40 mg PO QAM RF: 0 polyethylene glycol 3350 [Miralax] 17 gram/dose powder 17 gm PO DAILY PRNRF: 0 Discontinued metformin [Glucophage] 1,000 mg Tablet 1,000 mg PO BID RF: 0 multivitamin Capsule 1 cap PO QAM RF: 0 glipizide [Glucotrol] 5 mg tablet 5 mg PO BID RF: 0 Discharge Orders: Discharge Order (Routine); Ordered 02/27/20 Ordered By: Agustin Laird Admission Data Admit Date/Time: 02/27/20 08:11 Attending Provider: Agustin Laird Admit Provider: Paddy Barnhart Primary Care Provider: Denise Watkins Other Providers: Jose Santiago Other Interventions: Discharge Summary Assessment (RN) Last Done: 02/27/20 09:40 DC Date/Time DO NOT enter until pt leaves facility: 02/27/20 10:42 Coding Level of Care Code D/C Day Management >30 mins Diagnoses Nausea & vomiting R11.2 Vomiting Intractability: non-intractable Vomiting type: unspecified Metabolic acidosis E87.2 Abdominal pain R10.11 Abdominal location: right upper quadrant Portal vein thrombosis I81 Malignant neoplasm of upper-outer quadrant of left breast in female, estrogen receptor negative C50.412; Z17.1 Anemia D64.9 Anemia type: unspecified type Thrombocytopenia D69.6
== END 2020-02-27 10:42 | disposition home or self-care (01) ==
LOC: 2W 13:46 → ED 13:46 → SUATTDRO 19:28 → 2W 20:08

== ENCOUNTER 2020-02-29 14:40 | Inpatient (IN) ==
--- NOTE | 2020-02-29 15:24 | Emergency Department Note ---
History of Present Illness General Chief complaint: Lethargic Stated complaint: Lethargic Time Seen by Provider: 02/29/20 15:08 Source: patient Mode of arrival: EMS Limitations: clinical acuity History of Present Illness Provider complaint: Abdominal pain, lethargy Onset (ago): week(s) Location: abdomen Radiation: other (Chest) Severity: severe Pain Consistency: + constant Quality: + constant Relieved By: + none Exacerbated By: + movement Associated symptoms: + chest pain, + loss of appetite, + malaise, + nausea/vom iting, + shortness of breath and + weakness Treatments prior to arrival: none This is a 59-year-old female who presents via EMS from home due to complaints of increased abdominal pain, chest pain, and weakness. Patient was just discharged from the hospital 2 days ago. Patient with known metastatic breast cancer, status post surgery and undergoing chemotherapy. Patient does have known metastases to the liver which the admitting team felt is likely contributing to her abdominal pain. Patient is a difficult historian, will answer a few yes/no questions for me, however otherwise cannot elaborate on any additional answers. Patient appears somnolent, however is moaning in pain, especially when discussing her abdomen. Patient was previously noted in the EMR to also have portal vein thrombosis, however anticoagulation was stopped due to GI bleeding. It appears patient was discharged with pain medication as well as nausea medication. Patient nods her head when asked about nausea and vomiting. Cannot tell me the last time she had a bowel movement. Continues to complain of abdominal pain. Pt seen during a time of high acuity and national emergency pandemic while wearing PPE. Home Medications Home Medications Medication Instructions Recorded Confirmed Type ferrous sulfate 325 mg PO QAM 30 Days #30 tab 02/16/20 02/29/20 Rx diphenhydramine HCl [Benadryl] 25 mg PO QID PRN #30 cap 02/23/20 02/29/20 Rx docusate sodium [Colace] 100 mg PO BID 02/24/20 02/29/20 History oxycodone [Roxicodone] 5 mg PO .Q4-6 PRN 02/24/20 02/29/20 History pantoprazole [Protonix] 40 mg PO QAM 02/24/20 02/29/20 History polyethylene glycol 3350 17 17 gm PO DAILY PRN 02/26/20 02/29/20 History gram/dose oral powder fentanyl 25 mcg TRANSDERMAL Q3D #10 ea 02/27/20 02/29/20 Rx Allergies Allergy/AdvReac Type Severity Reaction Status Date / Time Cipro Allergy Mild ITCHING Verified 03/25/17 06:51 ciprofloxacin Allergy Unknown ITCHING Verified 02/29/20 15:46 doxycycline Allergy Unknown Rash Verified 02/29/20 15:46 Penicillins Allergy Unknown rash/itchin Verified 02/29/20 15:46 g Sulfa (Sulfonamide Allergy Unknown ITCHY Verified 02/29/20 15:46 Antibiotics) Past Med/Surg History Medical History Acute hepatitis Hepatitis C - In remission Anemia HX OF Anxiety and depression Ascending cholangitis (Resolved) Asthma Bacteremia (Resolved) Breast cancer LEFT (PLAN FOR CHEMO FIRST THEN SURGERY- DID HAVE FOUR WEEKS OF CHEMO- STOPPE D EARLY DUE TO NEUROPATHY) Cystitis (Resolved) Depression with anxiety Diabetes mellitus, type 2 Gallstones Hepatitis C (Chronic) "IN REMISSION" TREATED MANY YEARS AGO High cholesterol HX OF History of chicken pox Hypertension Kidney stones Malignant neoplasm of upper-outer quadrant of left breast in female, 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 Dr. Cullen 06-11-19 Portal vein thrombosis (Acute) Thrombocytopenia Tubular adenoma Surgical History H/O dilation and curettage H/O oral surgery H/O tubal ligation History of breast biopsy History of cholecystectomy History of colonoscopy History of ERCP History of esophagogastroduodenoscopy (EGD) History of gynecologic surgery surgical treatment for History of tonsillectomy and adenoidectomy S/P ERCP Family History Father , does not know HX Alcohol abuse Mother Arthritis Family/Other Diabetes Arthritis Pure hypercholesterolemia Rheumatic fever Syphilis Migraine aura, persistent Hypertension Thyroid disorder Daughter Migraine aura, persistent Hypertension Diabetes Son Infected tooth Brother Epilepsy Denies family history of Ovarian cancer Prostate cancer Myocardial infarction Breast cancer Bleeding disorder Colorectal cancer Stroke Social History Preferred Language: Congolese Communication Ability: Impaired Visual Impairment: No Limitations Hearing Ability: Normal 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: No Beliefs That Will Affect Care: None marital status: Single Current Living Situation: Family Current Living Situation Comment: lives with son now current occupational status: employed 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 and A total of 10 systems reviewed and were otherwise negative Physical Exam Vital Signs Vital Signs - 24 hr 02/29/20 14:50 02/29/20 15:26 02/29/20 15:30 Temperature 36.8 C Temperature Source Oral Pulse Rate 100 H 100 H 105 H Pulse Rate from SpO2 Sensor 101 H 104 H Respiratory Rate 18 19 23 Blood Pressure 113/58 L 115/64 113/64 Blood Pressure Mean 76 78 69 Pulse Oximetry 96 100 100 Oxygen Delivery Method Room Air Room Air Sepsis Recent Fever Within 48 Hours No Sepsis Action Taken by Nursing No Action Required 02/29/20 16:00 02/29/20 16:30 02/29/20 17:00 Temperature Temperature Source Pulse Rate 103 H 101 H 101 H Pulse Rate from SpO2 Sensor 102 H 101 H 100 H Respiratory Rate 18 22 21 Blood Pressure 116/64 112/57 L 112/58 L Blood Pressure Mean 80 74 75 Pulse Oximetry 97 97 96 Oxygen Delivery Method Room Air Room Air Room Air Sepsis Recent Fever Within 48 Hours Sepsis Action Taken by Nursing GENERAL: alert, ill appearing, well nourished, moderate distress, non-toxic EYE EXAM: normal conjunctiva, PERRL and EOM's grossly intact OROPHARYNX: no exudate, no erythema, lips, buccal mucosa, and tongue normal and mucous membranes are moist NECK: supple, no nuchal rigidity, no adenopathy, non-tender LUNGS: Clear to auscultation. Normal chest wall mechanics, no w/r/r, sinus tachycardia at 105 on telemetry HEART: no murmurs, S1 normal and S2 normal ABDOMEN: abdomen distended and protuberant, generalized tenderness with palpation, decreased bowel sounds, hepatomegaly noted, no rebound or guarding, patient pushes my hand away with any attempts to palpate the abdomen, dull to percussion BACK: Back is symmetrical on inspection and there is no deformity, no midline tenderness, no CVA tenderness. SKIN: no rashes and no bruising UPPER EXTREMITIES: upper extremities are grossly normal. FROM, nml pulses b/l. LOWER EXTREMITIES: No pitting edema. FROM, nml pulses b/l. NEURO EXAM: Somnolent but arousable, oriented to person and place, moans in pain, unable to give additional history, cranial nerves II-XII grossly intact, normal speech, no gross weakness of arms, no gross weakness of legs. Gross sensation intact. Course Course 1711: Case discussed with Dr. Kessler for additional evaluation. She is well known to their service. Administered Medications Docusate Sodium (Colace) 100 mg PO BID [facility] Stop: 03/30/20 20:59 Last Admin: 03/01/20 09:17 Dose: Not Given Documented by: [id number] Admin: 02/29/20 21:02 Dose: Not Given Documented by: [id number] Ferrous Sulfate (Feosol) 325 mg PO QAM [facility] Stop: 03/31/20 08:59 Last Admin: 03/01/20 09:17 Dose: Not Given Documented by: [id number] Dextrose/Sodium Chloride (D5w And Nss) 1,000 mls @ 80 mls/hr IV .[id number] [facility] Stop: 03/31/20 16:44 Last Admin: 03/01/20 16:55 Dose: 80 mls/hr Documented by: [id number] Insulin Aspart (Novolog Flexpen) 0 units SC ACHS [facility] Stop: 03/31/20 07:29 Last Admin: 03/01/20 16:43 Dose: Not Given Documented by: [id number] Cosigned by: [id number] Admin: 03/01/20 13:26 Dose: Not Given Documented by: [id number] Cosigned by: [id number] Admin: 03/01/20 10:02 Dose: Not Given Documented by: [id number] Cosigned by: [id number] Morphine Sulfate (Morphine Sulfate) 2 mg IV Q30M PRN PRN Reason: Pain Stop: 03/14/20 20:03 Last Admin: 03/01/20 19:32 Dose: 2 mg Documented by: [id number] Admin: 03/01/20 16:34 Dose: 2 mg Documented by: [id number] Admin: 03/01/20 15:20 Dose: 2 mg Documented by: [id number] Admin: 03/01/20 14:04 Dose: 2 mg Documented by: [id number] Admin: 03/01/20 10:01 Dose: 2 mg Documented by: [id number] Admin: 02/29/20 23:36 Dose: 2 mg Documented by: [id number] Pantoprazole Sodium (Protonix) 40 mg PO QAM [facility] Stop: 03/31/20 08:59 Last Admin: 03/01/20 09:17 Dose: Not Given Documented by: [id number] Polyethylene Glycol (Miralax Powder Packet) 17 gm PO DAILY [facility] Stop: 03/31/20 08:59 Last Admin: 03/01/20 09:05 Dose: 17 gm Documented by: [id number] Discontinued Medications Fentanyl Citrate (Fentanyl Citrate) 50 mcg IV Q15M PRN PRN Reason: Pain Stop: 03/14/20 15:16 Last Admin: 02/29/20 18:09 Dose: 50 mcg Documented by: [id number] Admin: 02/29/20 16:07 Dose: 50 mcg Documented by: [id number] Sodium Chloride (Nss 1000ml) 1,000 mls @ 125 mls/hr IV .Q8H [facility] Stop: 03/30/20 15:29 Last Infusion: 02/29/20 21:02 Dose: 0 mls/hr Documented by: [id number] Admin: 02/29/20 16:06 Dose: 125 mls/hr Documented by: [id number] Sodium Chloride (Nss 1000ml) 1,000 mls @ 80 mls/hr IV .[id number] [facility] Stop: 03/30/20 20:03 Last Infusion: 03/01/20 16:56 Dose: 0 mls/hr Documented by: [id number] Admin: 03/01/20 09:18 Dose: 80 mls/hr Documented by: [id number] Infusion: 03/01/20 09:18 Dose: 80 mls/hr Documented by: [id number] Admin: 02/29/20 21:02 Dose: 80 mls/hr Documented by: [id number] Ceftriaxone Sodium 1,000 mg/ (Dextrose) 60 mls @ 120 mls/hr IV NOW STA; Protocol Stop: 03/01/20 17:57 Last Infusion: 03/01/20 18:57 Dose: 0 mls/hr Documented by: [id number] Admin: 03/01/20 18:25 Dose: 120 mls/hr Documented by: [id number] Medical Decision Making Differential Diagnosis Differential Diagnosis includes but is not limited to dehydration, stroke, anemia, hypoglycemia, hyponatremia, hypernatremia, urinary tract infection, pneumonia, bronchitis, sepsis, gastroenteritis, additional abdominal pathology, metabolic abnormalities, gastritis, peptic ulcer disease, GERD, gallbladder disease, pancreatitis, small bowel obstruction, acute coronary syndrome, pericarditis, ischemic bowel, irritable bowel disease, irritable bowel syndrome, appendicitis, diverticulitis, malignancy, hernia, urinary tract infection, torsion, [/ectopic (if female)], perforation, trauma, infectious. Medical Records Attestation: I reviewed the patient's medical records. Home Medications Current Medication List: was personally reviewed by me Laboratory Data Attestation: I reviewed the patient's lab results. Result diagrams: 03/01/20 06:23 03/01/20 06:23 Lab Results 02/29/20 02/29/20 02/29/20 Range/Units 15:48 15:48 15:48 WBC 10.79 (4.8-10.8) K/uL RBC 3.44 L (4.2-5.4) M/uL Hgb 9.5 L (12.0-16.0) g/dL Hct 29.0 L (37-47) % MCV 84.3 (80-100) fL MCH 27.6 (25-34) pg MCHC 32.8 (32-36) g/dL RDW Std Deviation 61.7 H (36.4-46.3) fL RDW Coeff of Noah 20.7 H (11.5-14.5) % Plt Count 66 L (130-400) K/uL Immature Gran % (Auto) 0.3 % Neut % (Auto) 80.9 % Lymph % (Auto) 9.2 % Pacific % (Auto) 9.4 % Eos % (Auto) 0.1 % Baso % (Auto) 0.1 % Immature Gran # (Auto) 0.03 H (0.00-0.02) K/uL Neut # (Auto) 8.74 H (1.4-6.5) K/uL Lymph # (Auto) 0.99 L (1.2-3.4) K/uL Pacific # (Auto) 1.01 H (0.11-0.59) K/uL Eos # (Auto) 0.01 (0-0.5) K/uL Baso # (Auto) 0.01 (0-0.2) K/uL Absolute Nucleated RBC 0.20 H (0-0) K/uL Nucleated RBC % (auto) 1.9 % Toxic Vacuolation 1+ Platelet Estimate Decreased L (Normal) Giant Platelets 1+ Polychromasia 1+ Anisocytosis Present Target Cells 1+ Schistocytes 1+ PT Cancelled INR Cancelled Sodium 135 L (136-145) mmol/L Potassium 4.8 (3.5-5.1) mmol/L Chloride 100 (98-107) mmol/L Carbon Dioxide 19 L (21-32) mmol/L Anion Gap 16.0 H (3-11) BUN 28 H (7-18) mg/dl Creatinine 2.02 H (0.6-1.2) mg/dl Est Cr Clr Drug Dosing 27.3 ml/min Est GFR ( Amer) 30.7 Est GFR (Non-Af Amer) 26.5 BUN/Creatinine Ratio 13.8 (10-20) Glucose 74 (70-99) mg/dl Calcium 8.0 L (8.5-10.1) mg/dl Magnesium 2.2 (1.8-2.4) mg/dl Total Bilirubin 5.6 H (0.2-1) mg/dl AST 729 H (15-37) U/L ALT 242 H (12-78) U/L Alkaline Phosphatase 313 H (45-117) U/L Ammonia (11-32) umol/L Troponin I < 0.015 (0-0.045) ng/ml Total Protein 6.0 L (6.4-8.2) gm/dl Albumin 2.2 L (3.4-5.0) gm/dl Globulin 3.8 (2.5-4.0) gm/dl Albumin/Globulin Ratio 0.6 L (0.9-2) Lipase 142 (73-393) U/L Specimen Hemolysis 02/29/20 Range/Units 17:58 WBC (4.8-10.8) K/uL RBC (4.2-5.4) M/uL Hgb (12.0-16.0) g/dL Hct (37-47) % MCV (80-100) fL MCH (25-34) pg MCHC (32-36) g/dL RDW Std Deviation (36.4-46.3) fL RDW Coeff of Noah (11.5-14.5) % Plt Count (130-400) K/uL Immature Gran % (Auto) % Neut % (Auto) % Lymph % (Auto) % Pacific % (Auto) % Eos % (Auto) % Baso % (Auto) % Immature Gran # (Auto) (0.00-0.02) K/uL Neut # (Auto) (1.4-6.5) K/uL Lymph # (Auto) (1.2-3.4) K/uL Pacific # (Auto) (0.11-0.59) K/uL Eos # (Auto) (0-0.5) K/uL Baso # (Auto) (0-0.2) K/uL Absolute Nucleated RBC (0-0) K/uL Nucleated RBC % (auto) % Toxic Vacuolation Platelet Estimate (Normal) Giant Platelets Polychromasia Anisocytosis Target Cells Schistocytes PT INR Sodium (136-145) mmol/L Potassium (3.5-5.1) mmol/L Chloride (98-107) mmol/L Carbon Dioxide (21-32) mmol/L Anion Gap (3-11) BUN (7-18) mg/dl Creatinine (0.6-1.2) mg/dl Est Cr Clr Drug Dosing ml/min Est GFR ( Amer) Est GFR (Non-Af Amer) BUN/Creatinine Ratio (10-20) Glucose (70-99) mg/dl Calcium (8.5-10.1) mg/dl Magnesium (1.8-2.4) mg/dl Total Bilirubin (0.2-1) mg/dl AST (15-37) U/L ALT (12-78) U/L Alkaline Phosphatase (45-117) U/L Ammonia < 10.0 L (11-32) umol/L Troponin I (0-0.045) ng/ml Total Protein (6.4-8.2) gm/dl Albumin (3.4-5.0) gm/dl Globulin (2.5-4.0) gm/dl Albumin/Globulin Ratio (0.9-2) Lipase (73-393) U/L Specimen Hemolysis Imaging Data Radiologist's Impression: XR chest 1V portable CLINICAL HISTORY: chest pain, sob dyspnea COMPARISON STUDY: 02/24/2020 FINDINGS: Minimal left basilar atelectasis. Lungs otherwise appear clear. Central catheter in superior vena cava. Diaphragms are smooth. IMPRESSION: Minimal atelectasis left base. Otherwise negative study. ACT 112: Negative or not required by law. The above report was generated using voice recognition software. It may contain grammatical, syntax or spelling errors. Electronically signed by: Lino Gordillo M.D. 02/29/2020 3:39 PM Blood Pressure Blood Pressure Findings: Normal blood pressure MDM Narrative Patient presenting here today due to increased abdominal pain and lethargy. Patient could answer questions of orientation but was somnolent. Labs drawn and sent. Additional imaging not performed as patient had just been admitted and discharged here and had subsequent imaging while present. Patient found to have new renal failure. Urine pending at the time of discussion with hospitalist for additional inpatient management. She is well-known to their service. Ammonia level also added after review of the patient's prior history. Patient was hemodynamically stable, afebrile. Recent imaging did not reveal any obvious etiology for acute renal failure including any postobstructive process. Patient with elevated LFTs although these appear consistent with prior levels. Patient also found to have anemia although these again were stable compared to prior levels. Patient with thrombocytopenia also, again stable compared to prior levels. An order was placed for continuous cardiac monitoring. The monitor shows a rate of _80 with normal sinus rhythm. Impression & Plan Acute renal failure, Anemia, Transaminitis, Thrombocytopenia, Acute generalized abdominal pain, Generalized weakness Discharge Plan Visit Data *Final* Discharge Date/Time: 02/29/20 19:36 Chief Complaint: Lethargic Stated Complaint: Lethargic ED Provider: Cynthia Brannon Discharge Problem: Acute renal failure, Anemia, Transaminitis, Thrombocytopenia, Acute generalized abdominal pain, Generalized weakness Patient Disposition: Admitted As Inpatient Discharge Instructions Interventions: ED Discharge Assessment Last Done: 02/29/20 19:36 Discharge Problem: Acute renal failure Qualifiers: Acute renal failure type: unspecified Qualified Code(s): N17.9 - Acute kidney failure, unspecified Anemia Qualifiers: Anemia type: unspecified type Qualified Code(s): D64.9 - Anemia, unspecified
[2020-02-29] MEDS ORDERED: SODIUM CHLORIDE 0.9% 1000ML 1,000 ML IV SCH (15:30)
--- NOTE | 2020-02-29 15:40 | XRay Report ---
XR chest 1V portable CLINICAL HISTORY: chest pain, sob dyspnea COMPARISON STUDY: 02/24/2020 FINDINGS: Minimal left basilar atelectasis. Lungs otherwise appear clear. Central catheter in superio r vena cava. Diaphragms are smooth. IMPRESSION: Minimal atelectasis left base. Otherwise negative study. ACT 112: Negative or not required by law. The above report was generated using voice recognition software. It may contain grammatical, syntax or spelling errors. Electronically signed by: Lino Gordillo M.D. 02/29/2020 3:39 PM
[2020-02-29 16:07] LABS: Mean Corpuscular Hgb Conc 32.8 g/dL (32-36); Nucleated RBC % (auto) 1.9 %
[2020-02-29] MEDS: fentaNYL citrate 100 MCG/2 ML VIAL IV PRN ×2 (16:07→18:09)
[2020-02-29 16:20] LABS: Hemoglobin 9.5 g/dL (12.0-16.0); Mean Corpuscular Hemoglobin 27.6 pg (25-34); Mean Corpuscular Volume 84.3 fL (80-100); RDW Coefficient of Variation 20.7 % (11.5-14.5); RDW Standard Deviation 61.7 fL (36.4-46.3); Red Blood Count 3.44 M/uL (4.2-5.4); White Blood Count 10.79 K/uL (4.8-10.8)
[2020-02-29 16:28] LABS: Alanine Aminotransferase 242 U/L (12-78); Albumin Level 2.2 gm/dl (3.4-5.0); Aspartate Aminotransferase 729 U/L (15-37); BUN Creatinine Ratio 13.8 (10-20); Blood Urea Nitrogen 28 mg/dl (7-18); Carbon Dioxide 19 mmol/L (21-32); Chloride 100 mmol/L (98-107); Creatinine Clr Calc Pharmacy 27.3 ml/min; Est GFR (African American) 30.7; Est GFR (Non-African American) 26.5; Glucose 74 mg/dl (70-99); Lipase 142 U/L (73-393); Magnesium 2.2 mg/dl (1.8-2.4); Potassium 4.8 mmol/L (3.5-5.1); Sodium 135 mmol/L (136-145)
[2020-02-29 16:35] LABS: Albumin Globulin Ratio 0.6 (0.9-2); Alkaline Phosphatase 313 U/L (45-117); Bilirubin,Total 5.6 mg/dl (0.2-1); Globulin 3.8 gm/dl (2.5-4.0); Troponin I < 0.015 ng/ml (0-0.045)
[2020-02-29 16:39] LABS: Anisocytosis Present; Basophils # (auto) 0.01 K/uL (0-0.2); Basophils % (auto) 0.1 %; Eosinophils # (auto) 0.01 K/uL (0-0.5); Eosinophils % (auto) 0.1 %; Giant Platelets 1+; Immature Granulocytes # (auto) 0.03 K/uL (0.00-0.02); Immature Granulocytes % (auto) 0.3 %; Lymphocytes # (auto) 0.99 K/uL (1.2-3.4); Lymphocytes % (auto) 9.2 %; Monocytes # (auto) 1.01 K/uL (0.11-0.59); Monocytes % (auto) 9.4 %; Neutrophils # (auto) 8.74 K/uL (1.4-6.5); Neutrophils % (auto) 80.9 %; Platelet Count 66 K/uL (130-400); Platelet Estimate Decreased (Normal); Polychromasia 1+; Schistocytes 1+; Target Cells 1+; Toxic Vacuolation 1+
--- NOTE | 2020-02-29 18:36 | History & Physical Report ---
Date of Service February 29, 2020 Assessment & Plan (1) Encephalopathy acute: -Unclear etiology without much history, could be secondary to constipation, opioid use or possible overuse, and acute kidney injury with dehydration. No evidence of infection. -Will order CT of the head noncontrast -Will remove her fentanyl patch for now and continue with just IV morphine as needed for pain -Will give IV fluids to treat acute kidney injury and dehydration -Needs bowel regimen-make MiraLAX scheduled daily, and add bisacodyl suppository as needed, increase docusate 100 mg twice daily scheduled -Observe for improvement (2) LUIS ANTONIO (acute kidney injury): Creatinine is up to 2.0 from baseline of 0.8 just 2 days ago Could be from poor p.o. intake and dehydration Bicarbonate is mildly low at 19 which also could be from her previous lactic acidosis (a lactate was not drawn on admission) or from dehydration -Giving normal saline at 80 ML's per hour after she received 1 L normal saline in the ER -Follow BMP in the morning (3) Abdominal pain: Secondary to known liver metastases and portal vein thrombosis Was started on fentanyl patch and was tolerating prior to discharge 2 days ago Now with acute encephalopathy, unclear if is related to opioid use/overuse at home? -Hold fentanyl patch and hold home oxycodone -We will give IV morphine only as needed at nurses discretion for severe pain -Check KUB -Bowel regimen for constipation most likely secondary to opioids (4) Metastatic disease: With triple negative breast cancer with metastasis to the liver, rapidly progressing -Oncology saw her last admission and thought she only had a limited amount of time left to live -She would not tolerate any chemotherapy at this point -She is doing very poorly-we will consult palliative care again to discuss the possibility of going on hospice (5) Malignant neoplasm of upper-outer quadrant of left breast in female, estrogen receptor negative: As above (6) Metabolic acidosis: As above -Follow BMP -Hydrating (7) Thrombocytopenia: Secondary to liver dysfunction Stable from previous -Follow CBC (8) Anemia: Secondary to recent GI bleeding and chronic disease -Follow CBC (9) Diabetes mellitus, type 2: Hemoglobin A1c 7.8% 1 month ago -Not taking any medications for this at home in the setting of poor p.o. intake and metastatic cancer -Blood sugar on admission was borderline low at 74 -We will check blood sugars and use loose insulin sliding scale as needed -She can have a regular diet (10) Transaminitis: LFTs all significantly elevated secondary to liver metastases, portal vein thrombosis with possible previous infarction -Follow LFTs (11) Portal vein thrombosis: Recent diagnosis of such a few weeks ago Was on anticoagulation and had coagulopathy and GI bleeding -No longer on anticoagulation due to being high risk for bleeding -Pain control as needed (12) Hypertension: Previous diagnosis, no longer on medications for such (13) Asthma: No acute issues (14) DVT prophylaxis: SCDs only Disposition-admit to medical floor with telemetry DNR/DNI as per patient's wishes on previous admissions and discussion with palliative care I attempted to call her son and he did not answer Palliative care consultation placed again-would strongly recommend patient consider hospice at home History of Present Illness Chief Complaint: Lethargy Primary Care Provider: Denise Watkins MD This patient is a 59-year-old female with metastatic breast cancer with mets to the liver, as well as a recently diagnosed portal vein thrombosis intolerant to anticoagulation due to GI bleeding, chronic hepatitis C, anemia and thrombocytopenia, DM 2, HTN, and asthma, who is had multiple recent hospitalizations. She was just discharged again 2 days ago after an admission for nausea and vomiting as well as lactic acidosis. She was placed on a fentanyl patch for severe abdominal pain related to her cancer and portal vein thrombosis and was discharged home. She was apparently brought back into the ER today with complaints of worsening generalized weakness, fatigue, and abdominal pain. In the ER, she was found to be afebrile with sinus tachycardia and normal blood pressure. She apparently had been complaining of a lot of abdominal pain and she was treated with IV fentanyl and was given IV fluids after found to be dehydrated with an acute kidney injury with her creatinine being up to 2.0 today. Her LFTs are elevated but stable from 2 days ago. Her ammonia level was normal. Her chest x-ray was negative, her ECG showed sinus tachycardia, her CBC showed a normal WBC count and anemia and thrombocytopenia actually improved from previous. Her urinalysis was significant for 2+ protein, trace ketones, 1+ blood, positive nitrate, 3+ bilirubin, 1+ leukocyte Estrace, with 5-10 RBCs, 1-5 WBCs, and 10-20 epithelial cells and no bacteria. This is consistent with contamination and with urine bilirubin from her liver dysfunction but not with infection. When I saw her, she was very lethargic and could barely keep her eyes open. She seemed confused and I had to ask her 3 times to rest her hand at her side so I could examine her as she kept reaching for my hand to shake it. She could not remember the last time she had had a bowel movement, and when asked about abdominal pain, she fell asleep. I attempted to call her son on the phone to get more information, but he did not answer and I left a voicemail. Allergies Allergy/AdvReac Type Severity Reaction Status Date / Time Cipro Allergy Mild ITCHING Verified 03/25/17 06:51 ciprofloxacin Allergy Unknown ITCHING Verified 02/29/20 15:46 doxycycline Allergy Unknown Rash Verified 02/29/20 15:46 Penicillins Allergy Unknown rash/itchin Verified 02/29/20 15:46 g Sulfa (Sulfonamide Allergy Unknown ITCHY Verified 02/29/20 15:46 Antibiotics) Home Medications Home Medications Medication Instructions Recorded Confirmed Type ferrous sulfate 325 mg PO QAM 30 Days #30 tab 02/16/20 02/29/20 Rx diphenhydramine HCl [Benadryl] 25 mg PO QID PRN #30 cap 02/23/20 02/29/20 Rx docusate sodium [Colace] 100 mg PO BID 02/24/20 02/29/20 History oxycodone [Roxicodone] 5 mg PO .Q4-6 PRN 02/24/20 02/29/20 History pantoprazole [Protonix] 40 mg PO QAM 02/24/20 02/29/20 History polyethylene glycol 3350 17 17 gm PO DAILY PRN 02/26/20 02/29/20 History gram/dose oral powder fentanyl 25 mcg TRANSDERMAL Q3D #10 ea 02/27/20 02/29/20 Rx Past Med/Surg History Medical History Acute hepatitis Hepatitis C - In remission Anemia HX OF Anxiety and depression Ascending cholangitis (Resolved) Asthma Bacteremia (Resolved) Breast cancer LEFT (PLAN FOR CHEMO FIRST THEN SURGERY- DID HAVE FOUR WEEKS OF CHEMO- STOPPED EARLY DUE TO NEUROPATHY) Cystitis (Resolved) Depression with anxiety Diabetes mellitus, type 2 Gallstones Hepatitis C (Chronic) "IN REMISSION" TREATED MANY YEARS AGO High cholesterol HX OF History of chicken pox Hypertension Kidney stones Malignant neoplasm of upper-outer quadrant of left breast in female, 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 Dr. Cullen 06-11-19 Portal vein thrombosis (Acute) Thrombocytopenia Tubular adenoma Surgical History H/O dilation and curettage H/O oral surgery H/O tubal ligation History of breast biopsy History of cholecystectomy History of colonoscopy History of ERCP History of esophagogastroduodenoscopy (EGD) History of gynecologic surgery surgical treatment for History of tonsillectomy and adenoidectomy S/P ERCP Family History Father , does not know HX Alcohol abuse Mother Arthritis Family/Other Diabetes Arthritis Pure hypercholesterolemia Rheumatic fever Syphilis Migraine aura, persistent Hypertension Thyroid disorder Daughter Migraine aura, persistent Hypertension Diabetes Son Infected tooth Brother Epilepsy Denies family history of Ovarian cancer Prostate cancer Myocardial infarction Breast cancer Bleeding disorder Colorectal cancer Stroke Social History Preferred Language: [place] African Communication Ability: Effective Visual Impairment: No Limitations Hearing Ability: Normal [place] Required: No Beliefs That Will Affect Care: None marital status: Single Current Living Situation: Family Current Living Situation Comment: lives with son now current occupational status: employed 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 Feels Safe at Home: Yes Safety Concerns: Feels Safe At This Time Smoking Status: Former smoker Tobacco Type: cigarettes ; Age Started Using Tobacco: 8 ; packs per day: 1 ; Cigarettes Per Day: 1 PPD ; Second Hand Exposu re: Yes ; Hx Alcohol Use: No Hx Substance Use: No Childhood Exposure to Second-Hand Smoke: Yes Dental Care, Regularly: Yes Physical Activity Frequency: Does not Exercise Seatbelt Use: always Sunscreen Use: No Review of Systems Review of Systems: Unobtainable due to cognitive status and Unobtainable due to reduced consciousness Physical Exam Constitutional: + thin and + lethargic; no acute distress Eyes: + scleral abnormality (With icterus) and PERRL ENMT: external ear and nose normal, oropharynx normal Neck: trachea midline, no thyromegaly Respiratory: normal respiratory effort, lungs clear to auscultation Cardiovascular: Rate/Rhythm: regular rhythm and + tachycardic Heart Sounds: no murmur Extremities: no edema Chest (Breasts): Chest: normal inspection of chest Gastrointestinal (Abdomen): Inspection/Auscultation: normal bowel sounds; abdomen not distended Percussion/Palpation: + abdomen tender (In the right side of abdomen without guarding or rebound) and + hepatomegaly (Enlarged liver with firm edge at least 7 cm beyond the costal margin) Musculoskeletal: Extremities: extremities normal to inspection; no cyanosis and no clubbing Skin: no rashes, warm and dry Neurologic: moves all extremities and + confused; no focal motor deficits Motor/Sensory: no tremor Psychiatric: Orientation: + not oriented x 3 and + uncooperative Eye Contact: + poor eye contact Lymphatic: no lymphedema Results & Data Results & Data ([facility]) Vital Signs (Past 12 Hours) Vital Signs Temp Pulse Resp BP Pulse Ox 02/29/20 18:00 101 H 22 100/59 L 100 02/29/20 17:30 101 H 18 111/52 L 100 02/29/20 17:00 101 H 21 112/58 L 96 02/29/20 16:30 101 H 22 112/57 L 97 02/29/20 16:00 103 H 18 116/64 97 02/29/20 15:30 105 H 23 113/64 100 02/29/20 15:26 100 H 19 115/64 100 02/29/20 14:50 36.8 C 100 H 18 113/58 L 96 Laboratory Results 02/29/20 02/29/20 02/29/20 Range/Units 19:06 17:58 15:48 WBC (4.8-10.8) K/uL RBC (4.2-5.4) M/uL Hgb (12.0-16.0) g/dL Hct (37-47) % MCV (80-100) fL MCH (25-34) pg MCHC (32-36) g/dL RDW Std Deviation (36.4-46.3) fL RDW Coeff of Noah (11.5-14.5) % Plt Count (130-400) K/uL Immature Gran % (Auto) % Neut % (Auto) % Lymph % (Auto) % Appling % (Auto) % Eos % (Auto) % Baso % (Auto) % Immature Gran # (Auto) (0.00-0.02) K/uL Neut # (Auto) (1.4-6.5) K/uL Lymph # (Auto) (1.2-3.4) K/uL Appling # (Auto) (0.11-0.59) K/uL Eos # (Auto) (0-0.5) K/uL Baso # (Auto) (0-0.2) K/uL Absolute Nucleated RBC (0-0) K/uL Nucleated RBC % (auto) % Toxic Vacuolation Platelet Estimate (Normal) Giant Platelets Polychromasia Anisocytosis Target Cells Schistocytes PT INR Sodium 135 L (136-145) mmol/L Potassium 4.8 (3.5-5.1) mmol/L Chloride 100 (98-107) mmol/L Carbon Dioxide 19 L (21-32) mmol/L Anion Gap 16.0 H (3-11) BUN 28 H (7-18) mg/dl Creatinine 2.02 H (0.6-1.2) mg/dl Est Cr Clr Drug Dosing 27.3 ml/min Est GFR ( Amer) 30.7 Est GFR (Non-Af Amer) 26.5 BUN/Creatinine Ratio 13.8 (10-20) Glucose 74 (70-99) mg/dl Calcium 8.0 L (8.5-10.1) mg/dl Magnesium 2.2 (1.8-2.4) mg/dl Total Bilirubin 5.6 H (0.2-1) mg/dl AST 729 H (15-37) U/L ALT 242 H (12-78) U/L Alkaline Phosphatase 313 H (45-117) U/L Ammonia < 10.0 L (11-32) umol/L Troponin I < 0.015 (0-0.045) ng/ml Total Protein 6.0 L (6.4-8.2) gm/dl Albumin 2.2 L (3.4-5.0) gm/dl Globulin 3.8 (2.5-4.0) gm/dl Albumin/Globulin Ratio 0.6 L (0.9-2) Lipase 142 (73-393) U/L Specimen Hemolysis Urine Color Dark Yellow Urine Appearance Cloudy A (Clear) Urine pH 5.0 (4.5-7.5) Ur Specific Rufe 1.023 (1.000-1.030) Urine Protein 2+ H (Negative) Urine Glucose (UA) Negative (Negative) Urine Ketones Trace H (Negative) Urine Blood 1+ H (Negative) Urine Nitrite Positive A (Negative) Urine Bilirubin 3+ H (Negative) Urine Urobilinogen Negative (Negative) Ur Leukocyte Esterase 1+ H (Negative) Urine WBC (Auto) 1-5 (0-5) /hpf Urine RBC (Auto) 5-10 H (0-4) /hpf U Hyaline Cast (Auto) 0 (0-5) /lpf U Epithel Cells (Auto) 10-20 H (0-5) /lpf Urine Bacteria (Auto) Negative (Negative) Urine Yeast Not Reportable 02/29/20 02/29/20 Range/Units 15:48 15:48 WBC 10.79 (4.8-10.8) K/uL RBC 3.44 L (4.2-5.4) M/uL Hgb 9.5 L (12.0-16.0) g/dL Hct 29.0 L (37-47) % MCV 84.3 (80-100) fL MCH 27.6 (25-34) pg MCHC 32.8 (32-36) g/dL RDW Std Deviation 61.7 H (36.4-46.3) fL RDW Coeff of Noah 20.7 H (11.5-14.5) % Plt Count 66 L (130-400) K/uL Immature Gran % (Auto) 0.3 % Neut % (Auto) 80.9 % Lymph % (Auto) 9.2 % Appling % (Auto) 9.4 % Eos % (Auto) 0.1 % Baso % (Auto) 0.1 % Immature Gran # (Auto) 0.03 H (0.00-0.02) K/uL Neut # (Auto) 8.74 H (1.4-6.5) K/uL Lymph # (Auto) 0.99 L (1.2-3.4) K/uL Appling # (Auto) 1.01 H (0.11-0.59) K/uL Eos # (Auto) 0.01 (0-0.5) K/uL Baso # (Auto) 0.01 (0-0.2) K/uL Absolute Nucleated RBC 0.20 H (0-0) K/uL Nucleated RBC % (auto) 1.9 % Toxic Vacuolation 1+ Platelet Estimate Decreased L (Normal) Giant Platelets 1+ Polychromasia 1+ Anisocytosis Present Target Cells 1+ Schistocytes 1+ PT Cancelled INR Cancelled Sodium (136-145) mmol/L Potassium (3.5-5.1) mmol/L Chloride (98-107) mmol/L Carbon Dioxide (21-32) mmol/L Anion Gap (3-11) BUN (7-18) mg/dl Creatinine (0.6-1.2) mg/dl Est Cr Clr Drug Dosing ml/min Est GFR ( Amer) Est GFR (Non-Af Amer) BUN/Creatinine Ratio (10-20) Glucose (70-99) mg/dl Calcium (8.5-10.1) mg/dl Magnesium (1.8-2.4) mg/dl Total Bilirubin (0.2-1) mg/dl AST (15-37) U/L ALT (12-78) U/L Alkaline Phosphatase (45-117) U/L Ammonia (11-32) umol/L Troponin I (0-0.045) ng/ml Total Protein (6.4-8.2) gm/dl Albumin (3.4-5.0) gm/dl Globulin (2.5-4.0) gm/dl Albumin/Globulin Ratio (0.9-2) Lipase (73-393) U/L Specimen Hemolysis Urine Color Urine Appearance (Clear) Urine pH (4.5-7.5) Ur Specific Rufe (1.000-1.030) Urine Protein (Negative) Urine Glucose (UA) (Negative) Urine Ketones (Negative) Urine Blood (Negative) Urine Nitrite (Negative) Urine Bilirubin (Negative) Urine Urobilinogen (Negative) Ur Leukocyte Esterase (Negative) Urine WBC (Auto) (0-5) /hpf Urine RBC (Auto) (0-4) /hpf U Hyaline Cast (Auto) (0-5) /lpf U Epithel Cells (Auto) (0-5) /lpf Urine Bacteria (Auto) (Negative) Urine Yeast Diagnostic Findings Chest x-ray image personally reviewed by me and agree with the following report: XR chest 1V portable CLINICAL HISTORY: chest pain, sob dyspnea COMPARISON STUDY: 02/24/2020 FINDINGS: Minimal left basilar atelectasis. Lungs otherwise appear clear. Central catheter in superior vena cava. Diaphragms are smooth. IMPRESSION: Minimal atelectasis left base. Otherwise negative study. Code Status & VTE Plan Code Status DNR/DNI VTE Prophylaxis Plan VTE Prophylaxis will be ordered: Yes PG Care Time/CCT Total # of Minutes Spent Total Time Spent with Patient: Total time spent is greater than 50% in coordination of care (as documented) at patient's floor/unit and/or counseling patient: Coding Level of Care Code 90468 Initial Inpt Care Lvl 3 Diagnoses Encephalopathy acute G93.40 LUIS ANTONIO (acute kidney injury) N17.9 Abdominal pain R10.11 Abdominal location: right upper quadrant Metastatic disease C79.9 Malignant neoplasm of upper-outer quadrant of left breast in female, estrogen receptor negative C50.412; Z17.1 Metabolic acidosis E87.2 Thrombocytopenia D69.6 Anemia D64.9 Diabetes mellitus, type 2 E11.9 Transaminitis R74.0 Portal vein thrombosis I81 Hypertension I10 Asthma J45.909 DVT prophylaxis Z29.9 (1) Abdominal pain Abdominal location: right upper quadrant Qualified Code(s): R10.11 - Right upper quadrant pain
[2020-02-29 19:16] LABS: Appearance Urine Cloudy (Clear); Bacteria Urine Automated Negative (Negative); Blood Urine 1+ (Negative); Color Urine Dark Yellow; Glucose Urine UA Negative (Negative); Ketones Urine Trace (Negative); Leukocyte Esterase Urine 1+ (Negative); Nitrite Urine Positive (Negative); Protein Urine 2+ (Negative); Specific Gravity Urine 1.023 (1.000-1.030); Urobilinogen Urine Negative (Negative)
[2020-02-29 19:22] LABS: Bilirubin Urine 3+ (Negative)
[2020-02-29 19:23] LABS: Ictotest Urine Positive (Negative)
[2020-02-29 19:55] LABS: Cast Urine Automated 0 /lpf (0-5)
[2020-02-29] MEDS ORDERED: ONDANSETRON INJ 2 MG/ML 2 ML VIAL IV PRN (20:04)
[2020-02-29] MEDS: DOCUSATE SODIUM 100 MG CAP PO SCH (21:02)
[2020-02-29] MEDS: SODIUM CHLORIDE 0.9% 1000ML 1,000 ML IV SCH (21:02)
[2020-02-29] MEDS ORDERED: bisacodyL 10 MG SUPP PR PRN (21:52)
[2020-02-29] MEDS ORDERED: GLUCAGON FOR INJ 1 MG VIAL SQ PRN (22:07)
[2020-02-29] MEDS ORDERED: GLUCOSE 10 TABS/TUBE PO PRN (22:07)
[2020-02-29] MEDS ORDERED: GLUCOSE 40% GEL 15 GM TUBE PO PRN (22:07)
[2020-02-29] MEDS ORDERED: CARBOHYDRATES FOR HYPOGLYCEMIA PO PRN (22:07)
[2020-02-29] MEDS ORDERED: DEXTROSE 50% 50 ML SYRINGE IV PRN (22:07)
[2020-02-29] MEDS: MoRPHine SULFATE 2 MG/ML CARP IV PRN (23:36)
[2020-03-01 06:36] LABS: Mean Corpuscular Hgb Conc 32.1 g/dL (32-36); Nucleated RBC # (auto) 0.24 K/uL (0-0); Nucleated RBC % (auto) 2.3 %
[2020-03-01 06:46] LABS: Hematocrit (blood only) 26.5 % (37-47); Hemoglobin 8.5 g/dL (12.0-16.0); Mean Corpuscular Hemoglobin 27.2 pg (25-34); Mean Corpuscular Volume 84.9 fL (80-100); RDW Coefficient of Variation 20.9 % (11.5-14.5); Red Blood Count 3.12 M/uL (4.2-5.4); White Blood Count 10.21 K/uL (4.8-10.8)
[2020-03-01 06:54] LABS: Platelet Count 58 K/uL (130-400)
[2020-03-01 06:55] LABS: Anisocytosis Present; Basophils # (auto) 0.01 K/uL (0-0.2); Basophils % (auto) 0.1 %; Echinocytes 1+; Immature Granulocytes # (auto) 0.07 K/uL (0.00-0.02); Immature Granulocytes % (auto) 0.7 %; Lymphocytes # (auto) 1.09 K/uL (1.2-3.4); Lymphocytes % (auto) 10.7 %; Monocytes # (auto) 1.13 K/uL (0.11-0.59); Monocytes % (auto) 11.1 %; Neutrophils # (auto) 7.91 K/uL (1.4-6.5); Neutrophils % (auto) 77.4 %; Platelet Estimate Decreased (Normal); Polychromasia 1+; Target Cells 1+
--- NOTE | 2020-03-01 07:06 | Electrocardiogram Report ---
Test Reason : Blood Pressure : / mmHG Vent. Rate : 104 BPM Atrial Rate : 104 BPM P-R Int : 112 ms QRS Dur : 070 ms QT Int : 336 ms P-R-T Axes : 058 -05 056 degrees QTc Int : 441 ms Sinus tachycardia Otherwise normal ECG When compared with ECG of 24-FEB-2020 14:15, No significant change was found Confirmed by Abundio Kelsey ([id number]) on 03/01/2020 7:06:25 AM Referred By: REFERRED SELF Confirmed By:Abundio Kelsey
[2020-03-01 07:12] LABS: Albumin Level 2.2 gm/dl (3.4-5.0); BUN Creatinine Ratio 15.6 (10-20); Calcium 7.7 mg/dl (8.5-10.1); Creatinine Clr Calc Pharmacy 23.6 ml/min; Est GFR (African American) 25.7; Est GFR (Non-African American) 22.2; Potassium 4.7 mmol/L (3.5-5.1)
--- NOTE | 2020-03-01 07:12 | CT Scan Report ---
CT head/brain wo con CLINICAL HISTORY: Confusion, acute change in mental status. History of breast carcinoma. COMPARISON STUDY: 02/20/2020, MRI the brain dated 02/22/2020 TECHNIQUE: Axial CT of the brain is performed from the vertex to the skull base. IV contrast was not administered for this examination. A dose lowering technique was utilized adhering to the principles of ALARA. CT DOSE: 691.05 mGy.cm FINDINGS: No intra or extra-axial mass lesions are visualized. There is no CT evidence of acute cortical infarc tion. There is no evidence of midline shift. There is no acute hemorrhage. No calvarial fractures ar e visualized. There are minor white matter hypodensities likely on a small vessel basis. There is no evidence of pathologic ventricular dilatation. There is no evidence of acute sinusitis IMPRESSION: No acute intracranial findings ACT 112: Negative or not required by law. Electronically signed by: Robert So M.D. 03/01/2020 7:11 AM
--- NOTE | 2020-03-01 07:18 | XRay Report ---
XR KUB/Abdomen 1 view CLINICAL HISTORY: abdominal pain pain. Nausea. COMPARISON STUDY: No previous studies for comparison. FINDINGS: The soft tissues, psoas shadows, renal outlines and intestinal gas pattern appear normal. T here is no evidence for bowel obstruction. No abnormal abdominal calcifications are seen. IMPRESSION: Normal study. ACT 112: Negative or not required by law. The above report was generated using voice recognition software. It may contain grammatical, syntax or spelling errors. Electronically signed by: Lino Gordillo M.D. 03/01/2020 7:16 AM
[2020-03-01 07:19] LABS: Bilirubin,Total 6.1 mg/dl (0.2-1); Total Protein 5.4 gm/dl (6.4-8.2)
[2020-03-01] MEDS ORDERED: FERROUS SULFATE 325 MG TAB PO SCH (09:00)
[2020-03-01] MEDS ORDERED: POLYETHYLENE (MIRALAX) 17 GM PACK PO SCH (09:00)
[2020-03-01] MEDS ORDERED: PANTOprazole 40 MG TAB PO SCH (09:00)
[2020-03-01] MEDS: DOCUSATE SODIUM 100 MG CAP PO SCH ×2 (09:17→21:25)
[2020-03-01] MEDS: SODIUM CHLORIDE 0.9% 1000ML 1,000 ML IV SCH (09:18)
--- NOTE | 2020-03-01 09:34 | Hospitalist Progress Note ---
Date of Service March 01, 2020 Assessment & Plan (1) Encephalopathy acute: Patient is a 59 year old female with PMHx of metastatic breast cancer, portal vein thrombosis, hepatitis c in remission, anemia, DM2 and hyperlipidemia who presents with acute encephalopathy. Acute encephalopathy in the setting of metastatic breast cancer and combination opioid pain relief -pt currently confused, moaning in pain -CT head this admission unremarkable; MRI 2 weeks prior also with no abnormalities noted -ammonia level normal -UA with positive nitrites, blood, leukocyte esterase, bilirubin but no bacteria; Urine culture NGTD -WBC within normal limits, no documented fever -likely secondary to use of fentanyl patch in combination with PO oxycodone for metastatic cancer pain relief -though infection from UTI less likely, will give one dose of Rocephin -will continue to hold home fentanyl patch and PO oxycodone -continue to give IV morphine as needed (samara when pt crying out in pain) -will re-assess mental status in AM. If pt lucid in AM, will have discussion of home with hospice with her. -Updated son who is her POA and advised that home with hospice was a possible decision he will have to make if mother is not lucid in AM. -Son stated that he is aware and in agreement with the plan. LUIS ANTONIO/?Kidney failure -Creatinine baseline of 0.8 -Elevated on admission and continues to trend upwards -Also noted oliguria with 100cc of urine after straight cath in last ~12 hours -continue NSS with D5w @ 80cc -continue to straight cath for bladder scan >500 Abdominal pain in the setting of metastatic breast cancer and portal vein thrombosis -KUB unremarkable for constipation -transaminases elevated but stable from last admission -continue PRN morphine for pain, hold home fentanyl patch and home oxycodone as above -continue bowel regimen of miralax daily scheduled, docusate 100mg BID scheduled with PRN bisacodyl suppository Portal vein thrombosis -Stable -No anticoagulation given Hx of recent GI bleed Metastatic Breast cancer -Pt has diagnosis of triple negative invasive ductal carcinoma with metastasis to the liver -s/p adjuvant chemotherapy, surgery this year and was preparing to receive radiation therapy. -was also considering a second opinion referral to the [facility] for closure and more time with her family -Follows with Dr. Rdz locally -If no improvement in mental status in AM, will discuss home with hospice with son who is her POA DMII -Hgba1c of 7.8 in January 2020 -currently on the hypoglycemic side -continue NSS w/d5w overnight as pt has poor PO intake -continue loose ISS -continue with regular diet Anemia -Recent acute blood loss anemia -could also be secondary to anemia of chronic disease -stable currently -will continue to monitor FEN/GI: NSS with d5w@80ml/hr, regular diet CODE STATUS: DNR/DNI DVT prophylaxis: None, given recent GI Bleed Dispo: Likely home with hospice Admission and Anticipated Discharge Date Admission Date: February 29, 2020 Supervising Physician Co-Signing Physician Notes Resident Physician Supervision Note: I independently interviewed and examined the patient and verified the dubon history and physical, reviewed labs and image studies, discussed the case with the resident Dr. Watkins and agree with the findings and care plan. Subjective Pt seen this AM. Unresponsive to most of my questions. Moaning in pain. Review of Systems Review of Systems: Unobtainable due to cognitive status Physical Exam Physical Exam: General: in bed moaning Skin: No noted rashes or bruises Psych: confused, nonresponsive Neuro: confused, nonresponsive HEENT: NC/AT, jaundiced eyes Chest: Nontender to palpation. CV: RRR, Normal s1, s2. No murmurs appreciated Resp: Breath sounds clear bilaterally, no increased effort of breathing. Abdomen:Soft, distended. Extremities: No edema in lower extremities bilaterally. Results & Data Results & Data ([facility]) Vital Signs (Past 12 Hours) Vital Signs Temp Pulse Pulse Resp BP Pulse Ox 03/01/20 07:21 36.3 C L 65 18 97/56 L 94 03/01/20 04:00 36.7 C 98 H 20 100/52 L 96 02/29/20 23:04 36.3 C L 101 H 18 103/67 98 02/29/20 22:33 101 H Resident Activity Tracking Resident Involvement: Resident Care Provided Care Provided: Adult Hospital Medicine
[2020-03-01] MEDS: MoRPHine SULFATE 2 MG/ML CARP IV PRN ×8 (10:01→22:51)
[2020-03-01] MEDS: INSULIN ASPART 100 UNITS/ML 3 ML PEN SC SCH ×4 (10:02→21:25)
[2020-03-01] MEDS ORDERED: D5W AND NSS 1,000 ML IV SCH (16:45)
[2020-03-01] MEDS ORDERED: cefTRIAXone SODIUM 1,000 MG in DEXTROSE 5% 50 ML IV STA (17:28)
[2020-03-01] MEDS ORDERED: MoRPHine SULFATE 2 MG/ML CARP IV STA (23:00)
[2020-03-01] MEDS ORDERED: LORazepam 0.5 MG/1 ML VIAL IV STA (23:05)
[2020-03-01] MEDS ORDERED: LORazepam 2 MG/4 ML VIAL ONE (23:12)
--- NOTE | 2020-03-02 04:43 | Communication Note ---
Date of Service: March 02, 2020 Left a voice message on primary contact's cell phone to come to hospital as patient's status is declining and could possible pass away within the next several hours. I provided instructions on coming through the ED on arrival.
[2020-03-02] MEDS ORDERED: SCOPOLAMINE 1.5 MG TDSY TD SCH (04:45)
--- NOTE | 2020-03-02 06:33 | Communication Note ---
Date of Service: March 02, 2020 Notified from nursing approx 10:30pm of 03/01/20 that patient was yelling out in pain, uncomfortable in the setting of Morphine 2mg IV [id number]. Christiana was given another dose of Morphine 2mg IV x 1 and then to make more comfortable Ativan 0.5mg IV. Nursing noted that they were familiar with patient and that she has declined overall significantly. Christiana had decreased level of consciousness and status appeared to be worsening, likely leading to . Family was contacted via Primary contact's cell phone number in an attempt to reach family to come visit patient prior to likely passing. A voice message was left with instructions on reporting to the ED first. Christiana has been a DNR/DNI code status. She ultimately went into vfib with respirations every 20-30 seconds. She at 6:03am. Family was not notified of as of note. Will relay need to discuss with family to day physician on morning sign out. Resident Activity Tracking Resident Involvement: Resident Care Provided Care Provided: Adult Hospital Medicine
[2020-03-02] MEDS ORDERED: CHECK SCOPOLAMINE PATCH PLACEMENT SCH (08:00)
--- NOTE | 2020-03-02 10:07 | Discharge Summary ---
Date of Service March 02, 2020 Admission HPI Per Admitting Provider This patient is a 59-year-old female with metastatic breast cancer with mets to the liver, as well as a recently diagnosed portal vein thrombosis intolerant to anticoagulation due to GI bleeding, chronic hepatitis C, anemia and thrombocytopenia, DM 2, HTN, and asthma, who is had multiple recent hospitalizations. She was just discharged again 2 days ago after an admission for nausea and vomiting as well as lactic acidosis. She was placed on a fentanyl patch for severe abdominal pain related to her cancer and portal vein thrombosis and was discharged home. She was apparently brought back into the ER today with complaints of worsening generalized weakness, fatigue, and abdominal pain. In the ER, she was found to be afebrile with sinus tachycardia and normal blood pressure. She apparently had been complaining of a lot of abdominal pain and she was treated with IV fentanyl and was given IV fluids after found to be dehydrated with an acute kidney injury with her creatinine being up to 2.0 today. Her LFTs are elevated but stable from 2 days ago. Her ammonia level was normal. Her chest x-ray was negative, her ECG showed sinus tachycardia, her CBC showed a normal WBC count and anemia and thrombocytopenia actually improved from previous. Her urinalysis was significant for 2+ protein, trace ketones, 1+ blood, positive nitrate, 3+ bilirubin, 1+ leukocyte Estrace, with 5-10 RBCs, 1-5 WBCs, and 10-20 epithelial cells and no bacteria. This is consistent with contamination and with urine bilirubin from her liver dysfunction but not with infection. When I saw her, she was very lethargic and could barely keep her eyes open. She seemed confused and I had to ask her 3 times to rest her hand at her side so I could examine her as she kept reaching for my hand to shake it. She could not remember the last time she had had a bowel movement, and when asked about abdominal pain, she fell asleep. I attempted to call her son on the phone to get more information, but he did not answer and I left a voicemail. Admission Exam Per Admitting Provider Constitutional: + thin and + lethargic; no acute distress Eyes: + scleral abnormality (With icterus) and PERRL ENMT: external ear and nose normal, oropharynx normal Neck: trachea midline, no thyromegaly Respiratory: normal respiratory effort, lungs clear to auscultation Cardiovascular: Rate/Rhythm: regular rhythm and + tachycardic Heart Sounds: no murmur Extremities: no edema Chest (Breasts): Chest: normal inspection of chest Gastrointestinal (Abdomen): Inspection/Auscultation: normal bowel sounds; abdomen not distended Percussion/Palpation: + abdomen tender (In the right side of abdomen without guarding or rebound) and + hepatomegaly (Enlarged liver with firm edge at least 7 cm beyond the costal margin) Musculoskeletal: Extremities: extremities normal to inspection; no cyanosis and no clubbing Skin: no rashes, warm and dry Neurologic: moves all extremities and + confused; no focal motor deficits Motor/Sensory: no tremor Psychiatric: Orientation: + not oriented x 3 and + uncooperative Eye Contact: + poor eye contact Lymphatic: no lymphedema Principal Diagnosis Acute encephalopathy in the setting of metastatic breast cancer Discharge Exam Pt on 03/02/2020. Last Exam on 03/01/2020: General: in bed moaning Skin: No noted rashes or bruises Psych: confused, nonresponsive Neuro: confused, nonresponsive HEENT: NC/AT, jaundiced eyes Chest: Nontender to palpation. CV: RRR, Normal s1, s2. No murmurs appreciated Resp: Breath sounds clear bilaterally, no increased effort of breathing. Abdomen:Soft, distended. Extremities: No edema in lower extremities bilaterally. Discharge Data Allergies Allergy/AdvReac Type Severity Reaction Status Date / Time Cipro Allergy Mild ITCHING Verified 03/25/17 06:51 ciprofloxacin Allergy Unknown ITCHING Verified 02/29/20 15:46 doxycycline Allergy Unknown Rash Verified 02/29/20 15:46 Penicillins Allergy Unknown rash/itchin Verified 02/29/20 15:46 g Sulfa (Sulfonamide Allergy Unknown ITCHY Verified 02/29/20 15:46 Antibiotics) Consultations 02/29/20 17:12 ED Decision to Admit Stat 02/29/20 20:04 Consult Case Management - Discharge Planning Routine Consult Palliative Care Routine Ordered Studies 02/29/20 21:53 CT head/brain wo con Urgent Hospital Course (1) Encephalopathy acute: Patient is a 59 year old female with PMHx of metastatic breast cancer, portal vein thrombosis, hepatitis c in remission, anemia, DM2 and hyperlipidemia who presented with acute encephalopathy. Pt on March 02, 2020 at 10:38AM. Acute encephalopathy in the setting of metastatic breast cancer and combination opioid pain relief -Pt on March 02, 2020 at 10:38AM -pt presented confused, moaning in pain -CT head this admission unremarkable; MRI 2 weeks prior also with no abnormalities noted -ammonia level normal -UA with positive nitrites, blood, leukocyte esterase, bilirubin but no bacteria; Urine culture NGTD -WBC within normal limits, no documented fever -likely secondary to use of fentanyl patch in combination with PO oxycodone for metastatic cancer pain relief -though infection from UTI less likely, given one dose of Rocephin -held home fentanyl patch and PO oxycodone -continued IV morphine as needed (samara when pt crying out in pain) -Before pt , further discussion of home with hospice as medical goal was anticipated with son who was her POA. 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 -was also considering a second opinion referral to the [facility] for [facility] and more time with her family -Followed with Dr. Rdz locally DMII -Hgba1c of 7.8 in January 2020 Anemia -Recent acute blood loss anemia -could also be secondary to anemia of chronic disease -h/h was stable (2) Metastatic disease: Total Time Total Time Spent Total Time Spent (In Minutes): See attending attestation Discharge Plan Discharge Items Patient Disposition: Reason For Visit: LUIS ANTONIO,LETHARGY Follow-up/Referrals: Denise Watkins MD [Primary Care Provider] - Stand-Alone Forms: [facility] Admission Data Admit Date/Time: 02/29/20 18:35 Other DC Date/Time DO NOT enter until pt leaves facility: 03/02/20 12:16 Resident Activity Tracking Resident Involvement: Resident Care Provided Care Provided: Adult Hospital Medicine
--- NOTE | 2020-03-02 10:35 | Death Pronouncement Note ---
Date of Service March 02, 2020 Pronouncement Note Admission Date Admission Date: February 29, 2020 Contributing Factors (1) Encephalopathy acute: (2) Metastatic disease: Contributing factors: Pt has a Hx of metastatic breast cancer to the liver and presented with acute encephalopathy and kidney failure in significant pain. Additional Data Confirmation of : no pulse, no respirations and no heart sounds Family: contacted (Family contacted and notified over the phone during the COVID pandemic.) Attending/PCP notified?: Yes Attending physician: Aimee Juarez MD Was code activated?: No (Pt was DNR/DNI) Resident Activity Tracking Resident Involvement: Resident Care Provided Care Provided: Adult Hospital Medicine
== END 2020-03-02 12:16 | disposition expired | DRG 91 ==
LOC: ED 14:40 → 2N 18:35 → SUATTDRO 18:35 → 2N 19:36